=== PATIENT | male | born 1940 | race Caucasian/White ===

== ENCOUNTER → 2018-01-10 16:38 | Outpatient (CLI) | payer OTHER, SELFPAY | PROVIDERS: Family Provider Family Medicine; PCP Family Medicine; Visit Provider Physician Assistant | DX: R30.0 Dysuria (principal); M54.5 Low back pain; R31.9 Hematuria, unspecified | CPT/HCPCS: 87086 ==

== ENCOUNTER → 2018-01-10 16:53 | Outpatient (CLI) | payer OTHER, SELFPAY ==
[2018-01-10 17:09] LABS: Add Manual Diff / Slide Review NO; Basophils Percent Auto 0.3 % (0-2); Eosinophils Percent Auto 0.3 % (2-4); Hematocrit 37.8 % (41-53); Hemoglobin 12.9 g/dL (13.5-17.5); Lymphocytes Percent Auto 10.2 % (25-40); Mean Corpuscular HGB Conc 34.1 % (30-36); Mean Corpuscular Hemoglobin 32.2 PG (26-34); Mean Corpuscular Volume 94.4 fL (80-100); Monocytes Percent Auto 9.2 % (3-14); Neutrophils Absolute Auto 10800 /uL (3000-5900); Platelet Count 285 X10^3/uL (150-400); Red Cell Distribution Width 13.8 % (11.6-14.8); White Blood Cell Count 13.6 X10^3/uL (4.5-11.0)
[2018-01-10 17:21] LABS: Alanine Aminotransferase 25 IU/L (21-72); Albumin 4.6 g/dL (3.5-5.0); Albumin Globulin Ratio 1.4 (1.0-2.8); Alkaline Phosphatase 144 U/L (38-126); Aspartate Aminotransferase 24 IU/L (17-59); Bilirubin Total 0.6 mg/dL (0.2-1.3); Blood Urea Nitrogen 27 mg/dL (9-20); Calcium 9.7 mg/dL (8.4-10.2); Carbon Dioxide 32 mmol/L (22-32); Chloride 98 mmol/L (98-107); Estimated Glomerular Filt Rate 45.3 mL/min (>60); Globulin 3.4 g/dL (1.7-4.1); Glucose 111 mg/dL (80-110); HEMOLYSIS < 15 (0-50); Potassium 4.9 mmol/L (3.4-5.1); Sodium 141 mmol/L (137-145)
== END ==
PROVIDERS: Family Provider Family Medicine; PCP Family Medicine; Visit Provider Physician Assistant
DX: M54.5 Low back pain (principal); R31.9 Hematuria, unspecified
CPT/HCPCS: 36415; 80053; 85025

== ENCOUNTER 2020-09-10 04:26 | Emergency (ER) | payer OTHER, SELFPAY ==
[2020-09-10 04:27] VITALS: BP 157/85; PULSE 99; RESP 18; TEMP 37; O2SAT 99; BMI 44.7
[2020-09-10] MEDS: cephALEXin 250 MG PREPACK 1 BOTTLE MISC (05:02)
--- NOTE | 2020-09-10 05:02 | ED_ITS ---
HPI - Skin/Abscess/Foreign Bdy General Chief complaint: Skin/Abscess/Foreign Body Stated complaint: Right foot pain Time Seen by Provider: 09/10/20 04:31 Source: patient and family Mode of arrival: Ambulatory Limitations: no limitations History of Present Illness HPI narrative: Patient is an 80-year-old male with history of hypertension who presents with right foot pain off and on for about 1 week. He says it started last after working in the garden he was wearing shoes. It got better the next day however the last 3-4 days he has had increasing pain when he walks. He says it is actually on the bottom of this foot at the base of his toes however the top of his foot is erythematous and warm to touch. He has not had any fever or chills erythema seems to be fairly isolated in the forefront of the foot. He denies any injury. He has not taken any Tylenol or ibuprofen for pain. MD complaint: rash Related Data Home Medications Medication Instructions Recorded Confirmed amitriptyline 25 mg tablet 25 mg PO DAILY 01/10/18 01/10/18 ascorbic acid (vitamin C) 1,000 mg 1 gram PO BID tab 01/10/18 01/10/18 tablet aspirin 81 mg tablet,delayed 81 mg PO DAILY 01/10/18 01/10/18 release hydrochlorothiazide 25 mg tablet 25 mg PO DAILY 01/10/18 01/10/18 lisinopril 20 mg tablet 20 mg PO BID tab 01/10/18 01/10/18 multivitamin 1 cap PO DAILY 01/10/18 01/10/18 omega-3 fatty acids 1,000 mg 1,000 mg PO DAILY 01/10/18 01/10/18 capsule tolterodine 4 mg capsule,extended 4 mg PO DAILY 01/10/18 01/10/18 release 24 hr Previous Rx's Medication Instructions Recorded cephalexin 500 mg PO TID 7 Days #21 cap 09/10/20 Allergies Allergy/AdvReac Type Severity Reaction Status Date / Time Mplrxqg-Ebe-Mot Reductase Allergy Mild Elevated Verified 01/10/18 15:38 Inhibitor liver enzymes Review of Systems Review of Systems Narrative: GENERAL: Denies chills, fatigue, malaise, fever, sweats, travel HEENT: Denies sinus pain, ear pain, sore throat, difficulty swallowing, neck pain RESPIRATORY: Denies dyspnea, cough, wheezing, hemoptysis, sputum. CARDIOVASCULAR: Denies chest pain, palpitations, orthopnea, edema GASTROINTESTINAL: Denies nausea, vomiting, abdominal pain, diarrhea, constipation, melena. : Denies dysuria, frequency, incontinence, hematuria, urinary retention, flank pain. MUSCULOSKELETAL: Foot pain SKIN: See HPI NEUROLOGIC: Denies weakness, dizziness, headache, numbness, change in speech, confusion PSYCHIATRIC: No concerning psychosocial issues. 12 point review of systems is negative except for those stated above and HPI Patient History Medical History (Updated 09/10/20 @ 05:03 by Aleena Dillon DO) Hypertension Social History Smoking Status: Never smoker Smoking Status: Never smoker Exam Initial Vital Signs Initial Vital Signs: Vital Signs Temperature 98.6 F 09/10/20 04:27 Pulse Rate 99 H 09/10/20 04:27 Respiratory Rate 18 09/10/20 04:27 Blood Pressure 157/85 H 09/10/20 04:27 Pulse Oximetry 99 09/10/20 04:27 GENERAL: Alert pleasant 80-year-old male CARDIOVASCULAR: peripheral pulses in tact, cap refill <2 sec RESPIRATORY: No respiratory distress, speaks in full sentences without difficulty EXTREMITIES: Normal range of motion, no clubbing or edema. Neurovascularly intact NEUROLOGICAL: Cranial nerves II through XII grossly intact. Normal gait and speech. SKIN: Right foot mild erythema on the dorsal side measuring 5 cm x 3 cm near base of toes it is warm to touch. The complains of tenderness on the plantar side no abnormalities found no fluctuation no puncture wound no laceration no swelling. Course Orders Ordered: Discontinued Medications Cefazolin Sodium (Cephalexin 250 Mg Prepack) 1 bottle MISC SEEINSTR ONE Stop: 09/10/20 04:53 Last Admin: 09/10/20 05:02 Dose: 500 mg Documented by: Ibuprofen (Ibuprofen 400 Mg Tablet) 800 mg PO NOW ONE Stop: 09/10/20 04:53 Last Admin: 09/10/20 05:03 Dose: 800 mg Documented by: Vital Signs Vital signs: Vital Signs - 8 hr 09/10/20 04:27 09/10/20 05:04 Temperature 98.6 F Pulse Rate 99 H 76 Respiratory Rate 18 18 Blood Pressure 157/85 H 130/62 Pulse Oximetry 99 98 MDM - Skin/Abscess/Foreign Bdy MDM Narrative Medical decision making narrative: Patient has warmth and mild erythema to the right foot. Differential includes cellulitis possible gout however seems to be an unlikely location. He has had no injury at this time I do not see need for imaging he has been ambulatory on it for over week. Patient is not septic Discussed with patient antibiotic trial to see if it improves along with warm soaks however if symptoms worsen then he needs to return to the ED. Discharge Plan Departure Patient Disposition: Home Clinical Impression: Cellulitis Qualifiers: Site of cellulitis: extremity Site of cellulitis of extremity: lower extremity Laterality: right Qualified Code(s): L03.115 - Cellulitis of right lower limb Activity Restrictions/Additional Instructions: *You have been diagnosed with cellulitis right foot *What to do: At this time I do believe you have a small infection in the skin of her right foot. You may try soaking it in warm water 1-2 times daily *Continue to take medications as directed Keflex 500 mg 3 times a day for 7 days --> S[facility] Tylenol 650 mg every 4-6 hours if needed for [id number] pain Motrin 600 mg every 6 hours if needed for [id number]-[id number] pain *Follow up with your primary care provider in 2-3 days *Return to ER if you should have increasing redness, increasing pain, or any new, worsening or concerning symptoms Prescriptions: New cephalexin 500 mg capsule 500 mg PO TID 7 Days Qty: 21 RF: 0 No Action ascorbic acid (vitamin C) 1,000 mg tablet 1 gram PO BID RF: 0 omega-3 fatty acids [Fish Oil Concentrate] 1,000 mg capsule 1,000 mg PO DAILY RF: 0 tolterodine 4 mg capsule,extended release 24hr 4 mg PO DAILY RF: 0 lisinopril 20 mg tablet 20 mg PO BID RF: 0 aspirin [Adult Aspirin Regimen] 81 mg tablet,delayed release (DR/EC) 81 mg PO DAILY RF: 0 amitriptyline 25 mg tablet 25 mg PO DAILY RF: 0 hydrochlorothiazide 25 mg tablet 25 mg PO DAILY RF: 0 multivitamin capsule 1 cap PO DAILY RF: 0 Referrals: Abeba Monique DO [Primary Care Provider] -
[2020-09-10] MEDS: IBUPROFEN 400 MG TABLET 800 MG PO (05:03)
[2020-09-10 05:04] VITALS: BP 130/62; PULSE 76; RESP 18; O2SAT 98
== END 2020-09-10 05:19 | disposition home or self-care (01) ==
PROVIDERS: Emergency Provider Emergency Medicine; Family Provider Family Medicine; PCP Family Medicine
DX: L03.115 Cellulitis of right lower limb (principal)
CPT/HCPCS: 99283

== ENCOUNTER 2024-02-07 13:40 | Inpatient (IN) | payer OTHER, SELFPAY ==
[2024-02-07] VITALS (98 sets, daily range): BP systolic 81–171; BP diastolic 40–90; PULSE 42–109; RESP 0–35; TEMP 29–37.2; O2SAT 30–100; BMI 43.8; BMI 42.6
--- NOTE | 2024-02-07 13:56 | EKG_ITS ---
[place] [id number] [address] [place] [id number] Test Date: 2024-02-07 Pat Name: Filemon Moore Department: Room: Gender: Male Clinical Support Nurse: ERNESTINA : 1940 Requested By: Order Number: [id number] Reading MD: Marlo Wilburn Measurements Intervals [place] Rate: 76 P: 39 TN: 230 QRS: 12 QRSD: 174 T: 66 QT: 438 QTc: 492 Interpretive Statements Atrial-sensed ventricular-paced rhythm with prolonged AV conduction Electronically Signed On 02-09-2024 14:43:52 PDT by Marlo Wilburn
--- NOTE | 2024-02-07 13:58 | DI.CT.S_ITS ---
PROCEDURE: CT ABDOMEN PELVIS W CON INDICATIONS: sepsis, 2 week abd post op TECHNIQUE: After the administration of intravenous contrast, axial sections acquired from the lung bases to the pubic symphysis. Coronal and sagittal reformats were performed. For radiation dose reduction, the following was used: automated exposure control, adjustment of mA and/or kV according to patient size. COMPARISON: [facility], CT, CT ANGIO CHEST PE PROTOCOL, 02/07/2024, 15:10. FINDINGS: Image quality: There is streak artifact seen through the upper abdomen. Lower Chest: Small bilateral pleural effusions are seen. Pacer leads are seen. ABDOMEN: Liver: No solid mass. Gallbladder: Layering rim calcified gallstones are seen. No additional CT findings of cholecystitis are seen. Biliary ducts: No biliary dilation. Pancreas: No ductal dilation. Spleen: Size is within normal limits. Adrenal Glands: No adrenal nodules. Kidneys and Ureters: No hydronephrosis. No solid mass. No complex renal cystic lesion which requires follow up. Stomach and Bowel: A moderate volume of stool is seen within the distal colon. The more proximal colon is within normal limits. Within the proximal sigmoid area, there is an anastomotic staple line seen, as on series 2 images 114 throughout 127. No significant regional abnormality is seen. No dilated loops of small bowel are seen. Peritoneum: No abnormal intraperitoneal fluid. No free air. Ventral Wall: Postoperative changes are seen of the anterior abdominal wall, with a mild fluid collection seen on the left, as on series 2, image 136, measuring 5 x 3.3 cm. Rectus diastasis can be seen. No domonique hernia can be seen. Abdominal Nodes: No retroperitoneal or mesenteric adenopathy by size criteria. Vessels: Aorta and inferior vena cava are normal in size. Atherosclerotic calcification is noted. PELVIS: Pelvic Organs: Unremarkable. Bladder: No bladder wall thickening, accounting for underdistention. Pelvic Nodes: No enlarged lymph nodes. Miscellaneous: No inguinal hernias are seen. Bones: No aggressive osseous abnormality. Age-appropriate bony degenerative changes are seen. IMPRESSION: Postoperative changes are seen, with a fluid collection within the left anterior abdominal wall. Postoperative seroma is suspected. Phlegmon is possible. A subcutaneous abscess is also possible, yet considered to be less likely. There is a proximal sigmoid anastomotic staple line, without local complication seen. There is rectus diastasis seen. There is a moderate volume of stool seen within the distal colon. The more proximal colon is within normal limits. Additional findings: Small bilateral pleural effusions Layering gallstones Dictated by: Jon Carbajal M.D. on 02/07/2024 at 14:48 Approved by: Jon Carbajal M.D. on 02/07/2024 at 14:53
--- NOTE | 2024-02-07 13:58 | DI.RAD.S_ITS ---
PROCEDURE: XR CHEST 1V INDICATIONS: sepsis TECHNIQUE: One view of the chest was acquired. COMPARISON: [facility], CR, XR CHEST 2 VIEWS, 12/24/2022, 18:41. [facility], CR, CHEST 2 VIEW, 08/02/2014, 13:00. FINDINGS: Surgical changes and devices: There is a right-sided central line seen, with the tip overlying the inferior aspect of the superior vena cava, 2 cm above the cavoatrial junction. A pacer device is seen. The leads are seen in stable positions. Lungs and pleura: Show prominence can be seen. No pleural effusions or pneumothorax. Mediastinum: Mediastinal contours appear normal. Heart size is moderately enlarged Bones and chest wall: No suspicious bony lesions. Age-appropriate bony degenerative changes are seen. Overlying soft tissues appear unremarkable. IMPRESSION: The tip of the right-sided central line can be seen 2 cm above the john. Cardiomegaly and interstitial prominence. CHF is suspected. Dictated by: Jon Carbajal M.D. on 02/07/2024 at 13:47 Approved by: Jon Carbajal M.D. on 02/07/2024 at 13:48
--- NOTE | 2024-02-07 14:20 | ED.GENADULT ---
HPI - General Adult General Chief complaint: Altered Mental Status Stated complaint: Lethargic Time Seen by Provider: 02/07/24 13:43 Source: patient and EMS History of Present Illness HPI narrative: 83-year-old gentleman with a history, hypertension, coronary artery disease with pacemaker in place, discharged from [facility] on January 31 after complicated exploratory laparotomy with extensive lysis of adhesions, small-bowel resection, omentectomy and placement of mesh and drains on January 22. He was discharge to health system and today was increasingly confused brought to the ER for evaluation. Significantly somnolent, hypoxic, difficulty obtaining peripheral access. Patient was moved to room 1 for more aggressive resuscitation. Central line was placed fluids started antibiotics initiated ABG shows hypoxia and hypercarbia. Started on BiPAP initially. Patient is a full code Related Data Home Medications Medication Instructions Recorded Confirmed amitriptyline 25 mg tablet 25 mg PO DAILY 01/10/18 01/10/18 ascorbic acid (vitamin C) 1,000 mg 1 gram PO BID 01/10/18 01/10/18 tablet aspirin 81 mg tablet,delayed 81 mg PO DAILY 01/10/18 01/10/18 release (Adult Aspirin Regimen) hydrochlorothiazide 25 mg tablet 25 mg PO DAILY 01/10/18 01/10/18 lisinopril 20 mg tablet 20 mg PO BID 01/10/18 01/10/18 multivitamin 1 cap PO DAILY 01/10/18 01/10/18 omega-3 fatty acids 1,000 mg 1,000 mg PO DAILY 01/10/18 01/10/18 capsule (Fish Oil Concentrate) tolterodine 4 mg capsule,extended 4 mg PO DAILY 01/10/18 01/10/18 release 24 hr Allergies Allergy/AdvReac Type Severity Reaction Status Date / Time [id number] Reductase Allergy Mild Elevated Verified 01/10/18 15:38 Inhibitor liver [Mdyusdd-Gxp-Kpm Reductase enzymes Inhibitor] Review of Systems Review of Systems ROS Unobtainable: Unobtainable due to medical condition Patient History Medical History Mobitz II Hypertension Surgical History History of permanent cardiac pacemaker placement H/O abdominal surgery Social History Smoking Status: Never smoker Smoking Status: Never smoker Exam Initial Vital Signs Initial Vital Signs: Vital Signs Blood Pressure 119/57 L 02/07/24 13:50 General: Chronically ill-appearing, in acute distress HEENT: Dry mucous membranes, normal sclera with reactive pupils, Neck: No JVD Respiratory: Lungs difficult to fully auscultate due to body habitus. Poor overall air movement no obvious wheezes, bibasilar crackles and rhonchi Cardiac: Paced rhythm, no murmurs. Abdomen: Obese, not distended, surgical dressing including pratima in place with purulent discharge from the distal portion of the wound appears to have moderate abdominal pain with palpation Skin: Pale he is still perfusing peripherally Neurologic: Moving all extremities, he is confused, responds to painful stimuli Extremities: No trauma, no obvious cellulitis, 1+ bilateral edema Psych: Confused almost point of being obtunded Genital exam: Surgical sutures circumferentially around the portion of the scrotum that would technically be the penile base. Scrotum completely engulfed the penis and can not be retracted over. Unable to visualize the glans or urethral meatus. There are notes in the records that the patient had a circumcision done at admission due to retraction of foreskin. Despite multiple attempts, We are unable to place a Peoples catheter at this time Procedures Central Line Placement Right IJ: Time Out Performed: Yes Patient Placed on Monitor/Pulse Ox: Yes MD Prep: mask, gown and gloves Central Line Prep: Povidone-Iodine 1% and sterile drapes applied Ultrasound Used for Placement: Yes Central Line Lumen Inserted: triple Post Procedure: sutured in place, good blood return, all ports aspirated, flushed, capped, sterile dressing applied and line stabilization device Post Procedure X-Ray: tip of catheter in good position and no pneumothorax seen Patient Tolerated Procedure: Well Complications: none Intubation Time out performed: Yes sedative: Etomidate Mg Given: 20 paralytic: Rocuronium Mg Given: 150 Assist Device Used: fiber optic device ET Tube Size: 8 ET Tube Uncuffed: No Tube Secured Depth (cm): 24 Tube Secured Location: teeth Tube Placement Confirmation: Visualized tube passing through cords, Equal breath sounds bilaterally, No breath sounds over epigastrium, Confirmation by capnometry and Chest Xray Patient Tolerated Procedure: Well Intubation Complications: none Course Orders Ordered: ED Orders 02/07/24 13:58 CT abdomen pelvis w con Stat XR chest 1V Stat EKG-12 Lead Stat 02/07/24 14:10 Blood Culture Stat Complete Blood Count AUTO DIFF Stat Comprehensive Metabolic Panel Stat Lactate (Lactic Acid) Stat Lipase Stat Magnesium Stat Procalcitonin Stat Troponin I Stat 02/07/24 14:17 ABG [Arterial Blood Gas] DAILY BiPAP Ventilatory Support RT PROTOCOL 02/07/24 14:25 Respiratory Panel (Film Array) Stat 02/07/24 14:37 CT angio chest PE protocol Stat 02/07/24 17:43 Chest [XR chest 1V] Stat 02/07/24 17:55 BNP [NT-proBNP (BNP-Adult 18+)] Stat Trop I [Troponin I] Stat 02/07/24 18:20 Urinalysis and Microscopic Stat Hydromorphone HCl (Hydromorphone 0.5 Mg Inj) 0.5 mg IV Q15MIN PRN PRN Reason: Pain, NOREPINEPHRINE BITARTRATE/D5W (Levophed) 4 mg in 250 mls @ 56.472 mls/hr IV TITRATE LU; Protocol Last Titration: 02/07/24 19:35 Dose: 0.025 mcg/kg/min, 14.118 mls/hr Documented By: Titration: 02/07/24 18:58 Dose: 0.025 mcg/kg/min, 14.118 mls/hr Documented By: Titration: 02/07/24 18:26 Dose: 0 mcg/kg/min, 0 mls/hr Documented By: Titration: 02/07/24 16:58 Dose: 0.025 mcg/kg/min, 14.118 mls/hr Documented By: Titration: 02/07/24 16:46 Dose: 0.05 mcg/kg/min, 28.236 mls/hr Documented By: Titration: 02/07/24 15:46 Dose: 0.025 mcg/kg/min, 14.118 mls/hr Documented By: Titration: 02/07/24 15:25 Dose: 0.05 mcg/kg/min, 28.236 mls/hr Documented By: Titration: 02/07/24 14:55 Dose: 0.075 mcg/kg/min, 42.354 mls/hr Documented By: Admin: 02/07/24 14:24 Dose: 0.1 mcg/kg/min, 56.472 mls/hr Documented By: DOROTHY Propofol (Propofol) 1,000 mg in 100 mls @ 4.518 mls/hr IV TITRATE LU; Protocol Last Titration: 02/07/24 19:35 Dose: 5 mcg/kg/min, 4.518 mls/hr Documented By: Admin: 02/07/24 17:30 Dose: 5 mcg/kg/min, 4.518 mls/hr Documented By: TOYIN Discontinued Medications Albuterol/Ipratropium (Albuterol/Ipratropium 3 Ml Ampul) 3 ml INH NOW ONE Stop: 02/07/24 18:47 Etomidate (Etomidate 2 Mg/Ml 10 Ml Vial) 20 mg IV NOW ONE Stop: 02/07/24 19:48 Last Admin: 02/07/24 17:22 Dose: 20 mg Documented By: TOYIN Sodium Chloride (Normal Saline 0.9%) 1,000 mls @ 1,000 mls/hr IV BOLUS ONE Stop: 02/07/24 14:56 Last Infusion: 02/07/24 15:50 Dose: Infused Documented By: Admin: 02/07/24 14:23 Dose: 1,000 mls/hr Documented By: DOROTHY Piperacillin Sod/Tazobactam (Sod 4.5 gm/ Sodium Chloride) 100 mls @ 200 mls/hr IV NOW ONE Stop: 02/07/24 14:18 Last Infusion: 02/07/24 15:21 Dose: Infused Documented By: Admin: 02/07/24 14:38 Dose: 200 mls/hr Documented By: DOROTHY Rocuronium [place] (Rocuronium 50 Mg/5 Ml Inj) 150 mg IV NOW ONE Stop: 02/07/24 19:48 Last Admin: 02/07/24 17:23 Dose: 150 mg Documented By: TOYIN Vital Signs Vital signs: Vital Signs - 8 hr 02/07/24 13:50 02/07/24 13:52 02/07/24 14:00 Temperature Pulse Rate 80 52 L Respiratory Rate 25 H 31 H Blood Pressure 119/57 L Pulse Oximetry 97 Oxygen Delivery Method Fraction of Inspired Oxygen 02/07/24 14:03 02/07/24 14:07 02/07/24 14:07 Temperature 98.4 F Pulse Rate 82 77 Respiratory Rate 22 24 Blood Pressure 119/57 L 116/54 L Pulse Oximetry 80 L 98 Oxygen Delivery Method Room Air Fraction of Inspired Oxygen 02/07/24 14:10 02/07/24 14:10 02/07/24 14:16 Temperature Pulse Rate 42 L Respiratory Rate 28 H Blood Pressure 118/53 L 94/48 L Pulse Oximetry 99 Oxygen Delivery Method Fraction of Inspired Oxygen 02/07/24 14:16 02/07/24 14:18 02/07/24 14:18 Temperature Pulse Rate 42 L Respiratory Rate 26 H 27 H Blood Pressure 100/50 L Pulse Oximetry 98 92 Oxygen Delivery Method Fraction of Inspired Oxygen 02/07/24 14:20 02/07/24 14:20 02/07/24 14:26 Temperature Pulse Rate 85 Respiratory Rate 27 H Blood Pressure 81/40 L 113/46 L Pulse Oximetry 99 Oxygen Delivery Method Fraction of Inspired Oxygen 02/07/24 14:26 02/07/24 14:30 02/07/24 14:30 Temperature Pulse Rate 47 L Respiratory Rate 31 H 21 Blood Pressure 144/63 H Pulse Oximetry 94 95 Oxygen Delivery Method Fraction of Inspired Oxygen 02/07/24 14:35 02/07/24 14:35 02/07/24 14:36 Temperature Pulse Rate 93 H Respiratory Rate 25 H Blood Pressure 132/63 113/46 L Pulse Oximetry 93 Oxygen Delivery Method Fraction of Inspired Oxygen 30 02/07/24 14:46 02/07/24 14:46 02/07/24 14:54 Temperature Pulse Rate 98 H Respiratory Rate 35 H Blood Pressure 97/51 L 149/69 H Pulse Oximetry 93 Oxygen Delivery Method Fraction of Inspired Oxygen 02/07/24 14:54 02/07/24 14:56 02/07/24 14:56 Temperature Pulse Rate 89 90 Respiratory Rate 33 H 30 H Blood Pressure 154/70 H Pulse Oximetry 92 93 Oxygen Delivery Method Fraction of Inspired Oxygen 02/07/24 14:59 02/07/24 14:59 02/07/24 15:00 Temperature Pulse Rate 93 H 93 H Respiratory Rate 31 H 26 H Blood Pressure 152/65 H Pulse Oximetry 93 93 Oxygen Delivery Method Fraction of Inspired Oxygen 02/07/24 15:05 02/07/24 15:05 02/07/24 15:10 Temperature Pulse Rate 87 Respiratory Rate 24 Blood Pressure 102/51 L 113/54 L Pulse Oximetry 91 Oxygen Delivery Method Fraction of Inspired Oxygen 02/07/24 15:10 02/07/24 15:16 02/07/24 15:16 Temperature Pulse Rate 92 H 95 H Respiratory Rate 17 Blood Pressure 127/62 Pulse Oximetry 91 92 Oxygen Delivery Method BiPAP Fraction of Inspired Oxygen 02/07/24 15:21 02/07/24 15:21 02/07/24 15:25 Temperature Pulse Rate 95 H Respiratory Rate Blood Pressure 140/85 142/65 H Pulse Oximetry 94 Oxygen Delivery Method Fraction of Inspired Oxygen 02/07/24 15:25 02/07/24 15:30 02/07/24 15:30 Temperature Pulse Rate 86 83 Respiratory Rate 14 Blood Pressure 155/70 H Pulse Oximetry 93 96 Oxygen Delivery Method Fraction of Inspired Oxygen 02/07/24 15:35 02/07/24 15:35 02/07/24 15:40 Temperature Pulse Rate 75 Respiratory Rate Blood Pressure 149/64 H 141/64 H Pulse Oximetry 94 Oxygen Delivery Method Fraction of Inspired Oxygen 02/07/24 15:40 02/07/24 15:41 02/07/24 15:45 Temperature 98.9 F Pulse Rate 75 Respiratory Rate Blood Pressure 146/63 H Pulse Oximetry 94 Oxygen Delivery Method Fraction of Inspired Oxygen 02/07/24 15:45 02/07/24 15:51 02/07/24 15:51 Temperature Pulse Rate 81 74 Respiratory Rate 14 Blood Pressure 111/53 L Pulse Oximetry 95 95 Oxygen Delivery Method Fraction of Inspired Oxygen 02/07/24 15:55 02/07/24 15:55 02/07/24 15:58 Temperature Pulse Rate 72 Respiratory Rate 14 Blood Pressure 119/57 L 111/53 L Pulse Oximetry 94 Oxygen Delivery Method Fraction of Inspired Oxygen 30 02/07/24 15:59 02/07/24 16:00 02/07/24 16:00 Temperature Pulse Rate 71 72 Respiratory Rate 16 14 20 Blood Pressure 112/54 L Pulse Oximetry 94 94 Oxygen Delivery Method BiPAP Fraction of Inspired Oxygen 02/07/24 16:05 02/07/24 16:05 02/07/24 16:10 Temperature Pulse Rate 72 Respiratory Rate 13 Blood Pressure 112/53 L 108/53 L Pulse Oximetry 94 Oxygen Delivery Method Fraction of Inspired Oxygen 02/07/24 16:10 02/07/24 16:15 02/07/24 16:15 Temperature Pulse Rate 68 67 Respiratory Rate 18 16 Blood Pressure 114/53 L Pulse Oximetry 94 94 Oxygen Delivery Method Fraction of Inspired Oxygen 02/07/24 16:20 02/07/24 16:20 02/07/24 16:25 Temperature Pulse Rate 75 76 Respiratory Rate 15 14 Blood Pressure 122/60 Pulse Oximetry 95 92 Oxygen Delivery Method BiPAP Fraction of Inspired Oxygen 02/07/24 16:25 02/07/24 16:30 02/07/24 16:30 Temperature Pulse Rate 73 Respiratory Rate Blood Pressure 133/60 123/58 L Pulse Oximetry 94 Oxygen Delivery Method Fraction of Inspired Oxygen 02/07/24 16:35 02/07/24 16:35 02/07/24 16:40 Temperature Pulse Rate 69 Respiratory Rate Blood Pressure 120/58 L 102/50 L Pulse Oximetry 95 Oxygen Delivery Method Fraction of Inspired Oxygen 02/07/24 16:40 02/07/24 16:42 02/07/24 16:42 Temperature Pulse Rate 66 65 Respiratory Rate 17 12 Blood Pressure 96/46 L Pulse Oximetry 93 94 Oxygen Delivery Method BiPAP Fraction of Inspired Oxygen 02/07/24 16:45 02/07/24 16:45 02/07/24 16:50 Temperature Pulse Rate 64 Respiratory Rate 19 Blood Pressure 92/44 L 123/59 L Pulse Oximetry 94 Oxygen Delivery Method Fraction of Inspired Oxygen 02/07/24 16:50 02/07/24 16:55 02/07/24 16:55 Temperature Pulse Rate 61 62 Respiratory Rate 14 15 Blood Pressure 130/61 Pulse Oximetry 96 96 Oxygen Delivery Method BiPAP Fraction of Inspired Oxygen 02/07/24 17:55 02/07/24 17:58 02/07/24 17:58 Temperature Pulse Rate 104 H 103 H Respiratory Rate 14 30 H Blood Pressure 167/74 H Pulse Oximetry 100 100 Oxygen Delivery Method Fraction of Inspired Oxygen 02/07/24 18:00 02/07/24 18:00 02/07/24 18:03 Temperature Pulse Rate 106 H Respiratory Rate 25 H Blood Pressure 170/74 H 167/74 H Pulse Oximetry 99 Oxygen Delivery Method Fraction of Inspired Oxygen 02/07/24 18:03 02/07/24 18:05 02/07/24 18:05 Temperature Pulse Rate 109 H 107 H Respiratory Rate 27 H 24 Blood Pressure 166/74 H Pulse Oximetry 98 97 Oxygen Delivery Method Fraction of Inspired Oxygen 02/07/24 18:08 02/07/24 18:08 02/07/24 18:10 Temperature Pulse Rate 101 H Respiratory Rate 13 Blood Pressure 158/71 H 169/76 H Pulse Oximetry 98 Oxygen Delivery Method Fraction of Inspired Oxygen 02/07/24 18:10 02/07/24 18:13 02/07/24 18:13 Temperature Pulse Rate 101 H 101 H Respiratory Rate 0 L 24 Blood Pressure 171/77 H Pulse Oximetry 96 96 Oxygen Delivery Method Fraction of Inspired Oxygen 02/07/24 18:15 02/07/24 18:15 02/07/24 18:18 Temperature Pulse Rate 98 H 93 H Respiratory Rate 24 0 L Blood Pressure 163/73 H Pulse Oximetry 96 95 Oxygen Delivery Method Fraction of Inspired Oxygen 02/07/24 18:18 02/07/24 18:20 02/07/24 18:20 Temperature Pulse Rate 90 Respiratory Rate 0 L Blood Pressure 168/78 H 155/69 H Pulse Oximetry 96 Oxygen Delivery Method Fraction of Inspired Oxygen 02/07/24 18:23 02/07/24 18:23 02/07/24 18:25 Temperature Pulse Rate 87 Respiratory Rate 29 H Blood Pressure 147/64 H 138/62 Pulse Oximetry 96 Oxygen Delivery Method Fraction of Inspired Oxygen 02/07/24 18:25 02/07/24 18:28 02/07/24 18:28 Temperature Pulse Rate 81 78 Respiratory Rate 22 24 Blood Pressure 128/60 Pulse Oximetry 95 96 Oxygen Delivery Method Fraction of Inspired Oxygen Medical Decision Making Lab Data 02/07/24 14:10 02/07/24 14:10 Labs: Lab Results 02/07/24 02/07/24 02/07/24 Range/Units 14:09 14:10 14:25 WBC 13.8 H (4.5-11.0) X10^3/uL RBC 2.52 L (4.5-5.9) X10^6/uL Hgb 7.9 L (13.5-17.5) g/dL Hct 24.6 L (41-53) % MCV 97.7 (80-100) fL MCH 31.5 (26-34) PG MCHC 32.2 (30-36) % RDW 15.2 H (11.6-14.8) % Plt Count 558 H (150-400) X10^3/uL Neut % (Auto) 80.4 H (50-75) % Lymph % (Auto) 9.4 L (25-40) % Ellis % (Auto) 9.3 (3-14) % Eos % (Auto) 0.2 L (2-4) % Baso % (Auto) 0.7 (0-2) % Neut # (Auto) 56249 H (5192-9154) /uL Lymph # (Auto) 1300 (8415-7791) /uL Ellis # (Auto) 1300 H (0-900) /uL Eos # (Auto) 0 (0-450) /uL Baso # (Auto) 100 (0-100) /uL ABG Sample Site Right radial ABG pH 7.34 L (7.35-7.45) ABG pCO2 69.1 H* (35-45) mmHg ABG pO2 68 L (80-100) mmHg ABG HCO3 37 H (23-27) mmol/L ABG Total CO2 38 H (23-27) mmol/L ABG O2 Saturation 91 L (95-100) % ABG Base Excess 9.5 H (-2-3) mmol/L Hayden Test Positive O2 Delivery Device FiO2 % % Sodium 139 (137-145) mmol/L Potassium 3.9 (3.4-5.1) mmol/L Chloride 100 (98-107) mmol/L Carbon Dioxide 34 H (22-32) mmol/L BUN 21 H (9-20) mg/dL Creatinine 1.06 (0.66-1.25) mg/dL Estimated GFR > 60 (>60) mL/min BUN/Creatinine Ratio 19.8 (6-22) Glucose 116 H (80-110) mg/dL Lactate 0.6 L (0.7-2.1) mmol/L Calcium 8.8 (8.4-10.2) mg/dL Magnesium 1.9 (1.6-2.3) mg/dL Total Bilirubin 0.3 (0.2-1.3) mg/dL AST 26 (17-59) IU/L ALT 17 (<50) IU/L Alkaline Phosphatase 99 (38-126) U/L Troponin I 0.027 (0.01-0.034) ng/mL NT-Pro-B Natriuret Pep (<450) pg/mL Total Protein 6.0 L (6.3-8.2) g/dL Albumin 3.1 L (3.5-5.0) g/dL Globulin 2.9 (1.7-4.1) g/dL Albumin/Globulin Ratio 1.1 (1.0-2.8) Lipase 84 (23-300) U/L Procalcitonin 0.114 (<0.5) ng/mL Urine Color Urine Appearance Urine pH (4.5-8.0) Ur Specific [place] (1.000-1.035) Urine Protein (Negative) Urine Glucose (UA) (Negative) g/dL Urine Ketones (NEGATIVE) Urine Occult Blood (Negative) Urine Nitrate (Negative) Urine Bilirubin (NEGATIVE) Urine Urobilinogen (0.2) E.U./dL Ur Leukocyte Esterase (NEGATIVE) Urine RBC (0-5/HPF) Urine WBC (0-5/HPF) Ur Squamous Epith Cells (0-5/HPF) Urine Bacteria (None) Urine Mucus (Negative) Ur Culture Indicated? Vol Urine Centrifuged Chlamy pneumoniae PCR Not detected (Not Detect) Adenovirus (PCR) Not detected (Not Detect) B. pertussis DNA (PCR) Not detected (Not Detect) B.parapertussis DNA PCR Not detected (Not Detecte) Coronavirus OC43 (PCR) Not detected (Not Detect) Coronavirus HKU1 (PCR) Not detected (Not Detect) Coronavirus 229E (PCR) Not detected (Not Detect) SARS-CoV-2 (PCR) Not detected (Not Detecte) Coronavirus NL63 (PCR) Not detected (Not Detect) Human Metapneumovir PCR Not detected (Not Detect) Influenza Type A (PCR) Not detected (Not Detect) Influenza Type B (PCR) Not detected (Not Detect) M. pneumoniae (PCR) Not detected (Not Detect) Parainfluenza 1 (PCR) Not detected (Not Detect) Parainfluenza 2 (PCR) Not detected (Not Detect) Parainfluenza 3 (PCR) Not detected (Not Detect) Parainfluenza 4 (PCR) Not detected (Not Detect) RSV (PCR) Not detected (Not Detect) Entero/Rhino (PCR) Not detected (Not Detect) 02/07/24 02/07/24 02/07/24 Range/Units 15:34 17:55 18:20 WBC (4.5-11.0) X10^3/uL RBC (4.5-5.9) X10^6/uL Hgb (13.5-17.5) g/dL Hct (41-53) % MCV (80-100) fL MCH (26-34) PG MCHC (30-36) % RDW (11.6-14.8) % Plt Count (150-400) X10^3/uL Neut % (Auto) (50-75) % Lymph % (Auto) (25-40) % Ellis % (Auto) (3-14) % Eos % (Auto) (2-4) % Baso % (Auto) (0-2) % Neut # (Auto) (9495-7999) /uL Lymph # (Auto) (5451-8599) /uL Ellis # (Auto) (0-900) /uL Eos # (Auto) (0-450) /uL Baso # (Auto) (0-100) /uL ABG Sample Site ABG pH 7.37 (7.35-7.45) ABG pCO2 58.8 H (35-45) mmHg ABG pO2 72 L (80-100) mmHg ABG HCO3 34 H (23-27) mmol/L ABG Total CO2 34 H (23-27) mmol/L ABG O2 Saturation 93 L (95-100) % ABG Base Excess 7.2 H (-2-3) mmol/L Hayden Test O2 Delivery Device Bipap FiO2 % 30 % % Sodium (137-145) mmol/L Potassium (3.4-5.1) mmol/L Chloride (98-107) mmol/L Carbon Dioxide (22-32) mmol/L BUN (9-20) mg/dL Creatinine (0.66-1.25) mg/dL Estimated GFR (>60) mL/min BUN/Creatinine Ratio (6-22) Glucose (80-110) mg/dL Lactate (0.7-2.1) mmol/L Calcium (8.4-10.2) mg/dL Magnesium (1.6-2.3) mg/dL Total Bilirubin (0.2-1.3) mg/dL AST (17-59) IU/L ALT (<50) IU/L Alkaline Phosphatase (38-126) U/L Troponin I 0.034 (0.01-0.034) ng/mL NT-Pro-B Natriuret Pep 4230 H (<450) pg/mL Total Protein (6.3-8.2) g/dL Albumin (3.5-5.0) g/dL Globulin (1.7-4.1) g/dL Albumin/Globulin Ratio (1.0-2.8) Lipase (23-300) U/L Procalcitonin (<0.5) ng/mL Urine Color Yellow Urine Appearance Sl cloudy Urine pH 5.0 (4.5-8.0) Ur Specific [place] 1.025 (1.000-1.035) Urine Protein 1+ H (Negative) Urine Glucose (UA) Negative (Negative) g/dL Urine Ketones Negative (NEGATIVE) Urine Occult Blood 3+ H (Negative) Urine Nitrate Negative (Negative) Urine Bilirubin Negative (NEGATIVE) Urine Urobilinogen 0.2 (0.2) E.U./dL Ur Leukocyte Esterase Negative (NEGATIVE) Urine RBC 10-30/hpf H (0-5/HPF) Urine WBC 0-1/hpf (0-5/HPF) Ur Squamous Epith Cells 0-1 /hpf (0-5/HPF) Urine Bacteria Few (2-10) H (None) Urine Mucus 1+ H (Negative) Ur Culture Indicated? Cult not indicated Vol Urine Centrifuged Low vol <10ml (spun) A Chlamy pneumoniae PCR (Not Detect) Adenovirus (PCR) (Not Detect) B. pertussis DNA (PCR) (Not Detect) B.parapertussis DNA PCR (Not Detecte) Coronavirus OC43 (PCR) (Not Detect) Coronavirus HKU1 (PCR) (Not Detect) Coronavirus 229E (PCR) (Not Detect) SARS-CoV-2 (PCR) (Not Detecte) Coronavirus NL63 (PCR) (Not Detect) Human Metapneumovir PCR (Not Detect) Influenza Type A (PCR) (Not Detect) Influenza Type B (PCR) (Not Detect) M. pneumoniae (PCR) (Not Detect) Parainfluenza 1 (PCR) (Not Detect) Parainfluenza 2 (PCR) (Not Detect) Parainfluenza 3 (PCR) (Not Detect) Parainfluenza 4 (PCR) (Not Detect) RSV (PCR) (Not Detect) Entero/Rhino (PCR) (Not Detect) Point of Care Testing Glucose POC 125 Point of care testing: Point of Care Testing Glucose POC 125 MDM Narrative Medical decision making narrative: CC: Increasing confusion weakness rapidly progressing to decreased responsiveness Complicating co-morbidities: Patient comes [facility]. Was at [facility] from January 22 through the with complicated abdominal surgery mesh placement, lysis of adhesions, small-bowel resection and circumcision. Data collected from: patient, medics, Medical records reviewed: Medical records from [facility] with his extensive hospitalization post abdominal surgery reviewed Patient is full code including intubation Differential considered: Sepsis, intra-abdominal abscess, hypercarbic hypoxic respiratory failure, viral syndrome, postoperative hemorrhage, congestive heart failure, pulmonary embolism Exam documented above, pertinent findings include: Patient is morbidly obese, pale, minimally responsive. Exam is difficult secondary to body habitus, I do not appreciate significant pulmonary abnormality however overall air movement is limited. No murmurs, he does not have JVD. With ultrasound evaluation of internal jugular vein. It is full but slightly compressible suggesting he is euvolemic. He does have 1+ lower extremity edema. Lab Test results independently reviewed as above. Pertinent findings: CBC is 13.8. Hemoglobin of 7.9 and 24.6. Comparison H&H on February 01 is 7.9 and 26 Chemistries are notable for appropriate renal function, slightly elevated carbon dioxide, normal electrolytes, no liver abnormalities Lactic acid is not elevated Initial troponin is undetectable 0.027 repeat is 0.034 ProBNP is slightly elevated at 4230 Procalcitonin is not significantly elevated Respiratory panel shows no viral etiology Urinalysis from catheterized sample shows red cells some bacteria no white cells no leukocyte esterase, do not suspect urinary tract infection Initial ABG had a pH of 7.34 with a CO2 of 69, O2 of 68 bicarb of 37 BiPAP was started Repeat shows slight change from CO2 from 69 down to 58 with the addition of BiPAP however respiratory drive and rate is decreasing with impending respiratory failure, decision made to intubate Independently reviewed EKG: Atrial since ventricular paced rhythm at a rate of 76 Imaging studies independently reviewed: Chest x-ray shows no effusions or obvious pneumothorax. Central line appropriately placed Post intubation chest x-ray shows appropriately placed ET tube CT chest angio PE study does not show significant pulmonary embolism. Mentions small bilateral pleural effusions with overlying atelectasis. No focal infiltrates. Slightly enlarged heart without pericardial effusion CT of the abdomen and pelvis shows put postoperative changes anterior abdominal wall with mild fluid collection measuring 5 x 3.3 cm without domonique hernia. Proximal sigmoid anastomotic staple line without local complication. Moderate volume of stool. No intra-abdominal abscess or obvious explanation for worsening clinical exam Consultations: Dr. Mae, general surgeon. He did evaluate the patient in the emergency department pratima in the lower portion of the wound are removed 3 packed. Mesh was visible at the base of the wound. He did not feel that this was significant cellulitis or perioperative infection that might be causing the severity of overall clinical presentation. He will continue to consult with hospitalization Treatments: Central line placement for vascular access and ability to use vasopressors Intubation due to hypoxic hypercarbic respiratory failure with increasing respiratory fatigue Position assisted Peoples catheter placement, post adult circumcision with postsurgical anatomy and penis that needed to be identified via ultrasound to find that urethral meatus with fingertip guided catheter into the urethral meatus Patient was given a single L of fluid with additional fluid held in light of possible congestive heart failure, pressors added for continued hypotension Antibiotics given with presumed sepsis, uncertain source Sedation post intubation DuoNeb for wheezing post intubation Re-evaluations: Throughout his emergency room visit there was no obvious localizing explanation for his deteriorating clinical course. Surgical consultation regarding surgical site and possibility of surgical site infection obtained. Clarified with the patient's that he truly wanted to be full code with intubation. Consultation with hospitalist for admission to the intensive care unit. Discussion: 83-year-old gentleman with significant hypotension, hypercarbic and hypoxic respiratory failure concerns for sepsis with no obvious infectious site or intra-abdominal abscess. No evidence of pulmonary embolism, mild congestive heart failure. Overall picture is certainly concerning with clearly deteriorating clinical picture after large surgical intervention. Severity of presentation and high possibility of mortality is reviewed with the . Patient is transferred to the intensive care unit in critical condition Additional Information: 425pm Dr Tu nunez. Opened and packed lower end of wound, fluid was clear and thin. Mesh was visible in the base. He re packed the wound. Critical Care Time Critical Care Time Critical Care Time: Yes Total Critical Care Time: 67 Attestation: Critical care time is separate from other billable procedures. There is a high probability of a significant, sudden or life-threatening deterioration that requires my full and direct attention, intervention and personal management. This critical care time includes consultation with family and other consulting doctors, review of records, and interpretation of data from labs, EKGs and imaging as well as managements of respiratory failure circulatory failure with ventilator management, IV medications for severe hypotension, IV antibiotics Discharge Plan Departure Patient Disposition: Admitted As Inpatient Clinical Impression: Delirium due to general medical condition Hypercapnic respiratory failure Qualifiers: Chronicity: acute on chronic Qualified Code(s): J96.22 - Acute and chronic respiratory failure with hypercapnia Altered mental status Qualifiers: Altered mental status type: unspecified Qualified Code(s): R41.82 - Altered mental status, unspecified Abdominal wound dehiscence Qualifiers: Encounter type: initial encounter Qualified Code(s): T81.321A - Disruption or dehiscence of closure of internal operation (surgical) wound of abdominal wall muscle or fascia, initial encounter Congestive heart failure Qualifiers: Heart failure type: unspecified Heart failure chronicity: acute Qualified Code(s): I50.9 - Heart failure, unspecified Admit Date/Time: 02/07/24 18:29 Admit Provider: Marlo Wilburn
[2024-02-07] MEDS: SODIUM CHLORIDE 0.9% 1,000 ML 1000 ML IV (14:23)
[2024-02-07] MEDS: NOREPINEPHRINE BITARTRATE/D5W 4 MG/250 ML PLAST..BAG 56.472 MG IV (14:24)
[2024-02-07 14:26] LABS: Add Manual Diff / Slide Review NO; Basophils Absolute Auto 100 /uL (0-100); Basophils Percent Auto 0.7 % (0-2); Eosinophils Absolute Auto 0 /uL (0-450); Eosinophils Percent Auto 0.2 % (2-4); Hematocrit 24.6 % (41-53); Hemoglobin 7.9 g/dL (13.5-17.5); Lymphocytes Absolute Auto 1300 /uL (1100-4500); Lymphocytes Percent Auto 9.4 % (25-40); Mean Corpuscular HGB Conc 32.2 % (30-36); Mean Corpuscular Hemoglobin 31.5 PG (26-34); Mean Corpuscular Volume 97.7 fL (80-100); Monocytes Absolute Auto 1300 /uL (0-900); Monocytes Percent Auto 9.3 % (3-14); Neutrophils Absolute Auto 11100 /uL (1500-7000); Neutrophils Percent Auto 80.4 % (50-75); Platelet Count 558 X10^3/uL (150-400); Red Blood Cell Count 2.52 X10^6/uL (4.5-5.9); Red Cell Distribution Width 15.2 % (11.6-14.8); White Blood Cell Count 13.8 X10^3/uL (4.5-11.0)
[2024-02-07 14:33] LABS: Alanine Aminotransferase 17 IU/L (<50); Albumin 3.1 g/dL (3.5-5.0); Albumin Globulin Ratio 1.1 (1.0-2.8); Alkaline Phosphatase 99 U/L (38-126); Aspartate Aminotransferase 26 IU/L (17-59); BUN Creatinine Ratio 19.8 (6-22); Bilirubin Total 0.3 mg/dL (0.2-1.3); Blood Urea Nitrogen 21 mg/dL (9-20); Calcium 8.8 mg/dL (8.4-10.2); Chloride 100 mmol/L (98-107); Estimated Glomerular Filt Rate > 60 mL/min (>60); Globulin 2.9 g/dL (1.7-4.1); Glucose 116 mg/dL (80-110); HEMOLYSIS < 15 (0-50); Lipase 84 U/L (23-300); Magnesium 1.9 mg/dL (1.6-2.3); Potassium 3.9 mmol/L (3.4-5.1); Sodium 139 mmol/L (137-145)
[2024-02-07 14:34] LABS: Lactate (Lactic Acid) 0.6 mmol/L (0.7-2.1)
[2024-02-07 14:35] LABS: Allen Test for ABG Passed? Positive; Base Excess ABG 9.5 mmol/L (-2-3); Blood Gas Collection Site Right Radial; HCO3 ABG 37 mmol/L (23-27); Oxygen Saturation ABG 91 % (95-100); PCO2 ABG 69.1 mmHg (35-45); PO2 ABG 68 mmHg (80-100); TCO2 ABG 38 mmol/L (23-27); pH ABG 7.34 (7.35-7.45)
--- NOTE | 2024-02-07 14:37 | DI.CT.S_ITS ---
PROCEDURE: CT ANGIO CHEST PE PROTOCOL INDICATIONS: respiratory failure TECHNIQUE: After the administration of intravenous contrast, 2 mm thick sections acquired from the pulmonary apices to the posterior costophrenic angles. 3-dimensional maximum intensity projection (MIP) coronal and sagittal reformats were then acquired through the thorax. For radiation dose reduction, the following was used: automated exposure control, adjustment of mA and/or kV according to patient size. COMPARISON: [facility], CT, CT ABDOMEN PELVIS W CON, 02/07/2024, 15:10. [facility], CR, XR CHEST 1V, 02/07/2024, 14:12. FINDINGS: Image quality: This study is limited by body habitus. Limited by bolus timing. Pulmonary arteries: The bolus of the contrast injection is suboptimal. The main pulmonary artery measures approximately 150 Hounsfield units. Pulmonary artery densities are greater than 250 Hounsfield units are considered to be ideal for evaluation of pulmonary embolism. However, no large or central pulmonary emboli are seen on these images. No pulmonary emboli are seen more distally, although sensitivity for detection of such is limited on this study. Lower Neck: No enlarged lymph nodes. Thyroid: No thyroid nodules which require sonographic follow up, per consensus guidelines. Axillae: No enlarged lymph nodes. Chest Wall: There is a left-sided pacer device. Bones: Age-appropriate bony degenerative changes are seen. Lungs and Pleura: Small bilateral pleural effusions are seen, with overlying atelectasis. There is a mild degree of thickening seen along the right oblique fissure, as on series 5, image 143 and on series 6, image 55, which is regarded to be benign. No suspicious pulmonary nodule is seen. No pneumothorax is seen. No focal infiltrates are seen. Heart: Heart size is mildly enlarged. No pericardial effusion. Thoracic Vessels: No aortic aneurysm. Mediastinum and Krystina: No enlarged lymph nodes. Esophagus: No wall thickening. No hiatal hernia. Upper Abdomen: Please see the accompanying CT report of the abdomen and pelvis. IMPRESSION: Study limited by bolus timing, yet without a large or central pulmonary embolism seen. Small bilateral pleural effusions are seen, with overlying atelectasis. There is mild cardiomegaly. Additional findings: Pacer device Dictated by: Jon Carbajal M.D. on 02/07/2024 at 14:53 Approved by: Jon Carbajal M.D. on 02/07/2024 at 14:56
[2024-02-07] MEDS: PIPERACILLIN/TAZO 4.5 GM in SODIUM CHLORIDE 0.9% 100 ML IV (14:38)
[2024-02-07 14:39] LABS: Carbon Dioxide 34 mmol/L (22-32)
[2024-02-07 14:46] LABS: Troponin I 0.027 ng/mL (0.01-0.034)
[2024-02-07 14:50] LABS: Procalcitonin 0.114 ng/mL (<0.5)
--- NOTE | 2024-02-07 14:50 | PC.NURSE ---
This RN attempts a camacho cath at provider Marisela's verbal direction. Recent procedure with sutures present. Unable to visualize penis even with repositioning. Provider Marisela made aware. She comes to bedside. She attempts camacho with no success. Ok to with hold camacho cath at this time per provider Marisela.
[2024-02-07 15:22] LABS: Adenovirus Not Detected (Not Detect); B. parapertussis Not Detected (Not Detecte); Bordetella pertussis Not Detected (Not Detect); Chlamydophila pneumoniae Not Detected (Not Detect); Coronavirus 229E Not Detected (Not Detect); Coronavirus HKU1 Not Detected (Not Detect); Coronavirus NL 63 Not Detected (Not Detect); Coronavirus OC43 Not Detected (Not Detect); Human Metapneumovirus Not Detected (Not Detect); Human Rhinovirus/Enterovirus Not Detected (Not Detect); Influenza A Not Detected (Not Detect); Influenza B Not Detected (Not Detect); Mycoplasma pneumoniae Not Detected (Not Detect); Parainfluenza Virus 1 Not Detected (Not Detect); Parainfluenza Virus 2 Not Detected (Not Detect); Parainfluenza Virus 3 Not Detected (Not Detect); Parainfluenza Virus 4 Not Detected (Not Detect); Respiratory Syncytial Virus Not Detected (Not Detect); SARS- CoV-2 Not Detected (Not Detecte)
--- NOTE | 2024-02-07 15:34 | PC.NURSE ---
Pt is in and out of responsiveness. Both eyes are 1mm and unreactive to light. Provider Marisela is made aware. RT remains at bedside with this RN.
[2024-02-07 15:39] LABS: Base Excess ABG 7.2 mmol/L (-2-3); Delivery System BiPAP; HCO3 ABG 34 mmol/L (23-27); Oxygen Saturation ABG 93 % (95-100); PCO2 ABG 58.8 mmHg (35-45); PO2 ABG 72 mmHg (80-100); TCO2 ABG 34 mmol/L (23-27); pH ABG 7.37 (7.35-7.45)
--- NOTE | 2024-02-07 16:20 | PC.NURSE ---
Upon request of patient's primary RN, this RN performed an additional pupillary reaction test. Patient's pupils responded to light when room was darkened (3 to 2 mm) but patient is non-responsive to verbal or physical stimuli; does not visually track.
--- NOTE | 2024-02-07 16:36 | PM.CN ---
History of Present Illness Consult details Date Patient Seen: 02/07/24 Time Patient Seen: 16:36 Chief complaint: Lethargic Reason for consult: Lethargy Narrative: Filemon is an 83-year-old man who presented from [facility] for progressive obtundation over the past several days. This history is obtained primarily through his and [facility]. Apparently Filemon had an emergency exploratory laparotomy, small-bowel resection and hernia repair with mesh by Dr. [facility] weeks ago. According to Filemon's he had a portion of necrotic small bowel that was resected. The surgeon use prosthetic mesh because they did not have any alternative. He had 2 drains for awhile that have subsequently been removed. She noticed that he was becoming more confused and lethargic over the past several days at [facility]. Since he has been here he was required noninvasive positive pressure ventilation but he remains obtunded. He has undergone a CT scan which shows no intra-abdominal abscess and some small fluid in the subcutaneous space. There is no bowel obstruction. There is no obvious recurrent hernia. I have seen the discharge summary from [facility] but not the operative note. A request has been sent out to get the op note to us. Meds Home Medications and Allergies Home Medications Medication Instructions Recorded Confirmed Type amitriptyline 25 mg tablet 25 mg PO DAILY 01/10/18 01/10/18 History ascorbic acid (vitamin C) 1,000 mg 1 gram PO BID 01/10/18 01/10/18 History tablet aspirin 81 mg tablet,delayed 81 mg PO DAILY 01/10/18 01/10/18 History release (Adult Aspirin Regimen) hydrochlorothiazide 25 mg tablet 25 mg PO DAILY 01/10/18 01/10/18 History lisinopril 20 mg tablet 20 mg PO BID 01/10/18 01/10/18 History multivitamin 1 cap PO DAILY 01/10/18 01/10/18 History omega-3 fatty acids 1,000 mg 1,000 mg PO DAILY 01/10/18 01/10/18 History capsule (Fish Oil Concentrate) tolterodine 4 mg capsule,extended 4 mg PO DAILY 01/10/18 01/10/18 History release 24 hr Allergies Allergy/AdvReac Type Severity Reaction Status Date / Time Kimscnn-UQI-RzU Reductase Allergy Mild Elevated Verified 09/30/18 15:38 Inhibitor liver [Qdqvgub-Utz-Yff Reductase enzymes Inhibitor] Exam Vital Signs (past 8 hours): - 02/07/24 13:50 02/07/24 13:52 02/07/24 14:00 Temperature Pulse Rate 80 52 L Respiratory Rate 25 H 31 H Blood Pressure 119/57 L Pulse Oximetry 97 Oxygen Delivery Method Fraction of Inspired Oxygen 02/07/24 14:03 02/07/24 14:07 02/07/24 14:07 Temperature 98.4 F Pulse Rate 82 77 Respiratory Rate 22 24 Blood Pressure 119/57 L 116/54 L Pulse Oximetry 80 L 98 Oxygen Delivery Method Room Air Fraction of Inspired Oxygen 02/07/24 14:10 02/07/24 14:10 02/07/24 14:16 Temperature Pulse Rate 42 L Respiratory Rate 28 H Blood Pressure 118/53 L 94/48 L Pulse Oximetry 99 Oxygen Delivery Method Fraction of Inspired Oxygen 02/07/24 14:16 02/07/24 14:18 02/07/24 14:18 Temperature Pulse Rate 42 L Respiratory Rate 26 H 27 H Blood Pressure 100/50 L Pulse Oximetry 98 92 Oxygen Delivery Method Fraction of Inspired Oxygen 02/07/24 14:20 02/07/24 14:20 02/07/24 14:26 Temperature Pulse Rate 85 Respiratory Rate 27 H Blood Pressure 81/40 L 113/46 L Pulse Oximetry 99 Oxygen Delivery Method Fraction of Inspired Oxygen 02/07/24 14:26 02/07/24 14:30 02/07/24 14:30 Temperature Pulse Rate 47 L Respiratory Rate 31 H 21 Blood Pressure 144/63 H Pulse Oximetry 94 95 Oxygen Delivery Method Fraction of Inspired Oxygen 02/07/24 14:35 02/07/24 14:35 02/07/24 14:36 Temperature Pulse Rate 93 H Respiratory Rate 25 H Blood Pressure 132/63 113/46 L Pulse Oximetry 93 Oxygen Delivery Method Fraction of Inspired Oxygen 30 02/07/24 14:46 02/07/24 14:46 02/07/24 14:54 Temperature Pulse Rate 98 H Respiratory Rate 35 H Blood Pressure 97/51 L 149/69 H Pulse Oximetry 93 Oxygen Delivery Method Fraction of Inspired Oxygen 02/07/24 14:54 02/07/24 14:56 02/07/24 14:56 Temperature Pulse Rate 89 90 Respiratory Rate 33 H 30 H Blood Pressure 154/70 H Pulse Oximetry 92 93 Oxygen Delivery Method Fraction of Inspired Oxygen 02/07/24 14:59 02/07/24 14:59 02/07/24 15:00 Temperature Pulse Rate 93 H 93 H Respiratory Rate 31 H 26 H Blood Pressure 152/65 H Pulse Oximetry 93 93 Oxygen Delivery Method Fraction of Inspired Oxygen 02/07/24 15:05 02/07/24 15:05 02/07/24 15:10 Temperature Pulse Rate 87 Respiratory Rate 24 Blood Pressure 102/51 L 113/54 L Pulse Oximetry 91 Oxygen Delivery Method Fraction of Inspired Oxygen 02/07/24 15:10 02/07/24 15:16 02/07/24 15:16 Temperature Pulse Rate 92 H 95 H Respiratory Rate 17 Blood Pressure 127/62 Pulse Oximetry 91 92 Oxygen Delivery Method BiPAP Fraction of Inspired Oxygen 02/07/24 15:21 02/07/24 15:21 02/07/24 15:25 Temperature Pulse Rate 95 H Respiratory Rate Blood Pressure 140/85 142/65 H Pulse Oximetry 94 Oxygen Delivery Method Fraction of Inspired Oxygen 02/07/24 15:25 02/07/24 15:30 02/07/24 15:30 Temperature Pulse Rate 86 83 Respiratory Rate 14 Blood Pressure 155/70 H Pulse Oximetry 93 96 Oxygen Delivery Method Fraction of Inspired Oxygen 02/07/24 15:35 02/07/24 15:35 02/07/24 15:40 Temperature Pulse Rate 75 Respiratory Rate Blood Pressure 149/64 H 141/64 H Pulse Oximetry 94 Oxygen Delivery Method Fraction of Inspired Oxygen 02/07/24 15:40 02/07/24 15:41 02/07/24 15:45 Temperature 98.9 F Pulse Rate 75 Respiratory Rate Blood Pressure 146/63 H Pulse Oximetry 94 Oxygen Delivery Method Fraction of Inspired Oxygen 02/07/24 15:45 02/07/24 15:51 02/07/24 15:51 Temperature Pulse Rate 81 74 Respiratory Rate 14 Blood Pressure 111/53 L Pulse Oximetry 95 95 Oxygen Delivery Method Fraction of Inspired Oxygen 02/07/24 15:55 02/07/24 15:55 02/07/24 15:58 Temperature Pulse Rate 72 Respiratory Rate 14 Blood Pressure 119/57 L 111/53 L Pulse Oximetry 94 Oxygen Delivery Method Fraction of Inspired Oxygen 30 02/07/24 15:59 02/07/24 16:00 02/07/24 16:00 Temperature Pulse Rate 71 72 Respiratory Rate 16 14 20 Blood Pressure 112/54 L Pulse Oximetry 94 94 Oxygen Delivery Method BiPAP Fraction of Inspired Oxygen 02/07/24 16:05 02/07/24 16:05 02/07/24 16:10 Temperature Pulse Rate 72 Respiratory Rate 13 Blood Pressure 112/53 L 108/53 L Pulse Oximetry 94 Oxygen Delivery Method Fraction of Inspired Oxygen 02/07/24 16:10 02/07/24 16:15 02/07/24 16:15 Temperature Pulse Rate 68 67 Respiratory Rate 18 16 Blood Pressure 114/53 L Pulse Oximetry 94 94 Oxygen Delivery Method Fraction of Inspired Oxygen 02/07/24 16:20 02/07/24 16:20 Temperature Pulse Rate 75 Respiratory Rate 15 Blood Pressure 122/60 Pulse Oximetry 95 Oxygen Delivery Method BiPAP Fraction of Inspired Oxygen Fraction of Inspired Oxygen 30 Oxygen Delivery Method BiPAP Narrative Exam Narrative: Obtunded There was some mild erythema around the lower portion of the incision with some clear fluid drainage There are wounds in the left abdomen is suggestive of recent drains that had been removed Upon removing several sutures and pratima from the lower portion of the wound a proximally 10 mL of clear fluid were drained and some synthetic mesh is visible at the base of the wound Objective Labs 02/07/24 14:10 02/07/24 14:10 Labs: Laboratory Results - last 24 hr 02/07/24 02/07/24 02/07/24 14:09 14:10 14:25 WBC 13.8 H RBC 2.52 L Hgb 7.9 L Hct 24.6 L MCV 97.7 MCH 31.5 MCHC 32.2 RDW 15.2 H Plt Count 558 H Neut % (Auto) 80.4 H Lymph % (Auto) 9.4 L Hockley % (Auto) 9.3 Eos % (Auto) 0.2 L Baso % (Auto) 0.7 Neut # (Auto) 23980 H Lymph # (Auto) 1300 Hockley # (Auto) 1300 H Eos # (Auto) 0 Baso # (Auto) 100 ABG Sample Site Right radial ABG pH 7.34 L ABG pCO2 69.1 H* ABG pO2 68 L ABG HCO3 37 H ABG Total CO2 38 H ABG O2 Saturation 91 L ABG Base Excess 9.5 H Hayden Test Positive O2 Delivery Device FiO2 % Sodium 139 Potassium 3.9 Chloride 100 Carbon Dioxide 34 H BUN 21 H Creatinine 1.06 Estimated GFR > 60 BUN/Creatinine Ratio 19.8 Glucose 116 H Lactate 0.6 L Calcium 8.8 Magnesium 1.9 Total Bilirubin 0.3 AST 26 ALT 17 Alkaline Phosphatase 99 Troponin I 0.027 Total Protein 6.0 L Albumin 3.1 L Globulin 2.9 Albumin/Globulin Ratio 1.1 Lipase 84 Procalcitonin 0.114 Chlamy pneumoniae PCR Not detected Adenovirus (PCR) Not detected B. pertussis DNA (PCR) Not detected B.parapertussis DNA PCR Not detected Coronavirus OC43 (PCR) Not detected Coronavirus HKU1 (PCR) Not detected Coronavirus 229E (PCR) Not detected SARS-CoV-2 (PCR) Not detected Coronavirus NL63 (PCR) Not detected Human Metapneumovir PCR Not detected Influenza Type A (PCR) Not detected Influenza Type B (PCR) Not detected M. pneumoniae (PCR) Not detected Parainfluenza 1 (PCR) Not detected Parainfluenza 2 (PCR) Not detected Parainfluenza 3 (PCR) Not detected Parainfluenza 4 (PCR) Not detected RSV (PCR) Not detected Entero/Rhino (PCR) Not detected 02/07/24 15:34 WBC RBC Hgb Hct MCV MCH MCHC RDW Plt Count Neut % (Auto) Lymph % (Auto) Hockley % (Auto) Eos % (Auto) Baso % (Auto) Neut # (Auto) Lymph # (Auto) Hockley # (Auto) Eos # (Auto) Baso # (Auto) ABG Sample Site ABG pH 7.37 ABG pCO2 58.8 H ABG pO2 72 L ABG HCO3 34 H ABG Total CO2 34 H ABG O2 Saturation 93 L ABG Base Excess 7.2 H Hayden Test O2 Delivery Device Bipap FiO2 % 30 % Sodium Potassium Chloride Carbon Dioxide BUN Creatinine Estimated GFR BUN/Creatinine Ratio Glucose Lactate Calcium Magnesium Total Bilirubin AST ALT Alkaline Phosphatase Troponin I Total Protein Albumin Globulin Albumin/Globulin Ratio Lipase Procalcitonin Chlamy pneumoniae PCR Adenovirus (PCR) B. pertussis DNA (PCR) B.parapertussis DNA PCR Coronavirus OC43 (PCR) Coronavirus HKU1 (PCR) Coronavirus 229E (PCR) SARS-CoV-2 (PCR) Coronavirus NL63 (PCR) Human Metapneumovir PCR Influenza Type A (PCR) Influenza Type B (PCR) M. pneumoniae (PCR) Parainfluenza 1 (PCR) Parainfluenza 2 (PCR) Parainfluenza 3 (PCR) Parainfluenza 4 (PCR) RSV (PCR) Entero/Rhino (PCR) [facility] Medical History (Updated 02/07/24 @ 16:41 by Saeid Mae MD) Hypertension Surgical History (Updated 02/07/24 @ 14:23 by Laure Antonio MD) H/O abdominal surgery Tobacco & Substance Use Smoking Status: Never smoker Assessment & Plan Assessment and plan (1) Hypercapnic respiratory failure: Qualifiers: Chronicity: acute Qualified Code(s): J96.02 - Acute respiratory failure with hypercapnia Status: Acute Plan Several sutures and pratima were removed from the inferior portion of the wound which allowed about 10 mL of clear fluid to drain. The wound was then packed with dry gauze. There is no obvious intra-abdominal source of sepsis. I believe it is unlikely that his respiratory failure is due to a superficial wound infection as there was minimal erythema around the incision and the fluid that was expressed is clear. In any case the prosthetic mesh is now visible and was likely contaminated by bacteria prior to opening the skin. In any case the wound is open now and packed with gauze so it should not be a cause of any clinically significant sepsis. If his prognosis improves he can have explantation of the synthetic mesh and if it was in a bridging position it could be replaced by a biologic mesh. If it was simply an onlay I would choose to leave the wound open to heal by secondary intention. Once we receive the operative note I will have a better idea about the need for a biological mesh. For now I recommend broad-spectrum antibiotics and daily dressing changes to the open portion of the wound. Time-Based Coding :: [TOTAL MINUTES] spent with patient and on the chart (including review of chart, obtaining history, exam, reviewing outside data, placing orders, documenting exam and treatment plan, and counseling patient) on [DATE].
--- NOTE | 2024-02-07 16:46 | PC.NURSE ---
BiPap alarms. RT Layne called to bedside. He makes appropriate adjustments.
--- NOTE | 2024-02-07 16:59 | PC.NURSE ---
Provider Marisela is aware of patient presentation and RT report. Per Marisela plan is to intubate. This RN and RT Roverto prepare rooms and supplies for intubation.
[2024-02-07] MEDS: ETOMIDATE 2 MG/ML 10 ML VIAL 20 MG IV (17:22)
[2024-02-07] MEDS: ROCURONIUM 50 MG/5 ML INJ 150 MG IV (17:23)
--- NOTE | 2024-02-07 17:23 | PC.NURSE ---
Patient intubated at 1723. This RN, RN Mnada, RN Elysia, RT Kevin, RT Roverto, BALAJI Pérez and provider Marisela all present. 8.0 tube and 25cm at the teeth. NG placed per verbal direction of provider Marisela after tube secured. Waiting confirmation of chest x-ray to order to delivery supervisor to suction.
[2024-02-07] MEDS: propofoL 1,000 MG/100 ML VIAL 4.518 MG IV (17:30)
--- NOTE | 2024-02-07 17:43 | DI.RAD.S_ITS ---
PROCEDURE: XR CHEST 1V INDICATIONS: confirm ET and NG tube TECHNIQUE: One view of the chest was acquired. COMPARISON: [facility], CT, CT ABDOMEN PELVIS W CON, 02/07/2024, 15:10. [facility], CR, XR CHEST 1V, 02/07/2024, 14:12. FINDINGS: Surgical changes and devices: An endotracheal tube is seen, with the tip 3-4 cm above the john. A gastric tube is seen, with the tip not visible, yet traversing below the level of the diaphragm. There is a stable right-sided central line. A pacer device is seen. Lungs and pleura: Lungs are clear. No large pneumothorax or large pleural effusions are seen. Mediastinum: The cardiac contours are within normal limits. The aorta demonstrates calcification and tortuosity. Bones and chest wall: No suspicious bony lesions. Overlying soft tissues appear unremarkable. IMPRESSION: The tip of the endotracheal tube is seen 3-4 cm above the john. The tip of the gastric tube is not seen within the field of view of this study, yet it traverses below the level of the diaphragm. Dictated by: Jon Carbajal M.D. on 02/07/2024 at 16:55 Approved by: Jon Carbajal M.D. on 02/07/2024 at 16:56
--- NOTE | 2024-02-07 18:02 | PC.NURSE ---
Hospitalhernan Wilburn at bedside. Provider is made aware of patient vital signs, propofol drip rate as well as norepinephrine drip rate. At this time provider Cosmo wants norepinephrine drip and propofol drip to remain running at current rate as per JUN.
--- NOTE | 2024-02-07 18:25 | PC.NURSE ---
This RN gets confirmation for provider Cosmo PEARL to connect NG tube up to intermittent suction. NG tube connected.
--- NOTE | 2024-02-07 18:25 | PC.NURSE ---
1825: Peoples cath placed by provider Marisela via ultrasound with this RN's assistance.
[2024-02-07 18:28] LABS: NT-proBNP (BNP-Adult 18+) 4230 pg/mL (<450); Troponin I 0.034 ng/mL (0.01-0.034)
--- NOTE | 2024-02-07 18:28 | PC.NURSE ---
1825: Provider Marisela says to pause norepinephrine drip at this time and monitor pressure and reinitiate as needed. Provider Sincere in room and aware. Norepinephrine drip paused as per JUN.
--- NOTE | 2024-02-07 18:30 | PM.CALLCOV.1 ---
Call Coverage Note Note Narrative of Care Provided: Patient with acute hypercapnic respiratory failure, likely secondary to new diagnosis of CHF. Bedside POC cardiac ultrasound shows grossly reduced EF with some apical non-compressible IVC.
--- NOTE | 2024-02-07 18:39 | PM.HP.1 ---
History of Present Illness History of Present Illness Date Patient Seen: 02/07/24 Time Patient Seen: 18:30 Chief complaint: Lethargic Narrative: Per ER provider, 83-year-old gentleman with a history, hypertension, coronary artery disease with pacemaker in place, discharged from [facility] on January 31 after complicated exploratory laparotomy with extensive lysis of adhesions, small-bowel resection, omentectomy and placement of mesh and drains on January 22. He was discharge to [facility] and today was increasingly confused brought to the ER for evaluation. Significantly somnolent, hypoxic, difficulty obtaining peripheral access. Patient was moved to room 1 for more aggressive resuscitation. Central line was placed fluids started antibiotics initiated ABG shows hypoxia and hypercarbia. Started on BiPAP initially. Patient is a full code Patient is currently intubated, history obtained in discussion with ER provider and patient's spouse. Per his spouse, patient has no CAD, had a pacemaker placed about a year ago with Dr. Bedolla for a heart block that was found on holter monitor. I was able to review records and he had a Mobitz II block. Reports say he had preserved EF at that time. Spouse reports he got a little less fatigued and short of breath, but recently this had become more prominent again. He is a prior smoker, quit >20 years ago. He does not use illicit substances nor drink alcohol. ABG showed a PCO2 of 58.8, pH 7.37. Bicarb was 34. Cr was 1.06. Hg was 7.9, which was stable from his discharge records from his recent surgeries. LA was 0.6. ProBNP was 4230, trop was 0.027 then 0.034. UA was not reflexed for culture, showed 10-30 RBC, 0-1 WBC, few bacteria but was LE negative. Respiratory panel was negative. Patient also had a circumcision due to difficulties with camacho placement by the surgeon at [facility] (adherent foreskin). ER provider was able to finally obtain ultrasound guided camacho placement in the ER. Central line was placed. ETT also in place on minimal vent settings with a RR of 24 initially. Performed bedside ultrasound, which showed grossly reduced EF, non-collapsable IVC. CT abdomen showed a probable seroma but no obvious intraabdominal source. Surgeon did see in the ER and opened up the lower part of his incision with drainage of serosanguinous fluid. Chest CT showed small b/l pleural effusions, no large PE. Discussed with tele-vmware administrator, surgeon environmental health safety manager, and stationary engineer environmental health safety manager, which are summarized below. [facility] Medical History Mobitz II Hypertension Surgical History History of permanent cardiac pacemaker placement H/O abdominal surgery Social History household members: spouse Smoking Status: Former smoker Meds Home Medications and Allergies Home Medications Medication Instructions Recorded Confirmed Type amitriptyline 25 mg tablet 25 mg PO DAILY 01/10/18 01/10/18 History ascorbic acid (vitamin C) 1,000 mg 1 gram PO BID 01/10/18 01/10/18 History tablet aspirin 81 mg tablet,delayed 81 mg PO DAILY 01/10/18 01/10/18 History release (Adult Aspirin Regimen) hydrochlorothiazide 25 mg tablet 25 mg PO DAILY 01/10/18 01/10/18 History lisinopril 20 mg tablet 20 mg PO BID 01/10/18 01/10/18 History multivitamin 1 cap PO DAILY 01/10/18 01/10/18 History omega-3 fatty acids 1,000 mg 1,000 mg PO DAILY 01/10/18 01/10/18 History capsule (Fish Oil Concentrate) tolterodine 4 mg capsule,extended 4 mg PO DAILY 01/10/18 01/10/18 History release 24 hr Allergies Allergy/AdvReac Type Severity Reaction Status Date / Time [id number] Reductase Allergy Mild Elevated Verified 01/10/18 15:38 Inhibitor liver [Rxeynis-Mjx-Hse Reductase enzymes Inhibitor] Review of Systems Review of Systems Narrative: Unable to perform given patient is intubated and sedated Exam Vital Signs (past 8 hours): - 02/07/24 13:50 02/07/24 13:52 02/07/24 14:00 Temperature Pulse Rate 80 52 L Respiratory Rate 25 H 31 H Blood Pressure 119/57 L Pulse Oximetry 97 Oxygen Delivery Method Fraction of Inspired Oxygen 02/07/24 14:03 02/07/24 14:07 02/07/24 14:07 Temperature 98.4 F Pulse Rate 82 77 Respiratory Rate 22 24 Blood Pressure 119/57 L 116/54 L Pulse Oximetry 80 L 98 Oxygen Delivery Method Room Air Fraction of Inspired Oxygen 02/07/24 14:10 02/07/24 14:10 02/07/24 14:16 Temperature Pulse Rate 42 L Respiratory Rate 28 H Blood Pressure 118/53 L 94/48 L Pulse Oximetry 99 Oxygen Delivery Method Fraction of Inspired Oxygen 02/07/24 14:16 02/07/24 14:18 02/07/24 14:18 Temperature Pulse Rate 42 L Respiratory Rate 26 H 27 H Blood Pressure 100/50 L Pulse Oximetry 98 92 Oxygen Delivery Method Fraction of Inspired Oxygen 02/07/24 14:20 02/07/24 14:20 02/07/24 14:26 Temperature Pulse Rate 85 Respiratory Rate 27 H Blood Pressure 81/40 L 113/46 L Pulse Oximetry 99 Oxygen Delivery Method Fraction of Inspired Oxygen 02/07/24 14:26 02/07/24 14:30 02/07/24 14:30 Temperature Pulse Rate 47 L Respiratory Rate 31 H 21 Blood Pressure 144/63 H Pulse Oximetry 94 95 Oxygen Delivery Method Fraction of Inspired Oxygen 02/07/24 14:35 02/07/24 14:35 02/07/24 14:36 Temperature Pulse Rate 93 H Respiratory Rate 25 H Blood Pressure 132/63 113/46 L Pulse Oximetry 93 Oxygen Delivery Method Fraction of Inspired Oxygen 30 02/07/24 14:46 02/07/24 14:46 02/07/24 14:54 Temperature Pulse Rate 98 H Respiratory Rate 35 H Blood Pressure 97/51 L 149/69 H Pulse Oximetry 93 Oxygen Delivery Method Fraction of Inspired Oxygen 02/07/24 14:54 02/07/24 14:56 02/07/24 14:56 Temperature Pulse Rate 89 90 Respiratory Rate 33 H 30 H Blood Pressure 154/70 H Pulse Oximetry 92 93 Oxygen Delivery Method Fraction of Inspired Oxygen 02/07/24 14:59 02/07/24 14:59 02/07/24 15:00 Temperature Pulse Rate 93 H 93 H Respiratory Rate 31 H 26 H Blood Pressure 152/65 H Pulse Oximetry 93 93 Oxygen Delivery Method Fraction of Inspired Oxygen 02/07/24 15:05 02/07/24 15:05 02/07/24 15:10 Temperature Pulse Rate 87 Respiratory Rate 24 Blood Pressure 102/51 L 113/54 L Pulse Oximetry 91 Oxygen Delivery Method Fraction of Inspired Oxygen 02/07/24 15:10 02/07/24 15:16 02/07/24 15:16 Temperature Pulse Rate 92 H 95 H Respiratory Rate 17 Blood Pressure 127/62 Pulse Oximetry 91 92 Oxygen Delivery Method BiPAP Fraction of Inspired Oxygen 02/07/24 15:21 02/07/24 15:21 02/07/24 15:25 Temperature Pulse Rate 95 H Respiratory Rate Blood Pressure 140/85 142/65 H Pulse Oximetry 94 Oxygen Delivery Method Fraction of Inspired Oxygen 02/07/24 15:25 02/07/24 15:30 02/07/24 15:30 Temperature Pulse Rate 86 83 Respiratory Rate 14 Blood Pressure 155/70 H Pulse Oximetry 93 96 Oxygen Delivery Method Fraction of Inspired Oxygen 02/07/24 15:35 02/07/24 15:35 02/07/24 15:40 Temperature Pulse Rate 75 Respiratory Rate Blood Pressure 149/64 H 141/64 H Pulse Oximetry 94 Oxygen Delivery Method Fraction of Inspired Oxygen 02/07/24 15:40 02/07/24 15:41 02/07/24 15:45 Temperature 98.9 F Pulse Rate 75 Respiratory Rate Blood Pressure 146/63 H Pulse Oximetry 94 Oxygen Delivery Method Fraction of Inspired Oxygen 02/07/24 15:45 02/07/24 15:51 02/07/24 15:51 Temperature Pulse Rate 81 74 Respiratory Rate 14 Blood Pressure 111/53 L Pulse Oximetry 95 95 Oxygen Delivery Method Fraction of Inspired Oxygen 02/07/24 15:55 02/07/24 15:55 02/07/24 15:58 Temperature Pulse Rate 72 Respiratory Rate 14 Blood Pressure 119/57 L 111/53 L Pulse Oximetry 94 Oxygen Delivery Method Fraction of Inspired Oxygen 30 02/07/24 15:59 02/07/24 16:00 02/07/24 16:00 Temperature Pulse Rate 71 72 Respiratory Rate 16 14 20 Blood Pressure 112/54 L Pulse Oximetry 94 94 Oxygen Delivery Method BiPAP Fraction of Inspired Oxygen 02/07/24 16:05 02/07/24 16:05 02/07/24 16:10 Temperature Pulse Rate 72 Respiratory Rate 13 Blood Pressure 112/53 L 108/53 L Pulse Oximetry 94 Oxygen Delivery Method Fraction of Inspired Oxygen 02/07/24 16:10 02/07/24 16:15 02/07/24 16:15 Temperature Pulse Rate 68 67 Respiratory Rate 18 16 Blood Pressure 114/53 L Pulse Oximetry 94 94 Oxygen Delivery Method Fraction of Inspired Oxygen 02/07/24 16:20 02/07/24 16:20 02/07/24 16:25 Temperature Pulse Rate 75 76 Respiratory Rate 15 14 Blood Pressure 122/60 Pulse Oximetry 95 92 Oxygen Delivery Method BiPAP Fraction of Inspired Oxygen 02/07/24 16:25 02/07/24 16:30 02/07/24 16:30 Temperature Pulse Rate 73 Respiratory Rate Blood Pressure 133/60 123/58 L Pulse Oximetry 94 Oxygen Delivery Method Fraction of Inspired Oxygen 02/07/24 16:35 02/07/24 16:35 02/07/24 16:40 Temperature Pulse Rate 69 Respiratory Rate Blood Pressure 120/58 L 102/50 L Pulse Oximetry 95 Oxygen Delivery Method Fraction of Inspired Oxygen 02/07/24 16:40 02/07/24 16:42 02/07/24 16:42 Temperature Pulse Rate 66 65 Respiratory Rate 17 12 Blood Pressure 96/46 L Pulse Oximetry 93 94 Oxygen Delivery Method BiPAP Fraction of Inspired Oxygen 02/07/24 16:45 02/07/24 16:45 02/07/24 16:50 Temperature Pulse Rate 64 Respiratory Rate 19 Blood Pressure 92/44 L 123/59 L Pulse Oximetry 94 Oxygen Delivery Method Fraction of Inspired Oxygen 02/07/24 16:50 02/07/24 16:55 02/07/24 16:55 Temperature Pulse Rate 61 62 Respiratory Rate 14 15 Blood Pressure 130/61 Pulse Oximetry 96 96 Oxygen Delivery Method BiPAP Fraction of Inspired Oxygen Fraction of Inspired Oxygen 30 Oxygen Delivery Method BiPAP Narrative Exam Narrative: Gen: obese male, intubated and sedated HEENT: central line in place R neck, ETT and OGT in place, MMM. No obvious JVD CV: RRR. no m/r/g Pulm: bibasilar faint wheeze and crackles, on mechanical ventilation. Abd: Soft, non-distended. Midline abdominal incision c/d/i superiorly, inferiorly now opened packed with wet to dry and serosanguinous drainage Ext: trace bilateral LE edema Neuro: unable to assess, intubated and sedated. : non-visible external genitalia, there are sutures over the area of the scrotum, there appears to be some granulation tissue possibly, but no erythema or induration. On ultrasound his penis is fully retracted underneath the skin. r Objective ECG Impression: Paced rhythm Labs 02/07/24 14:10 02/07/24 14:10 Labs: Laboratory Results - last 24 hr 02/07/24 02/07/24 02/07/24 14:09 14:10 14:25 WBC 13.8 H RBC 2.52 L Hgb 7.9 L Hct 24.6 L MCV 97.7 MCH 31.5 MCHC 32.2 RDW 15.2 H Plt Count 558 H Neut % (Auto) 80.4 H Lymph % (Auto) 9.4 L [place] % (Auto) 9.3 Eos % (Auto) 0.2 L Baso % (Auto) 0.7 Neut # (Auto) 71742 H Lymph # (Auto) 1300 [place] # (Auto) 1300 H Eos # (Auto) 0 Baso # (Auto) 100 ABG Sample Site Right radial ABG pH 7.34 L ABG pCO2 69.1 H* ABG pO2 68 L ABG HCO3 37 H ABG Total CO2 38 H ABG O2 Saturation 91 L ABG Base Excess 9.5 H [place]den Test Positive O2 Delivery Device FiO2 % Sodium 139 Potassium 3.9 Chloride 100 Carbon Dioxide 34 H BUN 21 H Creatinine 1.06 Estimated GFR > 60 BUN/Creatinine Ratio 19.8 Glucose 116 H Lactate 0.6 L Calcium 8.8 Magnesium 1.9 Total Bilirubin 0.3 AST 26 ALT 17 Alkaline Phosphatase 99 Troponin I 0.027 NT-Pro-B Natriuret Pep Total Protein 6.0 L Albumin 3.1 L Globulin 2.9 Albumin/Globulin Ratio 1.1 Lipase 84 Procalcitonin 0.114 Chlamy pneumoniae PCR Not detected Adenovirus (PCR) Not detected B. pertussis DNA (PCR) Not detected B.parapertussis DNA PCR Not detected Coronavirus OC43 (PCR) Not detected Coronavirus HKU1 (PCR) Not detected Coronavirus 229E (PCR) Not detected SARS-CoV-2 (PCR) Not detected Coronavirus NL63 (PCR) Not detected Human Metapneumovir PCR Not detected Influenza Type A (PCR) Not detected Influenza Type B (PCR) Not detected M. pneumoniae (PCR) Not detected Parainfluenza 1 (PCR) Not detected Parainfluenza 2 (PCR) Not detected Parainfluenza 3 (PCR) Not detected Parainfluenza 4 (PCR) Not detected RSV (PCR) Not detected Entero/Rhino (PCR) Not detected 02/07/24 02/07/24 15:34 17:55 WBC RBC Hgb Hct MCV MCH MCHC RDW Plt Count Neut % (Auto) Lymph % (Auto) [place] % (Auto) Eos % (Auto) Baso % (Auto) Neut # (Auto) Lymph # (Auto) [place] # (Auto) Eos # (Auto) Baso # (Auto) ABG Sample Site ABG pH 7.37 ABG pCO2 58.8 H ABG pO2 72 L ABG HCO3 34 H ABG Total CO2 34 H ABG O2 Saturation 93 L ABG Base Excess 7.2 H [place]den Test O2 Delivery Device Bipap FiO2 % 30 % Sodium Potassium Chloride Carbon Dioxide BUN Creatinine Estimated GFR BUN/Creatinine Ratio Glucose Lactate Calcium Magnesium Total Bilirubin AST ALT Alkaline Phosphatase Troponin I 0.034 NT-Pro-B Natriuret Pep 4230 H Total Protein Albumin Globulin Albumin/Globulin Ratio Lipase Procalcitonin Chlamy pneumoniae PCR Adenovirus (PCR) B. pertussis DNA (PCR) B.parapertussis DNA PCR Coronavirus OC43 (PCR) Coronavirus HKU1 (PCR) Coronavirus 229E (PCR) SARS-CoV-2 (PCR) Coronavirus NL63 (PCR) Human Metapneumovir PCR Influenza Type A (PCR) Influenza Type B (PCR) M. pneumoniae (PCR) Parainfluenza 1 (PCR) Parainfluenza 2 (PCR) Parainfluenza 3 (PCR) Parainfluenza 4 (PCR) RSV (PCR) Entero/Rhino (PCR) Assessment & Plan Assessment & Plan narrative: 1. Undifferentiated (cardiogenic vs septic) shock with hypotension, acute respiratory failure with hypoxia and hypercapnea and acute metabolic encephalopathy - wean levophed as tolerated, MAP >65 - continue zosyn given presentation for possible septic shock, though suspect possibly more cardiogenic in nature. Zosyn will cover any possible abdominal, urinary, or pulmonary source. - will try to diurese as well given volume overload, POC US findings (grossly reduced EF, non-collapsable IVC). - leave sedated overnight, can do sedation vacation in the morning. Sedation with propofol, additionally fentanyl if needed. - follow up cultures, sputum culture if able or noted secretions - Appreciate tele-vmware administrator consult, discussed with provider - respiratory failure likely due to heart failure, also possible COPD with exacerbation or less likely pneumonia. 2. Presumed acute / new diagnosis of systolic heart failure - formal TTE ordered, bedside grossly reduced EF - diurese lightly with 20 mg IV BID given hypotension on admit, and unclear shock as noted above. Bedside US with uncollapsable IVC, limited by obesity - proBNP 4230, trop 0.034 on 2nd, slightly up from 0.027. Will check a 3rd trop this evening. - discussed with stationary engineer, recommended diuresis, medical management and echocardiogram. No need for further invasive cardiac workup at this time. 3. Abdominal wall seroma - appreciate surgical consultation, with drainage at bedside. Will keep on zosyn as above but no obvious intra-abdominal infectious etiologies 4. Recent circumcision - consider urology if further difficulty with camacho catheter. 5. Obesity - The patient is at much higher risk for medical and surgical complications because of their obesity. This increases the difficulty and complexity of medical and surgical interventions and increases the chances of poor outcomes such as morbidity and mortality. 6. Prior smoker - will start steroids given wheezing on exam and hypercapnea for possible COPD exacerbation as well. Consider stopping if not improving. 7. Chronic anemia - Hg 7.9, stable from previous hospitalization per review. Code: Full, surrogate is patient's spouse DVT: Lovenox daily I have utilized all available immediate resources to obtain, update, or review the patient's current medications. Dispo: patient admitted under inpatient status. Unclear if will be able to discharge home or possible SNF, will have PT/OT evaluations. Additional history obtained via discussions with the ER provider, spouse, tele-vmware administrator, surgeon, and stationary engineer. These discussions contributed to the creation of the above assessment and plan. I have reviewed patient's presenting documentation, labs, and imaging personally. I spent 120 minutes providing critical care management this patient. This excludes time spent in performing separately billed procedures. Time-Based Coding :: [TOTAL MINUTES] spent with patient and on the chart (including review of chart, obtaining history, exam, reviewing outside data, placing orders, documenting exam and treatment plan, and counseling patient) on [DATE].
[2024-02-07 18:48] LABS: Bilirubin Urine UA NEGATIVE (NEGATIVE); Color Urine UA YELLOW; Glucose Urine UA NEGATIVE (Negative); Ketones Urine UA NEGATIVE (NEGATIVE); Leukocyte Esterase Urine UA NEGATIVE (NEGATIVE); Nitrite Urine UA NEGATIVE (Negative); Occult Blood Urine UA 3+ (Negative); Protein Urine UA 1+ (Negative); Specific Gravity Urine UA 1.025 (1.000-1.035); Urobilinogen Urine UA 0.2 E.U./dL (0.2)
[2024-02-07 18:52] LABS: Appearance Urine UA SL CLOUDY; Urine Volume Low Vol <10mL (spun)
[2024-02-07 18:53] LABS: Bacteria Urine Few (2-10); Culture Indicated Urine Cult Not Indicated; Mucus Urine 1+ (Negative); RBC Urine 10-30/HPF (0-5/HPF); Squamous Epithelial Cell Urine 0-1 /HPF (0-5/HPF); WBC Urine 0-1/HPF (0-5/HPF)
--- NOTE | 2024-02-07 20:36 | PM.CN.EICU ---
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 Has a hisotry of hypercapneic resp failure abd while pco2 was eleavted his ph was normal. Pt GCS was < 8 so he was emergenty intubated during my eval, pt was intubated on propofol, synchronous with vent though on 40 of propofol, H was HD stable though he semed to be ill and shaking his head. [facility] Medical History Mobitz II Hypertension Surgical History History of permanent cardiac pacemaker placement H/O abdominal surgery Social History Smoking Status: Never smoker Current Medications Current Medications Medications: Home Medications amitriptyline 25 mg tablet 25 mg PO DAILY 01/10/18 [History Confirmed 01/10/18] ascorbic acid (vitamin C) 1,000 mg tablet 1 gram PO BID 01/10/18 [History Confirmed 01/10/18] aspirin 81 mg tablet,delayed release (Adult Aspirin Regimen) 81 mg PO DAILY 01/10/18 [History Confirmed 01/10/18] hydrochlorothiazide 25 mg tablet 25 mg PO DAILY 01/10/18 [History Confirmed 01/10/18] lisinopril 20 mg tablet 20 mg PO BID 01/10/18 [History Confirmed 01/10/18] multivitamin 1 cap PO DAILY 01/10/18 [History Confirmed 01/10/18] omega-3 fatty acids 1,000 mg capsule (Fish Oil Concentrate) 1,000 mg PO DAILY 01/10/18 [History Confirmed 01/10/18] tolterodine 4 mg capsule,extended release 24 hr 4 mg PO DAILY 01/10/18 [History Confirmed 01/10/18] Visit Medications (administered) Generic Name Dose Route Start Last Admin Trade Name Freq PRN Reason Stop Dose Admin NOREPINEPHRINE BITARTRATE/D5W 4 mg in 250 mls @ 56.472 mls/hr 02/07/24 14:18 02/07/24 19:35 Levophed IV 0.025 mcg/kg/min TITRATE LU 14.118 mls/hr Titration Protocol 0.1 MCG/KG/MIN Propofol 1,000 mg in 100 mls @ 4.518 mls/hr 02/07/24 17:45 02/07/24 19:35 Propofol IV 5 mcg/kg/min TITRATE LU 4.518 mls/hr Titration Protocol 5 MCG/KG/MIN Exam Vital Signs (past 8 hours): - 02/07/24 13:50 02/07/24 13:52 02/07/24 14:00 Temperature Pulse Rate 80 52 L Respiratory Rate 25 H 31 H Blood Pressure 119/57 L Pulse Oximetry 97 Oxygen Delivery Method Fraction of Inspired Oxygen 02/07/24 14:03 02/07/24 14:07 02/07/24 14:07 Temperature 98.4 F Pulse Rate 82 77 Respiratory Rate 22 24 Blood Pressure 119/57 L 116/54 L Pulse Oximetry 80 L 98 Oxygen Delivery Method Room Air Fraction of Inspired Oxygen 02/07/24 14:10 02/07/24 14:10 02/07/24 14:16 Temperature Pulse Rate 42 L Respiratory Rate 28 H Blood Pressure 118/53 L 94/48 L Pulse Oximetry 99 Oxygen Delivery Method Fraction of Inspired Oxygen 02/07/24 14:16 02/07/24 14:18 02/07/24 14:18 Temperature Pulse Rate 42 L Respiratory Rate 26 H 27 H Blood Pressure 100/50 L Pulse Oximetry 98 92 Oxygen Delivery Method Fraction of Inspired Oxygen 02/07/24 14:20 02/07/24 14:20 02/07/24 14:26 Temperature Pulse Rate 85 Respiratory Rate 27 H Blood Pressure 81/40 L 113/46 L Pulse Oximetry 99 Oxygen Delivery Method Fraction of Inspired Oxygen 02/07/24 14:26 02/07/24 14:30 02/07/24 14:30 Temperature Pulse Rate 47 L Respiratory Rate 31 H 21 Blood Pressure 144/63 H Pulse Oximetry 94 95 Oxygen Delivery Method Fraction of Inspired Oxygen 02/07/24 14:35 02/07/24 14:35 02/07/24 14:36 Temperature Pulse Rate 93 H Respiratory Rate 25 H Blood Pressure 132/63 113/46 L Pulse Oximetry 93 Oxygen Delivery Method Fraction of Inspired Oxygen 30 02/07/24 14:46 02/07/24 14:46 02/07/24 14:54 Temperature Pulse Rate 98 H Respiratory Rate 35 H Blood Pressure 97/51 L 149/69 H Pulse Oximetry 93 Oxygen Delivery Method Fraction of Inspired Oxygen 02/07/24 14:54 02/07/24 14:56 02/07/24 14:56 Temperature Pulse Rate 89 90 Respiratory Rate 33 H 30 H Blood Pressure 154/70 H Pulse Oximetry 92 93 Oxygen Delivery Method Fraction of Inspired Oxygen 02/07/24 14:59 02/07/24 14:59 02/07/24 15:00 Temperature Pulse Rate 93 H 93 H Respiratory Rate 31 H 26 H Blood Pressure 152/65 H Pulse Oximetry 93 93 Oxygen Delivery Method Fraction of Inspired Oxygen 02/07/24 15:05 02/07/24 15:05 02/07/24 15:10 Temperature Pulse Rate 87 Respiratory Rate 24 Blood Pressure 102/51 L 113/54 L Pulse Oximetry 91 Oxygen Delivery Method Fraction of Inspired Oxygen 02/07/24 15:10 02/07/24 15:16 02/07/24 15:16 Temperature Pulse Rate 92 H 95 H Respiratory Rate 17 Blood Pressure 127/62 Pulse Oximetry 91 92 Oxygen Delivery Method BiPAP Fraction of Inspired Oxygen 02/07/24 15:21 02/07/24 15:21 02/07/24 15:25 Temperature Pulse Rate 95 H Respiratory Rate Blood Pressure 140/85 142/65 H Pulse Oximetry 94 Oxygen Delivery Method Fraction of Inspired Oxygen 02/07/24 15:25 02/07/24 15:30 02/07/24 15:30 Temperature Pulse Rate 86 83 Respiratory Rate 14 Blood Pressure 155/70 H Pulse Oximetry 93 96 Oxygen Delivery Method Fraction of Inspired Oxygen 02/07/24 15:35 02/07/24 15:35 02/07/24 15:40 Temperature Pulse Rate 75 Respiratory Rate Blood Pressure 149/64 H 141/64 H Pulse Oximetry 94 Oxygen Delivery Method Fraction of Inspired Oxygen 02/07/24 15:40 02/07/24 15:41 02/07/24 15:45 Temperature 98.9 F Pulse Rate 75 Respiratory Rate Blood Pressure 146/63 H Pulse Oximetry 94 Oxygen Delivery Method Fraction of Inspired Oxygen 02/07/24 15:45 02/07/24 15:51 02/07/24 15:51 Temperature Pulse Rate 81 74 Respiratory Rate 14 Blood Pressure 111/53 L Pulse Oximetry 95 95 Oxygen Delivery Method Fraction of Inspired Oxygen 02/07/24 15:55 02/07/24 15:55 02/07/24 15:58 Temperature Pulse Rate 72 Respiratory Rate 14 Blood Pressure 119/57 L 111/53 L Pulse Oximetry 94 Oxygen Delivery Method Fraction of Inspired Oxygen 30 02/07/24 15:59 02/07/24 16:00 02/07/24 16:00 Temperature Pulse Rate 71 72 Respiratory Rate 16 14 20 Blood Pressure 112/54 L Pulse Oximetry 94 94 Oxygen Delivery Method BiPAP Fraction of Inspired Oxygen 02/07/24 16:05 02/07/24 16:05 02/07/24 16:10 Temperature Pulse Rate 72 Respiratory Rate 13 Blood Pressure 112/53 L 108/53 L Pulse Oximetry 94 Oxygen Delivery Method Fraction of Inspired Oxygen 02/07/24 16:10 02/07/24 16:15 02/07/24 16:15 Temperature Pulse Rate 68 67 Respiratory Rate 18 16 Blood Pressure 114/53 L Pulse Oximetry 94 94 Oxygen Delivery Method Fraction of Inspired Oxygen 02/07/24 16:20 02/07/24 16:20 02/07/24 16:25 Temperature Pulse Rate 75 76 Respiratory Rate 15 14 Blood Pressure 122/60 Pulse Oximetry 95 92 Oxygen Delivery Method BiPAP Fraction of Inspired Oxygen 02/07/24 16:25 02/07/24 16:30 02/07/24 16:30 Temperature Pulse Rate 73 Respiratory Rate Blood Pressure 133/60 123/58 L Pulse Oximetry 94 Oxygen Delivery Method Fraction of Inspired Oxygen 02/07/24 16:35 02/07/24 16:35 02/07/24 16:40 Temperature Pulse Rate 69 Respiratory Rate Blood Pressure 120/58 L 102/50 L Pulse Oximetry 95 Oxygen Delivery Method Fraction of Inspired Oxygen 02/07/24 16:40 02/07/24 16:42 02/07/24 16:42 Temperature Pulse Rate 66 65 Respiratory Rate 17 12 Blood Pressure 96/46 L Pulse Oximetry 93 94 Oxygen Delivery Method BiPAP Fraction of Inspired Oxygen 02/07/24 16:45 02/07/24 16:45 02/07/24 16:50 Temperature Pulse Rate 64 Respiratory Rate 19 Blood Pressure 92/44 L 123/59 L Pulse Oximetry 94 Oxygen Delivery Method Fraction of Inspired Oxygen 02/07/24 16:50 02/07/24 16:55 02/07/24 16:55 Temperature Pulse Rate 61 62 Respiratory Rate 14 15 Blood Pressure 130/61 Pulse Oximetry 96 96 Oxygen Delivery Method BiPAP Fraction of Inspired Oxygen 02/07/24 17:55 02/07/24 17:58 02/07/24 17:58 Temperature Pulse Rate 104 H 103 H Respiratory Rate 14 30 H Blood Pressure 167/74 H Pulse Oximetry 100 100 Oxygen Delivery Method Fraction of Inspired Oxygen 02/07/24 18:00 02/07/24 18:00 02/07/24 18:03 Temperature Pulse Rate 106 H Respiratory Rate 25 H Blood Pressure 170/74 H 167/74 H Pulse Oximetry 99 Oxygen Delivery Method Fraction of Inspired Oxygen 02/07/24 18:03 02/07/24 18:05 02/07/24 18:05 Temperature Pulse Rate 109 H 107 H Respiratory Rate 27 H 24 Blood Pressure 166/74 H Pulse Oximetry 98 97 Oxygen Delivery Method Fraction of Inspired Oxygen 02/07/24 18:08 02/07/24 18:08 02/07/24 18:10 Temperature Pulse Rate 101 H Respiratory Rate 13 Blood Pressure 158/71 H 169/76 H Pulse Oximetry 98 Oxygen Delivery Method Fraction of Inspired Oxygen 02/07/24 18:10 02/07/24 18:13 02/07/24 18:13 Temperature Pulse Rate 101 H 101 H Respiratory Rate 0 L 24 Blood Pressure 171/77 H Pulse Oximetry 96 96 Oxygen Delivery Method Fraction of Inspired Oxygen 02/07/24 18:15 02/07/24 18:15 02/07/24 18:18 Temperature Pulse Rate 98 H 93 H Respiratory Rate 24 0 L Blood Pressure 163/73 H Pulse Oximetry 96 95 Oxygen Delivery Method Fraction of Inspired Oxygen 02/07/24 18:18 02/07/24 18:20 02/07/24 18:20 Temperature Pulse Rate 90 Respiratory Rate 0 L Blood Pressure 168/78 H 155/69 H Pulse Oximetry 96 Oxygen Delivery Method Fraction of Inspired Oxygen 02/07/24 18:23 02/07/24 18:23 02/07/24 18:25 Temperature Pulse Rate 87 Respiratory Rate 29 H Blood Pressure 147/64 H 138/62 Pulse Oximetry 96 Oxygen Delivery Method Fraction of Inspired Oxygen 02/07/24 18:25 02/07/24 18:28 02/07/24 18:28 Temperature Pulse Rate 81 78 Respiratory Rate 22 24 Blood Pressure 128/60 Pulse Oximetry 95 96 Oxygen Delivery Method Fraction of Inspired Oxygen 02/07/24 18:30 02/07/24 18:30 02/07/24 18:33 Temperature Pulse Rate 76 74 Respiratory Rate 24 24 Blood Pressure 131/63 Pulse Oximetry 94 96 Oxygen Delivery Method Fraction of Inspired Oxygen 02/07/24 18:33 02/07/24 18:35 02/07/24 18:35 Temperature Pulse Rate 75 Respiratory Rate 10 L Blood Pressure 124/55 L 129/62 Pulse Oximetry 95 Oxygen Delivery Method Fraction of Inspired Oxygen 02/07/24 18:38 02/07/24 18:38 02/07/24 18:40 Temperature Pulse Rate 72 Respiratory Rate 12 Blood Pressure 127/54 L 124/58 L Pulse Oximetry 95 Oxygen Delivery Method Fraction of Inspired Oxygen 02/07/24 18:40 02/07/24 18:43 02/07/24 18:43 Temperature Pulse Rate 71 69 Respiratory Rate 13 7 L Blood Pressure 120/56 L Pulse Oximetry 96 96 Oxygen Delivery Method Fraction of Inspired Oxygen 02/07/24 18:45 02/07/24 18:45 02/07/24 18:48 Temperature Pulse Rate 71 Respiratory Rate 10 L Blood Pressure 132/61 119/55 L Pulse Oximetry 96 Oxygen Delivery Method Fraction of Inspired Oxygen 02/07/24 18:48 02/07/24 18:50 02/07/24 18:50 Temperature Pulse Rate 69 71 Respiratory Rate 18 11 L Blood Pressure 118/54 L Pulse Oximetry 96 95 Oxygen Delivery Method Fraction of Inspired Oxygen 02/07/24 18:53 02/07/24 18:53 02/07/24 18:55 Temperature Pulse Rate 64 64 Respiratory Rate 11 L 21 Blood Pressure 116/54 L Pulse Oximetry 97 97 Oxygen Delivery Method Fraction of Inspired Oxygen 02/07/24 18:55 02/07/24 18:56 02/07/24 18:56 Temperature Pulse Rate 68 Respiratory Rate 10 L Blood Pressure 98/53 L 129/60 Pulse Oximetry 95 Oxygen Delivery Method Mechanical Ventilation Fraction of Inspired Oxygen 02/07/24 18:58 02/07/24 18:58 02/07/24 19:00 Temperature Pulse Rate 64 77 Respiratory Rate 11 L 18 Blood Pressure 120/58 L Pulse Oximetry 80 L 86 L Oxygen Delivery Method Fraction of Inspired Oxygen 02/07/24 19:01 02/07/24 19:01 02/07/24 19:03 Temperature Pulse Rate 77 81 Respiratory Rate 10 L 18 Blood Pressure 135/63 Pulse Oximetry 100 100 Oxygen Delivery Method Fraction of Inspired Oxygen 02/07/24 19:03 02/07/24 19:05 02/07/24 19:05 Temperature Pulse Rate 78 Respiratory Rate 12 Blood Pressure 164/72 H 150/65 H Pulse Oximetry 100 Oxygen Delivery Method Fraction of Inspired Oxygen 02/07/24 19:08 02/07/24 19:08 02/07/24 19:11 Temperature Pulse Rate 73 Respiratory Rate 9 L Blood Pressure 143/65 H 106/53 L Pulse Oximetry 100 Oxygen Delivery Method Fraction of Inspired Oxygen 02/07/24 19:11 02/07/24 19:12 02/07/24 19:12 Temperature Pulse Rate 78 77 Respiratory Rate 20 22 Blood Pressure 112/54 L Pulse Oximetry 100 100 Oxygen Delivery Method Fraction of Inspired Oxygen 02/07/24 19:16 02/07/24 19:16 02/07/24 19:20 Temperature Pulse Rate 77 Respiratory Rate 19 Blood Pressure 129/59 L 134/63 Pulse Oximetry 100 Oxygen Delivery Method Fraction of Inspired Oxygen 02/07/24 19:20 02/07/24 19:55 02/07/24 20:00 Temperature 98.1 F Pulse Rate 84 99 H Respiratory Rate 13 26 H Blood Pressure 102/48 L Pulse Oximetry 100 95 Oxygen Delivery Method Mechanical Ventilation Fraction of Inspired Oxygen 02/07/24 20:01 02/07/24 20:01 02/07/24 20:05 Temperature Pulse Rate 97 H 98 H Respiratory Rate 24 24 Blood Pressure 121/55 L Pulse Oximetry 94 95 Oxygen Delivery Method Fraction of Inspired Oxygen 02/07/24 20:05 02/07/24 20:10 02/07/24 20:10 Temperature Pulse Rate 100 H Respiratory Rate 30 H Blood Pressure 124/58 L 124/60 Pulse Oximetry 96 Oxygen Delivery Method Fraction of Inspired Oxygen 02/07/24 20:21 02/07/24 20:30 Temperature Pulse Rate 74 89 Respiratory Rate 24 24 Blood Pressure Pulse Oximetry Oxygen Delivery Method Fraction of Inspired Oxygen Fraction of Inspired Oxygen 30 Oxygen Delivery Method Mechanical Ventilation Narrative Exam Narrative: ill appearing intubted sedated synchronous with vent symmetric chest rise Objective Labs 02/07/24 14:10 02/07/24 14:10 Labs: Laboratory Results - last 24 hr 02/07/24 02/07/24 02/07/24 14:09 14:10 14:25 WBC 13.8 H RBC 2.52 L Hgb 7.9 L Hct 24.6 L MCV 97.7 MCH 31.5 MCHC 32.2 RDW 15.2 H Plt Count 558 H Neut % (Auto) 80.4 H Lymph % (Auto) 9.4 L [place] % (Auto) 9.3 Eos % (Auto) 0.2 L Baso % (Auto) 0.7 Neut # (Auto) 76153 H Lymph # (Auto) 1300 [place] # (Auto) 1300 H Eos # (Auto) 0 Baso # (Auto) 100 ABG Sample Site Right radial ABG pH 7.34 L ABG pCO2 69.1 H* ABG pO2 68 L ABG HCO3 37 H ABG Total CO2 38 H ABG O2 Saturation 91 L ABG Base Excess 9.5 H Hayden Test Positive O2 Delivery Device FiO2 % Sodium 139 Potassium 3.9 Chloride 100 Carbon Dioxide 34 H BUN 21 H Creatinine 1.06 Estimated GFR > 60 BUN/Creatinine Ratio 19.8 Glucose 116 H Lactate 0.6 L Calcium 8.8 Magnesium 1.9 Total Bilirubin 0.3 AST 26 ALT 17 Alkaline Phosphatase 99 Troponin I 0.027 NT-Pro-B Natriuret Pep Total Protein 6.0 L Albumin 3.1 L Globulin 2.9 Albumin/Globulin Ratio 1.1 Lipase 84 Procalcitonin 0.114 Urine Color Urine Appearance Urine pH Ur Specific [place] Urine Protein Urine Glucose (UA) Urine Ketones Urine Occult Blood Urine Nitrate Urine Bilirubin Urine Urobilinogen Ur Leukocyte Esterase Urine RBC Urine WBC Ur Squamous Epith Cells Urine Bacteria Urine Mucus Ur Culture Indicated? Vol Urine Centrifuged Chlamy pneumoniae PCR Not detected Adenovirus (PCR) Not detected B. pertussis DNA (PCR) Not detected B.parapertussis DNA PCR Not detected Coronavirus OC43 (PCR) Not detected Coronavirus HKU1 (PCR) Not detected Coronavirus 229E (PCR) Not detected SARS-CoV-2 (PCR) Not detected Coronavirus NL63 (PCR) Not detected Human Metapneumovir PCR Not detected Influenza Type A (PCR) Not detected Influenza Type B (PCR) Not detected M. pneumoniae (PCR) Not detected Parainfluenza 1 (PCR) Not detected Parainfluenza 2 (PCR) Not detected Parainfluenza 3 (PCR) Not detected Parainfluenza 4 (PCR) Not detected RSV (PCR) Not detected Entero/Rhino (PCR) Not detected 02/07/24 02/07/24 02/07/24 15:34 17:55 18:20 WBC RBC Hgb Hct MCV MCH MCHC RDW Plt Count Neut % (Auto) Lymph % (Auto) [place] % (Auto) Eos % (Auto) Baso % (Auto) Neut # (Auto) Lymph # (Auto) [place] # (Auto) Eos # (Auto) Baso # (Auto) ABG Sample Site ABG pH 7.37 ABG pCO2 58.8 H ABG pO2 72 L ABG HCO3 34 H ABG Total CO2 34 H ABG O2 Saturation 93 L ABG Base Excess 7.2 H Hayden Test O2 Delivery Device Bipap FiO2 % 30 % Sodium Potassium Chloride Carbon Dioxide BUN Creatinine Estimated GFR BUN/Creatinine Ratio Glucose Lactate Calcium Magnesium Total Bilirubin AST ALT Alkaline Phosphatase Troponin I 0.034 NT-Pro-B Natriuret Pep 4230 H Total Protein Albumin Globulin Albumin/Globulin Ratio Lipase Procalcitonin Urine Color Yellow Urine Appearance Sl cloudy Urine pH 5.0 Ur Specific [place] 1.025 Urine Protein 1+ H Urine Glucose (UA) Negative Urine Ketones Negative Urine Occult Blood 3+ H Urine Nitrate Negative Urine Bilirubin Negative Urine Urobilinogen 0.2 Ur Leukocyte Esterase Negative Urine RBC 10-30/hpf H Urine WBC 0-1/hpf Ur Squamous Epith Cells 0-1 /hpf Urine Bacteria Few (2-10) H Urine Mucus 1+ H Ur Culture Indicated? Cult not indicated Vol Urine Centrifuged Low vol <10ml (spun) A Chlamy pneumoniae PCR Adenovirus (PCR) B. pertussis DNA (PCR) B.parapertussis DNA PCR Coronavirus OC43 (PCR) Coronavirus HKU1 (PCR) Coronavirus 229E (PCR) SARS-CoV-2 (PCR) Coronavirus NL63 (PCR) Human Metapneumovir PCR Influenza Type A (PCR) Influenza Type B (PCR) M. pneumoniae (PCR) Parainfluenza 1 (PCR) Parainfluenza 2 (PCR) Parainfluenza 3 (PCR) Parainfluenza 4 (PCR) RSV (PCR) Entero/Rhino (PCR) Assessment & Plan Assessment and plan (1) Congestive heart failure: Qualifiers: Heart failure chronicity: acute Heart failure type: unspecified Qualified Code(s): I50.9 - Heart failure, unspecified Status: Acute (2) Abdominal wound dehiscence: Qualifiers: Encounter type: initial encounter Qualified Code(s): T81.321A - Disruption or dehiscence of closure of internal operation (surgical) wound of abdominal wall muscle or fascia, initial encounter Status: Acute (3) Hypercapnic respiratory failure: Qualifiers: Chronicity: acute on chronic Qualified Code(s): J96.22 - Acute and chronic respiratory failure with hypercapnia Status: Acute (4) Hypertension: Status: Acute (5) Acute metabolic encephalopathy: Status: Acute Plan vent/sedation bundle MRI LTVV trend abg map goal >65 TTE TF trend labs monitor UO empirc abx f/u cx dvt ppx Etiology of his change in MS is unclear, while hypercpnea is definitely on the differental,. I suspect his is his baseline given his ph, which leads to belive this could be infeciton but hypoperfusion / low flow state does remain on differentil. I think we need mroe imaging and if w/uremians non diagnostic will need an LP total CCT 35 min Time-Based Coding :: [TOTAL MINUTES] spent with patient and on the chart (including review of chart, obtaining history, exam, reviewing outside data, placing orders, documenting exam and treatment plan, and counseling patient) on [DATE].
[2024-02-07] MEDS: ALBUTEROL 2.5 MG/3 ML NEB (ADULT) INH (21:36)
[2024-02-07 21:47] LABS: Troponin I 0.083 ng/mL (0.01-0.034)
[2024-02-07] MEDS: propofoL 1,000 MG/100 ML VIAL 45 MG IV (21:56)
[2024-02-07] MEDS: FUROSEMIDE 20 MG/2 ML VIAL IV (22:00)
[2024-02-07] MEDS: fentaNYL 1,000 MCG in DEXTROSE 5% IN WATER 230 ML 25.638 MCG IV (22:07)
[2024-02-07 22:19] LABS: Allen Test for ABG Passed? Positive; Base Excess ABG 10.1 mmol/L (-2-3); Blood Gas Collection Site Left Radial; Blood Gas Mode Assist Cont Ventilat; Delivery System Adult Ventilator; HCO3 ABG 33 mmol/L (23-27); Oxygen Saturation ABG 98 % (95-100); PCO2 ABG 36.1 mmHg (35-45); PEEP 5; PO2 ABG 82 mmHg (80-100); Respiratory Rate 24; TCO2 ABG 33 mmol/L (23-27); pH ABG 7.57 (7.35-7.45)
--- NOTE | 2024-02-07 22:27 | PC.NURSE ---
Addendum entered by Toya Tang R.N. 02/08/24 07:32: 0730 Report given to irina JOHNSON. Plan of care discussed. Patient with no changes from baseline status. Addendum entered by Toya Tang R.N. 02/08/24 06:15: 0615 Echo at the bedside. Addendum entered by Toya Tang R.N. 02/08/24 05:54: 0554 Call placed to tele senior research engineer MD Levi. called regarding troponin AM level. MD aware. No new orders at this time. MD to review ABG results. Addendum entered by Toya Tang R.N. 02/08/24 01:25: 0125 RT at the bedside, obtaining ABG. Addendum entered by Toya Tang R.N. 02/07/24 23:35: 2322 Call placed to MD Lee regarding ABG blood gas results. Orders received for resp rate change of 18. ABG to be collected at 0130 and 0500. MD aware of trop results. Orders received to obtain trop lab at 0500. Addendum entered by Toya Tang R.N. 02/07/24 22:48: 2030 Call received from MD Gurmeet Garcia. MD to place orders for restraints. Patient attempting to remove medical devices, agitated. Original Note: 1929 Patient arrived to unit. Patient minimally sedated. Peoples noted. Dressing to abdomen noted, clean, dry and intact. Sacrum intact. Right IJ 3 lumen noted, dressing, clean, dry and intact. at the bedside. Bed in lowest position. Patient on ventilation, setting charted in [facility]. 1944 Dr. Wilburn at the bedside, assessing patient. Okay to leave sedation on overnight. 2029 Tele-senior research engineer called room regarding update. 2199 MD Lee called regarding orders for restraints, sedation and post intubated ABG. Patient attempting to remove ETT, interring with medical devices. Moving head from side to side, attempting to avoid being suctioned and bitting on ETT. Per MD, will place orders.
[2024-02-07 23:25] LABS: MRSA (Nasal) PCR NOT DETECTED (Not Detect)
[2024-02-08] VITALS (71 sets, daily range): BP systolic 65–145; BP diastolic 30–67; PULSE 66–107; RESP 14–25; TEMP 36.6–37.4; O2SAT 93–98
[2024-02-08] MEDS: propofoL 1,000 MG/100 ML VIAL 45 MG IV ×4 (00:20→07:05)
[2024-02-08] MEDS: NOREPINEPHRINE BITARTRATE/D5W 4 MG/250 ML PLAST..BAG 28.236 MG IV ×3 (00:23→20:56)
[2024-02-08] MEDS: CHLORHEXIDINE GLUCONATE 15 ML CUP PO ×4 (00:24→17:40)
[2024-02-08 01:43] LABS: Allen Test for ABG Passed? Positive; Base Excess ABG 11.1 mmol/L (-2-3); Blood Gas Collection Site Left Radial; Blood Gas Mode Assist Cont Ventilat; Delivery System Adult Ventilator; HCO3 ABG 34 mmol/L (23-27); Oxygen Saturation ABG 99 % (95-100); PCO2 ABG 36.7 mmHg (35-45); PEEP 5; PO2 ABG 97 mmHg (80-100); Respiratory Rate 18; TCO2 ABG 34 mmol/L (23-27); pH ABG 7.57 (7.35-7.45)
[2024-02-08] MEDS: fentaNYL 1,000 MCG in DEXTROSE 5% IN WATER 230 ML 36.625 MCG IV (05:05)
[2024-02-08 05:14] LABS: Add Manual Diff / Slide Review NO; Basophils Absolute Auto 100 /uL (0-100); Basophils Percent Auto 0.5 % (0-2); Eosinophils Absolute Auto 0 /uL (0-450); Eosinophils Percent Auto 0.1 % (2-4); Hematocrit 23.6 % (41-53); Hemoglobin 7.8 g/dL (13.5-17.5); Lymphocytes Absolute Auto 400 /uL (1100-4500); Lymphocytes Percent Auto 3.4 % (25-40); Mean Corpuscular HGB Conc 32.8 % (30-36); Mean Corpuscular Hemoglobin 31.6 PG (26-34); Mean Corpuscular Volume 96.1 fL (80-100); Monocytes Absolute Auto 400 /uL (0-900); Monocytes Percent Auto 3.1 % (3-14); Neutrophils Absolute Auto 12000 /uL (1500-7000); Neutrophils Percent Auto 92.9 % (50-75); Platelet Count 566 X10^3/uL (150-400); Red Blood Cell Count 2.46 X10^6/uL (4.5-5.9); Red Cell Distribution Width 14.9 % (11.6-14.8)
[2024-02-08 05:21] LABS: Alanine Aminotransferase 17 IU/L (<50); Albumin Globulin Ratio 1.1 (1.0-2.8); Alkaline Phosphatase 106 U/L (38-126); Aspartate Aminotransferase 24 IU/L (17-59); BUN Creatinine Ratio 19.6 (6-22); Bilirubin Total 0.4 mg/dL (0.2-1.3); Blood Urea Nitrogen 20 mg/dL (9-20); Calcium 8.6 mg/dL (8.4-10.2); Carbon Dioxide 34 mmol/L (22-32); Chloride 98 mmol/L (98-107); Estimated Glomerular Filt Rate > 60 mL/min (>60); Globulin 2.8 g/dL (1.7-4.1); Glucose 159 mg/dL (80-110); HEMOLYSIS < 15 (0-50); Magnesium 1.8 mg/dL (1.6-2.3); Phosphorous 2.8 mg/dL (2.3-3.7); Potassium 3.5 mmol/L (3.4-5.1); Sodium 136 mmol/L (137-145); Total Protein 5.8 g/dL (6.3-8.2)
[2024-02-08 05:40] LABS: Troponin I 0.153 ng/mL (0.01-0.034)
[2024-02-08 06:09] LABS: TSH w/ Reflex to FT4 1.51 uIU/mL (0.47-4.68)
[2024-02-08] MEDS: ALBUTEROL/IPRATROPIUM 3 ML AMPUL INH ×3 (07:02→17:53)
[2024-02-08] MEDS: FUROSEMIDE 20 MG/2 ML VIAL 40 MG IV ×2 (08:30→20:54)
[2024-02-08] MEDS: ENOXAPARIN 40 MG/0.4 ML SYRINGE SUBCUT ×2 (08:30→20:54)
[2024-02-08] MEDS: PIPERACILLIN/TAZO 4.5 GM in SODIUM CHLORIDE 0.9% 100 ML IV ×2 (08:30→15:55)
--- NOTE | 2024-02-08 09:24 | DI.ECHO.S_ITS ---
[facility] : : [address] : : [place] : : [id number] : : Phone: [phone] Echocardiogram Report + + :Name: GERMAN SANTOS Study Date: 02/08/2024 Height: 73 in : :[facility] ReadingLocation: Weight: 323 lb : : Gender: Male BSA: 2.6 m2 : :: 1940 Age: 83 yrs BP: 124/59 mmHg: :Reason For Study: RESPRITORY FAILURE : :Ordering Physician: TELMA, : :NOELLE DEVI Performed By: Yu Ghosh : :Referring: NOELLE HOLLIS : + + Interpretation Summary The left ventricle is normal in size. There is no thrombus. The ejection fraction is estimated to be 35-40%. Akinetic distal one third of left ventricle including LV apex with hyperdynamic rest of the LV segments. Differential diagnosis: Stress-induced cardiomyopathy versus multivessel coronary artery disease. The right ventricle is normal in size and function. There is a pacemaker lead in the right ventricle. The aortic valve is trileaflet. The aortic valve is mildly calcified. There is mildly reduced leaflet mobility. There is mild aortic stenosis. There is mild tricuspid regurgitation. Right ventricular systolic pressure is estimated to be 31 mmHg plus the clinically estimated CVP which cannot be estimated on this exam. The ascending aorta is mildly enlarged. Inspiratory collapse cannot be assessed because of mechanical ventilation, thus CVP cannot be estimated.. The IVC is dilated. Procedure: A two-dimensional transthoracic echocardiogram with color flow and Doppler was performed. There is no prior echocardiogram noted for this patient. The study quality was technically adequate. A contrast injection of Definity was performed to improve assessment of LV function. The heart rate ranged between 72-100 bpm during the study. The patient has a paced rhythm. Left Ventricle: The left ventricle is normal in size. Left ventricular wall thickness is at the upper limits of normal. There is no thrombus. The ejection fraction is estimated to be 35-40%. Akinetic distal one third of left ventricle including LV apex with hyperdynamic rest of the LV segments. Differential diagnosis: Stress-induced cardiomyopathy versus multivessel coronary artery disease. MV E/A: 0.80 Med Peak E' Merlin: 6.8 cm/sec E/E' med: 16.8. Right Ventricle: The right ventricle is normal in size and function. There is a pacemaker lead in the right ventricle. Atria: The left atrial size is normal. There has been no significant change since the previous study. Right atrial size is normal. There is no Doppler evidence for an interatrial shunt. Mitral Valve: The mitral valve leaflets appear mildly thickened, but open well. There is mild to moderate mitral annular calcification. The mitral valve mean gradient is 4.6 mmHg. No significant mitral valve stenosis. There is mild mitral regurgitation. Aortic Valve: The aortic valve is mildly calcified. The aortic valve is trileaflet. There is mildly reduced leaflet mobility. The aortic valve mean gradient is 12 mmHg. The calculated aortic valve area is 1.5 cm2. There is mild aortic stenosis. No aortic regurgitation is present. Tricuspid Valve: The tricuspid valve is normal. There is mild tricuspid regurgitation. Right ventricular systolic pressure is estimated to be 31 mmHg plus the clinically estimated CVP which cannot be estimated on this exam. Pulmonic Valve: The pulmonic valve is not well seen, but is grossly normal. There is no pulmonic valvular regurgitation. Great Vessels: The aortic root is normal size. The ascending aorta is mildly enlarged. Inspiratory collapse cannot be assessed because of mechanical ventilation, thus CVP cannot be estimated.. The IVC is dilated, but has some respiratory collapse suggesting high central venous pressure. Pericardium/ Pleura There is no pericardial effusion. There is no pleural effusion. MMode/2D Measurements & Calculations LVIDd: 5.1 cm LVOT diam: 1.9 cm LVIDs: 3.9 cm Ao root diam: 3.9 cm FS: 23.6 % asc Aorta Diam: 4.2 cm EPSS: 0.22 cm IVSd: 1.1 cm LVPWd: 0.78 cm LV gan. diameter/BSA (cm/m^2): 1.9 LV sys. diameter/BSA (cm/m^2): 1.5 LA A2 area: 16.8 cm2 RA long axis: 4.6 cm LA A4 area: 14.5 cm2 RA area: 13.1 cm2 LA length (vol): 4.6 cm RA vol: 31.5 ml LA vol: 44.6 ml RA : 11.9 ml/m2 LA vol index: 16.9 ml/m2 IVC diam: 2.4 cm RVD1 (basal): 3.8 cm TAPSE: 2.1 cm Doppler Measurements & Calculations Ao V2 max: 226.4 cm/sec LVOT Max Merlin: 119.7 cm/sec Ao V2 mean: 156.2 cm/sec LV V1 max P.7 mmHg Ao max P.2 mmHg LV V1 VTI: 25.4 cm Ao mean P.5 mmHg SO(I,D): 1.6 cm2 Ao V2 VTI: 47.3 cm SO(V,D): 1.5 cm2 sev ratio: 0.54 SO indexed to BSA (cm^2/m^2): 0.59 MV E max merlin: 114.8 cm/sec TR max merlin: 277.1 cm/sec MV A max merlin: 142.8 cm/sec TR max P.7 mmHg MV E/A: 0.80 PA V2 max: 136.7 cm/sec Med Peak E' Merlin: 6.8 cm/sec PA V2 mean: 102.7 cm/sec E/E' med: 16.8 PA mean P.5 mmHg Lat Peak E' Merlin: 8.2 cm/sec PA pr(Accel): 44.7 mmHg E/E' lat: 13.9 E/e' average: 15.4 MV dec time: 0.21 sec MVA(VTI): 1.8 cm2 MV V2 mean: 100.1 cm/sec SV(LVOT): 74.0 ml MV mean P.6 mmHg MV V2 VTI: 41.5 cm Reading Physician:10:54 AM
--- NOTE | 2024-02-08 09:48 | PM.PN.EICU ---
Subjective Subjective IF CAMERA ACTIVATED, patient seen via real-time interactive audiovisual communication: Camera activated Consent obtained for tele-commodity specialist care: Yes Patient Location: ICU Provider location (State): [place] Other participants/roles: RN, Hospitalist Interval history: pt remains lethargic but following come commands, he remians on the same settings. Current Medications Current Medications Medications: Home Medications amitriptyline 25 mg tablet 25 mg PO DAILY 01/10/18 [History Confirmed 01/10/18] ascorbic acid (vitamin C) 1,000 mg tablet 1 gram PO BID 01/10/18 [History Confirmed 01/10/18] aspirin 81 mg tablet,delayed release (Adult Aspirin Regimen) 81 mg PO DAILY 01/10/18 [History Confirmed 01/10/18] hydrochlorothiazide 25 mg tablet 25 mg PO DAILY 01/10/18 [History Confirmed 01/10/18] lisinopril 20 mg tablet 20 mg PO BID 01/10/18 [History Confirmed 01/10/18] multivitamin 1 cap PO DAILY 01/10/18 [History Confirmed 01/10/18] omega-3 fatty acids 1,000 mg capsule (Fish Oil Concentrate) 1,000 mg PO DAILY 01/10/18 [History Confirmed 01/10/18] tolterodine 4 mg capsule,extended release 24 hr 4 mg PO DAILY 01/10/18 [History Confirmed 01/10/18] Visit Medications (administered) Generic Name Dose Route Start Last Admin Trade Name Freq PRN Reason Stop Dose Admin Albuterol 2.5 mg 02/07/24 21:19 02/07/24 21:36 Albuterol 2.5 Mg/3 Ml Neb (Adult) INH 2.5 mg [id number] PRN Administration Shortness Of Breath Or Wheezing Albuterol/Ipratropium 3 ml 02/08/24 07:00 02/08/24 07:02 Albuterol/Ipratropium 3 Ml Ampul INH 3 ml [id number] LU Administration Chlorhexidine Gluconate 15 ml 02/08/24 00:00 02/08/24 07:06 Chlorhexidine Gluconate 15 Ml Cup PO 15 ml Q6HR LU Administration Enoxaparin Sodium 40 mg 02/08/24 09:00 02/08/24 08:30 Enoxaparin 40 Mg/0.4 Ml Syringe SUBCUT 40 mg BID LU Administration Furosemide 40 mg 02/08/24 09:00 02/08/24 08:30 Furosemide 20 Mg/2 Ml Vial IV 40 mg BID LU Administration NOREPINEPHRINE BITARTRATE/D5W 4 mg in 250 mls @ 56.472 mls/hr 02/07/24 14:18 02/08/24 08:11 Levophed IV 0.025 mcg/kg/min TITRATE LU 14.118 mls/hr Titration Protocol 0.1 MCG/KG/MIN Propofol 1,000 mg in 100 mls @ 4.518 mls/hr 02/07/24 17:45 02/08/24 09:36 Propofol IV 44.27 mcg/kg/min TITRATE LU 40 mls/hr Titration Protocol 5 MCG/KG/MIN Fentanyl 1,000 mcg/ Dextrose 250 mls @ 25.638 mls/hr 02/07/24 21:15 02/08/24 09:37 IV 1 mcg/kg/hr TITRATE LU 36.625 mls/hr Titration Protocol 0.7 MCG/KG/HR Piperacillin Sod/Tazobactam 100 mls @ 25 mls/hr 02/08/24 08:00 02/08/24 08:30 Sod 4.5 gm/ Sodium Chloride IV 25 mls/hr Q8H LU Administration Methylprednisolone 40 mg 02/08/24 00:00 02/08/24 00:24 Methylprednisolone 40 Mg/Ml Vial IV 40 mg Q12HR LU Administration Objective Ventilator Parameters: Ventilator Settings FiO2 40 RT Vent Frequency 18 Ventilator Tidal Volume 430 Exhaled Positive End Expiratory 5 Pressure Inspiratory Phase Time 1 I:E Ratio 1:2.7 Patient Position HOB >= 30 degrees Labs 02/08/24 04:55 02/08/24 04:55 Labs: Laboratory Results - last 24 hr 02/07/24 02/07/24 02/07/24 14:09 14:10 14:25 WBC 13.8 H RBC 2.52 L Hgb 7.9 L Hct 24.6 L MCV 97.7 MCH 31.5 MCHC 32.2 RDW 15.2 H Plt Count 558 H Neut % (Auto) 80.4 H Lymph % (Auto) 9.4 L [place] % (Auto) 9.3 Eos % (Auto) 0.2 L Baso % (Auto) 0.7 Neut # (Auto) 29748 H Lymph # (Auto) 1300 [place] # (Auto) 1300 H Eos # (Auto) 0 Baso # (Auto) 100 ABG Sample Site Right radial ABG pH 7.34 L ABG pCO2 69.1 H* ABG pO2 68 L ABG HCO3 37 H ABG Total CO2 38 H ABG O2 Saturation 91 L ABG Base Excess 9.5 H [place] Test Positive Respiration Rate O2 Delivery Device Mode of Support FiO2 % PEEP or CPAP Sodium 139 Potassium 3.9 Chloride 100 Carbon Dioxide 34 H BUN 21 H Creatinine 1.06 Estimated GFR > 60 BUN/Creatinine Ratio 19.8 Glucose 116 H Lactate 0.6 L Calcium 8.8 Phosphorus Magnesium 1.9 Total Bilirubin 0.3 AST 26 ALT 17 Alkaline Phosphatase 99 Troponin I 0.027 NT-Pro-B Natriuret Pep Total Protein 6.0 L Albumin 3.1 L Globulin 2.9 Albumin/Globulin Ratio 1.1 Lipase 84 Procalcitonin 0.114 TSH Urine Color Urine Appearance Urine pH Ur Specific [place] Urine Protein Urine Glucose (UA) Urine Ketones Urine Occult Blood Urine Nitrate Urine Bilirubin Urine Urobilinogen Ur Leukocyte Esterase Urine RBC Urine WBC Ur Squamous Epith Cells Urine Bacteria Urine Mucus Ur Culture Indicated? Vol Urine Centrifuged Nasal Screen MRSA (PCR) Chlamy pneumoniae PCR Not detected Adenovirus (PCR) Not detected B. pertussis DNA (PCR) Not detected B.parapertussis DNA PCR Not detected Coronavirus OC43 (PCR) Not detected Coronavirus HKU1 (PCR) Not detected Coronavirus 229E (PCR) Not detected SARS-CoV-2 (PCR) Not detected Coronavirus NL63 (PCR) Not detected Human Metapneumovir PCR Not detected Influenza Type A (PCR) Not detected Influenza Type B (PCR) Not detected M. pneumoniae (PCR) Not detected Parainfluenza 1 (PCR) Not detected Parainfluenza 2 (PCR) Not detected Parainfluenza 3 (PCR) Not detected Parainfluenza 4 (PCR) Not detected RSV (PCR) Not detected Entero/Rhino (PCR) Not detected 02/07/24 02/07/24 02/07/24 15:34 17:55 18:20 WBC RBC Hgb Hct MCV MCH MCHC RDW Plt Count Neut % (Auto) Lymph % (Auto) [place] % (Auto) Eos % (Auto) Baso % (Auto) Neut # (Auto) Lymph # (Auto) [place] # (Auto) Eos # (Auto) Baso # (Auto) ABG Sample Site ABG pH 7.37 ABG pCO2 58.8 H ABG pO2 72 L ABG HCO3 34 H ABG Total CO2 34 H ABG O2 Saturation 93 L ABG Base Excess 7.2 H [place] Test Respiration Rate O2 Delivery Device Bipap Mode of Support FiO2 % 30 % PEEP or CPAP Sodium Potassium Chloride Carbon Dioxide BUN Creatinine Estimated GFR BUN/Creatinine Ratio Glucose Lactate Calcium Phosphorus Magnesium Total Bilirubin AST ALT Alkaline Phosphatase Troponin I 0.034 NT-Pro-B Natriuret Pep 4230 H Total Protein Albumin Globulin Albumin/Globulin Ratio Lipase Procalcitonin TSH Urine Color Yellow Urine Appearance Sl cloudy Urine pH 5.0 Ur Specific [place] 1.025 Urine Protein 1+ H Urine Glucose (UA) Negative Urine Ketones Negative Urine Occult Blood 3+ H Urine Nitrate Negative Urine Bilirubin Negative Urine Urobilinogen 0.2 Ur Leukocyte Esterase Negative Urine RBC 10-30/hpf H Urine WBC 0-1/hpf Ur Squamous Epith Cells 0-1 /hpf Urine Bacteria Few (2-10) H Urine Mucus 1+ H Ur Culture Indicated? Cult not indicated Vol Urine Centrifuged Low vol <10ml (spun) A Nasal Screen MRSA (PCR) Chlamy pneumoniae PCR Adenovirus (PCR) B. pertussis DNA (PCR) B.parapertussis DNA PCR Coronavirus OC43 (PCR) Coronavirus HKU1 (PCR) Coronavirus 229E (PCR) SARS-CoV-2 (PCR) Coronavirus NL63 (PCR) Human Metapneumovir PCR Influenza Type A (PCR) Influenza Type B (PCR) M. pneumoniae (PCR) Parainfluenza 1 (PCR) Parainfluenza 2 (PCR) Parainfluenza 3 (PCR) Parainfluenza 4 (PCR) RSV (PCR) Entero/Rhino (PCR) 02/07/24 02/07/24 02/07/24 21:14 22:00 22:16 WBC RBC Hgb Hct MCV MCH MCHC RDW Plt Count Neut % (Auto) Lymph % (Auto) [place] % (Auto) Eos % (Auto) Baso % (Auto) Neut # (Auto) Lymph # (Auto) [place] # (Auto) Eos # (Auto) Baso # (Auto) ABG Sample Site Left radial ABG pH 7.57 H ABG pCO2 36.1 ABG pO2 82 ABG HCO3 33 H ABG Total CO2 33 H ABG O2 Saturation 98 ABG Base Excess 10.1 H [place] Test Positive Respiration Rate 24 O2 Delivery Device Adult ventilator Mode of Support Assist cont ventilat FiO2 % 40.0 % PEEP or CPAP 5 Sodium Potassium Chloride Carbon Dioxide BUN Creatinine Estimated GFR BUN/Creatinine Ratio Glucose Lactate Calcium Phosphorus Magnesium Total Bilirubin AST ALT Alkaline Phosphatase Troponin I 0.083 H NT-Pro-B Natriuret Pep Total Protein Albumin Globulin Albumin/Globulin Ratio Lipase Procalcitonin TSH Urine Color Urine Appearance Urine pH Ur Specific [place] Urine Protein Urine Glucose (UA) Urine Ketones Urine Occult Blood Urine Nitrate Urine Bilirubin Urine Urobilinogen Ur Leukocyte Esterase Urine RBC Urine WBC Ur Squamous Epith Cells Urine Bacteria Urine Mucus Ur Culture Indicated? Vol Urine Centrifuged Nasal Screen MRSA (PCR) Not detected Chlamy pneumoniae PCR Adenovirus (PCR) B. pertussis DNA (PCR) B.parapertussis DNA PCR Coronavirus OC43 (PCR) Coronavirus HKU1 (PCR) Coronavirus 229E (PCR) SARS-CoV-2 (PCR) Coronavirus NL63 (PCR) Human Metapneumovir PCR Influenza Type A (PCR) Influenza Type B (PCR) M. pneumoniae (PCR) Parainfluenza 1 (PCR) Parainfluenza 2 (PCR) Parainfluenza 3 (PCR) Parainfluenza 4 (PCR) RSV (PCR) Entero/Rhino (PCR) 02/08/24 02/08/24 01:40 04:55 WBC 13.0 H RBC 2.46 L Hgb 7.8 L Hct 23.6 L MCV 96.1 MCH 31.6 MCHC 32.8 RDW 14.9 H Plt Count 566 H Neut % (Auto) 92.9 H Lymph % (Auto) 3.4 L [place] % (Auto) 3.1 Eos % (Auto) 0.1 L Baso % (Auto) 0.5 Neut # (Auto) 19885 H Lymph # (Auto) 400 L [place] # (Auto) 400 Eos # (Auto) 0 Baso # (Auto) 100 ABG Sample Site Left radial ABG pH 7.57 H ABG pCO2 36.7 ABG pO2 97 ABG HCO3 34 H ABG Total CO2 34 H ABG O2 Saturation 99 ABG Base Excess 11.1 H [place] Test Positive Respiration Rate 18 O2 Delivery Device Adult ventilator Mode of Support Assist cont ventilat FiO2 % 40 % PEEP or CPAP 5 Sodium 136 L Potassium 3.5 Chloride 98 Carbon Dioxide 34 H BUN 20 Creatinine 1.02 Estimated GFR > 60 BUN/Creatinine Ratio 19.6 Glucose 159 H Lactate Calcium 8.6 Phosphorus 2.8 Magnesium 1.8 Total Bilirubin 0.4 AST 24 ALT 17 Alkaline Phosphatase 106 Troponin I 0.153 H* NT-Pro-B Natriuret Pep Total Protein 5.8 L Albumin 3.0 L Globulin 2.8 Albumin/Globulin Ratio 1.1 Lipase Procalcitonin TSH 1.51 Urine Color Urine Appearance Urine pH Ur Specific [place] Urine Protein Urine Glucose (UA) Urine Ketones Urine Occult Blood Urine Nitrate Urine Bilirubin Urine Urobilinogen Ur Leukocyte Esterase Urine RBC Urine WBC Ur Squamous Epith Cells Urine Bacteria Urine Mucus Ur Culture Indicated? Vol Urine Centrifuged Nasal Screen MRSA (PCR) Chlamy pneumoniae PCR Adenovirus (PCR) B. pertussis DNA (PCR) B.parapertussis DNA PCR Coronavirus OC43 (PCR) Coronavirus HKU1 (PCR) Coronavirus 229E (PCR) SARS-CoV-2 (PCR) Coronavirus NL63 (PCR) Human Metapneumovir PCR Influenza Type A (PCR) Influenza Type B (PCR) M. pneumoniae (PCR) Parainfluenza 1 (PCR) Parainfluenza 2 (PCR) Parainfluenza 3 (PCR) Parainfluenza 4 (PCR) RSV (PCR) Entero/Rhino (PCR) Exam Vital Signs (past 8 hours): - 02/08/24 02:00 02/08/24 02:00 02/08/24 03:00 Temperature Pulse Rate 77 75 Respiratory Rate 18 18 Blood Pressure 140/65 106/52 L Pulse Oximetry 98 97 Oxygen Delivery Method 02/08/24 04:00 02/08/24 04:00 02/08/24 04:00 Temperature 99.2 F Pulse Rate 73 Respiratory Rate 18 Blood Pressure 114/56 L Pulse Oximetry 97 Oxygen Delivery Method Mechanical Ventilation 02/08/24 05:00 02/08/24 05:00 02/08/24 06:00 Temperature Pulse Rate 69 68 Respiratory Rate 18 18 Blood Pressure 118/58 L Pulse Oximetry 98 98 Oxygen Delivery Method 02/08/24 06:00 02/08/24 07:00 02/08/24 07:00 Temperature Pulse Rate 72 Respiratory Rate 18 Blood Pressure 124/59 L 119/59 L Pulse Oximetry 95 Oxygen Delivery Method 02/08/24 08:00 02/08/24 08:00 02/08/24 08:11 Temperature Pulse Rate 99 H 98 H Respiratory Rate 18 18 Blood Pressure 111/57 L Pulse Oximetry 97 96 Oxygen Delivery Method 02/08/24 08:11 02/08/24 08:15 02/08/24 08:15 Temperature 97.9 F Pulse Rate 98 H Respiratory Rate 18 Blood Pressure 75/43 L 99/56 L Pulse Oximetry 96 Oxygen Delivery Method Fraction of Inspired Oxygen 40 SaO2/FiO2 Ratio 245 Oxygen Delivery Method Mechanical Ventilation Narrative Exam Narrative: intubated sedated synchronous with vent symmetric chest rise folls commands but is lethargic Assessment & Plan Assessment and plan (1) Congestive heart failure: Qualifiers: Heart failure chronicity: acute Heart failure type: unspecified Qualified Code(s): I50.9 - Heart failure, unspecified Status: Acute (2) Abdominal wound dehiscence: Qualifiers: Encounter type: initial encounter Qualified Code(s): T81.321A - Disruption or dehiscence of closure of internal operation (surgical) wound of abdominal wall muscle or fascia, initial encounter Status: Acute (3) Hypercapnic respiratory failure: Qualifiers: Chronicity: acute on chronic Qualified Code(s): J96.22 - Acute and chronic respiratory failure with hypercapnia Status: Acute (4) Hypertension: Status: Acute (5) Acute metabolic encephalopathy: Status: Acute Plan vent/sedation bundle would consider LP if there is no imrpovement LTVV trend abg dobutamine extubation challenge map goal >65 TTE TF trend labs monitor UO empiric abx f/u cx dvt ppx Etiology of his change in [place] is unclear, while hypercapnea is definitely on the differental,. I suspect this is his baseline given his ph, which leads to believe this could be infection but hypoperfusion / low flow state does remain on differential. Given the limitation of MRI at this time given MV, we can consider an LP after TTE results are back and if w/u remains non diagnostic. total CCT 35 min Time-Based Coding :: [TOTAL MINUTES] spent with patient and on the chart (including review of chart, obtaining history, exam, reviewing outside data, placing orders, documenting exam and treatment plan, and counseling patient) on [DATE].
[2024-02-08] MEDS: PANTOPRAZOLE 40 MG VIAL 20 MG IV (09:57)
[2024-02-08] MEDS: DOBUTAMINE 250 MG IN D5W 250 MG/250 ML IV.SOLN 21.975 MG IV (09:57)
[2024-02-08] MEDS: propofoL 1,000 MG/100 ML VIAL 36.142 MG IV (09:57)
[2024-02-08] MEDS: POTASSIUM CHLORIDE IN WATER 10 MEQ/100 ML PIGGYBACK 100 MEQ IV ×4 (10:30→13:51)
--- NOTE | 2024-02-08 10:47 | PM.PN.1 ---
Subjective Subjective Interval history: Remains intubated today but tracking and follows commands when off sedation. echo shows akinetic distal 1/3 of LV including apex with the rest being hyperdynamic. Possible NSTEMI vs takotsubo / stress induced cardiomyopathy. Troponins continue to rise but peaked today at 0.153. Furosemide increased. Unsuccessful A-line attempt this morning. Given anemia, recent surgery, and clinical scenario cardiology not avising heparin at this time. 1/4 blood cultures with gram positive cocci today, likely contaminant. Cardiology did recommend transfer. Exam Vital Signs (past 8 hours): - 02/08/24 03:00 02/08/24 04:00 02/08/24 04:00 Temperature 99.2 F Pulse Rate 75 73 Respiratory Rate 18 18 Blood Pressure 106/52 L 114/56 L Pulse Oximetry 97 97 Oxygen Delivery Method 02/08/24 04:00 02/08/24 05:00 02/08/24 05:00 Temperature Pulse Rate 69 Respiratory Rate 18 Blood Pressure 118/58 L Pulse Oximetry 98 Oxygen Delivery Method Mechanical Ventilation 02/08/24 06:00 02/08/24 06:00 02/08/24 07:00 Temperature Pulse Rate 68 72 Respiratory Rate 18 18 Blood Pressure 124/59 L Pulse Oximetry 98 95 Oxygen Delivery Method 02/08/24 07:00 02/08/24 08:00 02/08/24 08:00 Temperature Pulse Rate 99 H Respiratory Rate 18 Blood Pressure 119/59 L 111/57 L Pulse Oximetry 97 Oxygen Delivery Method 02/08/24 08:11 02/08/24 08:11 02/08/24 08:15 Temperature 97.9 F Pulse Rate 98 H 98 H Respiratory Rate 18 18 Blood Pressure 75/43 L Pulse Oximetry 96 96 Oxygen Delivery Method 02/08/24 08:15 Temperature Pulse Rate Respiratory Rate Blood Pressure 99/56 L Pulse Oximetry Oxygen Delivery Method Fraction of Inspired Oxygen 40 SaO2/FiO2 Ratio 245 Oxygen Delivery Method Mechanical Ventilation Narrative Exam Narrative: Gen: obese male, intubated and sedated HEENT: central line in place R neck, ETT and OGT in place, MMM. No obvious JVD CV: RRR. no m/r/g Pulm: bibasilar faint wheeze and crackles, on mechanical ventilation. Abd: Soft, non-distended. Midline abdominal incision c/d/i superiorly, inferiorly now opened packed with wet to dry and serosanguinous drainage Ext: trace bilateral LE edema Neuro: unable to assess, intubated and sedated. Objective Labs 02/08/24 04:55 02/08/24 04:55 Labs: Laboratory Results - last 24 hr 02/07/24 02/07/24 02/07/24 14:09 14:10 14:25 WBC 13.8 H RBC 2.52 L Hgb 7.9 L Hct 24.6 L MCV 97.7 MCH 31.5 MCHC 32.2 RDW 15.2 H Plt Count 558 H Neut % (Auto) 80.4 H Lymph % (Auto) 9.4 L [place] % (Auto) 9.3 Eos % (Auto) 0.2 L Baso % (Auto) 0.7 Neut # (Auto) 20654 H Lymph # (Auto) 1300 [place] # (Auto) 1300 H Eos # (Auto) 0 Baso # (Auto) 100 ABG Sample Site Right radial ABG pH 7.34 L ABG pCO2 69.1 H* ABG pO2 68 L ABG HCO3 37 H ABG Total CO2 38 H ABG O2 Saturation 91 L ABG Base Excess 9.5 H [place] Test Positive Respiration Rate O2 Delivery Device Mode of Support FiO2 % PEEP or CPAP Sodium 139 Potassium 3.9 Chloride 100 Carbon Dioxide 34 H BUN 21 H Creatinine 1.06 Estimated GFR > 60 BUN/Creatinine Ratio 19.8 Glucose 116 H Lactate 0.6 L Calcium 8.8 Phosphorus Magnesium 1.9 Total Bilirubin 0.3 AST 26 ALT 17 Alkaline Phosphatase 99 Troponin I 0.027 NT-Pro-B Natriuret Pep Total Protein 6.0 L Albumin 3.1 L Globulin 2.9 Albumin/Globulin Ratio 1.1 Lipase 84 Procalcitonin 0.114 TSH Urine Color Urine Appearance Urine pH Ur Specific [place] Urine Protein Urine Glucose (UA) Urine Ketones Urine Occult Blood Urine Nitrate Urine Bilirubin Urine Urobilinogen Ur Leukocyte Esterase Urine RBC Urine WBC Ur Squamous Epith Cells Urine Bacteria Urine Mucus Ur Culture Indicated? Vol Urine Centrifuged Nasal Screen MRSA (PCR) Chlamy pneumoniae PCR Not detected Adenovirus (PCR) Not detected B. pertussis DNA (PCR) Not detected B.parapertussis DNA PCR Not detected Coronavirus OC43 (PCR) Not detected Coronavirus HKU1 (PCR) Not detected Coronavirus 229E (PCR) Not detected SARS-CoV-2 (PCR) Not detected Coronavirus NL63 (PCR) Not detected Human Metapneumovir PCR Not detected Influenza Type A (PCR) Not detected Influenza Type B (PCR) Not detected M. pneumoniae (PCR) Not detected Parainfluenza 1 (PCR) Not detected Parainfluenza 2 (PCR) Not detected Parainfluenza 3 (PCR) Not detected Parainfluenza 4 (PCR) Not detected RSV (PCR) Not detected Entero/Rhino (PCR) Not detected 02/07/24 02/07/24 02/07/24 15:34 17:55 18:20 WBC RBC Hgb Hct MCV MCH MCHC RDW Plt Count Neut % (Auto) Lymph % (Auto) [place] % (Auto) Eos % (Auto) Baso % (Auto) Neut # (Auto) Lymph # (Auto) [place] # (Auto) Eos # (Auto) Baso # (Auto) ABG Sample Site ABG pH 7.37 ABG pCO2 58.8 H ABG pO2 72 L ABG HCO3 34 H ABG Total CO2 34 H ABG O2 Saturation 93 L ABG Base Excess 7.2 H [place] Test Respiration Rate O2 Delivery Device Bipap Mode of Support FiO2 % 30 % PEEP or CPAP Sodium Potassium Chloride Carbon Dioxide BUN Creatinine Estimated GFR BUN/Creatinine Ratio Glucose Lactate Calcium Phosphorus Magnesium Total Bilirubin AST ALT Alkaline Phosphatase Troponin I 0.034 NT-Pro-B Natriuret Pep 4230 H Total Protein Albumin Globulin Albumin/Globulin Ratio Lipase Procalcitonin TSH Urine Color Yellow Urine Appearance Sl cloudy Urine pH 5.0 Ur Specific [place] 1.025 Urine Protein 1+ H Urine Glucose (UA) Negative Urine Ketones Negative Urine Occult Blood 3+ H Urine Nitrate Negative Urine Bilirubin Negative Urine Urobilinogen 0.2 Ur Leukocyte Esterase Negative Urine RBC 10-30/hpf H Urine WBC 0-1/hpf Ur Squamous Epith Cells 0-1 /hpf Urine Bacteria Few (2-10) H Urine Mucus 1+ H Ur Culture Indicated? Cult not indicated Vol Urine Centrifuged Low vol <10ml (spun) A Nasal Screen MRSA (PCR) Chlamy pneumoniae PCR Adenovirus (PCR) B. pertussis DNA (PCR) B.parapertussis DNA PCR Coronavirus OC43 (PCR) Coronavirus HKU1 (PCR) Coronavirus 229E (PCR) SARS-CoV-2 (PCR) Coronavirus NL63 (PCR) Human Metapneumovir PCR Influenza Type A (PCR) Influenza Type B (PCR) M. pneumoniae (PCR) Parainfluenza 1 (PCR) Parainfluenza 2 (PCR) Parainfluenza 3 (PCR) Parainfluenza 4 (PCR) RSV (PCR) Entero/Rhino (PCR) 02/07/24 02/07/24 02/07/24 21:14 22:00 22:16 WBC RBC Hgb Hct MCV MCH MCHC RDW Plt Count Neut % (Auto) Lymph % (Auto) [place] % (Auto) Eos % (Auto) Baso % (Auto) Neut # (Auto) Lymph # (Auto) [place] # (Auto) Eos # (Auto) Baso # (Auto) ABG Sample Site Left radial ABG pH 7.57 H ABG pCO2 36.1 ABG pO2 82 ABG HCO3 33 H ABG Total CO2 33 H ABG O2 Saturation 98 ABG Base Excess 10.1 H [place] Test Positive Respiration Rate 24 O2 Delivery Device Adult ventilator Mode of Support Assist cont ventilat FiO2 % 40.0 % PEEP or CPAP 5 Sodium Potassium Chloride Carbon Dioxide BUN Creatinine Estimated GFR BUN/Creatinine Ratio Glucose Lactate Calcium Phosphorus Magnesium Total Bilirubin AST ALT Alkaline Phosphatase Troponin I 0.083 H NT-Pro-B Natriuret Pep Total Protein Albumin Globulin Albumin/Globulin Ratio Lipase Procalcitonin TSH Urine Color Urine Appearance Urine pH Ur Specific [place] Urine Protein Urine Glucose (UA) Urine Ketones Urine Occult Blood Urine Nitrate Urine Bilirubin Urine Urobilinogen Ur Leukocyte Esterase Urine RBC Urine WBC Ur Squamous Epith Cells Urine Bacteria Urine Mucus Ur Culture Indicated? Vol Urine Centrifuged Nasal Screen MRSA (PCR) Not detected Chlamy pneumoniae PCR Adenovirus (PCR) B. pertussis DNA (PCR) B.parapertussis DNA PCR Coronavirus OC43 (PCR) Coronavirus HKU1 (PCR) Coronavirus 229E (PCR) SARS-CoV-2 (PCR) Coronavirus NL63 (PCR) Human Metapneumovir PCR Influenza Type A (PCR) Influenza Type B (PCR) M. pneumoniae (PCR) Parainfluenza 1 (PCR) Parainfluenza 2 (PCR) Parainfluenza 3 (PCR) Parainfluenza 4 (PCR) RSV (PCR) Entero/Rhino (PCR) 02/08/24 02/08/24 01:40 04:55 WBC 13.0 H RBC 2.46 L Hgb 7.8 L Hct 23.6 L MCV 96.1 MCH 31.6 MCHC 32.8 RDW 14.9 H Plt Count 566 H Neut % (Auto) 92.9 H Lymph % (Auto) 3.4 L [place] % (Auto) 3.1 Eos % (Auto) 0.1 L Baso % (Auto) 0.5 Neut # (Auto) 76668 H Lymph # (Auto) 400 L [place] # (Auto) 400 Eos # (Auto) 0 Baso # (Auto) 100 ABG Sample Site Left radial ABG pH 7.57 H ABG pCO2 36.7 ABG pO2 97 ABG HCO3 34 H ABG Total CO2 34 H ABG O2 Saturation 99 ABG Base Excess 11.1 H [place] Test Positive Respiration Rate 18 O2 Delivery Device Adult ventilator Mode of Support Assist cont ventilat FiO2 % 40 % PEEP or CPAP 5 Sodium 136 L Potassium 3.5 Chloride 98 Carbon Dioxide 34 H BUN 20 Creatinine 1.02 Estimated GFR > 60 BUN/Creatinine Ratio 19.6 Glucose 159 H Lactate Calcium 8.6 Phosphorus 2.8 Magnesium 1.8 Total Bilirubin 0.4 AST 24 ALT 17 Alkaline Phosphatase 106 Troponin I 0.153 H* NT-Pro-B Natriuret Pep Total Protein 5.8 L Albumin 3.0 L Globulin 2.8 Albumin/Globulin Ratio 1.1 Lipase Procalcitonin TSH 1.51 Urine Color Urine Appearance Urine pH Ur Specific [place] Urine Protein Urine Glucose (UA) Urine Ketones Urine Occult Blood Urine Nitrate Urine Bilirubin Urine Urobilinogen Ur Leukocyte Esterase Urine RBC Urine WBC Ur Squamous Epith Cells Urine Bacteria Urine Mucus Ur Culture Indicated? Vol Urine Centrifuged Nasal Screen MRSA (PCR) Chlamy pneumoniae PCR Adenovirus (PCR) B. pertussis DNA (PCR) B.parapertussis DNA PCR Coronavirus OC43 (PCR) Coronavirus HKU1 (PCR) Coronavirus 229E (PCR) SARS-CoV-2 (PCR) Coronavirus NL63 (PCR) Human Metapneumovir PCR Influenza Type A (PCR) Influenza Type B (PCR) M. pneumoniae (PCR) Parainfluenza 1 (PCR) Parainfluenza 2 (PCR) Parainfluenza 3 (PCR) Parainfluenza 4 (PCR) RSV (PCR) Entero/Rhino (PCR) [facility] Medical History Mobitz II Hypertension Surgical History History of permanent cardiac pacemaker placement H/O abdominal surgery Social History household members: spouse Smoking Status: Former smoker Assessment & Plan Assessment & Plan narrative: 1. Undifferentiated (cardiogenic vs septic) shock with hypotension, acute respiratory failure with hypoxia and hypercapnea and acute metabolic encephalopathy - wean levophed as tolerated, MAP >65 - continue zosyn given presentation for possible septic shock, though suspect possibly more cardiogenic in nature. Zosyn will cover any possible abdominal, urinary, or pulmonary source. - Increased diuresis from 20mg BID to 40 mg BID today for more aggressive diuresis. He was net positive yesterday after 7pm, net negative 500 mL approx since midnight. Consider increasing further. - Sedation with propofol, additionally fentanyl if needed. - follow up cultures, sputum culture if able or noted secretions - Appreciate tele-junior administrative assistant consult, discussed with provider. Attempted dobutamine trial with junior administrative assistant today. Patient is alert when off sedation today, seemingly improving encephalopathy. - respiratory failure likely due to heart failure, also possible COPD with exacerbation or less likely pneumonia. - With improving mentation and echo findings, lack of fever, infectious etiologies appear less likely at this time. 2. Acute systolic heart failure, - formal TTE ordered, bedside grossly reduced EF - started with 20 mg IV BID given hypotension on admit, and unclear shock as noted above but increasing today with goal of at least being net negative. Bedside US with uncollapsable IVC, limited by obesity - proBNP 4230, trop 0.034 on 2nd, slightly up from 0.027. Will check a 3rd trop this evening. - discussed with accelerator operator today. TTE shows probable takotsubo, but cannot rule out multivessel disease. EKG has a paced rhythm. Troponin peaked at 0.153. Given recent abdominal surgery, mild troponin elevation, and anemia with Hg of 7.8 did not recommend heparin infusion at this time. Cardiology did recommend transfer given medical complexity for in person cardiology consultation and further evaluation of his acute systolic heart failure. 3. Abdominal wall seroma - appreciate surgical consultation, with drainage at bedside. Will keep on zosyn as above but no obvious intra-abdominal infectious etiologies 4. Recent circumcision - consider urology if further difficulty with camacho catheter. 5. Obesity - The patient is at much higher risk for medical and surgical complications because of their obesity. This increases the difficulty and complexity of medical and surgical interventions and increases the chances of poor outcomes such as morbidity and mortality. 6. Prior smoker - will start steroids given wheezing on exam and hypercapnea for possible COPD exacerbation as well. Consider stopping if not improving. 7. Chronic anemia - Hg 7.8 today, stable from previous hospitalization per review. Code: Full, surrogate is patient's spouse DVT: Lovenox daily I have utilized all available immediate resources to obtain, update, or review the patient's current medications. Dispo: patient admitted under inpatient status. Possible transfer as noted above. Additional history obtained via discussions with the tele-junior administrative assistant and accelerator operator. These discussions contributed to the creation of the above assessment and plan. I have reviewed patient's presenting documentation, labs, and imaging personally. I spent 70 minutes providing critical care management this patient. This excludes time spent in performing separately billed procedures. Time-Based Coding :: [TOTAL MINUTES] spent with patient and on the chart (including review of chart, obtaining history, exam, reviewing outside data, placing orders, documenting exam and treatment plan, and counseling patient) on [DATE].
--- NOTE | 2024-02-08 12:19 | DIET.CONS ---
Dietary Consultation Note Admission Date: 02/07/2024 18:29 Assessment: 83 y M admitted for undifferentiated shock with resp failure and acute metabolic encephalopathy. RD screened for pt intubated in ED. New dx of HF. PMH of hospitalization at [facility] earlier this month with exploratory lap on Jan 22. Discussed in team rounds and per hospitalist, hold off on starting tube feeds for now. Ht: 185.42 cm Wt: 146.5 kg BMI: 42.6 UBW: No recent weight hx - 149.685 kg on 09/10/20 Last BM: 02/07/24 (02/07/24 20:21) MNA: 10 Kavon Score: 12 Diet: 02/07/24 20:18 NPO Diet Diet Modifications: NPO Type: NPO except for Meds Labs: RBC 2.46 X10^6/uL (4.5-5.9) L 02/08/24 04:55 Hgb 7.8 g/dL (13.5-17.5) L 02/08/24 04:55 Hct 23.6 % (41-53) L 02/08/24 04:55 Creatinine 1.02 mg/dL (0.66-1.25) 02/08/24 04:55 Lactate 0.6 mmol/L (0.7-2.1) L 02/07/24 14:10 NT-Pro-B Natriuret Pep 4230 pg/mL (<450) H 02/07/24 17:55 Nutrition Diagnosis: Inadequate oral intake r/t mechanical ventilation aeb NPO status Interventions: 1. Recc starting nutrition support within the first 48 hours of being intubated. Enteral nutrition reccs are as follows for when pt medically ready for feeds: Recc continuous enteral nutrition starting with 20 mL of Pivot 1.5 titrating up by 10-20 mL Q6H as tolerate until goal rate of 50 mL/hr. Mix 3 prosource protein packets in with enteral formula (each packet 11 g protein and 44 kcals). Fluid needs per tele-ICU body repairer d/t HF. Formula provides 900 mL per day at goal rate. Goal rate + protein packets provides 1932 kcals and 146 g protein EER: 7714-3153 (12-14 kcals /kg of actual BW for BMI 30-50 per ASPEN guidelines), 170-180 g protein (2.0-2.2 g/kg per IBW with BMI >40 per ASPEN guidelines) Monitoring/Evaluations: f/u tomorrow Electronically Signed by: Ryann Marcelo 02/08/24 12:19 Clinical Dietitian [address] [id number]
[2024-02-08 12:24] LABS: Troponin I 0.095 ng/mL (0.01-0.034)
[2024-02-08] MEDS: fentaNYL 1,000 MCG in DEXTROSE 5% IN WATER 230 ML 27.469 MCG IV (13:29)
[2024-02-08 13:40] LABS: Acinetobacter calcoa-baumannii Not Detected (Not Detect); Bacteroides fragilis Not Detected (Not Detect); Candida albicans Not Detected (Not Detect); Candida auris Not Detected (Not Detect); Candida glabrata Not Detected (Not Detect); Candida krusei Not Detected (Not Detect); Candida parapsilosis Not Detected (Not Detect); Candida tropicalis Not Detected (Not Detect); Cryptococcus neoformans/gatti Not Detected (Not Detect); Enterobacter cloacae complex Not Detected (Not Detect); Enterobacterales Not Detected (Not Detect); Enterococcus faecalis Not Detected (Not Detect); Enterococcus faecium Not Detected (Not Detect); Haemophilus influenzae Not Detected (Not Detect); Klebsiella aerogenes Not Detected (Not Detect); Listeria monocytogenes Not Detected (Not Detect); Neisseria meningitidis Not Detected (Not Detect); Proteus species Not Detected (Not Detect); Pseudomonas aeruginosa Not Detected (Not Detect); Salmonella species Not Detected (Not Detect); Serratia marcescens Not Detected (Not Detect); Staphylococcus epidermidis Detected (Not Detect); Staphylococcus lugdunensis Not Detected (Not Detect); Staphylococcus species Detected (Not Detect); Stenotrophomonas maltophilia Not Detected (Not Detect); Streptococcus agalactiae (Gr B Not Detected (Not Detect); Streptococcus pneumonia Not Detected (Not Detect); Streptococcus pyogenes (Gr A) Not Detected (Not Detect); Streptococcus species Not Detected (Not Detect); mecA/C Resistance Detected (Not Detect)
[2024-02-08] MEDS: propofoL 1,000 MG/100 ML VIAL 27.107 MG IV ×3 (14:24→20:54)
--- NOTE | 2024-02-08 15:05 | CM.DANOTE ---
Initial DCP Assessment Note Pt is an 83yo male, resident of [place] with recent hernia removal and partial colon removal at [facility] 2 weeks ago, discharged to [facility] presents to with septic shock. PCP: Kalyn Morgan Payer: Pop JONES Reviewed chart, pt discussed in multidisciplinary rounds this morning. According to Dr Wilburn, patient remains intubated and being considers for transfer- Cardiology consulted and recommending. CM team will plan to follow clinical course closely. If patient remains admitted, will need PT/OT and likely will be a candidate for return to SNF to continue his rehab course. DRAGAN Brown Discharge Planning/Care Management Discharge Assessment Start: 02/08/24 14:56 Freq: Status: Active Protocol: Document 02/08/24 14:56 PAVEL (Rec: 02/08/24 15:05 PAVEL [id number]) Discharge Planning Assessment Assigned Butcher Assistant DRAGAN Weaver DPOA/Assigned Designee Name Loraine Moore, spouse Contact Information [phone] Advance Directives? Yes Advance Directives on File No History Provided By Significant Other Prior Living Arrangements House Household Members spouse Type of transporation used prior to Relies on Others admit Facility Name Admitted From: [facility] Independent with ADL's No Is patient alert and oriented? No Comment PLOF unclear at this time Discharge Plan Transfer to Higher Level of Care Transportation Arrangement ALS
--- NOTE | 2024-02-08 16:52 | PC.NURSE ---
Addendum entered by Laura Montes R.N. 02/08/24 18:33: Dr. Elias present via monitor and plan of care reviewed. Dr. Elias ordered rate on vent be decreased to 14 based on latest ABG. RT notified. Original Note: Day Shift Note Patient sedated to RASS -3 on AM assessment on propofol and fentanyl gtts, initial SAT done at 0940, pt biting tube, intermittently following commands, sedation restarted. V paced in the 90 to low 100s. Titrating levophed to MAP greater than 65, see emar. FiO2 35% on mechanical vent, SpO2 93-96%, moderate clear secretions, mostly requiring oral suctioning. Multidisciplinary rounds done at bedside with tele-chief of production, no SBT today per Dr. Levi and Dr. Wilburn. Trial of dobutamine done per Dr. Levi with repeat SAT, pt calm throughout, following commands, tracking and shaking head yes or no in response to questions. Dr. Levi ordered dobutamine off at this time which was done (1200). Sedation restarted for pt comfort (increased gagging and grimacing noted with care) at lower rates - see emar. Dressing to abdomen changed, bottom of midline incision open, packed with gauze and covered with ABD, pratima to rest of incision intact, drainage is serosanguinous. OG tube in place, clamped.
--- NOTE | 2024-02-08 20:07 | PM.ICURNDS ---
- :: This patient was seen via real time interactive two-way audiovisual telecommunication. Note: Pt comfortable on the vent, sedated with propfol and fentanyl, levo at 0.05 mcg/kg/min, dropped the RR on the vent to 14 for metabolic & resp alkalosis, pending transfer to higher level of care for Card consult.
[2024-02-08] MEDS: fentaNYL 1,000 MCG in DEXTROSE 5% IN WATER 230 ML 25.638 MCG IV (23:34)
[2024-02-09] VITALS (8 sets, daily range): BP systolic 119–143; BP diastolic 56–66; PULSE 64–77; RESP 14; TEMP 37; O2SAT 97–98
[2024-02-09] MEDS: PIPERACILLIN/TAZO 4.5 GM in SODIUM CHLORIDE 0.9% 100 ML IV
[2024-02-09] MEDS: CHLORHEXIDINE GLUCONATE 15 ML CUP PO
[2024-02-09] MEDS: propofoL 1,000 MG/100 ML VIAL 27.107 MG IV ×2 (00:46→03:16)
--- NOTE | 2024-02-09 01:01 | PM.DS.1 ---
History of Present Illness History of Present Illness Chief complaint: Lethargic Discharge Providers Provider Date of admission: 02/07/24 18:29 Discharge Date: 02/09/24 Primary care physician: Kalyn Morgan PA-C Discharge provider: Ahmet Elena MD Summary Hospital Course Discharge Diagnosis: Stress-Induced Cardiomyopathy Hospital Course: From the H&P: 83-year-old gentleman with a history, hypertension, coronary artery disease with pacemaker in place, discharged from [facility] on January 31 after complicated exploratory laparotomy with extensive lysis of adhesions, small-bowel resection, omentectomy and placement of mesh and drains on January 22. He was discharge to [facility] and today was increasingly confused brought to the ER for evaluation. Significantly somnolent, hypoxic, difficulty obtaining peripheral access. Patient was moved to room 1 for more aggressive resuscitation. Central line was placed fluids started antibiotics initiated ABG shows hypoxia and hypercarbia. Started on BiPAP initially. Patient is a full code Patient is currently intubated, history obtained in discussion with ER provider and patient's spouse. Per his spouse, patient has no CAD, had a pacemaker placed about a year ago with Dr. Bedolla for a heart block that was found on holter monitor. I was able to review records and he had a Mobitz II block. Reports say he had preserved EF at that time. Spouse reports he got a little less fatigued and short of breath, but recently this had become more prominent again. He is a prior smoker, quit >20 years ago. He does not use illicit substances nor drink alcohol. ABG showed a PCO2 of 58.8, pH 7.37. Bicarb was 34. Cr was 1.06. Hg was 7.9, which was stable from his discharge records from his recent surgeries. LA was 0.6. ProBNP was 4230, trop was 0.027 then 0.034. UA was not reflexed for culture, showed 10-30 RBC, 0-1 WBC, few bacteria but was LE negative. Respiratory panel was negative. Patient also had a circumcision due to difficulties with camacho placement by the surgeon at [facility] (adherent foreskin). ER provider was able to finally obtain ultrasound guided camacho placement in the ER. Central line was placed. ETT also in place on minimal vent settings with a RR of 24 initially. Performed bedside ultrasound, which showed grossly reduced EF, non-collapsable IVC. CT abdomen showed a probable seroma but no obvious intraabdominal source. Surgeon did see in the ER and opened up the lower part of his incision with drainage of serosanguinous fluid. Chest CT showed small b/l pleural effusions, no large PE. Upon admission developed wound dehischence., shock and stress-induced cardiomyopathy. 1. Undifferentiated (cardiogenic vs septic) shock with hypotension, acute respiratory failure with hypoxia and hypercapnea and acute metabolic encephalopathy - wean levophed as tolerated, MAP >65 - continue zosyn given presentation for possible septic shock, though suspect possibly more cardiogenic in nature. Zosyn will cover any possible abdominal, urinary, or pulmonary source. - Increased diuresis from 20mg BID to 40 mg BID today for more aggressive diuresis. He was net positive yesterday after 7pm, net negative 500 mL approx since midnight. Consider increasing further. - Sedation with propofol, additionally fentanyl if needed. - follow up cultures, sputum culture if able or noted secretions - Appreciate tele-channel machine operator consult, discussed with provider. Attempted dobutamine trial with channel machine operator today. Patient is alert when off sedation today, seemingly improving encephalopathy. - respiratory failure likely due to heart failure, also possible COPD with exacerbation or less likely pneumonia. - With improving mentation and echo findings, lack of fever, infectious etiologies appear less likely at this time. 2. Acute systolic heart failure, - formal TTE ordered, bedside grossly reduced EF - started with 20 mg IV BID given hypotension on admit, and unclear shock as noted above but increasing today with goal of at least being net negative. Bedside US with uncollapsable IVC, limited by obesity - proBNP 4230, trop 0.034 on 2nd, slightly up from 0.027. Will check a 3rd trop this evening. - discussed with picker and packer today. TTE shows probable takotsubo, but cannot rule out multivessel disease. EKG has a paced rhythm. Troponin peaked at 0.153. Given recent abdominal surgery, mild troponin elevation, and anemia with Hg of 7.8 did not recommend heparin infusion at this time. Cardiology did recommend transfer given medical complexity for in person cardiology consultation and further evaluation of his acute systolic heart failure. 3. Abdominal wall seroma - appreciate surgical consultation, with drainage at bedside. Will keep on zosyn as above but no obvious intra-abdominal infectious etiologies 4. Recent circumcision - consider urology if further difficulty with camacho catheter. Transferred to higher level of care, [facility]. Status at Discharge Cognitive/behavioral status at discharge: calm Functional status at discharge: independent ambulation Overall status at discharge: patient is not back to baseline Exam Vital Signs (past 8 hours): - 02/08/24 17:15 02/08/24 17:15 02/08/24 17:30 Temperature Pulse Rate 104 H 104 H Respiratory Rate 18 18 Blood Pressure 97/51 L Pulse Oximetry 96 96 Oxygen Delivery Method 02/08/24 17:30 02/08/24 17:45 02/08/24 17:45 Temperature Pulse Rate 104 H Respiratory Rate 18 Blood Pressure 92/46 L 92/51 L Pulse Oximetry 96 Oxygen Delivery Method 02/08/24 18:00 02/08/24 18:00 02/08/24 18:30 Temperature Pulse Rate 83 Respiratory Rate 18 Blood Pressure 102/51 L 103/52 L Pulse Oximetry 96 Oxygen Delivery Method 02/08/24 18:30 02/08/24 19:00 02/08/24 19:00 Temperature Pulse Rate 87 86 Respiratory Rate 18 14 Blood Pressure 105/52 L Pulse Oximetry 96 96 Oxygen Delivery Method 02/08/24 19:30 02/08/24 19:30 02/08/24 20:00 Temperature Pulse Rate 86 83 Respiratory Rate 15 15 Blood Pressure 99/49 L Pulse Oximetry 96 97 Oxygen Delivery Method 02/08/24 20:00 02/08/24 20:30 02/08/24 20:30 Temperature 98.1 F Pulse Rate 81 Respiratory Rate 14 Blood Pressure 102/50 L 98/48 L Pulse Oximetry 97 Oxygen Delivery Method 02/08/24 21:00 02/08/24 21:00 02/08/24 21:00 Temperature Pulse Rate 104 H Respiratory Rate 14 Blood Pressure 88/46 L Pulse Oximetry 97 Oxygen Delivery Method Mechanical Ventilation 02/08/24 21:21 02/08/24 21:21 02/08/24 21:30 Temperature Pulse Rate 83 104 H Respiratory Rate 15 14 Blood Pressure 145/67 H Pulse Oximetry 97 96 Oxygen Delivery Method 02/08/24 21:30 02/08/24 22:00 02/08/24 22:00 Temperature Pulse Rate 80 Respiratory Rate 14 Blood Pressure 108/55 L 124/58 L Pulse Oximetry 97 Oxygen Delivery Method 02/08/24 22:30 02/08/24 22:30 02/08/24 23:00 Temperature Pulse Rate 79 104 H Respiratory Rate 14 14 Blood Pressure 135/62 Pulse Oximetry 97 97 Oxygen Delivery Method 02/08/24 23:00 02/08/24 23:30 02/08/24 23:30 Temperature Pulse Rate 102 H Respiratory Rate 14 Blood Pressure 103/58 L 106/57 L Pulse Oximetry 97 Oxygen Delivery Method 02/09/24 00:00 02/09/24 00:00 Temperature 98.6 F Pulse Rate 74 Respiratory Rate 14 Blood Pressure 119/56 L Pulse Oximetry 98 Oxygen Delivery Method Fraction of Inspired Oxygen 40 SaO2/FiO2 Ratio 245 Oxygen Delivery Method Mechanical Ventilation Narrative Exam Narrative: Intubated, on a ventilator, sedated Objective Labs 02/08/24 04:55 02/08/24 04:55 Labs: Laboratory Results - last 24 hr 02/07/24 02/08/24 02/08/24 14:10 01:40 04:55 WBC 13.0 H RBC 2.46 L Hgb 7.8 L Hct 23.6 L MCV 96.1 MCH 31.6 MCHC 32.8 RDW 14.9 H Plt Count 566 H Neut % (Auto) 92.9 H Lymph % (Auto) 3.4 L Phillips % (Auto) 3.1 Eos % (Auto) 0.1 L Baso % (Auto) 0.5 Neut # (Auto) 13658 H Lymph # (Auto) 400 L Phillips # (Auto) 400 Eos # (Auto) 0 Baso # (Auto) 100 ABG Sample Site Left radial ABG pH 7.57 H ABG pCO2 36.7 ABG pO2 97 ABG HCO3 34 H ABG Total CO2 34 H ABG O2 Saturation 99 ABG Base Excess 11.1 H Hayden Test Positive Respiration Rate 18 O2 Delivery Device Adult ventilator Mode of Support Assist cont ventilat FiO2 % 40 % PEEP or CPAP 5 Sodium 136 L Potassium 3.5 Chloride 98 Carbon Dioxide 34 H BUN 20 Creatinine 1.02 Estimated GFR > 60 BUN/Creatinine Ratio 19.6 Glucose 159 H Calcium 8.6 Phosphorus 2.8 Magnesium 1.8 Total Bilirubin 0.4 AST 24 ALT 17 Alkaline Phosphatase 106 Troponin I 0.153 H* Total Protein 5.8 L Albumin 3.0 L Globulin 2.8 Albumin/Globulin Ratio 1.1 TSH 1.51 A.calcoaceticus-baumannii cmplx PCR Not detected Bacteroides fragilis Not detected Lizz albicans (PCR) Not detected Lizz auris (PCR) Not detected C. glabrata (PCR) Not detected C. krusei (PCR) Not detected C. parapsilosis (PCR) Not detected C. tropicalis (PCR) Not detected C. neoform/gattii (PCR) Not detected Enterobacterales (PCR) Not detected E. cloacae complex PCR Not detected Enterococc faecalis PCR Not detected Enterococc faecium PCR Not detected E. coli (PCR) Not detected H. influenzae (PCR) Not detected Klebsiella aerogenes (PCR) Not detected Klebsiella oxytoca PCR Not detected Klebsiella pneumoniae Not detected List. monocytogenes PCR Not detected N. meningitidis (PCR) Not detected Proteus species (PCR) Not detected Salmonella spp. (PCR) Not detected Serratia marcescens PCR Not detected Staphylococcus sp PCR Detected Staph aureus (PCR) Not detected mecA/C & MREJ Resist Gene Not applicable mecA/C-Methicil Resis Gene Detected mcr-1 Colistin Res Gene PCR Not applicable Staph epidermidis (PCR) Detected Staph lugdunensis PCR Not detected S. maltophilia (PCR) Not detected Streptococcus sp PCR Not detected Group A Strep (PCR) Not detected Strep agalactiae (PCR) Not detected Strep pneumoniae (PCR) Not detected P. aeruginosa (PCR) Not detected Neftali/B-Vanco Res Genes Not applicable blaIMP Car res Gene PCR Not applicable KPC-Carbap Res Gene PCR Not applicable blaNDM Car Res Gene PCR Not applicable OXA-48 Carbapenem Resis Gene (PCR) Not applicable blaVIM Car Res Gene PCR Not applicable CTX-M Gene Resistance (PCR) Not applicable 02/08/24 11:40 WBC RBC Hgb Hct MCV MCH MCHC RDW Plt Count Neut % (Auto) Lymph % (Auto) Phillips % (Auto) Eos % (Auto) Baso % (Auto) Neut # (Auto) Lymph # (Auto) Phillips # (Auto) Eos # (Auto) Baso # (Auto) ABG Sample Site ABG pH ABG pCO2 ABG pO2 ABG HCO3 ABG Total CO2 ABG O2 Saturation ABG Base Excess Hayden Test Respiration Rate O2 Delivery Device Mode of Support FiO2 % PEEP or CPAP Sodium Potassium Chloride Carbon Dioxide BUN Creatinine Estimated GFR BUN/Creatinine Ratio Glucose Calcium Phosphorus Magnesium Total Bilirubin AST ALT Alkaline Phosphatase Troponin I 0.095 H Total Protein Albumin Globulin Albumin/Globulin Ratio TSH A.calcoaceticus-baumannii cmplx PCR Bacteroides fragilis Lizz albicans (PCR) Lizz auris (PCR) C. glabrata (PCR) C. krusei (PCR) C. parapsilosis (PCR) C. tropicalis (PCR) C. neoform/gattii (PCR) Enterobacterales (PCR) E. cloacae complex PCR Enterococc faecalis PCR Enterococc faecium PCR E. coli (PCR) H. influenzae (PCR) Klebsiella aerogenes (PCR) Klebsiella oxytoca PCR Klebsiella pneumoniae List. monocytogenes PCR N. meningitidis (PCR) Proteus species (PCR) Salmonella spp. (PCR) Serratia marcescens PCR Staphylococcus sp PCR Staph aureus (PCR) mecA/C & MREJ Resist Gene mecA/C-Methicil Resis Gene mcr-1 Colistin Res Gene PCR Staph epidermidis (PCR) Staph lugdunensis PCR S. maltophilia (PCR) Streptococcus sp PCR Group A Strep (PCR) Strep agalactiae (PCR) Strep pneumoniae (PCR) P. aeruginosa (PCR) Neftali/B-Vanco Res Genes blaIMP Car res Gene PCR KPC-Carbap Res Gene PCR blaNDM Car Res Gene PCR OXA-48 Carbapenem Resis Gene (PCR) blaVIM Car Res Gene PCR CTX-M Gene Resistance (PCR) [facility] History Mobitz II Hypertension Surgical History History of permanent cardiac pacemaker placement H/O abdominal surgery Social History household members: spouse Smoking Status: Former smoker Discharge Plan Discharge Plan Patient Disposition: [facility] Other facility: [facility] Under care of provider: [facility] Discharge orders & Medications Medication counseling provided by Pharmacist: No Discharge Data Primary Care Provider: Kalyn Morgan
--- NOTE | 2024-02-09 04:17 | PC.NURSE ---
Allergy Nurse Note-Patient transferred to [facility] in [place] in stable condition at 0405. Remains on vent FIO2 35% TV 430 PEEP 5 RR 14, SpO2 97%, overrides vent occasionally. Has been calmly sedated, no significant changes. Propofol at 30mcg/kg/min (bottle scanned and sent with medics) Fentanyl at 0.7mcg/kg/hr. Levophed titrated down from 0.05mcg/kg/min to 0.02mcg/kg/min, BP stable-see vital trends. informed of transfer. Report called to Sathish JOHNSON at [facility] ICU at 0225. Only belonging patient had in room was an abdominal binder, sent with patient.
--- NOTE | 2024-02-09 04:21 | RT ---
patient taken off vent and placed on transport team vent w/o incident
== END 2024-02-09 04:05 | disposition short-term general hospital (02) | DRG 871 ==
LOC: ED 17:04 → AC 18:29 → ICU 19:01
PROVIDERS: Internal Medicine; Admitting Provider Orthopaedic Surgery Adult Reconstructive Orthopaedic Surgery; Emergency Provider Emergency Medicine; Family Provider Family Medicine; PCP Physician Assistant; Referring Provider Emergency Medicine; Visit Provider Orthopaedic Surgery Adult Reconstructive Orthopaedic Surgery
DX: A41.9 Sepsis, unspecified organism (principal); G93.41 Metabolic encephalopathy; R65.21 Severe sepsis with septic shock; J96.01 Acute respiratory failure with hypoxia; J96.02 Acute respiratory failure with hypercapnia; I50.21 Acute systolic (congestive) heart failure; R57.0 Cardiogenic shock; Z68.41 Body mass index [BMI] 40.0-44.9, adult; L76.34 Postprocedural seroma of skin and subcutaneous tissue following other procedure; J44.1 Chronic obstructive pulmonary disease with (acute) exacerbation; E66.9 Obesity, unspecified; D64.89 Other specified anemias; I11.0 Hypertensive heart disease with heart failure; Z86.79 Personal history of other diseases of the circulatory system; Z95.0 Presence of cardiac pacemaker; Z87.891 Personal history of nicotine dependence
CPT/HCPCS: 31500; 36415; 36592; 36600; 71045; 71275; 74177; 80053; 81001; 82805; 82962; 83605; 83690; 83735; 83880; 84100; 84145; 84443; 84484; 85025; 87040; 87154; 87186; 87633; 87797; 93005; 94002; 94003; 94640; 94660; 94799; 96365; 96375; 99284; 99291; 99292; C8929; J1650; J1940; J2470; J2543; J2704; J2919; J3010; J7613; Q9957; Q9967

== ENCOUNTER 2024-05-09 03:21 | Inpatient (IN) | payer OTHER, SELFPAY ==
[2024-02-07 20:21] VITALS: BMI 42.6
[2024-02-07 21:39] VITALS: RESP 24
[2024-02-09 00:26] VITALS: PULSE 73; RESP 14; O2SAT 97
[2024-05-09] VITALS (75 sets, daily range): BP systolic 81–173; BP diastolic 44–97; PULSE 60–105; RESP 15–45; TEMP 30.4–36.8; O2SAT 83–100; BMI 36.9; BMI 35.9
--- NOTE | 2024-05-09 03:28 | DI.RAD.S_ITS ---
PROCEDURE: XR CHEST 1V INDICATIONS: chest pain TECHNIQUE: One view of the chest was acquired. COMPARISON: [facility], CR, XR CHEST 1V, 02/07/2024, 17:23. FINDINGS: Surgical changes and devices: Left chest wall pacemaker leads are in the region of right atrium and right ventricle. Lungs and pleura: There is pulmonary vascular congestion. Ill-defined airspace opacities are seen in bilateral perihilar region and infrahilar region more notably on the left side. Small bilateral pleural effusion is likely present with blunting of bilateral costophrenic angles. No pneumothorax. Mediastinum: Mediastinal contours appear normal. Heart size is enlarged Bones and chest wall: No suspicious bony lesions. Overlying soft tissues appear unremarkable. IMPRESSION: Finding is concerning for bilateral perihilar and infrahilar infiltrates. Trace amount of bilateral pleural effusion. No gross pneumothorax. Dictated by: Kilo Mcdaniel M.D. on 05/09/2024 at 8:05 Approved by: Kilo Mcdaniel M.D. on 05/09/2024 at 8:06
--- NOTE | 2024-05-09 03:28 | ED_ITS ---
HPI - General Adult General Chief complaint: Shortness of Breath/Dyspnea Stated complaint: copd Time Seen by Provider: 05/09/24 03:27 History of Present Illness HPI narrative: 74-year-old male with history of COPD, prescribed nasal BiPAP at nearby adjacent [facility] care facility, frequent talking, likely poor seal, increased shortness of breath today overnight, here for further evaluation. Admits to cough, has chronic cough, not recently productive. No fevers or chills. He denies chest pain. He denies pain or swelling to his legs. Related Data Home Medications Medication Instructions Recorded Confirmed ascorbic acid (vitamin C) 1,000 mg 1 gram PO BID 01/10/18 05/09/24 tablet aspirin 81 mg tablet,delayed 81 mg PO DAILY 01/10/18 05/09/24 release (Adult Aspirin Regimen) tolterodine 4 mg capsule,extended 4 mg PO DAILY 01/10/18 05/09/24 release 24 hr allopurinol 100 mg tablet 100 mg PO DAILY 02/08/24 05/09/24 amlodipine 2.5 mg tablet 2.5 mg PO DAILY 02/08/24 05/09/24 hydrochlorothiazide 12.5 mg tablet 25 mg PO DAILY 02/08/24 05/09/24 losartan 25 mg tablet 12.5 mg PO BID 02/08/24 05/09/24 amitriptyline 25 mg tablet 25 mg BEDTIME 05/09/24 05/09/24 apixaban 5 mg tablet (Eliquis) 5 mg PO BID 05/09/24 05/09/24 budesonide-formoterol HFA 160 2 puff inhalation BID 05/09/24 05/09/24 mcg-4.5 mcg/actuation aerosol inhaler cholecalciferol (vitamin D3) 50 50 mcg PO DAILY 05/09/24 05/09/24 mcg (2,000 unit) tablet (Vitamin D3) furosemide 20 mg tablet 20 mg BID 05/09/24 05/09/24 ipratropium bromide 17 2 puff inhalation 4XD 05/09/24 05/09/24 mcg/actuation HFA aerosol inhaler (Atrovent HFA) multivitamin 1 tab PO DAILY 05/09/24 05/09/24 omega-3 fatty acids 500 mg capsule 500 mg PO DAILY 05/09/24 05/09/24 polyethylene glycol 3350 8.5 gram 8.5 g PO 3XW 05/09/24 05/09/24 oral powder packet psyllium husk (aspartame) 3.4 gram 1 packet PO DAILY 05/09/24 05/09/24 oral powder packet (Daily Fiber (psyllium-aspartame)) Allergies Allergy/AdvReac Type Severity Reaction Status Date / Time Ohgxpai-[id number]-[id number] Reductase Allergy Mild Elevated Verified 01/10/18 15:38 Inhibitor liver [Afnfzaw-Isa-Nmz Reductase enzymes Inhibitor] Patient History Medical History Mobitz II Hypertension Surgical History History of permanent cardiac pacemaker placement H/O abdominal surgery Social History household members: spouse Smoking Status: Former smoker alcohol intake: never Smoking Status: Former smoker Exam Narrative Exam Narrative: GENERAL: Well-developed patient, in mild distress. Near continuous talking but generally directable and able to answer questions HEAD: Atraumatic. Normocephalic. EYES: Pupils equal round and reactive. Extraocular motions intact. No scleral icterus. No injection or drainage. ENT: Nose without bleeding, purulent drainage. Throat without erythema, tonsillar hypertrophy or exudate. Airway patent. NECK: Trachea midline. Non tender CARDIOVASCULAR: Regular rate and rhythm without murmurs, gallops, or rubs. RESPIRATORY: Clear to auscultation. Breath sounds equal bilaterally. No wheezes, rales, or rhonchi. Speaks in short phrases, increased work of breathing, intercostal retractions GASTROINTESTINAL: Abdomen soft, non-tender, nondistended. EXTREMITIES: No edema or joint tenderness. BACK: Nontender without deformity or crepitance. No flank tenderness. NEURO: AOx3. Motor functions grossly nonfocal. SKIN: No rash or erythema of visible areas Initial Vital Signs Initial Vital Signs: Vital Signs Pulse Rate 65 05/09/24 03:22 Respiratory Rate 36 H 05/09/24 03:22 Blood Pressure 147/62 H 05/09/24 03:22 Oxygen Delivery Method Nasal Cannula 05/09/24 03:22 Course Orders Ordered: Acetaminophen (Acetaminophen 325 Mg Tablet) 650 mg PO Q6H PRN PRN Reason: Fever/Mild Pain (1-3) Albuterol (Albuterol 2.5 Mg/3 Ml Neb (Adult)) 2.5 mg INH [id number] PRN PRN Reason: Shortness Of Breath Albuterol (Albuterol 2.5 Mg/3 Ml Neb (Adult)) 2.5 mg INH Q4HRWA [facility] Last Admin: 05/09/24 12:57 Dose: 2.5 mg Documented By: Admin: 05/09/24 09:51 Dose: 2.5 mg Documented By: NAZ Allopurinol (Allopurinol 100 Mg Tablet) 100 mg PO DAILY [facility] Last Admin: 05/09/24 10:03 Dose: Not Given Documented By: DEVONTE Amitriptyline HCl (Amitriptyline 25 Mg Tablet) 25 mg PO BEDTIME LU Apixaban (Apixaban 5 Mg Tablet) 5 mg PO BID [facility] Last Admin: 05/09/24 10:03 Dose: Not Given Documented By: DEVONTE Aspirin (Aspirin Ec 81 Mg Tablet) 81 mg PO DAILY [facility] Last Admin: 05/09/24 10:03 Dose: Not Given Documented By: DEVONTE Budesonide (Budesonide 0.5 Mg/2 Ml Neb) 0.5 mg INH RTBID LU Hydromorphone HCl (Hydromorphone 0.5 Mg Inj) 0.5 mg IV Q3H PRN PRN Reason: Pain, Severe (7-10) Last Admin: 05/09/24 15:00 Dose: 0.5 mg Documented By: CALLI Piperacillin Sod/Tazobactam (Sod 3.375 gm/ Sodium Chloride) 100 mls @ 25 mls/hr IV Q8H [facility] Last Infusion: 05/09/24 15:05 Dose: Infused Documented By: Admin: 05/09/24 10:25 Dose: 25 mls/hr Documented By: DEVONTE Vancomycin HCl 1,000 mg/ (Sodium Chloride) 250 mls @ 250 mls/hr IV Q12H [facility] dexmedeTOMIDine in 0.9 % NaCL (Precedex) 400 mcg in 100 mls @ 6.175 mls/hr IV TITRATE LU; Protocol Last Titration: 05/09/24 12:00 Dose: 0.05 mcg/kg/hr, 1.544 mls/hr Documented By: Titration: 05/09/24 11:45 Dose: 0.1 mcg/kg/hr, 3.088 mls/hr Documented By: Admin: 05/09/24 10:59 Dose: 0.2 mcg/kg/hr, 6.175 mls/hr Documented By: DEVONTE Naloxone HCl (Naloxone 0.4 Mg/Ml Vial) 0.2 mg IV Q2MIN PRN PRN Reason: Opiate Reversal Ondansetron HCl (Ondansetron 4 Mg/2 Ml Inj) 4 mg IV Q8HR PRN PRN Reason: Nausea And Vomiting Oxybutynin Chloride (Oxybutynin 5 Mg Er Tab) 10 mg PO DAILY [facility] Last Admin: 05/09/24 10:04 Dose: Not Given Documented By: DEVONTE Sodium Chloride (Sodium Chloride 0.9% Flush) 10 ml IV PRN PRN PRN Reason: Flush Sodium Chloride (Sodium Chloride 0.9% Flush) 10 ml IV BID [facility] Vancomycin HCl (Vancomycin Per Pharmacy) 1 request MISC NOW PRN PRN Reason: pneumonia Vancomycin HCl (Vancomycin Trough) 1 request MISC 0630 [facility] Stop: 05/11/24 06:31 Discontinued Medications Albuterol/Ipratropium (Albuterol/Ipratropium 3 Ml Ampul) 3 ml INH NOW ONE Stop: 05/09/24 03:32 Last Admin: 05/09/24 05:00 Dose: 3 ml Documented By: JO Furosemide (Furosemide 40 Mg/4 Ml Vial) 40 mg IV NOW ONE Stop: 05/09/24 07:00 Last Admin: 05/09/24 07:58 Dose: 40 mg Documented By: DEVONTE Haloperidol (Haloperidol 5 Mg/Ml Vial) 5 mg IV NOW ONE Stop: 05/09/24 10:23 Last Admin: 05/09/24 10:25 Dose: 5 mg Documented By: DEVONTE Piperacillin Sod/Tazobactam (Sod 4.5 gm/ Sodium Chloride) 100 mls @ 200 mls/hr IV NOW ONE Stop: 05/09/24 05:07 Last Infusion: 05/09/24 06:14 Dose: Infused Documented By: Admin: 05/09/24 05:21 Dose: 200 mls/hr Documented By: BRIDGET Azithromycin 500 mg/ Dextrose 250 mls @ 250 mls/hr IV NOW ONE Stop: 05/09/24 05:07 Last Infusion: 05/09/24 06:40 Dose: 0 mls/hr Documented By: Admin: 05/09/24 06:29 Dose: 250 mls/hr Documented By: BRIDGET Vancomycin HCl/Dextrose (Vancomycin) 2,000 mg in 400 mls @ 200 mls/hr IV NOW ONE Stop: 05/09/24 08:44 Last Admin: 05/09/24 07:05 Dose: 200 mls/hr Documented By: POTASSIUM CHLORIDE IN WATER (Potassium Cl 10 Meq/100 Ml Che) 10 meq in 100 mls @ 100 mls/hr IV Q1H LU Stop: 05/09/24 15:14 Last Admin: 05/09/24 14:59 Dose: 100 mls/hr Documented By: Infusion: 05/09/24 14:56 Dose: Infused Documented By: Admin: 05/09/24 13:56 Dose: 100 mls/hr Documented By: DEVONTE Lidocaine HCl (Lidocaine 2% (Glydo) 6 Ml Gel) 6 ml TOP NOW ONE Stop: 05/09/24 06:20 Last Admin: 05/09/24 06:29 Dose: 6 ml Documented By: BRIDGET Methylprednisolone (Methylprednisolone 125 Mg/2 Ml Vial) 125 mg IV NOW ONE Stop: 05/09/24 03:32 Last Admin: 05/09/24 03:56 Dose: 125 mg Documented By: BRIDGET Vital Signs Vital signs: Vital Signs - 8 hr 05/09/24 03:22 05/09/24 03:23 05/09/24 03:27 Pulse Rate 65 63 Respiratory Rate 36 H Blood Pressure 147/62 H 147/62 H Pulse Oximetry 100 Oxygen Delivery Method Nasal Cannula Fraction of Inspired Oxygen 05/09/24 03:27 05/09/24 03:30 05/09/24 03:31 Pulse Rate 65 65 Respiratory Rate Blood Pressure 130/59 L Pulse Oximetry 83 L 89 L Oxygen Delivery Method Fraction of Inspired Oxygen 05/09/24 03:31 05/09/24 04:03 05/09/24 04:09 Pulse Rate 65 Respiratory Rate Blood Pressure 123/84 Pulse Oximetry 95 Oxygen Delivery Method Fraction of Inspired Oxygen 35 35 Medical Decision Making Lab Data Lab results reviewed: Yes I reviewed the patient's lab results. Lab results narrative: White blood cell count 7700, hemoglobin 9.1, platelets adequate. Sodium 138, potassium 3.5, serum CO2 42 elevated (has most recently been 34), BUN 24 with creatinine 1.12, glucose 125. ABG shows pH 7.31, pCO2 96, PaO2 77. Liver functions unremarkable. Lipase normal. Troponin measurable 0.03 low range noted. Swab for COVID/flu/RSV negative. 05/09/24 08:19 05/09/24 08:19 Labs: Lab Results 05/09/24 05/09/24 05/09/24 Range/Units 03:40 03:42 03:44 WBC 7.7 (4.5-11.0) X10^3/uL RBC 2.86 L (4.5-5.9) X10^6/uL Hgb 9.1 L (13.5-17.5) g/dL Hct 27.6 L (41-53) % MCV 96.5 (80-100) fL MCH 31.7 (26-34) PG MCHC 32.8 (30-36) % RDW 17.2 H (11.6-14.8) % Plt Count 380 (150-400) X10^3/uL Neut % (Auto) 70.3 (50-75) % Lymph % (Auto) 18.4 L (25-40) % Linn % (Auto) 8.5 (3-14) % Eos % (Auto) 0.7 L (2-4) % Baso % (Auto) 2.1 H (0-2) % Neut # (Auto) 5400 (9255-2139) /uL Lymph # (Auto) 1400 (4006-9013) /uL Linn # (Auto) 700 (0-900) /uL Eos # (Auto) 100 (0-450) /uL Baso # (Auto) 200 H (0-100) /uL ABG Sample Site Right radial ABG pH 7.31 L (7.35-7.45) ABG pCO2 96.3 H* (35-45) mmHg ABG pO2 77 L (80-100) mmHg ABG HCO3 48 H (23-27) mmol/L ABG Total CO2 48 H (23-27) mmol/L ABG O2 Saturation 92 L (95-100) % ABG Base Excess 18.8 H (-2-3) mmol/L Hayden Test Positive O2 Delivery Device FiO2 % 35.0 % % Sodium 138 (137-145) mmol/L Potassium 3.5 (3.4-5.1) mmol/L Chloride 90 L (98-107) mmol/L Carbon Dioxide 42 H* (22-32) mmol/L BUN 24 H (9-20) mg/dL Creatinine 1.12 (0.66-1.25) mg/dL Estimated GFR > 60 (>60) mL/min BUN/Creatinine Ratio 21.4 (6-22) Glucose 125 H (80-110) mg/dL Calcium 9.1 (8.4-10.2) mg/dL Total Bilirubin 0.2 (0.2-1.3) mg/dL AST 27 (17-59) IU/L ALT 15 (<50) IU/L Alkaline Phosphatase 106 (38-126) U/L Total Creatine Kinase 32 L (55-170) U/L Troponin I 0.030 (0.01-0.034) ng/mL NT-Pro-B Natriuret Pep 2000 H (<450) pg/mL Total Protein 6.7 (6.3-8.2) g/dL Albumin 3.4 L (3.5-5.0) g/dL Globulin 3.3 (1.7-4.1) g/dL Albumin/Globulin Ratio 1.0 (1.0-2.8) Lipase 449 H (23-300) U/L SARS-CoV-2 (PCR) Negative (Negative) Influenza A (RT-PCR) Flu a negative (NEGATIVE) Influenza B (RT-PCR) Flu b negative (NEGATIVE) RSV (PCR) Negative (Negative) 05/09/24 Range/Units 05:15 WBC (4.5-11.0) X10^3/uL RBC (4.5-5.9) X10^6/uL Hgb (13.5-17.5) g/dL Hct (41-53) % MCV (80-100) fL MCH (26-34) PG MCHC (30-36) % RDW (11.6-14.8) % Plt Count (150-400) X10^3/uL Neut % (Auto) (50-75) % Lymph % (Auto) (25-40) % Linn % (Auto) (3-14) % Eos % (Auto) (2-4) % Baso % (Auto) (0-2) % Neut # (Auto) (0486-2353) /uL Lymph # (Auto) (1078-7711) /uL Linn # (Auto) (0-900) /uL Eos # (Auto) (0-450) /uL Baso # (Auto) (0-100) /uL ABG Sample Site Right radial ABG pH 7.38 (7.35-7.45) ABG pCO2 84.7 H* (35-45) mmHg ABG pO2 67 L (80-100) mmHg ABG HCO3 50 H (23-27) mmol/L ABG Total CO2 49 H (23-27) mmol/L ABG O2 Saturation 91 L (95-100) % ABG Base Excess 20.9 H (-2-3) mmol/L Hayden Test Positive O2 Delivery Device Bipap FiO2 % 35.0 % % Sodium (137-145) mmol/L Potassium (3.4-5.1) mmol/L Chloride (98-107) mmol/L Carbon Dioxide (22-32) mmol/L BUN (9-20) mg/dL Creatinine (0.66-1.25) mg/dL Estimated GFR (>60) mL/min BUN/Creatinine Ratio (6-22) Glucose (80-110) mg/dL Calcium (8.4-10.2) mg/dL Total Bilirubin (0.2-1.3) mg/dL AST (17-59) IU/L ALT (<50) IU/L Alkaline Phosphatase (38-126) U/L Total Creatine Kinase (55-170) U/L Troponin I (0.01-0.034) ng/mL NT-Pro-B Natriuret Pep (<450) pg/mL Total Protein (6.3-8.2) g/dL Albumin (3.5-5.0) g/dL Globulin (1.7-4.1) g/dL Albumin/Globulin Ratio (1.0-2.8) Lipase (23-300) U/L SARS-CoV-2 (PCR) (Negative) Influenza A (RT-PCR) (NEGATIVE) Influenza B (RT-PCR) (NEGATIVE) RSV (PCR) (Negative) ECG Data Attestation: I personally reviewed and interpreted this ECG as follows: Interpretation: Normal sinus rhythm with first-degree AV block, ventricular rate 65, MT interval 314. No obvious ST segment elevation or depression changes. QRS 88, QTC 445. MDM Narrative Medical decision making narrative: 84-year-old male with history of COPD, uses nightly nasal BiPAP apparatus at nursing care facility, increased shortness of breath, unable to keep sats up at nursing care facility. No wheeze or crackles on examination, no peripheral edema. Afebrile, sirs screen negative. Arterial blood gas requested. IV Solu- Medrol, SVN albuterol/ipratropium. ABG shows pH 7.3, markedly elevated pCO2 90. Patient has POLST, indicates DNI but NIV okay. We will initiate BiPAP. Anticipate admission Serum carbon dioxide 42, prior comparison serum carbon dioxide 34 range noted. Troponin 0.03 measurable but low. Soft restraints non violent protocol added, as patient seemed to be tugging up toward his BiPAP mask, possible delirium state due to hypercarbia. No obvious head of face trauma. POLST advanced directives noted, wishes not to be intubated, but noninvasive support noted. We will continue BiPAP. COVID, flu, RSV swab negative. BNP 2000 elevated, however he has been in 4000 range in the past. No lower extremity peripheral edema. No mention of fluid overload and changes on radiology chest x-ray reading. Chest x-ray single view. Impression: ?Multifocal bilateral pulmonary infiltrates and bilateral pleural effusions [id number]. Follow up chest radiograph after appropriate treatment to document resolution. ? See tele radiology report Blood cultures requested, we will treat for healthcare facility acquired pneumonia, given his [facility] residence. IV Zosyn, IV vancomycin, IV azithromycin. Repeat ABG, pH and pCO2 are both modestly improved. We will contact hospitalist regarding admission, likely for further BiPAP to ICU 0525, case discussed with hospitalist Dr. Luo who accepts patient for admission to inpatient Critical Care Time Critical Care Time Critical Care Time: Yes Total Critical Care Time: 35 Attestation: The high probability of a clinically significant, sudden or life threatening deterioration of the [cardiopulmonary] system(s) required my full and direct attention, intervention and personal management. The aggregate critical care time was [35] minutes. This time is in addition to time spent performing reported procedures but includes the following: [x] Data Review and interpretation [x] Patient assessment and monitoring of vital signs [x] Documentation [x] Medication orders and management Discharge Plan Departure Patient Disposition: Admitted As Inpatient Clinical Impression: Shortness of breath, COPD exacerbation, Hypercarbia, Pneumonia, DNI (do not intubate) Admit Date/Time: 05/09/24 05:26 Admit Provider: Ahmet Vines
--- NOTE | 2024-05-09 03:30 | PC.NURSE ---
called Sandi to attempt to find out Bipap settings as pt was talking about the settings not being correct. nurse explained that the pt has a nasal mask and he talks frequently so the seal on the mask is broken but usually when they replace the mask his O2 sat will return to normal but tonight it did not. the nurse stated that the machine came present from the company at the settings as per the Dr's orders.
--- NOTE | 2024-05-09 03:31 | EKG_ITS ---
[place] [address] [address] [place] [id number] Test Date: 2024-05-09 Pat Name: Filemon Moore Department: [facility] Room: Gender: Male Gate Attendant: LORRAINE : 1940 Requested By: Order Number: [id number] Reading MD: Hayden Moraes Measurements Intervals Bradley Rate: 65 P: -4 [place]: 314 QRS: 22 QRSD: 88 T: 28 QT: 428 QTc: 445 Interpretive Statements Sinus rhythm with 1st degree AV block Nonspecific T wave abnormality Electronically Signed On 05-09-2024 18:20:00 PST by Hayden Moraes
[2024-05-09 03:50] LABS: Add Manual Diff / Slide Review NO; Basophils Absolute Auto 200 /uL (0-100); Basophils Percent Auto 2.1 % (0-2); Eosinophils Absolute Auto 100 /uL (0-450); Eosinophils Percent Auto 0.7 % (2-4); Hematocrit 27.6 % (41-53); Hemoglobin 9.1 g/dL (13.5-17.5); Lymphocytes Absolute Auto 1400 /uL (1100-4500); Lymphocytes Percent Auto 18.4 % (25-40); Mean Corpuscular HGB Conc 32.8 % (30-36); Mean Corpuscular Hemoglobin 31.7 PG (26-34); Mean Corpuscular Volume 96.5 fL (80-100); Monocytes Absolute Auto 700 /uL (0-900); Monocytes Percent Auto 8.5 % (3-14); Neutrophils Absolute Auto 5400 /uL (1500-7000); Neutrophils Percent Auto 70.3 % (50-75); Platelet Count 380 X10^3/uL (150-400); Red Blood Cell Count 2.86 X10^6/uL (4.5-5.9); Red Cell Distribution Width 17.2 % (11.6-14.8); White Blood Cell Count 7.7 X10^3/uL (4.5-11.0)
[2024-05-09 03:52] LABS: Allen Test for ABG Passed? Positive; Base Excess ABG 18.8 mmol/L (-2-3); Blood Gas Collection Site Right Radial; HCO3 ABG 48 mmol/L (23-27); Oxygen Saturation ABG 92 % (95-100); PCO2 ABG 96.3 mmHg (35-45); PO2 ABG 77 mmHg (80-100); TCO2 ABG 48 mmol/L (23-27); pH ABG 7.31 (7.35-7.45)
[2024-05-09] MEDS: methylPREDNISolone 125 MG/2 ML VIAL IV (03:56)
[2024-05-09 03:59] LABS: Alanine Aminotransferase 15 IU/L (<50); Albumin 3.4 g/dL (3.5-5.0); Alkaline Phosphatase 106 U/L (38-126); Aspartate Aminotransferase 27 IU/L (17-59); BUN Creatinine Ratio 21.4 (6-22); Bilirubin Total 0.2 mg/dL (0.2-1.3); Blood Urea Nitrogen 24 mg/dL (9-20); Calcium 9.1 mg/dL (8.4-10.2); Chloride 90 mmol/L (98-107); Creatine Kinase 32 U/L (55-170); Estimated Glomerular Filt Rate > 60 mL/min (>60); Globulin 3.3 g/dL (1.7-4.1); Glucose 125 mg/dL (80-110); HEMOLYSIS < 15 (0-50); Lipase 449 U/L (23-300); Potassium 3.5 mmol/L (3.4-5.1); Sodium 138 mmol/L (137-145); Total Protein 6.7 g/dL (6.3-8.2)
--- NOTE | 2024-05-09 04:12 | PC.NURSE ---
pt is drowsy, and hallucinating, restless on the stretcher, RT at bedside applying Bipap and adjusting the settings
--- NOTE | 2024-05-09 04:35 | PC.NURSE ---
pt cleaned of loose stool and brief changed, pt's groin and perineum area is dark red with a vesicular rash noted to the groin area no break down areas noted, area covered with barrier cream and new brief placed on pt
[2024-05-09 04:40] LABS: Carbon Dioxide 42 mmol/L (22-32)
[2024-05-09 04:50] LABS: Influenza A - CEPHEID Flu A NEGATIVE (NEGATIVE); Influenza B - CEPHEID Flu B NEGATIVE (NEGATIVE); Respiratory Syncytial Virus Negative (Negative)
[2024-05-09 05:00] LABS: COVID-19 CEPHEID 4-PLEX PCR Negative (Negative)
[2024-05-09] MEDS: ALBUTEROL/IPRATROPIUM 3 ML AMPUL INH (05:00)
[2024-05-09 05:21] LABS: Allen Test for ABG Passed? Positive; Base Excess ABG 20.9 mmol/L (-2-3); Blood Gas Collection Site Right Radial; Delivery System BiPAP; HCO3 ABG 50 mmol/L (23-27); Oxygen Saturation ABG 91 % (95-100); PCO2 ABG 84.7 mmHg (35-45); PO2 ABG 67 mmHg (80-100); TCO2 ABG 49 mmol/L (23-27); pH ABG 7.38 (7.35-7.45)
[2024-05-09] MEDS: PIPERACILLIN/TAZO 4.5 GM in SODIUM CHLORIDE 0.9% 100 ML IV (05:21)
--- NOTE | 2024-05-09 05:30 | PC.NURSE ---
pt becoming more lucid and awake, restraints dc and non-restrictive mitts applied
[2024-05-09 05:31] LABS: NT-proBNP (BNP-Adult 18+) 2000 pg/mL (<450)
--- NOTE | 2024-05-09 06:15 | PC.NURSE ---
blood cultures not ordered until after 1st dose of antibiotics were given and completed
[2024-05-09] MEDS: LIDOCAINE 2% (GLYDO) 6 ML GEL TOP (06:29)
[2024-05-09] MEDS: AZITHROMYCIN 500 MG in DEXTROSE 5% IN WATER 250 ML 250 MG IV (06:29)
[2024-05-09] MEDS: VANCOMYCIN 2,000 MG/400 ML PIGGYBACK 200 MG IV (07:05)
--- NOTE | 2024-05-09 07:29 | PC.NURSE ---
pt arrived from ER via stretcher, mumbling incoherently, reaching out towards the rainer and attempts to pull off bipap mask, bilat mitts maintained, VSS, bipap 22/8 35%, RR 25-35, O2 sats >90%, large round abd with dsg intact, camacho draining ronnie yellow urine with sediment, scrotum and groin excoriated, bed alarm on, call george within reach, care continued
[2024-05-09] MEDS: FUROSEMIDE 40 MG/4 ML VIAL IV (07:58)
[2024-05-09 08:28] LABS: Add Manual Diff / Slide Review NO; Basophils Absolute Auto 0 /uL (0-100); Basophils Percent Auto 0.3 % (0-2); Eosinophils Absolute Auto 0 /uL (0-450); Eosinophils Percent Auto 0.1 % (2-4); Hematocrit 25.6 % (41-53); Hemoglobin 8.2 g/dL (13.5-17.5); Lymphocytes Absolute Auto 500 /uL (1100-4500); Lymphocytes Percent Auto 7.2 % (25-40); Mean Corpuscular HGB Conc 32.1 % (30-36); Mean Corpuscular Hemoglobin 30.8 PG (26-34); Mean Corpuscular Volume 96.1 fL (80-100); Monocytes Absolute Auto 100 /uL (0-900); Monocytes Percent Auto 1.7 % (3-14); Neutrophils Absolute Auto 6000 /uL (1500-7000); Neutrophils Percent Auto 90.7 % (50-75); Platelet Count 303 X10^3/uL (150-400); Red Blood Cell Count 2.66 X10^6/uL (4.5-5.9); Red Cell Distribution Width 17.4 % (11.6-14.8); White Blood Cell Count 6.6 X10^3/uL (4.5-11.0)
--- NOTE | 2024-05-09 08:39 | P.HP_ITS ---
History of Present Illness History of Present Illness Date Patient Seen: 05/09/24 Time Patient Seen: 09:34 Chief complaint: copd Narrative: From emergency physician: 74-year-old male with history of COPD, prescribed nasal BiPAP at [facility], frequent talking, likely poor seal, increased shortness of breath today overnight, here for further evaluation. Admits to cough, has chronic cough, not recently productive. No fevers or chills. He denies chest pain. He denies swelling to his legs. No calf pain. Additional information: The patient was on BiPAP and relatively lethargic. No further information is currently available. There is some peripheral information indicating that he may be somewhat noncompliant with his chronic CPAP or BiPAP at his nursing facility. [facility] Medical History Mobitz II Hypertension Surgical History History of permanent cardiac pacemaker placement H/O abdominal surgery Social History household members: spouse Smoking Status: Former smoker alcohol intake: never Meds Home Medications and Allergies Home Medications Medication Instructions Recorded Confirmed Type ascorbic acid (vitamin C) 1,000 mg 1 gram PO BID 01/10/18 05/09/24 History tablet aspirin 81 mg tablet,delayed 81 mg PO DAILY 01/10/18 05/09/24 History release (Adult Aspirin Regimen) tolterodine 4 mg capsule,extended 4 mg PO DAILY 01/10/18 05/09/24 History release 24 hr allopurinol 100 mg tablet 100 mg PO DAILY 02/08/24 05/09/24 History amlodipine 2.5 mg tablet 2.5 mg PO DAILY 02/08/24 05/09/24 History hydrochlorothiazide 12.5 mg tablet 25 mg PO DAILY 02/08/24 05/09/24 History losartan 25 mg tablet 12.5 mg PO BID 02/08/24 05/09/24 History amitriptyline 25 mg tablet 25 mg BEDTIME 05/09/24 05/09/24 History apixaban 5 mg tablet (Eliquis) 5 mg PO BID 05/09/24 05/09/24 History budesonide-formoterol HFA 160 2 puff inhalation BID 05/09/24 05/09/24 History mcg-4.5 mcg/actuation aerosol inhaler cholecalciferol (vitamin D3) 50 50 mcg PO DAILY 05/09/24 05/09/24 History mcg (2,000 unit) tablet (Vitamin D3) furosemide 20 mg tablet 20 mg BID 05/09/24 05/09/24 History ipratropium bromide 17 2 puff inhalation 4XD 05/09/24 05/09/24 History mcg/actuation HFA aerosol inhaler (Atrovent HFA) multivitamin 1 tab PO DAILY 05/09/24 05/09/24 History omega-3 fatty acids 500 mg capsule 500 mg PO DAILY 05/09/24 05/09/24 History polyethylene glycol 3350 8.5 gram 8.5 g PO 3XW 05/09/24 05/09/24 History oral powder packet psyllium husk (aspartame) 3.4 gram 1 packet PO DAILY 05/09/24 05/09/24 History oral powder packet (Daily Fiber (psyllium-aspartame)) Allergies Allergy/AdvReac Type Severity Reaction Status Date / Time Ukvlalh-NGP-WmU Reductase Allergy Mild Elevated Verified 01/10/18 15:38 Inhibitor liver [Ybmnunh-Ukb-Tok Reductase enzymes Inhibitor] Review of Systems Review of Systems Narrative: All else reviewed and otherwise unremarkable except as noted in the history and physical. Exam Vital Signs (past 8 hours): - 05/09/24 03:22 05/09/24 03:23 05/09/24 03:27 Pulse Rate 65 63 Respiratory Rate 36 H Blood Pressure 147/62 H 147/62 H Pulse Oximetry 100 Oxygen Delivery Method Nasal Cannula Fraction of Inspired Oxygen 05/09/24 03:27 05/09/24 03:30 05/09/24 03:31 Pulse Rate 65 65 Respiratory Rate Blood Pressure 130/59 L Pulse Oximetry 83 L 89 L Oxygen Delivery Method Fraction of Inspired Oxygen 05/09/24 03:31 05/09/24 04:00 05/09/24 04:01 Pulse Rate 65 65 Respiratory Rate Blood Pressure 123/84 Pulse Oximetry 95 95 Oxygen Delivery Method Fraction of Inspired Oxygen 05/09/24 04:01 05/09/24 04:03 05/09/24 04:09 Pulse Rate 63 Respiratory Rate Blood Pressure 123/84 Pulse Oximetry 93 Oxygen Delivery Method Fraction of Inspired Oxygen 35 35 05/09/24 04:30 05/09/24 04:31 05/09/24 04:31 Pulse Rate 65 70 Respiratory Rate Blood Pressure 129/72 Pulse Oximetry 96 95 Oxygen Delivery Method Fraction of Inspired Oxygen 05/09/24 05:00 05/09/24 05:00 05/09/24 05:01 Pulse Rate 66 65 Respiratory Rate 25 H Blood Pressure 165/72 H Pulse Oximetry 95 91 Oxygen Delivery Method BiPAP Fraction of Inspired Oxygen 35 05/09/24 05:01 05/09/24 05:30 05/09/24 05:41 Pulse Rate 66 65 Respiratory Rate Blood Pressure Pulse Oximetry 90 L 95 Oxygen Delivery Method Fraction of Inspired Oxygen 35 05/09/24 06:00 05/09/24 06:00 05/09/24 06:29 Pulse Rate 65 64 Respiratory Rate Blood Pressure 132/67 Pulse Oximetry 93 95 Oxygen Delivery Method Fraction of Inspired Oxygen 05/09/24 06:30 05/09/24 06:30 05/09/24 06:50 Pulse Rate 64 65 Respiratory Rate 26 H Blood Pressure 153/67 H 133/88 Pulse Oximetry 95 98 Oxygen Delivery Method Fraction of Inspired Oxygen 35 05/09/24 07:00 05/09/24 07:00 05/09/24 08:00 Pulse Rate 64 61 Respiratory Rate 35 H 18 Blood Pressure 140/97 H Pulse Oximetry 91 97 Oxygen Delivery Method Fraction of Inspired Oxygen 05/09/24 08:01 05/09/24 08:01 05/09/24 08:30 Pulse Rate 61 60 Respiratory Rate 18 17 Blood Pressure 110/54 L Pulse Oximetry 95 97 Oxygen Delivery Method Fraction of Inspired Oxygen Fraction of Inspired Oxygen 35 SaO2/FiO2 Ratio 271 Oxygen Delivery Method BiPAP Narrative Exam Narrative: Lethargic and on BiPAP. Normocephalic skull, EOMI, anicteric sclera, symmetric pupils. Oropharynx unremarkable, no droop. Neck supple, midline trachea, no adenopathy. Lungs clear, normal rate and effort. Heart regular, no murmur gallop or rub. Abdomen is soft, non distended and non tender. Extremities are free of edema. Skin is free of rash or lesions. Joints are not swollen or deformed. Objective ECG Impression: Sinus rhythm with 1st degree AV block Nonspecific T wave abnormality Imaging Chest x-ray: Radiologist's impression: Finding is concerning for bilateral perihilar and infrahilar infiltrates. Trace amount of bilateral pleural effusion. No gross pneumothorax. Labs 05/09/24 08:19 05/09/24 08:19 Labs: Laboratory Results - last 24 hr 05/09/24 05/09/24 05/09/24 03:40 03:42 03:44 WBC 7.7 RBC 2.86 L Hgb 9.1 L Hct 27.6 L MCV 96.5 MCH 31.7 MCHC 32.8 RDW 17.2 H Plt Count 380 Neut % (Auto) 70.3 Lymph % (Auto) 18.4 L Ocean % (Auto) 8.5 Eos % (Auto) 0.7 L Baso % (Auto) 2.1 H Neut # (Auto) 5400 Lymph # (Auto) 1400 Ocean # (Auto) 700 Eos # (Auto) 100 Baso # (Auto) 200 H ABG Sample Site Right radial ABG pH 7.31 L ABG pCO2 96.3 H* ABG pO2 77 L ABG HCO3 48 H ABG Total CO2 48 H ABG O2 Saturation 92 L ABG Base Excess 18.8 H Hayden Test Positive O2 Delivery Device FiO2 % 35.0 % Sodium 138 Potassium 3.5 Chloride 90 L Carbon Dioxide 42 H* BUN 24 H Creatinine 1.12 Estimated GFR > 60 BUN/Creatinine Ratio 21.4 Glucose 125 H Calcium 9.1 Total Bilirubin 0.2 AST 27 ALT 15 Alkaline Phosphatase 106 Total Creatine Kinase 32 L Troponin I 0.030 NT-Pro-B Natriuret Pep 2000 H Total Protein 6.7 Albumin 3.4 L Globulin 3.3 Albumin/Globulin Ratio 1.0 Lipase 449 H SARS-CoV-2 (PCR) Negative Influenza A (RT-PCR) Flu a negative Influenza B (RT-PCR) Flu b negative RSV (PCR) Negative 05/09/24 05/09/24 05:15 08:19 WBC 6.6 RBC 2.66 L Hgb 8.2 L Hct 25.6 L MCV 96.1 MCH 30.8 MCHC 32.1 RDW 17.4 H Plt Count 303 Neut % (Auto) 90.7 H D Lymph % (Auto) 7.2 L Ocean % (Auto) 1.7 L Eos % (Auto) 0.1 L Baso % (Auto) 0.3 Neut # (Auto) 6000 Lymph # (Auto) 500 L Ocean # (Auto) 100 Eos # (Auto) 0 Baso # (Auto) 0 ABG Sample Site Right radial ABG pH 7.38 ABG pCO2 84.7 H* ABG pO2 67 L ABG HCO3 50 H ABG Total CO2 49 H ABG O2 Saturation 91 L ABG Base Excess 20.9 H Hayden Test Positive O2 Delivery Device Bipap FiO2 % 35.0 % Sodium Potassium Chloride Carbon Dioxide BUN Creatinine Estimated GFR BUN/Creatinine Ratio Glucose Calcium Total Bilirubin AST ALT Alkaline Phosphatase Total Creatine Kinase Troponin I NT-Pro-B Natriuret Pep Total Protein Albumin Globulin Albumin/Globulin Ratio Lipase SARS-CoV-2 (PCR) Influenza A (RT-PCR) Influenza B (RT-PCR) RSV (PCR) Assessment & Plan Assessment & Plan narrative: 1. COPD exacerbation 2. Acute hypercarbic respiratory failure 3. PNA 4. Chronic systolic heart failure 5. Obesity class 2. PLAN: -BiPAP and oxygen support, wean as able. -bronchodilators -IV antibiotics for pneumonia -monitor volume status DNI Time-Based Coding :: 35 min spent with patient and on the chart (including review of chart, obtaining history, exam, reviewing outside data, placing orders, documenting exam and treatment plan, and counseling patient) on 05/09. Quality MIPS - Admit I confirm the patient?s Advance Care Plan is present, Code status is documented, Surrogate decision maker is in patient?s record [If Yes, STOP here]: Yes MIPS - Meds 'Current medications' to include all prescriptions, [id number] products, herbals, cannabis/cannabidiol products, and vitamin/mineral/dietary (nutritional) supplements. I have utilized all available resources to obtain, update, or review the patient?s current medications. [If Yes, STOP here]: Yes
[2024-05-09 08:43] LABS: BUN Creatinine Ratio 25.5 (6-22); Blood Urea Nitrogen 25 mg/dL (9-20); Calcium 8.7 mg/dL (8.4-10.2); Chloride 91 mmol/L (98-107); Estimated Glomerular Filt Rate > 60 mL/min (>60); Glucose 156 mg/dL (80-110); HEMOLYSIS < 15 (0-50); Potassium 3.5 mmol/L (3.4-5.1); Sodium 135 mmol/L (137-145)
[2024-05-09 08:56] LABS: Carbon Dioxide 40 mmol/L (22-32)
[2024-05-09] MEDS: ALBUTEROL 2.5 MG/3 ML NEB (ADULT) INH ×4 (09:51→20:55)
[2024-05-09] MEDS: PIPERACILLIN/TAZO 3.375 GM in SODIUM CHLORIDE 0.9% 100 ML IV ×2 (10:25→17:42)
[2024-05-09] MEDS: HALOPERIDOL 5 MG/ML VIAL IV (10:25)
--- NOTE | 2024-05-09 10:37 | DI.CT.S_ITS ---
PROCEDURE: CT CHEST ABD PEL W CON INDICATIONS: abdomen pain TECHNIQUE: After the administration of intravenous contrast, 5 mm thick sections acquired from the lung apices to the symphysis. 5 mm coronal and sagittal reformats were performed, with additional 7 mm MIP reformats through the lungs. For radiation dose reduction, the following was used: automated exposure control, adjustment of mA and/or kV according to patient size. COMPARISON: [facility], CT, CT ANGIO CHEST PE PROTOCOL, 02/07/2024, 15:10. [facility], CT, CT ABDOMEN PELVIS W CON, 02/07/2024, 15:10. FINDINGS: Chest: Cardiovascular: Heart size is normal. No evidence of pulmonary embolism, aortic aneurysm or dissection. Dual-chamber pacemaker present Lungs and pleural spaces: Moderate bilateral pleural effusions Lymph nodes: No mediastinal, hilar or axillary adenopathy. Mediastinum: Unremarkable. No hiatal hernia. Thyroid within normal limits. Chest Wall and Bones: Unremarkable. No acute fracture. Abdomen and Pelvis: Liver: Normal in size and attenuation. No contour deformity present. Biliary system: Calcified stones noted in the lumen of the gallbladder. No pericholecystic inflammatory change. No intra or extrahepatic bile duct dilation. Pancreas: Unremarkable without mass or inflammation evident. Spleen: Normal in size and density. Adrenals: Normal morphology and density. Reproductive system: Unremarkable as visualized. Urinary system: Normal renal size and attenuation. No renal calculi, hydronephrosis, or solid mass present. Small amount of air noted in the bladder dome. Peoples catheter in the bladder. Gastrointestinal system: Anastomotic suture line again noted involving the sigmoid and left lower quadrant small bowel as well. There is focal sigmoid wall thickening noted adjacent to the suture line, as well as suggestion of perisigmoid edema similar prior. Adjacent sigmoid wall thickening Appendix: No findings to suggest acute appendicitis. Lymph nodes: No mesenteric or retroperitoneal adenopathy. Peritoneal spaces: No free air. No free fluid. Vasculature: The IVC, aorta and iliac vasculature are unremarkable. Abdominal wall: Prior ventral surgeries noted. Prior postoperative seroma has resolved. There is a small left spigelian ventral hernia containing a knuckle of colon without obstruction. Musculoskeletal: Normal bone mineralization. Degenerative disc disease and arthropathy noted in lower lumbar spine. No acute fractures. IMPRESSION: Small left lateral spigelian hernia contains a knuckle of bowel without obstruction. Left lower quadrant bowel anastomosis appears intact, however, focal sigmoid wall thickening and perisigmoid edema could reflect a focal colitis. Consider direct visualization when patient condition improved. Atherosclerotic calcification in the abdominal aorta noted without evidence of aneurysm. Approved by: Jerod Sarah M.D. on 05/09/2024 at 12:59
--- NOTE | 2024-05-09 10:40 | PC.NURSE ---
Addendum entered by Jazmyn Kendrick R.N. 05/09/24 18:53: Pt talking behind BiPAP mask, stating, Elbow, numerous times. This RN asked pt if his elbow hurt, pt stated, Elbow, elbow. No. Pt yelling, Help. This RN asked pt several times what he needs help with. Pt unable to articulate what he needs. BiPAP removed, 2L NC in place,O2 saturation 92%. Pt able to tolerate PO ice chips. Continues to yell out for various items but upon further clarification, pt unable to articulate needs. Pt A&O to self, unsure of place, situation, or time. Care ongoing. Original Note: Pt alert to name only, attempting to sit up in bed. Restraints briefly removed for care, pt attempting to strike nursing staff at bedside assisting pt. Restraint replaced. Provider notified. New orders received. Bandage on midline abd removed, purulent drainage with open skin area. Photos to come. Provider at bedside. New orders received. Care ongoing.
[2024-05-09] MEDS: dexmedeTOMIDine in 0.9 % NaCL 400 MCG/100 ML PLAST..BAG 6.175 MCG IV (10:59)
--- NOTE | 2024-05-09 11:12 | PC.WOUNDPHOT ---
Wound Photo Midline abdomen in both photos.
[2024-05-09] MEDS: POTASSIUM CHLORIDE IN WATER 10 MEQ/100 ML PIGGYBACK 100 MEQ IV ×2 (13:56→14:59)
--- NOTE | 2024-05-09 14:02 | DIET.CONS ---
Dietary Consultation Note Admission Date: 05/09/2024 05:26 Assessment: 84 y M admitted for COPD exacerbation, acute hypercarbic resp failure. PMH of CHF. Dietitian screened for low MNA. Pt sleeping soundly on BiPAP. EMR reviewed. Review of January hospitalist progress notes: PMH of admission on [facility] in January for exploratory laparotomy with extensive lysis of adhesions, small-bowel resection, omentectomy and placement of mesh and drains on January 22. Was then admitted at late January for undifferentiated (cardiogenic vs septic) shock with hypotension, acute respiratory failure with hypoxia and hypercapnea and acute metabolic encephalopathy. Was intubated and transferred to higher level of care. Per wt hx in EMR, a 14% weight loss noted from Jan until now. Ht: 185.42 cm Wt: 123.5 kg BMI: 35.9 UBW: 143 kg on 02/09/24 (-14% weight loss in 3 months, severe) Last BM: () MNA: 10 Kavon Score: 17 Diet: 05/09/24 Breakfast Heart Healthy Diet Diet Modifications: Labs: RBC 2.66 X10^6/uL (4.5-5.9) L 05/09/24 08:19 Hgb 8.2 g/dL (13.5-17.5) L 05/09/24 08:19 Hct 25.6 % (41-53) L 05/09/24 08:19 Creatinine 0.98 mg/dL (0.66-1.25) 05/09/24 08:19 NT-Pro-B Natriuret Pep 2000 pg/mL (<450) H 05/09/24 03:40 Nutrition Diagnosis: Unintentional* weight loss r/t inadequate oral intake aeb 14% weight loss within 3 months, severe *presumed unintentional, not able to get patient hx at this time. Interventions: -ONS BID EER: 1800 kcals (15 kcals/kg) 108 g protein (1.2 g/kg adjusted IBW per CHF) Monitoring/Evaluations: po intakes, ONS tolerance Electronically Signed by: Ryann Marcelo 05/09/24 14:02 Clinical Dietitian [address] [address]
[2024-05-09] MEDS: HYDROMORPHONE 0.5 MG INJ IV ×2 (15:00→17:41)
--- NOTE | 2024-05-09 15:03 | CM.DANOTE ---
Patient is an 84 yo male who was admitted on 05/09/24 for COPD exacerbation/Respiratory Failure/PNA. Pt has [facility] for insurance and his PCP is Kalyn Morgan. EMR was reviewed. Per , pt with hx of COPD and has been in and out of the hospitals and SNFs since summer 2023 and admitted from SNF for COPD exacerbation, respiratory failure, pneumonia. Pt currently on bipap. SW met bedside with pt, only limited involvement in discussion, and spouse Loraine and explained role and she confirms that they live in [place] with some property and pt has been in and out of [facility] since this summer 2023 and also went to [facility] and [facility] both a couple times between hospitalizations. Spouse states that pt has struggled with cardiac and respiratory issues that have kept him from being very mobile the past few months. Pt makes progress and then ends up with respiratory issues and loses his progress. Spouse states she has considered bringing him home but they have no local family and only supportive friends who help but not enough to support the patient at home. SW discussed the services and benefits of Hospice if their Goals of Care were to keep pt at home but discussed the need then for family to fly in and stay to assist or hiring private caregivers or paying for room and board at a facility. Spouse uncertain if they are ready for Hospice yet, pending pt's progress at the hospital. Pt was admitted from [facility] and spouse would be willing for pt to return to [facility] but interested in determining if [facility] could accept. Spouse declines any other SNF at this time as she visits patient almost daily and when he was at [facility] the travel time was too much. Pt still not medically appropriate to work with therapies yet at this time and requires high level of oxygen at this time, too soon to send referral to [facility] to review but SW updated [facility] admissions that likely a new referral would be sent when pt more medically stable to review. Pt has [employer] for insurance and would need auth for return to [facility] vs [facility]. Plan: SW to follow closely for pt medical progress and care needs to determine SNF vs possible change to comfort care. DRAGAN Herring Discharge Planning/Care Management CM Discharge Assessment Start: 05/09/24 14:59 Freq: Status: Active Protocol: Document 05/09/24 15:00 BF (Rec: 05/09/24 15:03 BF [id number]) Discharge Planning Assessment Assigned Insurance Special Agent DRAGAN Ott DPOA/Assigned Designee Name spouse Loraine Contact Information [phone] Advance Directives? Yes Advance Directives on File No History Provided By Patient,Significant Other, Medical Record Has Patient been admitted in last 30 No days? Prior Living Arrangements House Comment From home with spouse but has been in and out of SNFs, currently at [facility] Household Members spouse Type of transporation used prior to Drives own vehicle admit Facility Name Admitted From: [facility] Willing to Return to Facility? Yes: maybe, interested in checking [facility] Independent with ADL's No Is patient alert and oriented? Yes Needs Assistance With Meal Prep,Managing Medications ,Home Chores / Shopping Caregiver for Another No Patient/Family Preference [facility] Facility Barriers to Discharge Yes Comment Bipap and high oxygen needs, heavy care Discharge Plan [facility] Facility Transportation Arrangement cabulance vs BLS Referrals Initiated [facility] Medicare Choice List Provided Yes Medicare choice list reviewed on family electronic tablet with SNF/HH Preference Return to [facility] vs [facility] Whiteboard Updated in Patient Room with Yes name and ext. # of Insurance Special Agent Review Status In Process Please Provide Date Initial DC 05/09/24 Assessment Was Performed Next Review Type Continued Stay Review
[2024-05-09 17:34] LABS: Blood Gas Collection Site Left Brachial; Blood Gas Mode Bi-Level Ventilation; Delivery System BiPAP; HCO3 ABG 40 mmol/L (23-27); Oxygen Saturation ABG 91 % (95-100); PCO2 ABG 61.7 mmHg (35-45); PEEP 8; PO2 ABG 62 mmHg (80-100); Pressure Support 12; TCO2 ABG 39 mmol/L (23-27); pH ABG 7.42 (7.35-7.45)
[2024-05-09] MEDS: VANCOMYCIN 1,000 MG in SODIUM CHLORIDE 0.9% 250 ML 250 MG IV (18:33)
[2024-05-09 19:43] LABS: MRSA (Nasal) PCR NOT DETECTED (Not Detect)
[2024-05-09] MEDS: APIXABAN 5 MG TABLET PO (20:18)
[2024-05-09] MEDS: AMITRIPTYLINE 25 MG TABLET PO (20:18)
[2024-05-09] MEDS: SODIUM CHLORIDE 0.9% FLUSH 10 ML IV (20:19)
[2024-05-09] MEDS: BUDESONIDE 0.5 MG/2 ML NEB INH (20:55)
[2024-05-10] VITALS (64 sets, daily range): BP systolic 83–134; BP diastolic 46–70; PULSE 60–65; RESP 15–50; TEMP 31–37.1; O2SAT 76–100
[2024-05-10] MEDS: PIPERACILLIN/TAZO 3.375 GM in SODIUM CHLORIDE 0.9% 100 ML IV ×3 (02:34→18:16)
[2024-05-10 06:21] LABS: Hematocrit 27.2 % (41-53); Hemoglobin 8.8 g/dL (13.5-17.5); Mean Corpuscular HGB Conc 32.5 % (30-36); Mean Corpuscular Hemoglobin 31.3 PG (26-34); Mean Corpuscular Volume 96.3 fL (80-100); Platelet Count 339 X10^3/uL (150-400); Red Blood Cell Count 2.82 X10^6/uL (4.5-5.9); Red Cell Distribution Width 17.7 % (11.6-14.8); White Blood Cell Count 8.1 X10^3/uL (4.5-11.0)
[2024-05-10 06:32] LABS: Blood Urea Nitrogen 31 mg/dL (9-20); Calcium 8.9 mg/dL (8.4-10.2); Chloride 89 mmol/L (98-107); Estimated Glomerular Filt Rate > 60 mL/min (>60); Glucose 97 mg/dL (80-110); HEMOLYSIS < 15 (0-50); Potassium 3.3 mmol/L (3.4-5.1); Sodium 136 mmol/L (137-145)
[2024-05-10] MEDS: VANCOMYCIN 1,000 MG in SODIUM CHLORIDE 0.9% 250 ML 250 MG IV ×2 (06:49→18:16)
[2024-05-10 07:07] LABS: Carbon Dioxide 39 mmol/L (22-32)
--- NOTE | 2024-05-10 08:29 | RT ---
Pt is currently off bipap and on a 3L oxymask. Pt is resting comfortably and maintaining saturations on the 3L. Vitals are 98%, 60 HR and RR 18.
[2024-05-10] MEDS: POTASSIUM CHLORIDE 20 MEQ TAB 40 MEQ PO ×2 (09:06→12:37)
[2024-05-10] MEDS: ASPIRIN EC 81 MG TABLET PO (09:06)
[2024-05-10] MEDS: SODIUM CHLORIDE 0.9% FLUSH 10 ML IV ×2 (09:07→20:05)
[2024-05-10] MEDS: dexmedeTOMIDine in 0.9 % NaCL 400 MCG/100 ML PLAST..BAG IV (09:07)
[2024-05-10] MEDS: allopurinoL 100 MG TABLET PO (09:07)
[2024-05-10] MEDS: OXYBUTYNIN 5 MG ER TAB 10 MG PO (09:07)
[2024-05-10] MEDS: APIXABAN 5 MG TABLET PO ×2 (09:07→20:05)
[2024-05-10] MEDS: ALBUTEROL 2.5 MG/3 ML NEB (ADULT) INH ×3 (10:53→19:05)
[2024-05-10] MEDS: FUROSEMIDE 40 MG/4 ML VIAL 20 MG IV (12:45)
[2024-05-10] MEDS: predniSONE 20 MG TABLET 40 MG PO (12:45)
[2024-05-10] MEDS: ACETAMINOPHEN 325 MG TABLET 650 MG PO (16:56)
[2024-05-10] MEDS: FUROSEMIDE 20 MG/2 ML VIAL IV (18:15)
[2024-05-10] MEDS: BUDESONIDE 0.5 MG/2 ML NEB INH (19:05)
--- NOTE | 2024-05-10 19:43 | P.PN_ITS ---
Subjective Subjective Interval history: 84 M admitted with COPD exacerbation and hypercapnic respiratory failure. Intermittently lethargic today improves quickly with Bipap. Exam Vital Signs (past 8 hours): - 05/10/24 12:00 05/10/24 12:00 05/10/24 12:00 Temperature Pulse Rate 60 Respiratory Rate 29 H Blood Pressure 120/60 109/53 L Pulse Oximetry 99 Oxygen Delivery Method Oxygen Flow Rate Fraction of Inspired Oxygen 05/10/24 12:30 05/10/24 13:00 05/10/24 13:30 Temperature Pulse Rate 61 60 60 Respiratory Rate 32 H 25 H 32 H Blood Pressure Pulse Oximetry 94 94 94 Oxygen Delivery Method Oxygen Flow Rate Fraction of Inspired Oxygen 05/10/24 14:00 05/10/24 14:01 05/10/24 14:01 Temperature Pulse Rate 60 60 Respiratory Rate 23 22 Blood Pressure 90/51 L Pulse Oximetry 98 99 Oxygen Delivery Method Oxygen Flow Rate Fraction of Inspired Oxygen 05/10/24 14:30 05/10/24 14:42 05/10/24 15:00 Temperature Pulse Rate 60 60 Respiratory Rate 27 H 20 37 H Blood Pressure Pulse Oximetry 97 95 98 Oxygen Delivery Method Oximask Oxygen Flow Rate 2 Fraction of Inspired Oxygen 05/10/24 15:01 05/10/24 15:01 05/10/24 15:30 Temperature Pulse Rate 60 64 Respiratory Rate 36 H 46 H Blood Pressure 83/67 L Pulse Oximetry 96 88 L Oxygen Delivery Method Oxygen Flow Rate Fraction of Inspired Oxygen 05/10/24 15:39 05/10/24 15:39 05/10/24 16:01 Temperature Pulse Rate 64 65 Respiratory Rate 42 H 28 H Blood Pressure 88/50 L Pulse Oximetry 89 L Oxygen Delivery Method Oxygen Flow Rate Fraction of Inspired Oxygen 05/10/24 16:03 05/10/24 16:03 05/10/24 16:30 Temperature Pulse Rate 65 64 Respiratory Rate 38 H 36 H Blood Pressure 116/64 Pulse Oximetry 76 L 94 Oxygen Delivery Method Oxygen Flow Rate Fraction of Inspired Oxygen 05/10/24 17:00 05/10/24 17:30 05/10/24 17:54 Temperature 98.7 F Pulse Rate 60 63 Respiratory Rate 33 H 35 H Blood Pressure Pulse Oximetry 95 95 Oxygen Delivery Method Oxygen Flow Rate Fraction of Inspired Oxygen 05/10/24 18:00 05/10/24 18:30 Temperature Pulse Rate 64 65 Respiratory Rate 37 H 28 H Blood Pressure Pulse Oximetry 91 100 Oxygen Delivery Method Oxygen Flow Rate Fraction of Inspired Oxygen Fraction of Inspired Oxygen 28 SaO2/FiO2 Ratio 339 Oxygen Delivery Method Oximask Oxygen Flow Rate 2 Narrative Exam Narrative: Lethargic and on BiPAP. Normocephalic skull, EOMI, anicteric sclera, symmetric pupils. Oropharynx unremarkable, no droop. Neck supple, midline trachea, no adenopathy. Lungs clear, normal rate and effort. Heart regular, no murmur gallop or rub. Abdomen is soft, non distended and non tender. Extremities are free of edema. Skin is free of rash or lesions. Joints are not swollen or deformed. Objective Labs 05/10/24 06:05 05/10/24 06:05 Labs: Laboratory Results - last 24 hr 05/09/24 05/10/24 18:00 06:05 WBC 8.1 RBC 2.82 L Hgb 8.8 L Hct 27.2 L MCV 96.3 MCH 31.3 MCHC 32.5 RDW 17.7 H Plt Count 339 Sodium 136 L Potassium 3.3 L Chloride 89 L Carbon Dioxide 39 H BUN 31 H Creatinine 1.15 Estimated GFR > 60 BUN/Creatinine Ratio 27.0 H Glucose 97 Calcium 8.9 Nasal Screen MRSA (PCR) Not detected [facility] Medical History Mobitz II Hypertension Surgical History History of permanent cardiac pacemaker placement H/O abdominal surgery Social History household members: spouse Smoking Status: Former smoker alcohol intake: never Assessment & Plan Assessment & Plan narrative: 1. COPD exacerbation 2. Acute hypercarbic respiratory failure 3. PNA 4. Chronic systolic heart failure 5. Obesity class 2. 6. Hypokalemia PLAN: -BiPAP and oxygen support, wean as able. -bronchodilators -IV antibiotics for pneumonia -monitor volume status DNI Time-Based Coding :: [TOTAL MINUTES] spent with patient and on the chart (including review of chart, obtaining history, exam, reviewing outside data, placing orders, documenting exam and treatment plan, and counseling patient) on [DATE].
[2024-05-10] MEDS: AMITRIPTYLINE 25 MG TABLET PO (20:05)
[2024-05-11] VITALS (36 sets, daily range): BP systolic 94–134; BP diastolic 48–71; PULSE 60–65; RESP 15–39; TEMP 30.7–37.1; O2SAT 90–99
[2024-05-11] MEDS: PIPERACILLIN/TAZO 3.375 GM in SODIUM CHLORIDE 0.9% 100 ML IV (02:44)
[2024-05-11 06:46] LABS: Hematocrit 25.2 % (41-53); Hemoglobin 8.3 g/dL (13.5-17.5); Mean Corpuscular HGB Conc 32.8 % (30-36); Mean Corpuscular Hemoglobin 31.3 PG (26-34); Mean Corpuscular Volume 95.5 fL (80-100); Platelet Count 339 X10^3/uL (150-400); Red Blood Cell Count 2.64 X10^6/uL (4.5-5.9); Red Cell Distribution Width 17.6 % (11.6-14.8); White Blood Cell Count 7.3 X10^3/uL (4.5-11.0)
--- NOTE | 2024-05-11 06:59 | PC.NURSE ---
casino shift manager note pt A&Ox3, frequently yelling out, educated often about use of call george instead of yelling out demands, became restless and stated he was anxious at bedtime, precedex restarted with mod effect and titrated down in am, agreeable to wear BIPAP after precedex started and continued to use it till around 0500 then oximask at 3L applied, pt wanted frequent breaks from each mask for ice chips, O2 sats >90% when masks are on, desats to mid 80s without O2 on, incont of one loose BM, meds and labs as ordered
[2024-05-11 07:00] LABS: Blood Urea Nitrogen 33 mg/dL (9-20); Calcium 8.7 mg/dL (8.4-10.2); Chloride 93 mmol/L (98-107); Estimated Glomerular Filt Rate > 60 mL/min (>60); Glucose 120 mg/dL (80-110); HEMOLYSIS < 15 (0-50); Potassium 3.4 mmol/L (3.4-5.1); Sodium 136 mmol/L (137-145)
[2024-05-11 07:05] LABS: Vancomycin Trough 19.6 ug/mL (10-20)
[2024-05-11 07:07] LABS: Carbon Dioxide 36 mmol/L (22-32)
[2024-05-11] MEDS: ALBUTEROL 2.5 MG/3 ML NEB (ADULT) INH ×3 (07:49→19:38)
[2024-05-11] MEDS: BUDESONIDE 0.5 MG/2 ML NEB INH ×2 (07:49→19:38)
[2024-05-11] MEDS: ASPIRIN EC 81 MG TABLET PO (07:58)
[2024-05-11] MEDS: FUROSEMIDE 20 MG/2 ML VIAL IV ×2 (07:58→17:36)
[2024-05-11] MEDS: OXYBUTYNIN 5 MG ER TAB 10 MG PO (07:58)
[2024-05-11] MEDS: predniSONE 20 MG TABLET 40 MG PO (07:58)
[2024-05-11] MEDS: APIXABAN 5 MG TABLET PO ×2 (07:59→22:02)
[2024-05-11] MEDS: allopurinoL 100 MG TABLET PO (08:01)
[2024-05-11] MEDS: SODIUM CHLORIDE 0.9% FLUSH 10 ML IV ×2 (08:01→22:01)
[2024-05-11] MEDS: ACETAMINOPHEN 325 MG TABLET 650 MG PO (08:01)
[2024-05-11] MEDS: POTASSIUM CHLORIDE 20 MEQ TAB 40 MEQ PO (08:08)
[2024-05-11] MEDS: AZITHROMYCIN 500 MG in DEXTROSE 5% IN WATER 250 ML 250 MG IV (08:21)
[2024-05-11] MEDS: cefTRIAXone 1,000 MG in SODIUM CHLORIDE 0.9% 100 ML 200 MG IV (09:33)
--- NOTE | 2024-05-11 10:46 | DI.ECHO.S_ITS ---
[place] [facility]+ [facility] : : [address] : : [place] : : [id number] : : Phone: [phone] Echocardiogram Report + + :Name: GERMAN SANTOS Study Date: 05/11/2024 Height: 73 in : :[facility] ReadingLocation: Weight: 272 lb: : Gender: Male BSA: 2.5 m2 : :: 1940 Age: 84 yrs : :Reason For Study: BILATERAL PLEURAL EFFUSION : :Ordering Physician: TELMA, : :NOELLE DEVI Performed By: Yu Ghosh : :Referring: NOELLE HOLLIS : + + Interpretation Summary 1. The left ventricular contractility is borderline. Estimated fraction is 50 to 55 % with slight hypokinesis of the apical segment. No LVH. Unable to comment on diastolic function. 2. The right ventricle contractility is normal. 3. The left atrium is mildly dilated. All other cardiac chambers are normal size. 4. Moderate mitral stenosis with mean gradient of 5.7 mmHg. Trace mitral regurgitation 5. Mild aortic valvular stenosis with mean gradient of 18 mmHg and dimensionless index of 0.34. 6. Trace tricuspid regurgitation with estimated pulmonary systolic artery pressures of 43 mmHg. 7. No obvious intracardiac shunts. 8. Hyperechogenic linear densities noted in right atrium and right ventricle consistent with pacemaker wires. 9. No hemodynamically significant pericardial effusion. Prominent left pleural effusion noted. 10. Normal right-sided filling pressures. Conclusion: Low normal left systolic function with mild to moderate valvular heart disease. When compared to previous echocardiogram, there does appear to be a slight decline in the left ventricular systolic function Procedure: A two-dimensional transthoracic echocardiogram with color flow and Doppler was performed. The study quality was technically adequate. Comparison is made with the echocardiogram of 04/06/2024. The heart rate ranged between 60 bpm during the study. EKG artifact throughout exam. Left Ventricle: The left ventricle is normal in size and wall thickness. The ejection fraction is estimated to be 50-55%. Right Ventricle: The right ventricle is normal in size and function. There is a pacemaker lead in the right ventricle. Atria: The left atrium is mildly dilated. There is a catheter/pacemaker lead seen in the right atrium. There is no Doppler evidence for an interatrial shunt. Mitral Valve: The mitral valve leaflets appear mildly thickened, but open well. There is mild mitral annular calcification. There is trace mitral regurgitation. Aortic Valve: The aortic valve is trileaflet. The aortic valve is mildly calcified. The peak aortic velocity is 2.9 m/sec. The aortic valve mean gradient is 18 mmHg. The calculated aortic valve area is 1.1 cm2. No aortic regurgitation is present. Tricuspid Valve: The tricuspid valve leaflets are thin and pliable. There is trace tricuspid regurgitation. The right ventricular systolic pressure is estimated to be at least 43 mmHg based on an estimated right atrial pressure of 8 mm Hg. Pulmonic Valve: The pulmonic valve leaflets are thin and pliable; valve motion is normal. There is mild pulmonic regurgitation. Great Vessels: The aortic root is normal size. The IVC is dilated (diameter is greater than 2.1 cm) yet it collapses greater than 50% with a sniff. This suggests a right atrial pressure of 8 mm Hg. Pericardium/ Pleura There is no pericardial effusion. There is a moderately large left-sided pleural effusion. MMode/2D Measurements & Calculations LVIDd: 5.7 cm LVOT diam: 2.0 cm LVIDs: 3.7 cm Ao root diam: 3.5 cm FS: 35.2 % asc Aorta Diam: 3.9 cm EPSS: 0.60 cm IVSd: 1.00 cm LVPWd: 0.82 cm LV gan. diameter/BSA (cm/m^2): 2.3 LV sys. diameter/BSA (cm/m^2): 1.5 LA A2 area: 25.0 cm2 RA long axis: 5.0 cm LA A4 area: 28.1 cm2 RA area: 19.4 cm2 LA length (vol): 6.5 cm RA vol: 63.8 ml LA vol: 91.3 ml RA : 26.0 ml/m2 LA vol index: 37.2 ml/m2 IVC diam: 2.5 cm RVD1 (basal): 5.1 cm RVD2 (mid): 4.0 cm TAPSE: 1.7 cm Doppler Measurements & Calculations Ao V2 max: 291.3 cm/sec LVOT Max Merlin: 95.0 cm/sec Ao V2 mean: 195.4 cm/sec LV V1 max P.7 mmHg Ao max P.1 mmHg LV V1 VTI: 20.9 cm Ao mean P.3 mmHg SO(I,D): 1.1 cm2 Ao V2 VTI: 61.9 cm SO(V,D): 1.1 cm2 sev ratio: 0.34 SO indexed to BSA (cm^2/m^2): 0.44 MV E max merlin: 145.5 cm/sec TR max merlin: 297.0 cm/sec MV A max merlin: 127.6 cm/sec TR max P.3 mmHg MV E/A: 1.1 PA V2 max: 114.8 cm/sec Med Peak E' Merlin: 8.0 cm/sec PA V2 mean: 83.9 cm/sec E/E' med: 18.1 PA mean P.1 mmHg Lat Peak E' Merlin: 9.2 cm/sec PA pr(Accel): 34.5 mmHg E/E' lat: 15.8 E/e' average: 17.0 MV dec time: 0.20 sec MVA(VTI): 1.3 cm2 MV V2 mean: 104.8 cm/sec SV(LVOT): 67.5 ml MV mean P.7 mmHg MV V2 VTI: 52.4 cm Reading Physician:
--- NOTE | 2024-05-11 13:42 | CM.DPC ---
DCP Cont. Reviewed EMR and team rounds for status updates. Spoke with pt's by phone, explained that pt has not improved very much, and if he is not able to improve enough for rehab, then we may need to discuss long-term placement and/or hospice services in a LTC, as she does not feel that she can continue to care for him. Plan to meet with her tomorrow to discuss his progress once the Hospitalist updates the team at our morning rounds.
--- NOTE | 2024-05-11 14:38 | PM.PN.1 ---
Subjective Subjective Interval history: 84 M admitted with COPD exacerbation and hypercapnic respiratory failure. More alert today, still on nasal cannula at rest. TTE showed slight decrease in EF, but still within normal limits. Exam Vital Signs (past 8 hours): - 05/11/24 07:00 05/11/24 07:00 05/11/24 07:51 Pulse Rate 60 Respiratory Rate 24 Blood Pressure 117/58 L Pulse Oximetry 97 96 Oxygen Delivery Method Oximask Oxygen Flow Rate 2 05/11/24 08:00 05/11/24 08:00 05/11/24 08:00 Pulse Rate 60 Respiratory Rate 22 Blood Pressure 116/58 L Pulse Oximetry 99 Oxygen Delivery Method Oximask Oxygen Flow Rate 05/11/24 08:49 05/11/24 09:00 05/11/24 09:01 Pulse Rate 60 60 60 Respiratory Rate 20 36 H 32 H Blood Pressure Pulse Oximetry 97 92 94 Oxygen Delivery Method Oximask Oxygen Flow Rate 2 05/11/24 09:01 05/11/24 10:00 05/11/24 10:01 Pulse Rate 61 61 Respiratory Rate 30 H 32 H Blood Pressure 132/56 L Pulse Oximetry 98 95 Oxygen Delivery Method Oxygen Flow Rate 05/11/24 10:01 05/11/24 11:00 05/11/24 11:07 Pulse Rate 60 60 Respiratory Rate 35 H 20 Blood Pressure 105/50 L Pulse Oximetry 90 L 95 Oxygen Delivery Method Oxygen Flow Rate 05/11/24 12:00 05/11/24 12:00 05/11/24 13:00 Pulse Rate 61 Respiratory Rate 35 H Blood Pressure 108/71 126/57 L Pulse Oximetry 94 Oxygen Delivery Method Oxygen Flow Rate 05/11/24 13:00 Pulse Rate 64 Respiratory Rate 31 H Blood Pressure Pulse Oximetry 94 Oxygen Delivery Method Oxygen Flow Rate Fraction of Inspired Oxygen 25 SaO2/FiO2 Ratio 339 Oxygen Delivery Method Oximask Oxygen Flow Rate 2 Narrative Exam Narrative: Gen: obese male, no acute distress HEENT: no JVD CV: RRR. no m/r/g. Pulm: diminished breath sounds bilateral lung bases. Abd: Soft, non-distended. Ext: trace bilateral LE edema Objective Labs 05/11/24 06:30 05/11/24 06:30 Labs: Laboratory Results - last 24 hr 05/11/24 06:30 WBC 7.3 RBC 2.64 L Hgb 8.3 L Hct 25.2 L MCV 95.5 MCH 31.3 MCHC 32.8 RDW 17.6 H Plt Count 339 Sodium 136 L Potassium 3.4 Chloride 93 L Carbon Dioxide 36 H BUN 33 H Creatinine 1.18 Estimated GFR > 60 BUN/Creatinine Ratio 28.0 H Glucose 120 H Calcium 8.7 Vancomycin Trough 19.6 PFSH Medical History Mobitz II Hypertension Surgical History History of permanent cardiac pacemaker placement H/O abdominal surgery Social History household members: spouse Smoking Status: Former smoker alcohol intake: never Assessment & Plan Assessment & Plan narrative: 1. COPD exacerbation - continue prednisone, nebulizers per respiratory therapies. 2. Acute on chronic hypercarbic and hypoxemic respiratory failure - multifactorial due to PNA, CHF, and COPD exacerbation. - Goal O2 88-92% 3. bacterial pneumonia - narrowed zosyn and vanc to ceftriaxone and aizthromycin today. Continue treatment x5 days. 4. Acute on chronic diastolic heart failure - TTE with slight decrease in EF, but still better than previous 35-40%. Now approx 55%. - continue diuresis - 5. Obesity class 2. 6. Hypokalemia, improved. 7. Chronic afib with anticoagulation - continue eliquis. DNR, surrogate is patient's spouse Dispo: inpatient, in ICU due to intermittent BiPAP needs which are chronic. Once off supplemental o2 can discharge back to SNF. Time-Based Coding :: [TOTAL MINUTES] spent with patient and on the chart (including review of chart, obtaining history, exam, reviewing outside data, placing orders, documenting exam and treatment plan, and counseling patient) on [DATE].
--- NOTE | 2024-05-11 14:45 | PT.IIE ---
Current Diagnoses Acute respiratory failure with hypoxia (05/09/24) Surgical History (Last Reviewed 05/09/24 @ 08:39 by Hayden Moraes MD) H/O abdominal surgery History of permanent cardiac pacemaker placement Medical History (Last Reviewed 05/09/24 @ 08:39 by Hayden Moraes MD) Hypertension Mobitz II Physical Therapy Inpatient Evaluation/Re-Eval M1 PT/OT-IP Prior Functional Status Start: 05/11/24 16:38 Freq: NEEDED Status: Active Protocol: Document 05/11/24 14:45 AB (Rec: 05/11/24 17:00 AB [id number]) Medical Review Prior Functional Status Medical History Reviewed Yes Communication able to make needs known Mobility and Gait pt has been in/out of the hospital for ~ 4-5 months and has been on SNF after each hospitalizations. pt stated that he only was able to stand using FWW and then not able to progress enough and medically needed to go back to the hospital and had to start over again. pt stated that prior to first hospitalization, he was modified independent with all mobilities and ambulation using a FWW pt reported h/o L knee buckling and has received previous steroid shots Social History Household Members spouse Living Arrangements House Number of Floors (Floors) One Floor Number of Stairs To Enter/Railing? 3 steps without rails to enter the house Home Environment Standard Height Toilet,Walk in Shower Home Equipment Front Wheel Walker,Hand Held Shower,Grab Bars In Shower Additional Social History Comment pt has been sleeping on his recliner M2 PT-IP Current Condition Start: 05/11/24 16:38 Freq: NEEDED Status: Active Protocol: Document 05/11/24 14:45 AB (Rec: 05/11/24 17:00 AB [id number]) Physical Therapy Current Condition Current Condition Evaluation Date 05/11/24 Treatment Diagnosis PNA; COPD exacerbation; difficulty in walking Onset Date 05/09/24 M3 PT-IP Subjective Start: 05/11/24 16:38 Freq: NEEDED Status: Active Protocol: Document 05/11/24 14:45 AB (Rec: 05/11/24 17:00 AB [id number]) Subjective Physical Therapy Visit Type Type Initial Evaluation Visit Start Time 14:45 Visit Stop Time 15:40 Number of ACTION INSTALLER Visits 0 Physical Therapy Visit Comments Patient Comments agreeable to do PT M4 PT-IP Mobility and Gait Start: 05/11/24 16:38 Freq: NEEDED Status: Active Protocol: Document 05/11/24 14:45 AB (Rec: 05/11/24 17:00 AB [id number]) PT-Bed Mobility Assessment Supine to Sit Supine to Sit Maximum Assistance,2 Person Assistance,Head of Bed Elevated,Bedrails Sit to Supine Sit to Supine Total Assistance,2 Person Assistance Scooting Scooting to Edge of Bed Maximum Assistance Scooting Up and Down in Bed Dependent PT-Transfer Assessment Sit to and From Stand Sit to and from Stand Maximum Assistance,2 Person Assistance,Use of Upper Extremities Comments Mobility Comments pt in bed and spouse in room. obtained PLOF and home set up. pt with slight confusion and memory issues. BP: 125/58. O2 sat with 2L/min O2: 92-93% pt tends to talk a lot and needs to be redirected to the task at hand. completed supine to sit max A x 2 and max cues. HOB elevated and use of bed rail. pt able to sit on EOB CGA. (+) SOB O2 sat 87%. cued for PLB and O2 sat increased to 94%. pt stated that he did a BM. informed nurse. pt agreed to try to stand for nurse to be able to clean up. completed sit <>stand x 2 but pt only able to stand midway max A x 2 provided and pt stated that he needs to sit down. max A x 2 for controlled descent. pt stated that he just feels very weak and unable to get to upright position. assisted pt back to bed. total A x 3 for scooting towards HOB. total A x 3 for sit to supine. positioned pt in bed. Left pt with nurse and NAC. PT-Balance Assessment Sitting Balance and Reactions Static Sitting Balance Ability Fair Dynamic Sitting Balance Ability Poor Standing Balance and Reactions Static Standing Balance Ability Poor Dynamic Standing Balance Ability Poor Device Used FWW M5 PT-IP Objective Assessments Start: 05/11/24 16:38 Freq: NEEDED Status: Active Protocol: Document 05/11/24 14:45 AB (Rec: 05/11/24 17:00 AB [id number]) Orientation Orientation/Cognition Level of Alertness Alert Orientation Name,Place,Situation Safety Awareness Decreased Safety Awareness Memory Description Short Term Impaired,Financial Service Representative Impaired Comments with slight confusion Gross Range of Motion Lower Extremity ROM Assessment Within Functional Limits Strength Lower Extremity Strength Hip 3+/5 Knee 3+/5 Muscle Tone Muscle Tone WNL Yes M6 PT-IP Treatment Start: 05/11/24 16:38 Freq: NEEDED Status: Active Protocol: Document 05/11/24 14:45 AB (Rec: 05/11/24 17:00 AB [id number]) Physical Therapy Treatment Education Education Provided Safety M7 PT-IP Assessment and Plan Start: 05/11/24 16:38 Freq: NEEDED Status: Active Protocol: Document 05/11/24 14:45 AB (Rec: 05/11/24 17:00 AB [id number]) PT Summary Assessment and Plan Potential Rehabilitation Potential Fair Status of Condition at Evaluation Unstable Summary Impairments Pain,ROM,Strength,Balance, Coordination,Sensation,Tone, Cognition,Bed Mobility, Transfers,Gait,Activity Tolerance Assessment Summary pt is an 84 y/o M with h/o hospitalizations and was at SNF prior to admission. pt admitted for PNA and COPD exacerbation. pt requiring max A x 2 to total A x 3 with bed mobility. attempted to stand using fWW for support but pt only able to stand senior living and needing to sit back down. pt presents with weakness and decrease activity tolerance needing increase assistance with all mobilities . pt will benefit from SNF rehab. will continue to assess progress. Goals Bed Mobility Goal Moderate Assistance Transfer Goal Moderate Assistance,Front Wheeled Walker Gait Goal Moderate Assistance,Front Wheel Walker Gait Distance 15 Other Goals improve bed mobility, transfers, ambulation using FWW 50 ft CGA Days to Meet Goals 10 Frequency of Treatment Frequency Of Treatment Once a Day Treatment Plan Physical Therapy Treatment Plan Bed Mobility Training,Transfer Training,Gait Training, Therapeutic Exercise,Balance Retraining,Discharge Planning, Hot or Cold Pack,Neuromuscular Re-ed,Coordination Retraining ,Manual Therapy Precautions Other Precautions O2 sat, falls Recommendations To Nursing Amount of Assist Needed Mechanical Lift Discharge Recommendations PT Discharge Recommendations SNF Rehab Transportation Needs at Discharge Wheelchair/Cabulance,Stretcher /Ambulance
--- NOTE | 2024-05-11 15:43 | OT.IP.EVAL ---
Current Diagnoses Acute respiratory failure with hypoxia (05/09/24) Past Medical History (Last Reviewed 05/09/24 @ 08:39 by Hayden Moraes MD) Hypertension Mobitz II Surgical History (Last Reviewed 05/09/24 @ 08:39 by Hayden Moraes MD) H/O abdominal surgery History of permanent cardiac pacemaker placement Occupational Therapy Inpatient Evaluation/Re-Eval M2 OT-IP Current Condition Start: 05/11/24 16:27 Freq: Status: Active Protocol: Document 05/11/24 16:29 [facility] (Rec: 05/11/24 16:52 [facility] [id number]) Occupational Therapy Current Condition Current Condition Evaluation Date 05/11/24 Treatment Diagnosis COPD execaerbation,PNA Diagnosis Onset Date 05/09/24 M3 OT- IP Subjective and Pain Start: 05/11/24 16:27 Freq: Status: Active Protocol: Document 05/11/24 16:29 [facility] (Rec: 05/11/24 16:52 [facility] [id number]) OT- Subjective Occupational Therapy Visit Type Type Initial Evaluation Visit Start Time 14:45 Visit Stop Time 15:43 Occupational Therapy Visit Comments Patient Comments Pt agreed to try to get up. Patient/Caregiver Goals TO get better. OT Pain Assessment Pain When Pain Assessed At Rest Pain Present Pain Present Denied Pain M4 OT- IP ADL's Start: 05/11/24 16:27 Freq: Status: Active Protocol: Document 05/11/24 16:29 [facility] (Rec: 05/11/24 16:52 [facility] [id number]) OT [id number] Comments OT Self-Feeding Comments NOt at meal time. OT ADL-Grooming Comments OT Grooming Comments Not performed. OT ADL-Oral Care Comments Oral Care Comments NOt performed. OT ADL-Dressing General Eval Lower Body Dressing Ability Total Assistance OT ADL-Toileting General Evaluation Toileting Ability Total Assistance Areas Needing Assistance Manage Clothing,Perform Perineal Hygiene OT ADL-Bathing Bathing Type Bathing Type Sponge Bath Comments OT Bathing Comments Sponge bath more appropriate at this time. M5 OT- IP IADL's Start: 05/11/24 16:27 Freq: Status: Active Protocol: Document 05/11/24 16:29 [facility] (Rec: 05/11/24 16:52 [facility] [id number]) OT-Instrumental Activities of Daily Living Home Safety Awareness Home Safety Comments Pt not aware of his needs and tends to direct the conversation. Pt would benefit from SLUMS. Medication Management Medication Management Caregiver Administers Money Management Money Management Caregiver Provides Assistance Meal Preparation Meal Preparation Caregiver Provides Assist Capacitor Tester Capacitor Tester Caregiver Provides Assist M6 OT- IP Functional Cognition Start: 05/11/24 16:27 Freq: Status: Active Protocol: Document 05/11/24 16:29 [facility] (Rec: 05/11/24 16:52 [facility] [id number]) Cognitive Factors Limiting Selfcare Function Cognitive Ability Level of Alertness Confusional State Patient Orientation Name,Place,Situation Attention Span Ability Capable of Focused Attention, Unable to Sustain Attention Ability to Follow Commands Able to Follow One Step Commands with Increased Time, Able to Follow One Step Commands with Repetition Cognitive Comments Cognitive Assessment Comments Pt having difficulty to recall set up of his home environment. Pt tends to direct conversations. Pt would benefit from SLUMS. OT- Vision and Hearing OT- Vision Assessment Vision Assessment Comments To assess next time. M7 OT- IP Mobility and Balance Start: 05/11/24 16:27 Freq: Status: Active Protocol: Document 05/11/24 16:29 [facility] (Rec: 05/11/24 16:52 [facility] [id number]) OT- Bed Mobility Assessment Supine to Sit Supine to Sit Assist Maximum Assistance,Total Assistance Sit to Supine Sit to Supine Assist Total Assistance,2 Person Assistance Scooting Scooting to Edge of Bed Maximum Assistance,2 Person Assistance OT-Transfer Assessment Comments Mobility Comments BP supine 125/58. MAX asisstX2 to get to the edge of the bed . Pt does make effort to get his legs to the edge of the bed. Attempted to stand with MAX AX 2 to the FWW and not able to stand all the way up and requesting to sit down. Total A x3 to help get back into bed. Pt feels that he is weak and therefore not able to stand all the way up. OT- Balance Assessment Sitting Balance and Reactions Static Sitting Balance Ability Fair Dynamic Sitting Balance Ability Fair Standing Balance and Reactions Static Standing Balance Ability Poor M8 OT- IP Objective Assessments Start: 05/11/24 16:27 Freq: Status: Active Protocol: Document 05/11/24 16:29 [facility] (Rec: 05/11/24 16:52 [facility] [id number]) OT Gross Range of Motion Upper Extremity Range of Motion Assessment Left Impaired ROM Impairments LUE 0-80 shoulder flexion, per pt didnot heal from old shoulder fx in which he was only in a sling and did not have surgery on. OT Strength Upper Extremity Strength Assessment Bilaterally Impaired Comments Strength Comments LUE elbow to distal 4-/5, RUE 4/5 throughout. M9 OT- IP Assessment and Plan Start: 05/11/24 16:27 Freq: Status: Active Protocol: Document 05/11/24 16:29 [facility] (Rec: 05/11/24 16:52 [facility] [id number]) OT Summary Assessment and Plan Potential Rehabilitation Potential Poor Analytic Complexity at Evaluation High Summary OT Impairments Pain,Strength,Balance, Functional Cognition, Functional Mobility,Self- Feeding,Grooming,Dressing, Toileting,Bathing,Toilet Transfers,Shower Transfers, Activity Tolerance Progress Towards Goals Slow Progress due to Pain,Slow Progress due to Medical Issues,Slow Progress due to Activity Tolerance,Slow Progress due to Cognition Assessment Summary Pt MOD complexity and main barriers are decreased activity tolerance, weakness, and have not been able to walk for over 4 months due to various hospitalizations. Pt states has only been able to stand while at SNF. Questionable as to how much progress pt will be able to make considering to make in order to go home as his is elderly and limited to be able to assist her . At this time pt will need mechanical lift for transfers. To consider trail for skilled rehab versus mostly likely need [facility]/LTC. Goals Self-Feeding Goal Independent Grooming Goal Independent Dressing Goal Moderate Assistance Toileting Goal Moderate Assistance Toilet Transfer Goal Moderate Assistance Shower Transfer Goal Moderate Assistance Days to Meet Goals 40 Frequency of Treatment Other frequency 3-5x/week Treatment Plan OT Treatment Plan ADL Training,Functional Cognition Training,Functional Mobility,Patient/Family Education,Discharge Planning Other Treatment Recommendations and Next SLUMS Treatment Focus Discharge Recommendations OT Discharge Recommendations SNF Rehab,[facility] Transportation Needs at Discharge Stretcher/Ambulance
[2024-05-11] MEDS: MELATONIN 3 MG TABLET 9 MG PO (22:02)
[2024-05-11] MEDS: AMITRIPTYLINE 25 MG TABLET PO (22:02)
[2024-05-12] VITALS (35 sets, daily range): BP systolic 105–151; BP diastolic 45–76; PULSE 60–66; RESP 15–54; TEMP 31–37.1; O2SAT 81–100
--- NOTE | 2024-05-12 04:09 | RT ---
patient requested to be taken off bipap due to restlessness. Placed on 3L NC, spo2 95% w/ no distress noted at this time. RN aware
[2024-05-12] MEDS: AZITHROMYCIN 500 MG in DEXTROSE 5% IN WATER 250 ML 250 MG IV (08:03)
[2024-05-12] MEDS: FUROSEMIDE 20 MG/2 ML VIAL IV ×2 (08:04→17:40)
[2024-05-12] MEDS: allopurinoL 100 MG TABLET PO (08:32)
[2024-05-12] MEDS: APIXABAN 5 MG TABLET PO ×2 (08:32→21:13)
[2024-05-12] MEDS: OXYBUTYNIN 5 MG ER TAB 10 MG PO (08:32)
[2024-05-12] MEDS: predniSONE 20 MG TABLET 40 MG PO (08:32)
[2024-05-12] MEDS: ASPIRIN EC 81 MG TABLET PO (08:32)
[2024-05-12] MEDS: ALBUTEROL 2.5 MG/3 ML NEB (ADULT) INH ×4 (09:07→22:27)
[2024-05-12] MEDS: BUDESONIDE 0.5 MG/2 ML NEB INH ×2 (09:08→19:54)
[2024-05-12] MEDS: cefTRIAXone 1,000 MG in SODIUM CHLORIDE 0.9% 100 ML 200 MG IV (10:00)
[2024-05-12 10:04] LABS: Add Manual Diff / Slide Review NO; Basophils Absolute Auto 100 /uL (0-100); Basophils Percent Auto 0.5 % (0-2); Eosinophils Absolute Auto 0 /uL (0-450); Eosinophils Percent Auto 0.4 % (2-4); Hemoglobin 8.8 g/dL (13.5-17.5); Lymphocytes Absolute Auto 2300 /uL (1100-4500); Lymphocytes Percent Auto 20.8 % (25-40); Mean Corpuscular HGB Conc 31.6 % (30-36); Mean Corpuscular Hemoglobin 30.5 PG (26-34); Mean Corpuscular Volume 96.5 fL (80-100); Monocytes Absolute Auto 1400 /uL (0-900); Monocytes Percent Auto 12.4 % (3-14); Neutrophils Absolute Auto 7200 /uL (1500-7000); Neutrophils Percent Auto 65.9 % (50-75); Platelet Count 433 X10^3/uL (150-400); Red Cell Distribution Width 18.5 % (11.6-14.8); White Blood Cell Count 10.9 X10^3/uL (4.5-11.0)
[2024-05-12 10:15] LABS: BUN Creatinine Ratio 25.6 (6-22); Blood Urea Nitrogen 31 mg/dL (9-20); Calcium 9.1 mg/dL (8.4-10.2); Chloride 93 mmol/L (98-107); Estimated Glomerular Filt Rate 59 mL/min (>60); Glucose 124 mg/dL (80-110); HEMOLYSIS < 15 (0-50); Potassium 3.2 mmol/L (3.4-5.1); Sodium 138 mmol/L (137-145)
[2024-05-12 10:20] LABS: Carbon Dioxide 40 mmol/L (22-32)
--- NOTE | 2024-05-12 10:39 | PT-IP ANOTE ---
Therapists check in for treatment. Pt sleeping and awakens to voice. He declines therapy at this time. He asks for therapists to check back and will do as/if schedule allows. Recommend cardiac chair positioning and/or OOB with total lift and nsg.
--- NOTE | 2024-05-12 10:41 | OT.IPNOTE ---
Check on pt for therapy and pt refused as too tired from not sleeping well.
[2024-05-12] MEDS: SODIUM CHLORIDE 0.9% FLUSH 10 ML IV ×2 (10:42→21:14)
[2024-05-12] MEDS: POTASSIUM CHLORIDE 20 MEQ TAB 40 MEQ PO ×2 (10:43→16:28)
--- NOTE | 2024-05-12 13:04 | PT.IPTN ---
Current Diagnoses Acute respiratory failure with hypoxia (05/09/24) Physical Therapy Treatment Note M2 PT-IP Current Condition Start: 05/11/24 16:38 Freq: NEEDED Status: Active Protocol: Document 05/11/24 14:45 AB (Rec: 05/11/24 17:00 AB [id number]) Physical Therapy Current Condition Current Condition Evaluation Date 05/11/24 Treatment Diagnosis PNA; COPD exacerbation; difficulty in walking Onset Date 05/09/24 M3 PT-IP Subjective Start: 05/11/24 16:38 Freq: NEEDED Status: Active Protocol: Document 05/12/24 12:39 MB (Rec: 05/12/24 13:04 MB [id number]) Subjective Physical Therapy Visit Type Type Treatment Note Visit Start Time 12:39 Visit Stop Time 12:55 Number of SALES ORDER COORDINATOR Visits 0 Physical Therapy Visit Comments Patient Comments Pt is agreeable to PT. M4 PT-IP Mobility and Gait Start: 05/11/24 16:38 Freq: NEEDED Status: Active Protocol: Document 05/12/24 12:39 MB (Rec: 05/12/24 13:04 MB [id number]) PT-Bed Mobility Assessment Sit to Supine Sit to Supine Moderate Assistance,2 Person Assistance Scooting Scooting Up and Down in Bed Dependent PT-Transfer Assessment Comments Mobility Comments O2 sats on O2 were 89% with mobility and then nsg doffs reader for mobility. Pt is unable to stand despite +2 max A and two attempts and pt incontinent of bowel with attempted standing. Pt is able to lower upper body back into bed and he requires +2 mod A to lift legs into bed and +3 max A to scoot up to HOB: pt pulling HOB rail with right hand and 2 person assist at pad and PT holding feet into mattress with pt's legs bent. Mod A for lateral scooting sitting EOB. PT-Balance Assessment Sitting Balance and Reactions Static Sitting Balance Ability Good Dynamic Sitting Balance Ability Fair M5 PT-IP Objective Assessments Start: 05/11/24 16:38 Freq: NEEDED Status: Active Protocol: Document 05/11/24 14:45 AB (Rec: 05/11/24 17:00 AB [id number]) Orientation Orientation/Cognition Level of Alertness Alert Orientation Name,Place,Situation Safety Awareness Decreased Safety Awareness Memory Description Short Term Impaired,Mcc Impaired Comments with slight confusion Gross Range of Motion Lower Extremity ROM Assessment Within Functional Limits Strength Lower Extremity Strength Hip 3+/5 Knee 3+/5 Muscle Tone Muscle Tone WNL Yes M6 PT-IP Treatment Start: 05/11/24 16:38 Freq: NEEDED Status: Active Protocol: Document 05/11/24 14:45 AB (Rec: 05/11/24 17:00 AB [id number]) Physical Therapy Treatment Education Education Provided Safety M7 PT-IP Assessment and Plan Start: 05/11/24 16:38 Freq: NEEDED Status: Active Protocol: Document 05/12/24 12:39 MB (Rec: 05/12/24 13:04 MB [id number]) PT Summary Assessment and Plan Potential Rehabilitation Potential Fair Status of Condition at Evaluation Unstable Summary Impairments Pain,ROM,Strength,Balance, Coordination,Sensation,Tone, Cognition,Bed Mobility, Transfers,Gait,Activity Tolerance Progress Towards Goals Slow Progress due to Medical Issues Assessment Summary Pt makes good effort with PT today and he con't to have bowel incontinence and require +2-3 assistance for mobility mobility. Goals Bed Mobility Goal Moderate Assistance Transfer Goal Moderate Assistance,Front Wheeled Walker Gait Goal Moderate Assistance,Front Wheel Walker Gait Distance 15 Other Goals improve bed mobility, transfers, ambulation using FWW 50 ft CGA Days to Meet Goals 10 Frequency of Treatment Frequency Of Treatment Once a Day Treatment Plan Physical Therapy Treatment Plan Bed Mobility Training,Transfer Training,Gait Training, Therapeutic Exercise,Balance Retraining,Discharge Planning, Hot or Cold Pack,Neuromuscular Re-ed,Coordination Retraining ,Manual Therapy Precautions Other Precautions O2 sat, falls Recommendations To Nursing Amount of Assist Needed Mechanical Lift Discharge Recommendations PT Discharge Recommendations SNF Rehab Transportation Needs at Discharge Stretcher/Ambulance
--- NOTE | 2024-05-12 13:17 | OT.IP.TRT ---
Current Diagnoses Acute respiratory failure with hypoxia (05/09/24) Occupational Therapy Treatment Note M2 OT-IP Current Condition Start: 05/11/24 16:27 Freq: Status: Active Protocol: Document 05/11/24 16:29 [facility] (Rec: 05/11/24 16:52 [facility] [id number]) Occupational Therapy Current Condition Current Condition Evaluation Date 05/11/24 Treatment Diagnosis COPD execaerbation,PNA Diagnosis Onset Date 05/09/24 M3 OT- IP Subjective and Pain Start: 05/11/24 16:27 Freq: Status: Active Protocol: Document 05/12/24 13:08 [facility] (Rec: 05/12/24 13:17 [facility] [id number]) OT- Subjective Occupational Therapy Visit Type Type Treatment Note Visit Start Time 12:39 Visit Stop Time 12:55 Occupational Therapy Visit Comments Patient Comments Pt sitting on the edge of the bed and wanting to attempt to stand. Patient/Caregiver Goals TO get better. OT Pain Assessment Pain When Pain Assessed At Rest Pain Present Pain Present Denied Pain M4 OT- IP ADL's Start: 05/11/24 16:27 Freq: Status: Active Protocol: Document 05/11/24 16:29 [facility] (Rec: 05/11/24 16:52 [facility] [id number]) OT [id number] Comments OT Self-Feeding Comments NOt at meal time. OT ADL-Grooming Comments OT Grooming Comments Not performed. OT ADL-Oral Care Comments Oral Care Comments NOt performed. OT ADL-Dressing General Eval Lower Body Dressing Ability Total Assistance OT ADL-Toileting General Evaluation Toileting Ability Total Assistance Areas Needing Assistance Manage Clothing,Perform Perineal Hygiene OT ADL-Bathing Bathing Type Bathing Type Sponge Bath Comments OT Bathing Comments Sponge bath more appropriate at this time. M5 OT- IP IADL's Start: 05/11/24 16:27 Freq: Status: Active Protocol: Document 05/11/24 16:29 [facility] (Rec: 05/11/24 16:52 [facility] [id number]) OT-Instrumental Activities of Daily Living Home Safety Awareness Home Safety Comments Pt not aware of his needs and tends to direct the conversation. Pt would benefit from SLUMS. Medication Management Medication Management Caregiver Administers Money Management Money Management Caregiver Provides Assistance Meal Preparation Meal Preparation Caregiver Provides Assist Fiberglass Container Winding Operator Fiberglass Container Winding Operator Caregiver Provides Assist M6 OT- IP Functional Cognition Start: 05/11/24 16:27 Freq: Status: Active Protocol: Document 05/12/24 13:08 [facility] (Rec: 05/12/24 13:17 [facility] [id number]) Cognitive Factors Limiting Selfcare Function Cognitive Ability Level of Alertness Alert Attention Span Ability Capable of Focused Attention, Unable to Sustain Attention Ability to Follow Commands Able to Follow One Step Commands Cognitive Comments Cognitive Assessment Comments Pt much more alert today, however still tends to direct his care. M7 OT- IP Mobility and Balance Start: 05/11/24 16:27 Freq: Status: Active Protocol: Document 05/12/24 13:08 [facility] (Rec: 05/12/24 13:17 [facility] [id number]) OT- Bed Mobility Assessment Sit to Supine Sit to Supine Assist Moderate Assistance,2 Person Assistance Scooting Scooting Up and Down in Bed Moderate Assistance,1 Person Assistance OT-Transfer Assessment Comments Mobility Comments Pr nursing pt able to get to the edge of the bed on his own today. Attempted to stand and not able to stand at all with MAX AX 2 to the FWW. Pt having be asisst back in bed to be cleaned up as had a bowel movement. Pt not able to scoot , but able to scoot some with asisst from OT behind him to move the green pad to assist..Pt insisting on having the HOB up and needing MODAx2 to help get his legs back into bed. Left pt with nursing for hygiene needs. OT- Balance Assessment Sitting Balance and Reactions Static Sitting Balance Ability Good Dynamic Sitting Balance Ability Fair Standing Balance and Reactions Static Standing Balance Ability Poor M8 OT- IP Objective Assessments Start: 05/11/24 16:27 Freq: Status: Active Protocol: Document 05/11/24 16:29 [facility] (Rec: 05/11/24 16:52 [facility] [id number]) OT Gross Range of Motion Upper Extremity Range of Motion Assessment Left Impaired ROM Impairments LUE 0-80 shoulder flexion, per pt didnot heal from old shoulder fx in which he was only in a sling and did not have surgery on. OT Strength Upper Extremity Strength Assessment Bilaterally Impaired Comments Strength Comments LUE elbow to distal 4-/5, RUE 4/5 throughout. M9 OT- IP Assessment and Plan Start: 05/11/24 16:27 Freq: Status: Active Protocol: Document 05/12/24 13:08 [facility] (Rec: 05/12/24 13:17 [facility] [id number]) OT Summary Assessment and Plan Potential Rehabilitation Potential Fair Analytic Complexity at Evaluation High Summary OT Impairments Pain,Strength,Balance, Functional Cognition, Functional Mobility,Self- Feeding,Grooming,Dressing, Toileting,Bathing,Toilet Transfers,Shower Transfers, Activity Tolerance Progress Towards Goals Progressing Toward Goals Assessment Summary Pt able to get to the edge of the bed on his own per nursing . Unable to fully come to stand to the FWW at this time. MODA and use of green pad while pt able to scoot to the head of the bed with small increments. MODA x2 to help gets his legs back into bed. Pt looking to go to skilled rehab tomorrow. Goals Self-Feeding Goal Independent Grooming Goal Independent Dressing Goal Moderate Assistance Toileting Goal Moderate Assistance Toilet Transfer Goal Moderate Assistance Shower Transfer Goal Moderate Assistance Days to Meet Goals 40 Frequency of Treatment Other frequency 3-5x/week Treatment Plan OT Treatment Plan ADL Training,Functional Cognition Training,Functional Mobility,Patient/Family Education,Discharge Planning Other Treatment Recommendations and Next SLUMS Treatment Focus Discharge Recommendations OT Discharge Recommendations SNF Rehab,LTAC Transportation Needs at Discharge Stretcher/Ambulance
--- NOTE | 2024-05-12 19:14 | PM.PN.1 ---
Subjective Subjective Interval history: 84 M admitted with COPD exacerbation and hypercapnic respiratory failure. More alert today, he is really trying with therapies. still on nasal cannula at rest. TTE showed slight decrease in EF, but still within normal limits. Exam Vital Signs (past 8 hours): - 05/12/24 12:00 05/12/24 12:00 05/12/24 13:00 Temperature Pulse Rate 61 65 Respiratory Rate 30 H 39 H Blood Pressure 130/63 Pulse Oximetry 95 92 Oxygen Delivery Method Oxygen Flow Rate Fraction of Inspired Oxygen 05/12/24 14:00 05/12/24 14:00 05/12/24 14:53 Temperature Pulse Rate 60 62 Respiratory Rate 34 H 18 Blood Pressure 122/56 L Pulse Oximetry 95 96 Oxygen Delivery Method Nasal Cannula Oxygen Flow Rate 2 Fraction of Inspired Oxygen 28 05/12/24 15:00 05/12/24 15:01 05/12/24 15:01 Temperature Pulse Rate 63 63 Respiratory Rate 38 H 34 H Blood Pressure 151/68 H Pulse Oximetry 96 95 Oxygen Delivery Method Oxygen Flow Rate Fraction of Inspired Oxygen 05/12/24 16:00 05/12/24 16:00 05/12/24 17:00 Temperature Pulse Rate 64 60 Respiratory Rate 35 H 45 H Blood Pressure 146/65 H Pulse Oximetry 91 95 Oxygen Delivery Method Oxygen Flow Rate Fraction of Inspired Oxygen 05/12/24 17:00 05/12/24 17:01 05/12/24 17:01 Temperature 98.4 F Pulse Rate 65 Respiratory Rate 33 H Blood Pressure 130/66 Pulse Oximetry 87 L Oxygen Delivery Method Oxygen Flow Rate Fraction of Inspired Oxygen 05/12/24 18:00 05/12/24 18:00 Temperature Pulse Rate 63 Respiratory Rate 38 H Blood Pressure 134/76 Pulse Oximetry 95 Oxygen Delivery Method Oxygen Flow Rate Fraction of Inspired Oxygen Fraction of Inspired Oxygen 28 SaO2/FiO2 Ratio 342 Oxygen Delivery Method Nasal Cannula Oxygen Flow Rate 2 Narrative Exam Narrative: Gen: obese male, no acute distress HEENT: no JVD CV: RRR. no m/r/g. Pulm: diminished breath sounds bilateral lung bases. Abd: Soft, non-distended. Ext: trace bilateral LE edema Objective Labs 05/12/24 09:52 05/12/24 09:52 Labs: Laboratory Results - last 24 hr 05/12/24 09:52 WBC 10.9 RBC 2.90 L Hgb 8.8 L Hct 28.0 L MCV 96.5 MCH 30.5 MCHC 31.6 RDW 18.5 H Plt Count 433 H Neut % (Auto) 65.9 Lymph % (Auto) 20.8 L Preble % (Auto) 12.4 Eos % (Auto) 0.4 L Baso % (Auto) 0.5 Neut # (Auto) 7200 H Lymph # (Auto) 2300 Pre[place] # (Auto) 1400 H Eos # (Auto) 0 Baso # (Auto) 100 Sodium 138 Potassium 3.2 L Chloride 93 L Carbon Dioxide 40 H* BUN 31 H Creatinine 1.21 Estimated GFR 59 L BUN/Creatinine Ratio 25.6 H Glucose 124 H Calcium 9.1 PFSH Medical History Mobitz II Hypertension Surgical History History of permanent cardiac pacemaker placement H/O abdominal surgery Social History household members: spouse Smoking Status: Former smoker alcohol intake: never Assessment & Plan Assessment & Plan narrative: 1. COPD exacerbation - continue prednisone, nebulizers per respiratory therapies. 2. Acute on chronic hypercarbic and hypoxemic respiratory failure - multifactorial due to PNA, CHF, and COPD exacerbation. - Goal O2 88-92% - patient with chronic hypercapnic respiratory failure failing home BiPAP. Indicated for home trilogy. Case management working on arranging patient to get this at [facility]. - labs with diuresis are stable. Cr 1.21, K 3.2 repleted. Bicarb 40. 3. bacterial pneumonia - narrowed zosyn and vanc to ceftriaxone and aizthromycin. Continue treatment x5 days. Can discharge on oral antibiotics. 4. Acute on chronic diastolic heart failure - TTE with slight decrease in EF, but still better than previous 35-40%. Now approx 55%. - continue diuresis, likely discharge on increased furosemide and stop HCTZ. 5. Obesity class 2. 6. Hypokalemia, improved. 7. Chronic afib with anticoagulation - continue eliquis. DNR, surrogate is patient's spouse Dispo: inpatient, in ICU due to intermittent BiPAP needs which are chronic. Can likely discharge to SNF tomorrow if Trilogy is arranged and available. Discussed with respiratory therapist today, along with bedside RN and case fitter for additional history which contributed to the above assesment and plan. Time-Based Coding :: [TOTAL MINUTES] spent with patient and on the chart (including review of chart, obtaining history, exam, reviewing outside data, placing orders, documenting exam and treatment plan, and counseling patient) on [DATE].
[2024-05-12] MEDS: AMITRIPTYLINE 25 MG TABLET PO (21:13)
[2024-05-12] MEDS: MELATONIN 3 MG TABLET 9 MG PO (21:13)
[2024-05-13] VITALS (44 sets, daily range): BP systolic 99–152; BP diastolic 50–65; PULSE 60–67; RESP 14–26; TEMP 31–36.9; O2SAT 88–100
[2024-05-13] MEDS: APIXABAN 5 MG TABLET PO ×2 (09:10→21:35)
[2024-05-13] MEDS: cefTRIAXone 1,000 MG in SODIUM CHLORIDE 0.9% 100 ML 200 MG IV (09:10)
[2024-05-13] MEDS: FUROSEMIDE 20 MG/2 ML VIAL IV ×2 (09:10→17:20)
[2024-05-13] MEDS: allopurinoL 100 MG TABLET PO (09:10)
[2024-05-13] MEDS: SODIUM CHLORIDE 0.9% FLUSH 10 ML IV ×2 (09:10→21:35)
[2024-05-13] MEDS: ASPIRIN EC 81 MG TABLET PO (09:10)
[2024-05-13] MEDS: predniSONE 20 MG TABLET 40 MG PO (09:10)
[2024-05-13] MEDS: OXYBUTYNIN 5 MG ER TAB 10 MG PO (09:10)
[2024-05-13 10:58] LABS: Add Manual Diff / Slide Review NO; Basophils Absolute Auto 100 /uL (0-100); Basophils Percent Auto 0.9 % (0-2); Eosinophils Absolute Auto 0 /uL (0-450); Eosinophils Percent Auto 0.3 % (2-4); Hematocrit 25.6 % (41-53); Hemoglobin 8.2 g/dL (13.5-17.5); Lymphocytes Absolute Auto 1700 /uL (1100-4500); Lymphocytes Percent Auto 17.1 % (25-40); Mean Corpuscular HGB Conc 32.1 % (30-36); Mean Corpuscular Volume 96.7 fL (80-100); Monocytes Absolute Auto 1100 /uL (0-900); Monocytes Percent Auto 10.7 % (3-14); Neutrophils Absolute Auto 7200 /uL (1500-7000); Platelet Count 369 X10^3/uL (150-400); Red Blood Cell Count 2.65 X10^6/uL (4.5-5.9); Red Cell Distribution Width 18.8 % (11.6-14.8); White Blood Cell Count 10.2 X10^3/uL (4.5-11.0)
[2024-05-13] MEDS: ALBUTEROL 2.5 MG/3 ML NEB (ADULT) INH ×3 (11:22→19:43)
--- NOTE | 2024-05-13 11:45 | PT.IPTN ---
Current Diagnoses Acute respiratory failure with hypoxia (05/09/24) Physical Therapy Treatment Note M2 PT-IP Current Condition Start: 05/11/24 16:38 Freq: NEEDED Status: Active Protocol: Document 05/11/24 14:45 AB (Rec: 05/11/24 17:00 AB [id number]) Physical Therapy Current Condition Current Condition Evaluation Date 05/11/24 Treatment Diagnosis PNA; COPD exacerbation; difficulty in walking Onset Date 05/09/24 M3 PT-IP Subjective Start: 05/11/24 16:38 Freq: NEEDED Status: Active Protocol: Document 05/13/24 11:45 AB (Rec: 05/13/24 13:49 AB [id number]) Subjective Physical Therapy Visit Type Type Treatment Note Visit Start Time 11:45 Visit Stop Time 12:45 Notes pt seen for split visits: 1145 to 1153 am and 1205 to 1245 pm Number of ZYGLO INSPECTOR Visits 0 Physical Therapy Visit Comments Patient Comments agreeable to do PT M4 PT-IP Mobility and Gait Start: 05/11/24 16:38 Freq: NEEDED Status: Active Protocol: Document 05/13/24 11:45 AB (Rec: 05/13/24 13:49 AB [id number]) PT-Bed Mobility Assessment Supine to Sit Supine to Sit Maximum Assistance,1 Person Assistance,Head of Bed Elevated,Bedrails Sit to Supine Sit to Supine Maximum Assistance,2 Person Assistance,Bedrails PT-Transfer Assessment Sit to and From Stand Sit to and from Stand Maximum Assistance,2 Person Assistance,Use of Upper Extremities Equipment Transfer Assistive Device Gait Belt,Front Wheeled Walker Orthotic/Prosthetic Devices or Brace: No Comments Mobility Comments pt in bed and agreeable to do PT. completed set up but when pt started to mobilize, found pt to be needing to be clean and brief change. Left pt with nurse and NAC. checked back on pt after a few minutes. BP 137/59. o2 sat: 94% pt needing frequent and increase rest breaks in between activities. pt completed supine to sit max A and max cues with HOB elevated and pt used R rail to assist. pt able to sit on EOB SBA. (+) SOB. O2 sat: 88 -91%. pt rested. completed sit to stand max A x 2 and max cues and height of bed elevated. pt tolerated ~ 10 sec of standing. pt rested again sitting on EOB. agreed to stand again: max A x 2 and max cues sit to stand. pt was able to stand ~ 40 sec using FWW for support max A x 2 and max cues. assisted to stabilize L knee. (+) crepitus on L knee. pt sat back no EOB. rested again. max A x 2 for scooting towards HOB. max A x 2 for sit to supine. pt was able to rollL< >R x 4 for positioning of pads . positioned pt in bed. call light and table placed within reach. M5 PT-IP Objective Assessments Start: 05/11/24 16:38 Freq: NEEDED Status: Active Protocol: Document 05/11/24 14:45 AB (Rec: 05/11/24 17:00 AB [id number]) Orientation Orientation/Cognition Level of Alertness Alert Orientation Name,Place,Situation Safety Awareness Decreased Safety Awareness Memory Description Short Term Impaired,System Dispatcher Impaired Comments with slight confusion Gross Range of Motion Lower Extremity ROM Assessment Within Functional Limits Strength Lower Extremity Strength Hip 3+/5 Knee 3+/5 Muscle Tone Muscle Tone WNL Yes M6 PT-IP Treatment Start: 05/11/24 16:38 Freq: NEEDED Status: Active Protocol: Document 05/13/24 11:45 AB (Rec: 05/13/24 13:49 AB [id number]) Physical Therapy Treatment Education Education Provided Safety M7 PT-IP Assessment and Plan Start: 05/11/24 16:38 Freq: NEEDED Status: Active Protocol: Document 05/13/24 11:45 AB (Rec: 05/13/24 13:49 AB [id number]) PT Summary Assessment and Plan Potential Rehabilitation Potential Fair Summary Impairments Pain,ROM,Strength,Balance, Coordination,Sensation,Tone, Cognition,Bed Mobility, Transfers,Gait,Activity Tolerance Progress Towards Goals Slow Progress due to Medical Issues,Slow Progress due to Activity Tolerance,Slow Progress - Other Assessment Summary pt progressing slowly with mobility but continues to require max A x 2 for mobility but able to tolerate ~ 40 sec standign using FWW for support max A x 2 and max cues . pt will benefit from SNF rehab. Goals Bed Mobility Goal Moderate Assistance Transfer Goal Moderate Assistance,Front Wheeled Walker Gait Goal Moderate Assistance,Front Wheel Walker Gait Distance 15 Other Goals improve bed mobility, transfers, ambulation using FWW 50 ft CGA Days to Meet Goals 10 Frequency of Treatment Frequency Of Treatment Once a Day Treatment Plan Physical Therapy Treatment Plan Bed Mobility Training,Transfer Training,Gait Training, Therapeutic Exercise,Balance Retraining,Discharge Planning, Hot or Cold Pack,Neuromuscular Re-ed,Coordination Retraining ,Manual Therapy Precautions Other Precautions O2 sat, falls Recommendations To Nursing Amount of Assist Needed Mechanical Lift Discharge Recommendations PT Discharge Recommendations SNF Rehab Transportation Needs at Discharge Stretcher/Ambulance
--- NOTE | 2024-05-13 12:45 | OT.IP.TRT ---
Current Diagnoses Acute respiratory failure with hypoxia (05/09/24) Occupational Therapy Treatment Note M2 OT-IP Current Condition Start: 05/11/24 16:27 Freq: Status: Active Protocol: Document 05/11/24 16:29 [facility] (Rec: 05/11/24 16:52 [facility] [id number]) Occupational Therapy Current Condition Current Condition Evaluation Date 05/11/24 Treatment Diagnosis COPD execaerbation,PNA Diagnosis Onset Date 05/09/24 M3 OT- IP Subjective and Pain Start: 05/11/24 16:27 Freq: Status: Active Protocol: Document 05/13/24 12:48 [facility] (Rec: 05/13/24 12:59 [facility] [id number]) OT- Subjective Occupational Therapy Visit Type Type Treatment Note Visit Start Time 12:06 Visit Stop Time 12:45 Occupational Therapy Visit Comments Patient Comments Pt having to get cleaned up and then agreed to get up. Patient/Caregiver Goals TO get better. M4 OT- IP ADL's Start: 05/11/24 16:27 Freq: Status: Active Protocol: Document 05/11/24 16:29 [facility] (Rec: 05/11/24 16:52 [facility] [id number]) OT [id number] Comments OT Self-Feeding Comments NOt at meal time. OT ADL-Grooming Comments OT Grooming Comments Not performed. OT ADL-Oral Care Comments Oral Care Comments NOt performed. OT ADL-Dressing General Eval Lower Body Dressing Ability Total Assistance OT ADL-Toileting General Evaluation Toileting Ability Total Assistance Areas Needing Assistance Manage Clothing,Perform Perineal Hygiene OT ADL-Bathing Bathing Type Bathing Type Sponge Bath Comments OT Bathing Comments Sponge bath more appropriate at this time. M5 OT- IP IADL's Start: 05/11/24 16:27 Freq: Status: Active Protocol: Document 05/11/24 16:29 [facility] (Rec: 05/11/24 16:52 [facility] [id number]) OT-Instrumental Activities of Daily Living Home Safety Awareness Home Safety Comments Pt not aware of his needs and tends to direct the conversation. Pt would benefit from SLUMS. Medication Management Medication Management Caregiver Administers Money Management Money Management Caregiver Provides Assistance Meal Preparation Meal Preparation Caregiver Provides Assist Food Service Sales Representatives Food Service Sales Representatives Caregiver Provides Assist M6 OT- IP Functional Cognition Start: 05/11/24 16:27 Freq: Status: Active Protocol: Document 05/12/24 13:08 [facility] (Rec: 05/12/24 13:17 [facility] [id number]) Cognitive Factors Limiting Selfcare Function Cognitive Ability Level of Alertness Alert Attention Span Ability Capable of Focused Attention, Unable to Sustain Attention Ability to Follow Commands Able to Follow One Step Commands Cognitive Comments Cognitive Assessment Comments Pt much more alert today, however still tends to direct his care. M7 OT- IP Mobility and Balance Start: 05/11/24 16:27 Freq: Status: Active Protocol: Document 05/13/24 12:48 [facility] (Rec: 05/13/24 12:59 [facility] [id number]) OT- Bed Mobility Assessment Supine to Sit Supine to Sit Assist Maximum Assistance,1 Person Assistance Sit to Supine Sit to Supine Assist Maximum Assistance,2 Person Assistance OT-Transfer Assessment Sit to and From Stand Sit to and from Stand Maximum Assistance,2 Person Assistance Devices Transfer Assistive Devices Gait Belt,Front Wheeled Walker Comments Mobility Comments MAX AX 1 to get up from the edge of the bed. MAXA X2 to stand to the FWW and able to stand for several seconds and 2nd time 40 seconds. BP supine 137/59 and sitting 119/59. OT- Balance Assessment Sitting Balance and Reactions Static Sitting Balance Ability Good Dynamic Sitting Balance Ability Fair Standing Balance and Reactions Static Standing Balance Ability Poor M8 OT- IP Objective Assessments Start: 05/11/24 16:27 Freq: Status: Active Protocol: Document 05/11/24 16:29 [facility] (Rec: 05/11/24 16:52 [facility] [id number]) OT Gross Range of Motion Upper Extremity Range of Motion Assessment Left Impaired ROM Impairments LUE 0-80 shoulder flexion, per pt didnot heal from old shoulder fx in which he was only in a sling and did not have surgery on. OT Strength Upper Extremity Strength Assessment Bilaterally Impaired Comments Strength Comments LUE elbow to distal 4-/5, RUE 4/5 throughout. M9 OT- IP Assessment and Plan Start: 05/11/24 16:27 Freq: Status: Active Protocol: Document 05/13/24 12:48 [facility] (Rec: 05/13/24 12:59 [facility] [id number]) OT Summary Assessment and Plan Potential Rehabilitation Potential Fair Analytic Complexity at Evaluation High Summary OT Impairments Pain,Strength,Balance, Functional Cognition, Functional Mobility,Self- Feeding,Grooming,Dressing, Toileting,Bathing,Toilet Transfers,Shower Transfers, Activity Tolerance Progress Towards Goals Progressing Toward Goals Assessment Summary Pt able to come to stand x2 today with MAXA X 2 to the FWW . Pt very motivated to get better. Pt able to sit on the edge of the bed to participate in grooming needs. Pt to go to skilled rehab when medically stable. Goals Self-Feeding Goal Independent Grooming Goal Independent Dressing Goal Moderate Assistance Toileting Goal Moderate Assistance Toilet Transfer Goal Moderate Assistance Shower Transfer Goal Moderate Assistance Days to Meet Goals 40 Frequency of Treatment Other frequency 3-5x/week Treatment Plan OT Treatment Plan ADL Training,Functional Cognition Training,Functional Mobility,Patient/Family Education,Discharge Planning Discharge Recommendations OT Discharge Recommendations SNF Rehab Other Discharge Recommendations If improving possibly can go by the WC. Transportation Needs at Discharge Stretcher/Ambulance
[2024-05-13 13:03] LABS: BUN Creatinine Ratio 28.9 (6-22); Blood Urea Nitrogen 28 mg/dL (9-20); Calcium 8.9 mg/dL (8.4-10.2); Carbon Dioxide 36 mmol/L (22-32); Chloride 97 mmol/L (98-107); Estimated Glomerular Filt Rate > 60 mL/min (>60); Glucose 122 mg/dL (80-110); HEMOLYSIS 23 (0-50); Magnesium 1.7 mg/dL (1.6-2.3); Potassium 3.9 mmol/L (3.4-5.1); Sodium 138 mmol/L (137-145)
[2024-05-13] MEDS: MAGNESIUM CHLORIDE 64 MG TABLET 128 MG PO (13:45)
--- NOTE | 2024-05-13 17:17 | CM.DPNOTE ---
DCP Continued: Reviewed EMR and team rounds for pt?s medical status. DCP spoke with [facility] Admissions, it is reported that pt can be tentatively accepted for Thursday, / if DME and authorizations can be completed. COP spoke with [facility] Inpatient Transmitter Supervisor, Sherman, and sent requested clinicals. It is reported that patient received authorization for SNF: #[id number]. Per [facility] CM, a preauthorization of Trilogy BiPAP will have to be initiated. [facility] faxed clinicals including RT workflow and assessments to DME Preauthorization at [facility] fax# [phone]. Other option for DME Preauthorization would be to call: # [phone] (option 2, then option 1). Confirmed with [employer] that the preauthorization is needed to initiate DME request (Trilogy BiPAP). This authorization would come directly from [facility]. [facility] attempted to call pt multiple times during the day to discuss requests from SNF before full acceptance to include: -[facility] will set up Trilogy BiPAP at time of discharge at [facility]. - must be agreeable to opening Hospice services if pt not able to participate in rehab. Left a voice message requesting to call back at this EXTENSION COURSE COUNSELOR desk when available. Plan: Anticipating [facility] when DME acquired and medically stable. CM Team will continue to follow for coordination of discharge plans. FRANKY GaldamezSW
--- NOTE | 2024-05-13 17:54 | PM.PN.IH.1 ---
Subjective Subjective Date Patient Seen: 05/13/24 Time Patient Seen: 10:45 Interval history: Narrative: 74-year-old male with history of COPD, prescribed nasal BiPAP at [facility] [place] [facility] care facility, frequent talking, likely poor seal, increased shortness of breath today overnight, here for further evaluation. Admits to cough, has chronic cough, not recently productive. No fevers or chills. He denies chest pain. He denies swelling to his legs. No calf pain. he patient was on BiPAP and relatively lethargic. No further information is currently available. There is some peripheral information indicating that he may be somewhat noncompliant with his chronic CPAP or BiPAP at his nursing facility. Met with the , and proxy decision maker. She does confirm that he was DNR and DNI. His goal is still to recover enough to return home, they live near [place] on [address]. The patient did have 2 days of progressive altered mental status consistent with progressive hypercarbia. This has been a pattern for him with recurrent admissions for hypercarbic respiratory failure. She does note his difficulty complying with his nasal BiPAP. Interval history: Patient was able to get up and sit at bedside for 1 minute with physical therapy. He is highly motivated to get up and start walking and moving. His care facility is awaiting arrival of a trilogy device for him to transfer back for ongoing care and rehabilitation. Exam Vital Signs (past 8 hours): - 05/13/24 10:00 05/13/24 10:01 05/13/24 10:01 Temperature 98.3 F Pulse Rate 66 64 Respiratory Rate 26 H Blood Pressure 111/52 L Pulse Oximetry 93 88 L Oxygen Delivery Method Oxygen Flow Rate 05/13/24 11:00 05/13/24 11:01 05/13/24 11:01 Temperature Pulse Rate 63 64 Respiratory Rate Blood Pressure 139/63 Pulse Oximetry 95 95 Oxygen Delivery Method Oxygen Flow Rate 05/13/24 11:27 05/13/24 11:50 05/13/24 11:50 Temperature Pulse Rate 60 63 Respiratory Rate 14 Blood Pressure 127/60 Pulse Oximetry 95 95 Oxygen Delivery Method Nasal Cannula Oxygen Flow Rate 2 05/13/24 12:00 05/13/24 12:09 05/13/24 12:18 Temperature Pulse Rate 66 66 Respiratory Rate Blood Pressure 137/59 L Pulse Oximetry 90 L 94 Oxygen Delivery Method Oxygen Flow Rate 05/13/24 12:29 05/13/24 12:29 05/13/24 13:00 Temperature Pulse Rate 67 64 Respiratory Rate Blood Pressure 119/59 L Pulse Oximetry 94 94 Oxygen Delivery Method Oxygen Flow Rate 05/13/24 14:00 05/13/24 15:00 05/13/24 16:00 Temperature 98.4 F Pulse Rate 63 62 64 Respiratory Rate Blood Pressure Pulse Oximetry 95 98 95 Oxygen Delivery Method Oxygen Flow Rate 05/13/24 17:00 Temperature Pulse Rate 60 Respiratory Rate Blood Pressure Pulse Oximetry 94 Oxygen Delivery Method Oxygen Flow Rate Fraction of Inspired Oxygen 25 SaO2/FiO2 Ratio 384 Oxygen Delivery Method Nasal Cannula Oxygen Flow Rate 2 Narrative Exam Narrative: Gen: obese male, no acute distress HEENT: no JVD CV: RRR. no m/r/g. Pulm: diminished breath sounds bilateral lung bases. Abd: Soft, non-distended. Ext: trace bilateral LE edema Objective Labs 05/13/24 10:45 05/13/24 10:45 Labs: Laboratory Results - last 24 hr 05/13/24 10:45 WBC 10.2 RBC 2.65 L Hgb 8.2 L Hct 25.6 L MCV 96.7 MCH 31.0 MCHC 32.1 RDW 18.8 H Plt Count 369 Neut % (Auto) 71.0 Lymph % (Auto) 17.1 L Ross % (Auto) 10.7 Eos % (Auto) 0.3 L Baso % (Auto) 0.9 Neut # (Auto) 7200 H Lymph # (Auto) 1700 Ross # (Auto) 1100 H Eos # (Auto) 0 Baso # (Auto) 100 Sodium 138 Potassium 3.9 Chloride 97 L Carbon Dioxide 36 H BUN 28 H Creatinine 0.97 Estimated GFR > 60 BUN/Creatinine Ratio 28.9 H Glucose 122 H Calcium 8.9 Magnesium 1.7 PFSH Medical History Hypertension Mobitz II Surgical History H/O abdominal surgery History of permanent cardiac pacemaker placement Social History household members: spouse Smoking Status: Former smoker alcohol intake: never Assessment & Plan Assessment & Plan narrative: 1. COPD exacerbation - continue prednisone, nebulizers per respiratory therapies. 2. Acute on chronic hypercarbic and hypoxemic respiratory failure - multifactorial due to PNA, CHF, and COPD exacerbation. - Goal O2 88-92% - patient with chronic hypercapnic respiratory failure failing home BiPAP. Indicated for home trilogy. Case management working on arranging patient to get this at [facility]. - labs with diuresis are stable. Cr 1.21, K 3.2 repleted. Bicarb 40. 3. bacterial pneumonia - narrowed zosyn and vanc to ceftriaxone completed 05/13/2024. No infiltrate seen on 05/09/2024 chest/abdomen/pelvic CT. 4. Acute on chronic diastolic heart failure - TTE with slight decrease in EF, but still better than previous 35-40%. Now approx 55%. - continue diuresis, likely discharge on increased furosemide and off HCTZ. 5. Obesity class 2. 6. Hypokalemia, improved. 7. Chronic afib with anticoagulation - continue eliquis. DNR, surrogate is patient's spouse Dispo: inpatient, in ICU due to intermittent BiPAP needs which are chronic. Can likely discharge to SNF tomorrow if Trilogy is arranged and available. Discussed with nursing and the patient's at bedside today. 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
[2024-05-13] MEDS: BUDESONIDE 0.5 MG/2 ML NEB INH (19:42)
[2024-05-13] MEDS: MELATONIN 3 MG TABLET 9 MG PO (21:35)
[2024-05-13] MEDS: AMITRIPTYLINE 25 MG TABLET PO (21:35)
[2024-05-14] VITALS (31 sets, daily range): BP systolic 101–172; BP diastolic 51–74; PULSE 60–65; RESP 1–38; TEMP 36.9; O2SAT 84–98
--- NOTE | 2024-05-14 06:52 | RT ---
Pt went on BiPAP at 2230 then came off at 0130 water was changed at this time pt went back on Bipap at 0300 then off at 0500 pt now on NC 2L and is stable
[2024-05-14 08:24] LABS: Add Manual Diff / Slide Review NO; Basophils Absolute Auto 100 /uL (0-100); Basophils Percent Auto 0.5 % (0-2); Eosinophils Absolute Auto 0 /uL (0-450); Eosinophils Percent Auto 0.4 % (2-4); Hematocrit 25.3 % (41-53); Hemoglobin 8.2 g/dL (13.5-17.5); Lymphocytes Absolute Auto 2000 /uL (1100-4500); Lymphocytes Percent Auto 18.7 % (25-40); Mean Corpuscular HGB Conc 32.4 % (30-36); Mean Corpuscular Hemoglobin 31.3 PG (26-34); Mean Corpuscular Volume 96.6 fL (80-100); Monocytes Absolute Auto 1100 /uL (0-900); Monocytes Percent Auto 10.7 % (3-14); Neutrophils Absolute Auto 7500 /uL (1500-7000); Neutrophils Percent Auto 69.7 % (50-75); Platelet Count 387 X10^3/uL (150-400); Red Blood Cell Count 2.61 X10^6/uL (4.5-5.9); Red Cell Distribution Width 18.4 % (11.6-14.8); White Blood Cell Count 10.7 X10^3/uL (4.5-11.0)
[2024-05-14] MEDS: FUROSEMIDE 20 MG/2 ML VIAL IV ×2 (08:59→18:13)
[2024-05-14] MEDS: predniSONE 20 MG TABLET 40 MG PO (08:59)
[2024-05-14] MEDS: ASPIRIN EC 81 MG TABLET PO (08:59)
[2024-05-14] MEDS: APIXABAN 5 MG TABLET PO ×2 (08:59→20:45)
[2024-05-14] MEDS: allopurinoL 100 MG TABLET PO (08:59)
[2024-05-14] MEDS: OXYBUTYNIN 5 MG ER TAB 10 MG PO (08:59)
[2024-05-14] MEDS: SODIUM CHLORIDE 0.9% FLUSH 10 ML IV ×2 (09:00→20:46)
[2024-05-14] MEDS: ALBUTEROL 2.5 MG/3 ML NEB (ADULT) INH ×2 (09:57→19:22)
[2024-05-14] MEDS: BUDESONIDE 0.5 MG/2 ML NEB INH (09:57)
--- NOTE | 2024-05-14 12:33 | CM.DPC ---
DCP SNF Planning: Per MD, pt making slow improvements and ready for d/c to SNF when Trilogy/Bipap confirmed with [facility]. SW contacted admissions at [facility] and they confirm they cannot accept pt until Thu since he is a challenging admission with his respiratory issues and need all their staff present instead of on a weekend. SW spoke to pt's spouse via phone and updated on [facility] declining due to pt's higher needs and that [facility] would need spouse to be agreeable to Hospice if pt does not improve at SNF or participate with therapies and spouse confirms she would be agreeable to this. SW updated [facility]. SW spoke to RT who confirmed [facility] has the neccessary documentation needed to set up Trilogy for patient but would need [facility] auth and they typically do not provide Trilogy at SNF as they do not get paid while pt at SNF but can provide it once he discharges home or to lower level of care like Assisted Living. Plan: SW to follow for plan of discharge to [facility] Thursday and may need BLS transport pending pt's progress this weekend with PT and his oxygen needs. Namrata Garcia MSW
[2024-05-14 15:16] LABS: Clostridium Difficile Tox PCR Negative for C. diff (Negative)
--- NOTE | 2024-05-14 15:59 | P.PN_ITS ---
Subjective Subjective Date Patient Seen: 05/14/24 Time Patient Seen: 15:00 Interval history: Narrative: 74-year-old male with history of COPD, prescribed nasal BiPAP at nearby adjacent senior care care facility, frequent talking, likely poor seal, increased shortness of breath today overnight, here for further evaluation. Admits to cough, has chronic cough, not recently productive. No fevers or chills. He denies chest pain. He denies swelling to his legs. No calf pain. he patient was on BiPAP and relatively lethargic. No further information is currently available. There is some peripheral information indicating that he may be somewhat noncompliant with his chronic CPAP or BiPAP at his nursing facility. Met with the , and proxy decision maker. She does confirm that he was DNR and DNI. His goal is still to recover enough to return home, they live near [place] on [address]. The patient did have 2 days of progressive altered mental status consistent with progressive hypercarbia. This has been a pattern for him with recurrent admissions for hypercarbic respiratory failure. She does note his difficulty complying with his nasal BiPAP. Interval history: Patient experienced liquid diarrhea today sent for C diff toxin. He denies abdominal pain or other complaints. He has not yet engaged with physical therapy today. His care facility is awaiting arrival of a trilogy device for him to transfer back for ongoing care and rehabilitation. Exam Vital Signs (past 8 hours): - 05/14/24 08:00 05/14/24 08:00 05/14/24 09:00 Pulse Rate 61 62 Respiratory Rate 24 34 H Blood Pressure 131/59 L Pulse Oximetry 96 94 Oxygen Delivery Method Oxygen Flow Rate Fraction of Inspired Oxygen 05/14/24 09:01 05/14/24 09:01 05/14/24 10:00 Pulse Rate 62 62 Respiratory Rate 36 H 24 Blood Pressure 156/66 H Pulse Oximetry 93 95 Oxygen Delivery Method Nasal Cannula Oxygen Flow Rate 2 Fraction of Inspired Oxygen 28 05/14/24 10:05/14/24 10:01 05/14/24 10:01 Pulse Rate 63 62 Respiratory Rate 28 H 29 H Blood Pressure 131/61 Pulse Oximetry 93 95 Oxygen Delivery Method Oxygen Flow Rate Fraction of Inspired Oxygen 05/14/24 11:00 05/14/24 11:05/14/24 12:00 Pulse Rate 61 60 Respiratory Rate 32 H 35 H Blood Pressure 114/53 L Pulse Oximetry 90 L 84 L Oxygen Delivery Method Oxygen Flow Rate Fraction of Inspired Oxygen 05/14/24 12:01 05/14/24 12:01 Pulse Rate 60 Respiratory Rate 33 H Blood Pressure 101/51 L Pulse Oximetry 84 L Oxygen Delivery Method Oxygen Flow Rate Fraction of Inspired Oxygen Fraction of Inspired Oxygen 28 SaO2/FiO2 Ratio 332 Oxygen Delivery Method Nasal Cannula Oxygen Flow Rate 2 Narrative Exam Narrative: Gen: obese male, no acute distress HEENT: no JVD CV: RRR. no m/r/g. Pulm: diminished breath sounds bilateral lung bases. Abd: Soft, non-distended. Ext: trace bilateral LE edema Objective Labs 05/14/24 08:18 05/13/24 10:45 Labs: Laboratory Results - last 24 hr 05/14/24 05/14/24 08:18 13:46 WBC 10.7 RBC 2.61 L Hgb 8.2 L Hct 25.3 L MCV 96.6 MCH 31.3 MCHC 32.4 RDW 18.4 H Plt Count 387 Neut % (Auto) 69.7 Lymph % (Auto) 18.7 L Warren % (Auto) 10.7 Eos % (Auto) 0.4 L Baso % (Auto) 0.5 Neut # (Auto) 7500 H Lymph # (Auto) 2000 Warren # (Auto) 1100 H Eos # (Auto) 0 Baso # (Auto) 100 C. difficile Tox (PCR) Negative for c. diff PFSH Medical History Hypertension Mobitz II Surgical History H/O abdominal surgery History of permanent cardiac pacemaker placement Social History household members: spouse Smoking Status: Former smoker alcohol intake: never Assessment & Plan Assessment & Plan narrative: 1. COPD exacerbation - continue prednisone, nebulizers per respiratory therapies. - clinically stable and ready for discharge to long term when able to accept 2. Acute on chronic hypercarbic and hypoxemic respiratory failure - multifactorial due to PNA, CHF, and COPD exacerbation. - Goal O2 88-92% - patient with chronic hypercapnic respiratory failure failing home BiPAP. Indicated for home trilogy. Case management working on arranging patient to get this at [facility].. 3. bacterial pneumonia - narrowed zosyn and vanc to ceftriaxone completed 05/13/2024. No infiltrate seen on 05/09/2024 chest/abdomen/pelvic CT. 4. Acute on chronic diastolic heart failure - TTE with slight decrease in EF, but still better than previous 35-40%. Now approx 55%. - continue diuresis, likely discharge on increased furosemide and off HCTZ. 5. Obesity class 2. 6. Hypokalemia, improved. 7. Chronic afib with anticoagulation - continue eliquis. 8. Diarrhea. - check C diff toxin DNR, surrogate is patient's spouse Dispo: inpatient, on BiPAP needs which are chronic. Can likely discharge to SNF tomorrow if Trilogy is arranged and available. 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
--- NOTE | 2024-05-14 16:15 | PT.IPTN ---
Current Diagnoses Acute respiratory failure with hypoxia (05/09/24) Physical Therapy Treatment Note M2 PT-IP Current Condition Start: 05/11/24 16:38 Freq: NEEDED Status: Active Protocol: Document 05/11/24 14:45 AB (Rec: 05/11/24 17:00 AB [id number]) Physical Therapy Current Condition Current Condition Evaluation Date 05/11/24 Treatment Diagnosis PNA; COPD exacerbation; difficulty in walking Onset Date 05/09/24 M3 PT-IP Subjective Start: 05/11/24 16:38 Freq: NEEDED Status: Active Protocol: Document 05/14/24 16:15 AB (Rec: 05/14/24 18:02 AB [id number]) Subjective Physical Therapy Visit Type Type Treatment Note Visit Start Time 16:15 Visit Stop Time 16:55 Number of TOBACCO SCRAP SIFTER Visits 0 Physical Therapy Visit Comments Patient Comments agreeable to do PT M4 PT-IP Mobility and Gait Start: 05/11/24 16:38 Freq: NEEDED Status: Active Protocol: Document 05/14/24 16:15 AB (Rec: 05/14/24 18:02 AB [id number]) PT-Bed Mobility Assessment Supine to Sit Supine to Sit Maximum Assistance,1 Person Assistance,Head of Bed Elevated,Bedrails Sit to Supine Sit to Supine Maximum Assistance,2 Person Assistance,Bedrails PT-Transfer Assessment Sit to and From Stand Sit to and from Stand Maximum Assistance,2 Person Assistance,Use of Upper Extremities Equipment Transfer Assistive Device Gait Belt,Front Wheeled Walker Orthotic/Prosthetic Devices or Brace: No Comments Mobility Comments pt in bed and agreeable to do PT. BP: 156/68 O2 sat: 94%. AL: 83 bpm. completed supine to sit max A with HOB elevated and use of bed rail. able to sit on EOB SBA. pt needing frequent and increase bed rests in between activities. height of bed adjusted/elevated. completed sit to stand max A x 2 and max cues and was able to stand for ~ 15 sec using FWW for support max A x 2 for stability and balance. pt sat on EOB. O2 sat: 93-94%. pt rested. agreed to stand again . max A x 2 and max cues and used FWW for support. completed side stepping towards HOB max A x 2 and max cues using FWW. was able to take ~ 2-3 side stepping. slight L knee buckling noted but pt able to control and PT assisted to stabilize max A. pt requested to go back to bed . max A x 3 and max cues. positioned pt in bed. call light and table placed within reach. Gait Assessment Comments Gait Comments able to take 2-3 sidesteping to position in bed max A x 2 and max cues. M5 PT-IP Objective Assessments Start: 05/11/24 16:38 Freq: NEEDED Status: Active Protocol: Document 05/11/24 14:45 AB (Rec: 05/11/24 17:00 AB [id number]) Orientation Orientation/Cognition Level of Alertness Alert Orientation Name,Place,Situation Safety Awareness Decreased Safety Awareness Memory Description Short Term Impaired,Product Safety Technical Assistant Impaired Comments with slight confusion Gross Range of Motion Lower Extremity ROM Assessment Within Functional Limits Strength Lower Extremity Strength Hip 3+/5 Knee 3+/5 Muscle Tone Muscle Tone WNL Yes M6 PT-IP Treatment Start: 05/11/24 16:38 Freq: NEEDED Status: Active Protocol: Document 05/14/24 16:15 AB (Rec: 05/14/24 18:02 AB [id number]) Physical Therapy Treatment Education Education Provided Safety M7 PT-IP Assessment and Plan Start: 05/11/24 16:38 Freq: NEEDED Status: Active Protocol: Document 05/14/24 16:15 AB (Rec: 05/14/24 18:02 AB [id number]) PT Summary Assessment and Plan Potential Rehabilitation Potential Fair Summary Impairments Pain,ROM,Strength,Balance, Coordination,Sensation,Tone, Cognition,Bed Mobility, Transfers,Gait,Activity Tolerance Progress Towards Goals Slow Progress due to Medical Issues,Slow Progress due to Activity Tolerance,Slow Progress - Other Assessment Summary pt progressing slowly with mobility and was able to take 2-3 sidestepping towards HOB for positioning using FWW max A x 2 and max cues. pt will benefit from SNF rehab to improve mobility. Goals Bed Mobility Goal Moderate Assistance Transfer Goal Moderate Assistance,Front Wheeled Walker Gait Goal Moderate Assistance,Front Wheel Walker Gait Distance 15 Other Goals improve bed mobility, transfers, ambulation using FWW 50 ft CGA Days to Meet Goals 10 Frequency of Treatment Frequency Of Treatment Once a Day Treatment Plan Physical Therapy Treatment Plan Bed Mobility Training,Transfer Training,Gait Training, Therapeutic Exercise,Balance Retraining,Discharge Planning, Hot or Cold Pack,Neuromuscular Re-ed,Coordination Retraining ,Manual Therapy Precautions Other Precautions O2 sat, falls Recommendations To Nursing Amount of Assist Needed Mechanical Lift Discharge Recommendations PT Discharge Recommendations SNF Rehab Transportation Needs at Discharge Wheelchair/Cabulance,Stretcher /Ambulance
--- NOTE | 2024-05-14 17:17 | PC.NURSE ---
Pt alert, oriented throughout shift. Experiencing watery diarrhea, provider notified and sample collected for c dif testing. Some excoriation from diarrhea, paste applied. Pt resistant to repositioning, provided education and encouragement to participate in repositioning. Remains on 2L NC throughout day. Up at bedside with PT. Pt's called, updated and transferred to pt's room phone.
[2024-05-14] MEDS: MELATONIN 3 MG TABLET 9 MG PO (20:45)
[2024-05-14] MEDS: AMITRIPTYLINE 25 MG TABLET PO (20:45)
[2024-05-15] VITALS (24 sets, daily range): BP systolic 135–181; BP diastolic 58–97; PULSE 60–104; RESP 15–36; TEMP 36.2–36.9; O2SAT 88–100
--- NOTE | 2024-05-15 06:19 | PC.NURSE ---
Pt's brief and peripad is soaking wet, total bed change. Camacho's balloon deflated then reinflated for possible camacho leak.
[2024-05-15] MEDS: APIXABAN 5 MG TABLET PO ×2 (08:26→21:54)
[2024-05-15] MEDS: OXYBUTYNIN 5 MG ER TAB 10 MG PO (08:26)
[2024-05-15] MEDS: predniSONE 20 MG TABLET 40 MG PO (08:26)
[2024-05-15] MEDS: ASPIRIN EC 81 MG TABLET PO (08:26)
[2024-05-15] MEDS: FUROSEMIDE 20 MG/2 ML VIAL IV ×2 (08:26→18:21)
[2024-05-15] MEDS: allopurinoL 100 MG TABLET PO (08:26)
[2024-05-15] MEDS: SODIUM CHLORIDE 0.9% FLUSH 10 ML IV ×2 (08:27→21:54)
[2024-05-15] MEDS: BUDESONIDE 0.5 MG/2 ML NEB INH ×2 (09:34→19:09)
--- NOTE | 2024-05-15 12:13 | P.PN_ITS ---
Subjective Subjective Date Patient Seen: 05/15/24 Time Patient Seen: 11:45 Interval history: Narrative: 74-year-old male with history of COPD, prescribed nasal BiPAP at nearby adjacent senior living care facility, frequent talking, likely poor seal, increased shortness of breath today overnight, here for further evaluation. Admits to cough, has chronic cough, not recently productive. No fevers or chills. He denies chest pain. He denies swelling to his legs. No calf pain. he patient was on BiPAP and relatively lethargic. No further information is currently available. There is some peripheral information indicating that he may be somewhat noncompliant with his chronic CPAP or BiPAP at his nursing facility. Met with the , and proxy decision maker. She does confirm that he was DNR and DNI. His goal is still to recover enough to return home, they live near [place] [facility]. The patient did have 2 days of progressive altered mental status consistent with progressive hypercarbia. This has been a pattern for him with recurrent admissions for hypercarbic respiratory failure. She does note his difficulty complying with his nasal BiPAP. Interval history: Patient experienced liquid diarrhea yesterday negative for C diff toxin. He denies abdominal pain or other complaints. His care facility is awaiting arrival of a trilogy device for him to transfer back for ongoing care and rehabilitation. Exam Vital Signs (past 8 hours): - 05/15/24 07:00 05/15/24 07:00 05/15/24 08:00 Temperature Pulse Rate 60 60 Respiratory Rate 32 H 34 H Blood Pressure Pulse Oximetry 98 99 Oxygen Delivery Method Nasal Cannula Oxygen Flow Rate 05/15/24 08:30 05/15/24 08:30 05/15/24 09:36 Temperature 97.7 F Pulse Rate 60 Respiratory Rate 28 H Blood Pressure 164/74 H Pulse Oximetry 93 97 Oxygen Delivery Method Nasal Cannula Oxygen Flow Rate 3 Fraction of Inspired Oxygen 28 SaO2/FiO2 Ratio 342 Oxygen Delivery Method Nasal Cannula Oxygen Flow Rate 3 Narrative Exam Narrative: Gen: obese male, no acute distress HEENT: no JVD CV: RRR. no m/r/g. Pulm: diminished breath sounds bilateral lung bases. Abd: Soft, non-distended. Ext: trace bilateral LE edema Objective Labs 05/14/24 08:18 05/13/24 10:45 Labs: Laboratory Results - last 24 hr 05/14/24 13:46 C. difficile Tox (PCR) Negative for c. diff [facility] Medical History Hypertension Mobitz II Surgical History H/O abdominal surgery History of permanent cardiac pacemaker placement Social History household members: spouse Smoking Status: Former smoker alcohol intake: never Assessment & Plan Assessment & Plan narrative: 1. COPD exacerbation - continue prednisone, nebulizers per respiratory therapies. - clinically stable and ready for discharge to alf when able to accept 2. Acute on chronic hypercarbic and hypoxemic respiratory failure - multifactorial due to PNA, CHF, and COPD exacerbation. - Goal O2 88-92% - patient with chronic hypercapnic respiratory failure failing home BiPAP. Indicated for home trilogy. Case management working on arranging patient to get this at [facility].. 3. bacterial pneumonia - narrowed zosyn and vanc to ceftriaxone completed 05/13/2024. No infiltrate seen on 05/09/2024 chest/abdomen/pelvic CT. 4. Acute on chronic diastolic heart failure - TTE with slight decrease in EF, but still better than previous 35-40%. Now approx 55%. - continue diuresis, likely discharge on increased furosemide and off HCTZ. 5. Obesity class 2. 6. Hypokalemia, improved. 7. Chronic afib with anticoagulation - continue eliquis. 8. Diarrhea. - resolved, negative for C diff toxin. DNR, surrogate is patient's spouse Dispo: inpatient, on BiPAP/Trilogy needs which are chronic. Can likely discharge to SNF tomorrow on tapering prednisone if Trilogy is arranged and available. PROFEE Obstetrics Gyn Physician Document charge(s): No Charge Codes Subsequent inpatient/observation care: [id number]
--- NOTE | 2024-05-15 12:25 | PT-IP ANOTE ---
PT checks on pt x2 before lunch this date d/t pt request last time this PT saw pt that therapy is better before lunch. Pt is unavailable x2 d/t sleeping and when awakening, states he needs to have a BM and still on bed salinas upon second attempt. Con't PT efforts.
--- NOTE | 2024-05-15 15:38 | CM.DPNOTE ---
DCP Cont Placed call to [facility] Cha to ask about DME auth; Cha provided the following for [facility]; P [phone] [facility], Option 2 then Option 1 DME F [phone] Placed call; review services is closed today 05/15. team following closely for coordination. Follow up needed Thursday; Guy auth for Trilogy needed in order for patient to safely return to SNF. No PASRR needed. PAVEL
[2024-05-15] MEDS: ALBUTEROL 2.5 MG/3 ML NEB (ADULT) INH ×2 (16:10→19:09)
[2024-05-15] MEDS: AMITRIPTYLINE 25 MG TABLET PO (21:54)
[2024-05-15] MEDS: MELATONIN 3 MG TABLET 9 MG PO (21:54)
[2024-05-16] VITALS (27 sets, daily range): BP systolic 131–171; BP diastolic 59–73; PULSE 60–107; RESP 15–43; TEMP 36.1–37.2; O2SAT 88–99
[2024-05-16] MEDS: BUDESONIDE 0.5 MG/2 ML NEB INH ×2 (08:19→19:57)
[2024-05-16] MEDS: ALBUTEROL 2.5 MG/3 ML NEB (ADULT) INH ×4 (08:19→19:57)
[2024-05-16] MEDS: allopurinoL 100 MG TABLET PO (08:50)
[2024-05-16] MEDS: APIXABAN 5 MG TABLET PO ×2 (08:50→22:00)
[2024-05-16] MEDS: ASPIRIN EC 81 MG TABLET PO (08:50)
[2024-05-16] MEDS: predniSONE 20 MG TABLET 40 MG PO (08:50)
[2024-05-16] MEDS: OXYBUTYNIN 5 MG ER TAB 10 MG PO (08:50)
[2024-05-16] MEDS: FUROSEMIDE 20 MG/2 ML VIAL IV ×2 (08:50→19:58)
[2024-05-16] MEDS: SODIUM CHLORIDE 0.9% FLUSH 10 ML IV ×2 (08:50→22:01)
--- NOTE | 2024-05-16 11:14 | OT.IP.TRT ---
Current Diagnoses Acute respiratory failure with hypoxia (05/09/24) Occupational Therapy Treatment Note M2 OT-IP Current Condition Start: 05/11/24 16:27 Freq: Status: Active Protocol: Document 05/11/24 16:29 [facility] (Rec: 05/11/24 16:52 [facility] [id number]) Occupational Therapy Current Condition Current Condition Evaluation Date 05/11/24 Treatment Diagnosis COPD execaerbation,PNA Diagnosis Onset Date 05/09/24 M3 OT- IP Subjective and Pain Start: 05/11/24 16:27 Freq: Status: Active Protocol: Document 05/16/24 16:10 [facility] (Rec: 05/16/24 16:18 [facility] [id number]) OT- Subjective Occupational Therapy Visit Type Type Treatment Note Visit Start Time 10:51 Visit Stop Time 11:14 Notes Co-treat with P.T. Occupational Therapy Visit Comments Patient Comments If I stand again, I might poop. OT Pain Assessment Pain When Pain Assessed At Rest Pain Present Pain Present Denied Pain M4 OT- IP ADL's Start: 05/11/24 16:27 Freq: Status: Active Protocol: Document 05/16/24 16:10 [facility] (Rec: 05/16/24 16:18 [facility] [id number]) OT [id number] Comments OT Self-Feeding Comments not meal time OT ADL-Grooming General Evaluation Grooming Ability Standby Assistance Areas Needing Assistance Retrieving/Set-up of Grooming Items,Combing/Brushing Hair Comments OT Grooming Comments seated EOB OT ADL-Oral Care Comments Oral Care Comments not performed OT ADL-Dressing General Eval Lower Body Dressing Ability Total Assistance Areas Needing Assistance Socks Comments OT Dressing Comments in bed OT ADL-Toileting Comments OT Toileting Comments not performed but pt asking for bed salinas upon return to bed . Notified nursing. OT ADL-Bathing Comments OT Bathing Comments not performed M5 OT- IP IADL's Start: 05/11/24 16:27 Freq: Status: Active Protocol: Document 05/11/24 16:29 [facility] (Rec: 05/11/24 16:52 [facility] [id number]) OT-Instrumental Activities of Daily Living Home Safety Awareness Home Safety Comments Pt not aware of his needs and tends to direct the conversation. Pt would benefit from SLUMS. Medication Management Medication Management Caregiver Administers Money Management Money Management Caregiver Provides Assistance Meal Preparation Meal Preparation Caregiver Provides Assist Coffee Brewer Coffee Brewer Caregiver Provides Assist M6 OT- IP Functional Cognition Start: 05/11/24 16:27 Freq: Status: Active Protocol: Document 05/12/24 13:08 [facility] (Rec: 05/12/24 13:17 [facility] [id number]) Cognitive Factors Limiting Selfcare Function Cognitive Ability Level of Alertness Alert Attention Span Ability Capable of Focused Attention, Unable to Sustain Attention Ability to Follow Commands Able to Follow One Step Commands Cognitive Comments Cognitive Assessment Comments Pt much more alert today, however still tends to direct his care. M7 OT- IP Mobility and Balance Start: 05/11/24 16:27 Freq: Status: Active Protocol: Document 05/16/24 16:10 [facility] (Rec: 05/16/24 16:18 [facility] [id number]) OT- Bed Mobility Assessment Supine to Sit Supine to Sit Assist Contact Guard Assistance,Head of Bed Elevated,Bedrails Sit to Supine Sit to Supine Assist Contact Guard Assistance,Head of Bed Elevated,Bedrails Scooting Scooting to Edge of Bed Contact Guard Assistance OT-Transfer Assessment Sit to and From Stand Sit to and from Stand Moderate Assistance,2 Person Assistance Technique Transfer Destination Bed Transfer Technique side steps Devices Transfer Assistive Devices Gait Belt,Front Wheeled Walker Comments Mobility Comments Pt initially stood from the EOB with mod x 2 and states he needs to return to sitting immediately. Upon second stand pt was able to take a side step towards the head of the bed. Pt then sat and states he feels like he could stand again but he also feels like he needs to poop and is worried that if he stands again that he might poop while standing. Pt returned to bed for bedpan. Pt states this is the first time that he has felt like he could stand for a thrid time. OT- Gait Assessment Comments Gait Ability Comments not performed OT- Balance Assessment Sitting Balance and Reactions Static Sitting Balance Ability Good Dynamic Sitting Balance Ability Good M8 OT- IP Objective Assessments Start: 05/11/24 16:27 Freq: Status: Active Protocol: Document 05/11/24 16:29 [facility] (Rec: 05/11/24 16:52 [facility] [id number]) OT Gross Range of Motion Upper Extremity Range of Motion Assessment Left Impaired ROM Impairments LUE 0-80 shoulder flexion, per pt didnot heal from old shoulder fx in which he was only in a sling and did not have surgery on. OT Strength Upper Extremity Strength Assessment Bilaterally Impaired Comments Strength Comments LUE elbow to distal 4-/5, RUE 4/5 throughout. M9 OT- IP Assessment and Plan Start: 05/11/24 16:27 Freq: Status: Active Protocol: Document 05/16/24 16:10 [facility] (Rec: 05/16/24 16:18 [facility] [id number]) OT Summary Assessment and Plan Potential Rehabilitation Potential Fair Analytic Complexity at Evaluation High Summary OT Impairments Pain,Strength,Balance, Functional Cognition, Functional Mobility,Self- Feeding,Grooming,Dressing, Toileting,Bathing,Toilet Transfers,Shower Transfers, Activity Tolerance Progress Towards Goals Progressing Toward Goals Assessment Summary Pt able to come to stand x2 today with MAXA X 2 to the FWW . Pt very motivated to get better. Pt able to sit on the edge of the bed to participate in grooming needs. Pt to go to skilled rehab when medically stable. Goals Self-Feeding Goal Independent Grooming Goal Independent Dressing Goal Moderate Assistance Toileting Goal Moderate Assistance Toilet Transfer Goal Moderate Assistance Shower Transfer Goal Moderate Assistance Days to Meet Goals 40 Frequency of Treatment Other frequency 3-5x/week Treatment Plan OT Treatment Plan ADL Training,Functional Cognition Training,Functional Mobility,Patient/Family Education,Discharge Planning Other Treatment Recommendations and Next SLUMS Treatment Focus Discharge Recommendations OT Discharge Recommendations SNF Rehab Other Discharge Recommendations If improving possibly can go by the . Transportation Needs at Discharge Stretcher/Ambulance
--- NOTE | 2024-05-16 11:36 | PT.IPTN ---
Current Diagnoses Acute respiratory failure with hypoxia (05/09/24) Physical Therapy Treatment Note M2 PT-IP Current Condition Start: 05/11/24 16:38 Freq: NEEDED Status: Active Protocol: Document 05/11/24 14:45 [facility] (Rec: 05/11/24 17:00 AB [id number]) Physical Therapy Current Condition Current Condition Evaluation Date 05/11/24 Treatment Diagnosis PNA; COPD exacerbation; difficulty in walking Onset Date 05/09/24 M3 PT-IP Subjective Start: 05/11/24 16:38 Freq: NEEDED Status: Active Protocol: Document 05/16/24 10:49 [facility] (Rec: 05/16/24 11:35 [facility] [id number]) Subjective Physical Therapy Visit Type Type Treatment Note Visit Start Time 10:49 Visit Stop Time 11:22 Number of STAKING PRESS OPERATOR Visits 0 Physical Therapy Visit Comments Patient Comments Pt is agreeable to PT, states he had a good night and he would like a little more time to wake up but he is agreeable to PT. M4 PT-IP Mobility and Gait Start: 05/11/24 16:38 Freq: NEEDED Status: Active Protocol: Document 05/16/24 10:49 [facility] (Rec: 05/16/24 11:35 MB [id number]) PT-Bed Mobility Assessment Supine to Sit Supine to Sit Contact Guard Assistance,Head of Bed Elevated,Bedrails Sit to Supine Sit to Supine Contact Guard Assistance,Head of Bed Elevated,Bedrails Scooting Scooting to Edge of Bed Contact Guard Assistance PT-Transfer Assessment Sit to and From Stand Sit to and from Stand Moderate Assistance,2 Person Assistance,Use of Upper Extremities Equipment Transfer Assistive Device Gait Belt,Front Wheeled Walker Orthotic/Prosthetic Devices or Brace: No Comments Mobility Comments STS from EOB with bed slightly raised and gait belt high: pt is able to stand twice and second attempted, he takes one right side step. He is then concerned about bowels and so returned to supine and nsg to bring in bed salinas. HR consistently steady to palpation around 67 BPM and monitor reads all over the place. Likewise, on 1-2L O2, O2 reads variably between 79- 93% and this does not always correlate with activity or talking and so ? reliability. Short standing d/t c/o weak knees. To stand, pt leans forward with hands on front of walker and he straightens up and moves hands to walker grippers once standing with cues. Gait Assessment Gait Gait Assistance Required: Moderate Assistance,2 Person Assist Able to Maintain Weight Bearing Status Yes During Gait Gait Deviations General Gait Pattern Antalgic,Decreased Feet Clearance,Step-to Gait,Wide Based Gait Factors Limiting Gait Function Factors Limiting Gait Function Decreased Activity Tolerance, Decreased Strength, Incoordination,Limited Range of Motion,Pain,Poor Balance, Poor Safety Awareness, Respiratory Distress PT-Balance Assessment Sitting Balance and Reactions Static Sitting Balance Ability Good Dynamic Sitting Balance Ability Fair Standing Balance and Reactions Static Standing Balance Ability Fair Dynamic Standing Balance Ability Poor Device Used RW M5 PT-IP Objective Assessments Start: 05/11/24 16:38 Freq: NEEDED Status: Active Protocol: Document 05/11/24 14:45 [facility] (Rec: 05/11/24 17:00 AB [id number]) Orientation Orientation/Cognition Level of Alertness Alert Orientation Name,Place,Situation Safety Awareness Decreased Safety Awareness Memory Description Short Term Impaired,Venetian Blind Mechanic Impaired Comments with slight confusion Gross Range of Motion Lower Extremity ROM Assessment Within Functional Limits Strength Lower Extremity Strength Hip 3+/5 Knee 3+/5 Muscle Tone Muscle Tone WNL Yes M6 PT-IP Treatment Start: 05/11/24 16:38 Freq: NEEDED Status: Active Protocol: Document 05/16/24 10:49 MB (Rec: 05/16/24 11:35 MB [id number]) Physical Therapy Treatment Exercises Exercises Ankle Pumps Education Education Provided Safety Other Treatments Other Treatment Performed Nasal breathing EOB M7 PT-IP Assessment and Plan Start: 05/11/24 16:38 Freq: NEEDED Status: Active Protocol: Document 05/16/24 10:49 MB (Rec: 05/16/24 11:35 MB [id number]) PT Summary Assessment and Plan Potential Rehabilitation Potential Fair Status of Condition at Evaluation Evolving Summary Impairments Pain,ROM,Strength,Balance, Coordination,Bed Mobility, Transfers,Gait,Activity Tolerance Progress Towards Goals Slow Progress due to Activity Tolerance,Slow Progress - Other Assessment Summary Pt progresses with bed mobility and takes a side step today. Unsure if HR and O2 sats are reading accurately as pulse is steady and slower every time PT palpates right radial during treatment. Pt mosly c/o B knee weakness and concerns for bowel incontinence and this limits further mobility. Goals Bed Mobility Goal Independent Transfer Goal Minimal Assistance,Front Wheeled Walker Gait Goal Minimal Assistance,Front Wheel Walker Gait Distance 15 Other Goals improve bed mobility, transfers, ambulation using FWW 50 ft CGA Days to Meet Goals 10 Frequency of Treatment Frequency Of Treatment Once a Day Other frequency +2 Treatment Plan Physical Therapy Treatment Plan Bed Mobility Training,Transfer Training,Gait Training, Therapeutic Exercise,Balance Retraining,Discharge Planning, Hot or Cold Pack,Neuromuscular Re-ed,Coordination Retraining ,Manual Therapy Recommendations To Nursing Amount of Assist Needed Mechanical Lift Discharge Recommendations PT Discharge Recommendations SNF Rehab Transportation Needs at Discharge Wheelchair/Cabulance,Stretcher /Ambulance
--- NOTE | 2024-05-16 11:50 | CM.DPC ---
Addendum entered by DRAGAN Herring 05/16/24 15:42: ADD: Faxed requested script for pt's need for bipap at night at [facility] with settings to both [facility] admissions and also Geraldine at [facility] to fax [phone]. BF Addendum entered by DRAGAN Herring 05/16/24 13:08: ADD: Per [facility] admissions, their team determined that the [employer] facemask that was supposed to be delivered last week was never delivered. They are attempting to call [facility] rep to get mask delivered and to request bedside teach for the rented NOC CPAP that is at their facility as no directions or instructions provided last week which likely led to pt's admission. [facility] cannot accept until this is in place. CM Savings Counselor Cassie helping to secure contact at [facility] to get this done by tomorrow. WILLY Riddel kindly cancelled [facility] transport for today and SW updated RN and MD. RN updated pt and spouse. Plan: Hopeful d/c to [facility] tomorrow 05/17 via [facility] once [facility] provides what [facility] needs for safe d/c. BF Original Note: DCP Discharge SNF Per MD, pt medically stable to d/c to lower level of care today and RT assessed and confirms that pt is tolerating 1LO2 NC during the day and since [facility] will not provide Trilogy/Bipap in facility due to lack of reimbursement then pt has been tolerating NOC CPAP at night which should meet his oxygen needs. SW met bedside with pt and also spoke to spouse via phone and updated that [facility] can accept today and likely need BLS transport and spouse with some concerns with pt not having Trilogy at SNF and SW explained it can be auth'd for home once he is able to d/c home but currently not an option for SNF. Pt and spouse agreeable to d/c to SNF today but concerned pt might have to readmit if he does not improve and SW discussed then plan might have to be switched to attempting LTAC at [facility] in [place] if pt fails at SNF again. Spouse hopeful pt will just improve and be able to d/c home in the near future. SW called [facility] and they can accept today but requesting BLS transport due to their large w/c not fitting in their van and pt's difficulty with ambulation and oxygen needs. Pt and spouse agreeable to BLS transport as pt needed it the prior times going to SNF. CC Janessa kindly scheduled [facility] for 1300 today to [facility] and BLS form completed. lead ramp service man and BURGLAR ALARM INSTALLER updated. SW updated RN and provided number to call report. Plan: Patient to d/c to [facility] today on 1LO2 continuous via BLS transport at 1300 via [facility]. DRAGAN Herring
--- NOTE | 2024-05-16 12:24 | P.DS_ITS ---
History of Present Illness History of Present Illness Date Patient Seen: 05/16/24 Time Patient Seen: 12:24 Chief complaint: copd Narrative: From emergency physician: 74-year-old male with history of COPD, prescribed nasal BiPAP at nearby adjacent fdc care facility, frequent talking, likely poor seal, increased shortness of breath today overnight, here for further evaluation. Admits to cough, has chronic cough, not recently productive. No fevers or chills. He denies chest pain. He denies swelling to his legs. No calf pain. Additional information: The patient was on BiPAP and relatively lethargic. No further information is currently available. There is some peripheral information indicating that he may be somewhat noncompliant with his chronic CPAP or BiPAP at his nursing facility. Discharge Providers Provider Date of admission: 05/09/24 05:26 Primary care physician: Kalyn Morgan PA-C Consults: 05/11/24 12:23 Consult to Occupational Therapy Evaluate & Treat Comment: Physician Instructions: Evaluate and treat Consult to Physical Therapy Evaluate & Treat Comment: Physician Instructions: Evaluate and Treat Discharge provider: Marlo Wilburn DO Summary Time Spent with Patient Time spent: Greater than 30 minutes Exam Vital Signs (past 8 hours): - 05/16/24 08:00 05/16/24 08:26 05/16/24 09:00 Pulse Rate 60 60 64 Respiratory Rate 32 H 24 36 H Blood Pressure Pulse Oximetry 98 97 91 Oxygen Delivery Method Nasal Cannula Oxygen Flow Rate 2 05/16/24 09:21 05/16/24 09:21 05/16/24 11:33 Pulse Rate 63 60 Respiratory Rate 31 H 16 Blood Pressure 171/73 H Pulse Oximetry 95 97 Oxygen Delivery Method Nasal Cannula Oxygen Flow Rate 2 Fraction of Inspired Oxygen 25 SaO2/FiO2 Ratio 346 Oxygen Delivery Method Nasal Cannula Oxygen Flow Rate 2 Narrative Exam Narrative: Gen: obese male, no acute distress HEENT: no JVD CV: RRR. no m/r/g. Pulm: diminished breath sounds bilateral lung bases. Abd: Soft, non-distended. Ext: trace bilateral LE edema Objective Labs 05/14/24 08:18 05/13/24 10:45 [facility] Medical History Hypertension Mobitz II Surgical History H/O abdominal surgery History of permanent cardiac pacemaker placement Social History household members: spouse Smoking Status: Former smoker alcohol intake: never Discharge Plan Discharge orders & Medications Prescriptions: No Action ascorbic acid (vitamin C) 1,000 mg tablet 1 gram PO BID tolterodine 4 mg capsule,extended release 24hr 4 mg PO DAILY aspirin [Adult Aspirin Regimen] 81 mg tablet,delayed release (DR/EC) 81 mg PO DAILY amitriptyline 25 mg tablet 25 mg BEDTIME Fish Oil 500 mg Capsule 500 mg PO DAILY Daily Fiber (psyllium-aspart) 3.4 gram Powder In Packet 1 packet PO DAILY polyethylene glycol 3350 8.5 gram Powder In Packet 8.5 g PO 3XW Eliquis 5 mg Tablet 5 mg PO BID multivitamin [A To Z Multivitamin] Tablet 1 tab PO DAILY cholecalciferol (vitamin D3) [Vitamin D3] 50 mcg (2,000 unit) Tablet 50 mcg PO DAILY furosemide 20 mg tablet 20 mg BID Atrovent HFA 17 mcg/actuation HFA aerosol inhaler 2 puff INHALATION 4XD Patient Comments: [NO ORIGINAL SIG] budesonide-formoterol 160-4.5 mcg/actuation HFA aerosol inhaler 2 puff INHALATION BID Patient Comments: [NO ORIGINAL SIG] amlodipine 2.5 mg tablet 2.5 mg PO DAILY allopurinol 100 mg tablet 100 mg PO DAILY losartan 25 mg tablet 12.5 mg PO BID hydrochlorothiazide 12.5 mg tablet 25 mg PO DAILY Follow up/Referrals: Kalyn Mogran PA-C [Primary Care Provider] - Discharge Data Primary Care Provider: Kalyn Morgan
--- NOTE | 2024-05-16 15:42 | P.PN_ITS ---
Subjective Subjective Date Patient Seen: 05/15/24 Time Patient Seen: 11:45 Interval history: Narrative: 74-year-old male with history of COPD, prescribed nasal BiPAP at nearby adjacent group home care facility, frequent talking, likely poor seal, increased shortness of breath today overnight, here for further evaluation. Admits to cough, has chronic cough, not recently productive. No fevers or chills. He denies chest pain. He denies swelling to his legs. No calf pain. he patient was on BiPAP and relatively lethargic. No further information is currently available. There is some peripheral information indicating that he may be somewhat noncompliant with his chronic CPAP or BiPAP at his nursing facility. Met with the , and proxy decision maker. She does confirm that he was DNR and DNI. His goal is still to recover enough to return home, they live near [place] on [address]. The patient did have 2 days of progressive altered mental status consistent with progressive hypercarbia. This has been a pattern for him with recurrent admissions for hypercarbic respiratory failure. She does note his difficulty complying with his nasal BiPAP. Interval history: No complaints today, there was a hiccup at discharge today attempting to coordinate oxygen delivery and BIPAP settings at SNF. Exam Vital Signs (past 8 hours): - 05/16/24 08:00 05/16/24 08:26 05/16/24 09:00 Pulse Rate 60 60 64 Respiratory Rate 32 H 24 36 H Blood Pressure Pulse Oximetry 98 97 91 Oxygen Delivery Method Nasal Cannula Oxygen Flow Rate 2 05/16/24 09:21 05/16/24 09:21 05/16/24 11:33 Pulse Rate 63 60 Respiratory Rate 31 H 16 Blood Pressure 171/73 H Pulse Oximetry 95 97 Oxygen Delivery Method Nasal Cannula Oxygen Flow Rate 2 Fraction of Inspired Oxygen 25 SaO2/FiO2 Ratio 346 Oxygen Delivery Method Nasal Cannula Oxygen Flow Rate 2 Narrative Exam Narrative: Gen: obese male, no acute distress HEENT: no JVD CV: RRR. no m/r/g. Pulm: diminished breath sounds bilateral lung bases. Abd: Soft, non-distended. Ext: trace bilateral LE edema Objective Labs 05/14/24 08:18 05/13/24 10:45 [facility] Medical History Hypertension Mobitz II Surgical History H/O abdominal surgery History of permanent cardiac pacemaker placement Social History household members: spouse Smoking Status: Former smoker alcohol intake: never Assessment & Plan Assessment & Plan narrative: 1. COPD exacerbation - can stop prednisone at this time. - clinically stable and ready for discharge to residential when able to accept 2. Acute on chronic hypercarbic and hypoxemic respiratory failure - multifactorial due to PNA, CHF, and COPD exacerbation. - Goal O2 88-92% - patient with chronic hypercapnic respiratory failure, okay to discharge with RT on home BIPAP 20/8, backup rate 15, with 1L O2 bleed in. - continue to wean O2 as possible for above O2 goals. 3. bacterial pneumonia - narrowed zosyn and vanc to ceftriaxone completed 05/13/2024. No infiltrate seen on 05/09/2024 chest/abdomen/pelvic CT. 4. Acute on chronic diastolic heart failure - TTE with slight decrease in EF, but still better than previous 35-40%. Now approx 55%. - continue diuresis, plan for discharge on PO furosemide 5. Obesity class 2. 6. Hypokalemia, improved. 7. Chronic afib with anticoagulation - continue eliquis. 8. Diarrhea. - resolved, negative for C diff toxin. DNR, surrogate is patient's spouse Dispo: inpatient, on BiPAP needs which are chronic. Plan for hopeful discharge tomorrow if logistics of home bipap can be arranged on transfer. Time-Based Coding :: [TOTAL MINUTES] spent with patient and on the chart (including review of chart, obtaining history, exam, reviewing outside data, placing orders, documenting exam and treatment plan, and counseling patient) on [DATE].
[2024-05-16] MEDS: AMITRIPTYLINE 25 MG TABLET PO (22:00)
[2024-05-16] MEDS: MELATONIN 3 MG TABLET 9 MG PO (22:01)
[2024-05-17] VITALS (16 sets, daily range): BP systolic 113–171; BP diastolic 61–74; PULSE 60–66; RESP 15–34; TEMP 35.7–37; O2SAT 95–100
[2024-05-17] MEDS: ALBUTEROL 2.5 MG/3 ML NEB (ADULT) INH ×2 (06:59→10:57)
[2024-05-17] MEDS: BUDESONIDE 0.5 MG/2 ML NEB INH (06:59)
--- NOTE | 2024-05-17 08:59 | P.DS_ITS ---
History of Present Illness History of Present Illness Date Patient Seen: 05/17/24 Time Patient Seen: 09:34 Chief complaint: copd Narrative: From emergency physician: 74-year-old male with history of COPD, prescribed nasal BiPAP at nearby adjacent long-term care facility, frequent talking, likely poor seal, increased shortness of breath today overnight, here for further evaluation. Admits to cough, has chronic cough, not recently productive. No fevers or chills. He denies chest pain. He denies swelling to his legs. No calf pain. Additional information: The patient was on BiPAP and relatively lethargic. No further information is currently available. There is some peripheral information indicating that he may be somewhat noncompliant with his chronic CPAP or BiPAP at his nursing facility. Discharge Providers Provider Date of admission: 05/09/24 05:26 Discharge Date: 05/17/24 Primary care physician: Kalyn Morgan PA-C Consults: 05/11/24 12:23 Consult to Occupational Therapy Evaluate & Treat Comment: Physician Instructions: Evaluate and treat Consult to Physical Therapy Evaluate & Treat Comment: Physician Instructions: Evaluate and Treat Discharge provider: Marlo Wilburn DO Summary Hospital Course Discharge Diagnosis: 1. COPD exacerbation 2. Acute on chronic hypercarbic and hypoxemic respiratory failure 3. bacterial pneumonia 4. Acute on chronic diastolic heart failure 5. Obesity class 2. 6. Hypokalemia, improved. 7. Chronic afib with anticoagulation 8. Diarrhea. Hospital Course: This is an 84-year-old male with a past medical history of chronic hypercapnic respiratory failure who was admitted with acute on chronic hypercapnic and hypoxemic respiratory failure in the setting of COPD. The exact underlying etiology is likely multifactorial but likely due to a combination bacterial pneumonia, acute on chronic diastolic heart failure, and COPD with exacerbation. The patient was treated with steroids, diuresis, and antibiotics. The patient completed his course of steroids here in the hospital as well as a course of antibiotics. And he is presumably diuresed to euvolemia at the time of discharge. He was still requiring 1 L of supplemental oxygen. He was recommended for return to intermediate facility but had delays in placement due to acquiring the proper equipment for nighttime use. Trilogy was attempted, but the patient did improve and was using BiPAP with settings of 20/8, with a backup rate of 15 and 1 L of oxygen bleed in at the time of discharge and doing well. Over the course of his admission he did develop diarrhea, which was tested for C diff and negative for toxin. Given near euvolemia he was discharged on furosemide 20 mg twice a day to maintain euvolemia, his home hydrochlorothiazide was discontinued (he was on both on admission as an outpatient). He was motivated to continue with therapies, although he remained quite weak. He has not ambulated in nearly 5 months according to himself and his spouse, and is hopeful that given his improvement during this admission he will be able to shortly. He was discharged to [facility] on May 17. Time Spent with Patient Time spent: Greater than 30 minutes Exam Vital Signs (past 8 hours): - 05/17/24 03:35 05/17/24 04:00 05/17/24 07:05 Temperature 96.3 F L Pulse Rate 60 60 Respiratory Rate 16 20 Blood Pressure 128/61 128/61 Pulse Oximetry 98 97 Oxygen Delivery Method Nasal Cannula Oxygen Flow Rate 2 2 Fraction of Inspired Oxygen 25 Fraction of Inspired Oxygen 25 SaO2/FiO2 Ratio 346 Oxygen Delivery Method Nasal Cannula Oxygen Flow Rate 2 Narrative Exam Narrative: Gen: obese male, no acute distress HEENT: no JVD CV: RRR. no m/r/g. Pulm: diminished breath sounds bilateral lung bases. Abd: Soft, non-distended. Ext: trace bilateral LE edema Objective Labs 05/14/24 08:18 05/13/24 10:45 [facility] Medical History Hypertension Mobitz II Surgical History H/O abdominal surgery History of permanent cardiac pacemaker placement Social History household members: spouse Smoking Status: Former smoker alcohol intake: never Discharge Plan Discharge Plan Patient Disposition: SNF Transfer to: [facility] Rehabilitation and Healthcare Provider Discharge Comment: 84 M admitted with hypoxic and hypercapnic respiratory failure, now improved after fluid removal for CHF exacerbation and steroids for COPD. Discharge orders & Medications Prescriptions: New acetaminophen 325 mg Tablet 650 mg PO Q6H PRN (Reason: Fever/Mild Pain (1-3)) Qty: 3 0RF miscellaneous medical supply Misc 1 ea miscellaneous .nightly Qty: 1 0RF Rx Instructions: BIPAP with settings of IPAP 20, EPAP 8. Backup Rate 15. 1L O2 bleed in. Continued ascorbic acid (vitamin C) 1,000 mg tablet 1 gram PO BID tolterodine 4 mg capsule,extended release 24hr 4 mg PO DAILY aspirin [Adult Aspirin Regimen] 81 mg tablet,delayed release (DR/EC) 81 mg PO DAILY amitriptyline 25 mg tablet 25 mg BEDTIME omega-3 fatty acids 500 mg Capsule 500 mg PO DAILY Daily Fiber (psyllium-aspart) 3.4 gram Powder In Packet 1 packet PO DAILY polyethylene glycol 3350 8.5 gram Powder In Packet 8.5 g PO 3XW Eliquis 5 mg Tablet 5 mg PO BID multivitamin Tablet 1 tab PO DAILY cholecalciferol (vitamin D3) [Vitamin D3] 50 mcg (2,000 unit) Tablet 50 mcg PO DAILY furosemide 20 mg tablet 20 mg BID Atrovent HFA 17 mcg/actuation HFA aerosol inhaler 2 puff INHALATION 4XD Patient Comments: [NO ORIGINAL SIG] budesonide-formoterol 160-4.5 mcg/actuation HFA aerosol inhaler 2 puff INHALATION BID Patient Comments: [NO ORIGINAL SIG] amlodipine 2.5 mg tablet 2.5 mg PO DAILY allopurinol 100 mg tablet 100 mg PO DAILY losartan 25 mg tablet 12.5 mg PO BID Discontinued hydrochlorothiazide 12.5 mg tablet 25 mg PO DAILY Follow up/Referrals: Kalyn Morgan PA-C [Primary Care Provider] - Discharge Health Status Multidrug resistant organism: No MDRO Precautions: [place] Diet/Activity/Treatments Diet: Diet as Tolerated and Low-sodium Liquid consistency: Normal/Thin Food texture: Regular Activity: As tolerated, no restrictions but fairly limited mobility Oxygen: 1L O2 via NC 24, nocturnal CPAP. Goal O2 89-96%, can be off if O2 sat >89 [facility] Reason for rehabilitation: Recovery r/t decondition Rehab type: Physical therapy and Occupational therapy Visit Report/Discharge Packet Stand Alone Forms: Patient Portal/API Discharge Data Primary Care Provider: Kalyn Morgan
[2024-05-17] MEDS: SODIUM CHLORIDE 0.9% FLUSH 10 ML IV (09:15)
[2024-05-17] MEDS: allopurinoL 100 MG TABLET PO (09:15)
[2024-05-17] MEDS: ASPIRIN EC 81 MG TABLET PO (09:15)
[2024-05-17] MEDS: APIXABAN 5 MG TABLET PO (09:15)
[2024-05-17] MEDS: FUROSEMIDE 20 MG/2 ML VIAL IV (09:15)
[2024-05-17] MEDS: OXYBUTYNIN 5 MG ER TAB 10 MG PO (09:15)
--- NOTE | 2024-05-17 10:26 | CM.DPC ---
DCP Cont. Reviewed EMR and team rounds for status updates. Pt has been medically cleared for d/c to [facility] today, BLS will transport at 12:45pm. The equipment had been delivered, and the [facility] RT will meet pt/spouse/[facility] staff around 1:15 for the teaching. D/c clinicals have been faxed. No further CM d/c needs indicated at this time.
--- NOTE | 2024-05-17 13:20 | PC.NURSE ---
RN report given to Mackenzie at [facility] [phone] prior to patient leaving. 2 IV's were discontinued intact. Patient's camacho was dc'd this morning and patient voided after removal, brief in place. Dressing to patient's healing incision on abdomen replaced (area cleaned with saline, dried with gauze and allevyn non adhesive foam placed), CDI. Patient's reva area around scrotum is excoriated, barrier cream in use. Patient states his goal is to walk again! Patient picked up by BLS to transport to [facility] with all his belongings.
== END 2024-05-17 13:05 | DRG 291 ==
LOC: ED 04:49 → AC 05:28 → ICU 05:42
PROVIDERS: Hospitalist; Internal Medicine; Admitting Provider Internal Medicine; Emergency Provider Emergency Medicine; Family Provider Family Medicine; PCP Physician Assistant; Referring Provider Emergency Medicine; Visit Provider Internal Medicine
DX: I11.0 Hypertensive heart disease with heart failure (principal); I50.33 Acute on chronic diastolic (congestive) heart failure; J15.9 Unspecified bacterial pneumonia; J96.21 Acute and chronic respiratory failure with hypoxia; J96.22 Acute and chronic respiratory failure with hypercapnia; J44.1 Chronic obstructive pulmonary disease with (acute) exacerbation; I48.20 Chronic atrial fibrillation, unspecified; J44.0 Chronic obstructive pulmonary disease with (acute) lower respiratory infection; E66.812 Obesity, class 2; I44.0 Atrioventricular block, first degree; E87.6 Hypokalemia; R19.7 Diarrhea, unspecified; Z91.199 Patient's noncompliance with other medical treatment and regimen due to unspecified reason; Z66 Do not resuscitate; Z87.891 Personal history of nicotine dependence; Z68.35 Body mass index [BMI] 35.0-35.9, adult; Z79.01 Long term (current) use of anticoagulants; Z95.0 Presence of cardiac pacemaker
CPT/HCPCS: 0241U; 36415; 36600; 71045; 71260; 74177; 80048; 80053; 80202; 82550; 82805; 83690; 83735; 83880; 84484; 85025; 85027; 87040; 87493; 87797; 93005; 93306; 94618; 94640; 94660; 94760; 94762; 96365; 96375; 97163; 97166; 97530; 99285; 99291; 99292; J0696; J1171; J1630; J1940; J2543; J2919; J7613; Q9967

== ENCOUNTER 2024-06-02 07:20 | Inpatient (IN) | payer OTHER, SELFPAY ==
[2024-02-07 21:39] VITALS: RESP 24
[2024-05-09 09:23] VITALS: BMI 35.9
[2024-05-17 03:35] VITALS: PULSE 66; RESP 26; O2SAT 96
[2024-06-02] VITALS (40 sets, daily range): BP systolic 98–160; BP diastolic 48–97; PULSE 60–70; RESP 20–71; TEMP 31.2–36.4; O2SAT 80–100; BMI 38.5; BMI 37.0
--- NOTE | 2024-06-02 07:22 | ED.SOB ---
HPI - SOB/Dyspnea General Chief Complaint: Shortness of Breath/Dyspnea Stated Complaint: diff breathing Time Seen by Provider: 06/02/24 07:22 History of Present Illness HPI Narrative: 84-year-old male with a history of COPD, CHF, hypertension, comes into the ED from facility for evaluation of hypoxemia. According to the facility patient is normally prescribed a nightly nasal BiPAP, however he has a history of ?taking this off they state that this morning when they evaluated him his pulse ox was in the mid 80s, did place the BiPAP back on but states that he was slightly altered therefore called medics. According to medics patient at baseline he has not having any cough wheeze rales or complaints of chest pain or shortness of breath. Patient 100% on non-rebreather. At time of evaluation patient is A&O x3 following commands appropriately, however does appear somewhat can flu/slow to answer. Will place patient on BiPAP. Patient not complaining of any other symptoms such as abdominal pain nausea vomiting fever chills or any other GI/ symptoms at this time. Related Data Home Medications Medication Instructions Recorded Confirmed ascorbic acid (vitamin C) 1,000 mg 1 gram PO BID 01/10/18 05/09/24 tablet aspirin 81 mg tablet,delayed 81 mg PO DAILY 01/10/18 05/09/24 release (Adult Aspirin Regimen) tolterodine 4 mg capsule,extended 4 mg PO DAILY 01/10/18 05/09/24 release 24 hr allopurinol 100 mg tablet 100 mg PO DAILY 02/08/24 05/09/24 amlodipine 2.5 mg tablet 2.5 mg PO DAILY 02/08/24 05/09/24 losartan 25 mg tablet 12.5 mg PO BID 02/08/24 05/09/24 amitriptyline 25 mg tablet 25 mg BEDTIME 05/09/24 05/09/24 apixaban 5 mg tablet (Eliquis) 5 mg PO BID 05/09/24 05/09/24 budesonide-formoterol HFA 160 2 puff inhalation BID 05/09/24 05/09/24 mcg-4.5 mcg/actuation aerosol inhaler cholecalciferol (vitamin D3) 50 50 mcg PO DAILY 05/09/24 05/09/24 mcg (2,000 unit) tablet (Vitamin D3) furosemide 20 mg tablet 20 mg BID 05/09/24 05/09/24 ipratropium bromide 17 2 puff inhalation 4XD 05/09/24 05/09/24 mcg/actuation HFA aerosol inhaler (Atrovent HFA) multivitamin 1 tab PO DAILY 05/09/24 05/09/24 omega-3 fatty acids 500 mg capsule 500 mg PO DAILY 05/09/24 05/09/24 polyethylene glycol 3350 8.5 gram 8.5 g PO 3XW 05/09/24 05/09/24 oral powder packet psyllium husk (aspartame) 3.4 gram 1 packet PO DAILY 05/09/24 05/09/24 oral powder packet (Daily Fiber (psyllium-aspartame)) Previous Rx's Medication Instructions Recorded acetaminophen 325 mg tablet 650 mg (2 x 325 mg) PO Q6H PRN 05/16/24 Fever/Mild Pain (1-3) #3 tabs miscellaneous medical supply 1 ea miscellaneous .nightly #1 ea 05/16/24 Allergies Allergy/AdvReac Type Severity Reaction Status Date / Time Jprclsy-INL-KyZ Reductase Allergy Mild Elevated Verified 01/10/18 15:38 Inhibitor liver [Lguxfon-Pqc-Nxs Reductase enzymes Inhibitor] Review of Systems Review of Systems Narrative: General: Denies fever, chills, weight loss HEENT: Denies headache, eye drainage, eye irritation, head trauma, sore throat, voice change Cardiovascular: Denies any chest pain, palpitations, shortness of breath, tachycardia Respiratory: Positive Hypoxemia, Denies any shortness of breath, cough, wheeze, stridor GI/: Denies any abdominal pain, nausea, vomiting, diarrhea, bright red blood per rectum, melanotic stools, urinary frequency, urinary retention, dysuria, hematuria MSK: Denies any joint pain, muscle pains, swelling Skin: Denies any rashes, lesions, discoloration Neuro: Denies any headache, lightheadedness, dizziness, fainting, weakness Psych: Denies SI/HI Patient History Medical History Hypertension Mobitz II Surgical History H/O abdominal surgery History of permanent cardiac pacemaker placement Social History household members: spouse Smoking Status: Former smoker alcohol intake: never Smoking Status: Former smoker Exam Narrative Exam Narrative: General: Cooperative, comfortable, well-developed, not in acute distress HEENT: Normocephalic, atraumatic, PERRLA, normal sclera, eyelids normal, Neck: Active full range of motion, atraumatic Chest: Normal to inspection, negative crepitus, no overlying erythema ecchymosis Respiratory: On non-rebreather, patient dyspneic with conversation however he is protecting his airway, decreased breath sounds bilaterally no noticeable auditory wheezes rales rhonchi Cardiology: Regular rate rhythm negative gallop, murmur, rubs GI/: Normal to inspection, soft, nonrigid, no tenderness to palpation, exam deferred MSK: Full range of active range of motion of all 4 extremities, atraumatic Skin: No rashes lesions noted Neuro: Alert awake oriented x3, moves all 4 extremities spontaneously, cranial nerves intact, able to answer all questions appropriately follows commands appropriately Psych: Cooperative, negative suicidal or homicidal ideations Initial Vital Signs Initial Vital Signs: Vital Signs Temperature 97.6 F 06/02/24 07:38 Pulse Rate 64 06/02/24 07:38 Respiratory Rate 34 H 06/02/24 07:38 Blood Pressure 128/75 06/02/24 07:38 Pulse Oximetry 100 06/02/24 07:38 Oxygen Delivery Method Non -Rebreather 06/02/24 07:38 Oxygen Flow Rate 15 06/02/24 07:38 Course Orders Ordered: ED Orders 06/02/24 07:25 XR chest 1V Stat EKG-12 Lead Stat 06/02/24 07:26 Blood Culture Stat 06/02/24 07:29 Arterial Blood Gas STAT BiPAP Ventilatory Support RT PROTOCOL 06/02/24 07:36 Complete Blood Count AUTO DIFF Stat Comprehensive Metabolic Panel Stat Lactate (Lactic Acid) Stat Lipase Stat NT-proBNP (BNP-Adult 18+) Stat PTT Partial Thromboplastin [place] Stat Procalcitonin Stat Prothrombin Time INR Stat Troponin & CK Cardiac Panel Stat 06/02/24 08:13 Respiratory Panel (Film Array) Stat Vital Signs Vital signs: Vital Signs - 8 hr 06/02/24 07:38 06/02/24 07:53 06/02/24 08:00 Temperature 97.6 F Pulse Rate 64 65 66 Respiratory Rate 34 H 25 H 30 H Blood Pressure 128/75 125/91 H Pulse Oximetry 100 100 96 Oxygen Delivery Method Non -Rebreather BiPAP Oxygen Flow Rate 15 06/02/24 08:01 06/02/24 08:01 06/02/24 08:30 Temperature Pulse Rate 66 65 Respiratory Rate 33 H 38 H Blood Pressure 118/82 Pulse Oximetry 93 93 Oxygen Delivery Method BiPAP Oxygen Flow Rate 06/02/24 08:31 06/02/24 08:31 06/02/24 09:00 Temperature Pulse Rate 65 66 Respiratory Rate 37 H 33 H Blood Pressure 122/73 120/60 Pulse Oximetry 91 94 Oxygen Delivery Method BiPAP Oxygen Flow Rate MDM - SOB/Dyspnea Differential Diagnosis Differential diagnosis: Likely acute exacerbation of chronic obstructive airways disease, congestive heart failure, community acquired pneumonia and other (Hypoxemia, COPD exacerbation) Lab Data 06/02/24 07:36 06/02/24 07:36 Labs: Lab Results 06/02/24 06/02/24 Range/Units 07:36 07:45 WBC 9.0 (4.5-11.0) X10^3/uL RBC 2.90 L (4.5-5.9) X10^6/uL Hgb 9.0 L (13.5-17.5) g/dL Hct 27.8 L (41-53) % MCV 96.0 (80-100) fL MCH 30.9 (26-34) PG MCHC 32.2 (30-36) % RDW 17.8 H (11.6-14.8) % Plt Count 338 (150-400) X10^3/uL Neut % (Auto) 68.2 (50-75) % Lymph % (Auto) 19.4 L (25-40) % [place] % (Auto) 8.8 (3-14) % Eos % (Auto) 2.8 (2-4) % Baso % (Auto) 0.8 (0-2) % Neut # (Auto) 6100 (6582-1683) /uL Lymph # (Auto) 1700 (5374-6839) /uL [place] # (Auto) 800 (0-900) /uL Eos # (Auto) 200 (0-450) /uL Baso # (Auto) 100 (0-100) /uL PT 15.5 H (9.4-12.5) SECONDS INR 1.4 H (0.9-1.3) APTT 36 (25.1-36.5) SECONDS ABG Sample Site Right radial ABG pH 7.22 L* (7.35-7.45) ABG pCO2 108.3 H* (35-45) mmHg ABG pO2 225 H (80-100) mmHg ABG HCO3 45 H (23-27) mmol/L ABG Total CO2 45 H (23-27) mmol/L ABG O2 Saturation 100 (95-100) % ABG Base Excess 13.9 H (-2-3) mmol/L [place] Test Positive Sodium 138 (137-145) mmol/L Potassium 4.8 (3.4-5.1) mmol/L Chloride 96 L (98-107) mmol/L Carbon Dioxide 35 H (22-32) mmol/L BUN 15 (9-20) mg/dL Creatinine 0.76 (0.66-1.25) mg/dL Estimated GFR > 60 (>60) mL/min BUN/Creatinine Ratio 19.7 (6-22) Glucose 105 (80-110) mg/dL Lactate 0.6 L (0.7-2.1) mmol/L Calcium 8.8 (8.4-10.2) mg/dL Total Bilirubin 0.4 (0.2-1.3) mg/dL AST 36 (17-59) IU/L ALT 13 (<50) IU/L Alkaline Phosphatase 72 (38-126) U/L Total Creatine Kinase 39 L (55-170) U/L Troponin I 0.017 (0.01-0.034) ng/mL NT-Pro-B Natriuret Pep 1240 H (<450) pg/mL Total Protein 6.5 (6.3-8.2) g/dL Albumin 3.3 L (3.5-5.0) g/dL Globulin 3.2 (1.7-4.1) g/dL Albumin/Globulin Ratio 1.0 (1.0-2.8) Lipase 64 (23-300) U/L Procalcitonin 0.070 (<0.5) ng/mL Imaging Data Chest x-ray: Radiologist's Impression: [place] [id number] XRay Report Signed Patient: Filemon Moore MR#: [id number] : 1940 Acct:[id number] Age/Sex: 84 / M Date of Service: 06/02/24 Loc: ED Accession Number: [id number] Procedure: XR chest 1V Ordering Provider: Marlo Lara D.O. PROCEDURE: XR CHEST 1V INDICATIONS: SOB TECHNIQUE: One view of the chest was acquired. COMPARISON: [facility], , XR CHEST 1V, 05/09/2024, 3:38. FINDINGS: Surgical changes and devices: Pacemaker Lungs and pleura: Progressive severe congestive heart failure with pulmonary edema and enlarging left pleural effusion and bibasilar atelectasis. Mediastinum: Mediastinal contours appear normal. Heart size is enlarged. Bones and chest wall: No suspicious bony lesions. Overlying soft tissues appear unremarkable. IMPRESSION: Progressive severe congestive heart failure exacerbation. ECG Data Interpretation: EKG interpreted ED physician sinus 65 beats per minute first-degree AV block noted, QTC [address] changes no STEMI MDM Narrative Medical decision making narrative: 84-year-old male with a history of COPD, CHF normally requiring nasal BiPAP at night presents for hypoxemia. Patient allegedly had history of removing his BiPAP at night was found to be in the low to mid 80s at facility with improvement of mentation and oxygenation with Re application of BiPAP and non-rebreather. At time of evaluation here patient dyspneic with conversation A&O x3 but slow to answer. Patient was placed on AVAPS immediately upon arrival here. Patient did have lab work imaging EKG performed here in the emergency department. EKG nonischemic in nature. Chest x-ray showing progressive congestive heart failure exacerbation. ABG performed showing pH 7.22, pCO2 108, PO2 225, we will continue AVAPS at this time. Patient without leukocytosis Chem panel unremarkable. BNP 1240 0852: I had a lengthy conversation with the patient's who is also his power of banking attorney in regards to the patient's prognosis, I informed the patient's that patient is declining has progressive decompensated heart failure and that his prognosis is very poor, I informed her of possibly trying to pursue comfort/palliative Care, she states she understands his severity of his condition but at this time need more time to process whether or not to pursue palliative/comfort care. She states that he is still DNR DNI, does not want any other acute interventions such as central line placement, surgical interventions or transfer. She states that she just wants him to be admitted here and to remain on his BiPAP for now. The patient's management plan was discussed Dr. Wilburn, who agrees to admit the patient to their service and assumes care of this patient at this time. Full admission orders will be placed by the primary team. Discharge Plan Departure Patient Disposition: Admitted As Inpatient Clinical Impression: Acute hypercapnic respiratory failure, CHF exacerbation
--- NOTE | 2024-06-02 07:25 | DI.RAD.S_ITS ---
PROCEDURE: XR CHEST 1V INDICATIONS: SOB TECHNIQUE: One view of the chest was acquired. COMPARISON: [facility], CR, XR CHEST 1V, 05/09/2024, 3:38. FINDINGS: Surgical changes and devices: Pacemaker Lungs and pleura: Progressive severe congestive heart failure with pulmonary edema and enlarging left pleural effusion and bibasilar atelectasis. Mediastinum: Mediastinal contours appear normal. Heart size is enlarged. Bones and chest wall: No suspicious bony lesions. Overlying soft tissues appear unremarkable. IMPRESSION: Progressive severe congestive heart failure exacerbation. Dictated by: Franco Freeman M.D. on 06/02/2024 at 7:54 Approved by: Franco Freeman M.D. on 06/02/2024 at 7:55
--- NOTE | 2024-06-02 07:31 | EKG_ITS ---
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
[2024-06-02 07:51] LABS: Allen Test for ABG Passed? Positive; Base Excess ABG 13.9 mmol/L (-2-3); Blood Gas Collection Site Right Radial; HCO3 ABG 45 mmol/L (23-27); Oxygen Saturation ABG 100 % (95-100); PCO2 ABG 108.3 mmHg (35-45); PO2 ABG 225 mmHg (80-100); TCO2 ABG 45 mmol/L (23-27); pH ABG 7.22 (7.35-7.45)
[2024-06-02 07:54] LABS: Add Manual Diff / Slide Review NO; Basophils Absolute Auto 100 /uL (0-100); Basophils Percent Auto 0.8 % (0-2); Eosinophils Absolute Auto 200 /uL (0-450); Eosinophils Percent Auto 2.8 % (2-4); Hematocrit 27.8 % (41-53); INR 1.4 (0.9-1.3); Lymphocytes Absolute Auto 1700 /uL (1100-4500); Lymphocytes Percent Auto 19.4 % (25-40); Mean Corpuscular HGB Conc 32.2 % (30-36); Mean Corpuscular Hemoglobin 30.9 PG (26-34); Monocytes Absolute Auto 800 /uL (0-900); Monocytes Percent Auto 8.8 % (3-14); Neutrophils Absolute Auto 6100 /uL (1500-7000); Neutrophils Percent Auto 68.2 % (50-75); Platelet Count 338 X10^3/uL (150-400); Prothrombin Time 15.5 SECONDS (9.4-12.5); Red Cell Distribution Width 17.8 % (11.6-14.8)
[2024-06-02 07:56] LABS: PTT Partial Thromboplastin Tim 36 SECONDS (25.1-36.5)
[2024-06-02 07:59] LABS: Alanine Aminotransferase 13 IU/L (<50); Albumin 3.3 g/dL (3.5-5.0); Alkaline Phosphatase 72 U/L (38-126); Aspartate Aminotransferase 36 IU/L (17-59); BUN Creatinine Ratio 19.7 (6-22); Bilirubin Total 0.4 mg/dL (0.2-1.3); Blood Urea Nitrogen 15 mg/dL (9-20); Calcium 8.8 mg/dL (8.4-10.2); Chloride 96 mmol/L (98-107); Creatine Kinase 39 U/L (55-170); Estimated Glomerular Filt Rate > 60 mL/min (>60); Globulin 3.2 g/dL (1.7-4.1); Glucose 105 mg/dL (80-110); Lipase 64 U/L (23-300); Potassium 4.8 mmol/L (3.4-5.1); Sodium 138 mmol/L (137-145); Total Protein 6.5 g/dL (6.3-8.2)
--- NOTE | 2024-06-02 07:59 | PC.NURSE ---
Vee from Hospice ([phone]) called to say she has the Hospice Referral and she will reach out to POA/family this morning and call us back when she knows more. EKG faxed to Vee @ [phone], per hospice request.
[2024-06-02 08:00] LABS: Lactate (Lactic Acid) 0.6 mmol/L (0.7-2.1)
[2024-06-02 08:11] LABS: NT-proBNP (BNP-Adult 18+) 1240 pg/mL (<450); Troponin I 0.017 ng/mL (0.01-0.034)
[2024-06-02 08:17] LABS: Carbon Dioxide 35 mmol/L (22-32); HEMOLYSIS 113 (0-50)
[2024-06-02 09:35] LABS: Adenovirus Not Detected (Not Detect); B. parapertussis Not Detected (Not Detecte); Bordetella pertussis Not Detected (Not Detect); Chlamydophila pneumoniae Not Detected (Not Detect); Coronavirus 229E Not Detected (Not Detect); Coronavirus HKU1 Not Detected (Not Detect); Coronavirus NL 63 Not Detected (Not Detect); Coronavirus OC43 Not Detected (Not Detect); Human Metapneumovirus Not Detected (Not Detect); Human Rhinovirus/Enterovirus Not Detected (Not Detect); Influenza A Not Detected (Not Detect); Influenza B Not Detected (Not Detect); Mycoplasma pneumoniae Not Detected (Not Detect); Parainfluenza Virus 1 Not Detected (Not Detect); Parainfluenza Virus 2 Not Detected (Not Detect); Parainfluenza Virus 3 Not Detected (Not Detect); Parainfluenza Virus 4 Not Detected (Not Detect); Respiratory Syncytial Virus Not Detected (Not Detect); SARS- CoV-2 Not Detected (Not Detecte)
[2024-06-02] MEDS: FUROSEMIDE 40 MG/4 ML VIAL IV ×2 (10:05→17:40)
[2024-06-02 11:18] LABS: Appearance Urine UA SL CLOUDY; Bilirubin Urine UA NEGATIVE (NEGATIVE); Color Urine UA RED; Glucose Urine UA NEGATIVE (Negative); Ketones Urine UA NEGATIVE (NEGATIVE); Leukocyte Esterase Urine UA 1+ (NEGATIVE); Nitrite Urine UA NEGATIVE (Negative); Occult Blood Urine UA 3+ (Negative); Protein Urine UA TRACE (Negative); Urobilinogen Urine UA 0.2 E.U./dL (0.2)
[2024-06-02 11:28] LABS: RBC Urine 30-100/HPF (0-5/HPF); Urine Volume 10mL (spun)
[2024-06-02 11:29] LABS: Allen Test for ABG Passed? Positive; Blood Gas Collection Site Right Radial; Delivery System Cannula; HCO3 ABG 45 mmol/L (23-27); Oxygen Saturation ABG 89 % (95-100); PCO2 ABG 75.4 mmHg (35-45); PO2 ABG 62 mmHg (80-100); TCO2 ABG 44 mmol/L (23-27); pH ABG 7.38 (7.35-7.45)
[2024-06-02 11:29] LABS: Bacteria Urine None Seen; Culture Indicated Urine Specimen Cultured; Squamous Epithelial Cell Urine None Seen (0-5/HPF); WBC Urine 5-10/HPF (0-5/HPF)
[2024-06-02] MEDS: predniSONE 20 MG TABLET 40 MG PO (13:03)
[2024-06-02] MEDS: APIXABAN 5 MG TABLET PO ×2 (13:03→21:06)
[2024-06-02] MEDS: ALBUTEROL/IPRATROPIUM 3 ML AMPUL INH ×2 (14:04→19:25)
[2024-06-02 15:38] LABS: MRSA (Nasal) PCR DETECTED (Not Detect)
--- NOTE | 2024-06-02 18:36 | PM.HP.1 ---
History of Present Illness History of Present Illness Date Patient Seen: 06/02/24 Time Patient Seen: 18:37 Chief complaint: diff breathing COUNT INCLUDES THE [facility] Medical History Hypertension Mobitz II Surgical History H/O abdominal surgery History of permanent cardiac pacemaker placement Social History household members: spouse Smoking Status: Former smoker alcohol intake: never Meds Home Medications and Allergies Home Medications Medication Instructions Recorded Confirmed Type ascorbic acid (vitamin C) 1,000 mg 1 gram PO BID 01/10/18 06/02/24 History tablet aspirin 81 mg tablet,delayed 81 mg PO DAILY 01/10/18 06/02/24 History release (Adult Aspirin Regimen) tolterodine 4 mg capsule,extended 4 mg PO DAILY 01/10/18 06/02/24 History release 24 hr allopurinol 100 mg tablet 100 mg PO DAILY 02/08/24 06/02/24 History amlodipine 2.5 mg tablet 2.5 mg PO DAILY 02/08/24 06/02/24 History losartan 25 mg tablet 12.5 mg PO BID 02/08/24 06/02/24 History amitriptyline 25 mg tablet 25 mg BEDTIME 05/09/24 06/02/24 History apixaban 5 mg tablet (Eliquis) 5 mg PO BID 05/09/24 06/02/24 History budesonide-formoterol HFA 160 2 puff inhalation BID 05/09/24 06/02/24 History mcg-4.5 mcg/actuation aerosol inhaler cholecalciferol (vitamin D3) 50 50 mcg PO DAILY 05/09/24 06/02/24 History mcg (2,000 unit) tablet (Vitamin D3) furosemide 20 mg tablet 20 mg BID 05/09/24 06/02/24 History ipratropium bromide 17 2 puff inhalation 4XD 05/09/24 06/02/24 History mcg/actuation HFA aerosol inhaler (Atrovent HFA) multivitamin 1 tab PO DAILY 05/09/24 06/02/24 History omega-3 fatty acids 500 mg capsule 500 mg PO DAILY 05/09/24 06/02/24 History polyethylene glycol 3350 8.5 gram 8.5 g PO 3XW 05/09/24 06/02/24 History oral powder packet psyllium husk (aspartame) 3.4 gram 1 packet PO DAILY 05/09/24 06/02/24 History oral powder packet (Daily Fiber (psyllium-aspartame)) acetaminophen 325 mg tablet 650 mg (2 x 325 mg) PO Q6H PRN 05/16/24 06/02/24 Rx Fever/Mild Pain (1-3) #3 tabs miscellaneous medical supply 1 ea miscellaneous .nightly #1 ea 05/16/24 06/02/24 Rx Allergies Allergy/AdvReac Type Severity Reaction Status Date / Time Sadoewm-XAG-YyT Reductase Allergy Mild Elevated Verified 01/10/18 15:38 Inhibitor liver [Eitwuvf-Xbf-Qzt Reductase enzymes Inhibitor] Review of Systems Review of Systems Narrative: All other systems reviewed with the patient and are negative unless otherwise stated. Exam Vital Signs (past 8 hours): - 06/02/24 11:09 06/02/24 11:13 06/02/24 11:13 Pulse Rate 67 66 Respiratory Rate 31 H Blood Pressure 134/60 Pulse Oximetry 85 L 87 L Oxygen Delivery Method Oxygen Flow Rate 06/02/24 11:30 06/02/24 11:30 06/02/24 12:00 Pulse Rate 66 66 Respiratory Rate 35 H 42 H Blood Pressure 122/54 L Pulse Oximetry 96 92 Oxygen Delivery Method Oxygen Flow Rate 06/02/24 12:00 06/02/24 12:15 06/02/24 12:15 Pulse Rate Respiratory Rate Blood Pressure 109/56 L Pulse Oximetry 92 Oxygen Delivery Method Nasal Cannula BiPAP Nasal Cannula Oxygen Flow Rate 3 06/02/24 12:30 06/02/24 12:30 06/02/24 12:39 Pulse Rate 66 Respiratory Rate 40 H Blood Pressure 116/57 L Pulse Oximetry 95 95 Oxygen Delivery Method Oxygen Flow Rate 06/02/24 13:00 06/02/24 13:00 06/02/24 13:30 Pulse Rate 66 66 Respiratory Rate 71 H 44 H Blood Pressure 136/60 Pulse Oximetry 80 L 90 L Oxygen Delivery Method Oxygen Flow Rate 06/02/24 13:31 06/02/24 13:31 06/02/24 14:00 Pulse Rate 66 66 Respiratory Rate 46 H 42 H Blood Pressure 131/58 L Pulse Oximetry 89 L 89 L Oxygen Delivery Method Oxygen Flow Rate 06/02/24 14:01 06/02/24 14:01 06/02/24 14:05 Pulse Rate 66 66 Respiratory Rate 42 H 34 H Blood Pressure 112/55 L Pulse Oximetry 90 L 95 Oxygen Delivery Method Nasal Cannula Oxygen Flow Rate 2 06/02/24 14:30 06/02/24 14:30 06/02/24 15:00 Pulse Rate 66 Respiratory Rate 45 H Blood Pressure 115/55 L 128/71 Pulse Oximetry 88 L Oxygen Delivery Method Oxygen Flow Rate 06/02/24 15:00 06/02/24 15:30 06/02/24 15:30 Pulse Rate 67 66 Respiratory Rate 49 H 49 H Blood Pressure 131/78 Pulse Oximetry 97 91 Oxygen Delivery Method Oxygen Flow Rate 06/02/24 16:00 06/02/24 16:00 Pulse Rate 66 Respiratory Rate 59 H Blood Pressure 145/63 H Pulse Oximetry 87 L Oxygen Delivery Method Oxygen Flow Rate Fraction of Inspired Oxygen 30 Oxygen Delivery Method Nasal Cannula Oxygen Flow Rate 2 Narrative Exam Narrative: Gen: obese male, no acute distress HEENT: no JVD CV: RRR. no m/r/g. Pulm: diminished breath sounds bilateral lung bases, small bibasilar rales Abd: Soft, non-distended. Ext: trace bilateral LE edema Objective Labs 06/02/24 07:36 06/02/24 07:36 Labs: Laboratory Results - last 24 hr 06/02/24 06/02/24 06/02/24 07:36 07:45 08:13 WBC 9.0 RBC 2.90 L Hgb 9.0 L Hct 27.8 L MCV 96.0 MCH 30.9 MCHC 32.2 RDW 17.8 H Plt Count 338 Neut % (Auto) 68.2 Lymph % (Auto) 19.4 L [place] % (Auto) 8.8 Eos % (Auto) 2.8 Baso % (Auto) 0.8 Neut # (Auto) 6100 Lymph # (Auto) 1700 [place] # (Auto) 800 Eos # (Auto) 200 Baso # (Auto) 100 PT 15.5 H INR 1.4 H APTT 36 ABG Sample Site Right radial ABG pH 7.22 L* ABG pCO2 108.3 H* ABG pO2 225 H ABG HCO3 45 H ABG Total CO2 45 H ABG O2 Saturation 100 ABG Base Excess 13.9 H Hayden Test Positive O2 Delivery Device Sodium 138 Potassium 4.8 Chloride 96 L Carbon Dioxide 35 H BUN 15 Creatinine 0.76 Estimated GFR > 60 BUN/Creatinine Ratio 19.7 Glucose 105 Lactate 0.6 L Calcium 8.8 Total Bilirubin 0.4 AST 36 ALT 13 Alkaline Phosphatase 72 Total Creatine Kinase 39 L Troponin I 0.017 NT-Pro-B Natriuret Pep 1240 H Total Protein 6.5 Albumin 3.3 L Globulin 3.2 Albumin/Globulin Ratio 1.0 Lipase 64 Procalcitonin 0.070 Urine Color Urine Appearance Urine pH Ur Specific [place] Urine Protein Urine Glucose (UA) Urine Ketones Urine Occult Blood Urine Nitrate Urine Bilirubin Urine Urobilinogen Ur Leukocyte Esterase Urine RBC Urine WBC Ur Squamous Epith Cells Urine Bacteria Ur Culture Indicated? Vol Urine Centrifuged Nasal Screen MRSA (PCR) Chlamy pneumoniae PCR Not detected Adenovirus (PCR) Not detected B. pertussis DNA (PCR) Not detected B.parapertussis DNA PCR Not detected Coronavirus OC43 (PCR) Not detected Coronavirus HKU1 (PCR) Not detected Coronavirus 229E (PCR) Not detected SARS-CoV-2 (PCR) Not detected Coronavirus NL63 (PCR) Not detected Human Metapneumovir PCR Not detected Influenza Type A (PCR) Not detected Influenza Type B (PCR) Not detected M. pneumoniae (PCR) Not detected Parainfluenza 1 (PCR) Not detected Parainfluenza 2 (PCR) Not detected Parainfluenza 3 (PCR) Not detected Parainfluenza 4 (PCR) Not detected RSV (PCR) Not detected Entero/Rhino (PCR) Not detected 06/02/24 06/02/24 06/02/24 10:20 10:55 11:24 WBC RBC Hgb Hct MCV MCH MCHC RDW Plt Count Neut % (Auto) Lymph % (Auto) Monroe % (Auto) Eos % (Auto) Baso % (Auto) Neut # (Auto) Lymph # (Auto) Monroe # (Auto) Eos # (Auto) Baso # (Auto) PT INR APTT ABG Sample Site Right radial ABG pH 7.38 ABG pCO2 75.4 H* ABG pO2 62 L ABG HCO3 45 H ABG Total CO2 44 H ABG O2 Saturation 89 L ABG Base Excess 17.0 H Hayden Test Positive O2 Delivery Device Cannula Sodium Potassium Chloride Carbon Dioxide BUN Creatinine Estimated GFR BUN/Creatinine Ratio Glucose Lactate Calcium Total Bilirubin AST ALT Alkaline Phosphatase Total Creatine Kinase Troponin I NT-Pro-B Natriuret Pep Total Protein Albumin Globulin Albumin/Globulin Ratio Lipase Procalcitonin Urine Color Red Urine Appearance Sl cloudy Urine pH 6.0 Ur Specific [place] 1.020 Urine Protein Trace H Urine Glucose (UA) Negative Urine Ketones Negative Urine Occult Blood 3+ H Urine Nitrate Negative Urine Bilirubin Negative Urine Urobilinogen 0.2 Ur Leukocyte Esterase 1+ H Urine RBC 30-100/hpf H Urine WBC 5-10/hpf H Ur Squamous Epith Cells None seen Urine Bacteria None seen Ur Culture Indicated? Specimen cultured Vol Urine Centrifuged 10ml (spun) Nasal Screen MRSA (PCR) Detected H Chlamy pneumoniae PCR Adenovirus (PCR) B. pertussis DNA (PCR) B.parapertussis DNA PCR Coronavirus OC43 (PCR) Coronavirus HKU1 (PCR) Coronavirus 229E (PCR) SARS-CoV-2 (PCR) Coronavirus NL63 (PCR) Human Metapneumovir PCR Influenza Type A (PCR) Influenza Type B (PCR) M. pneumoniae (PCR) Parainfluenza 1 (PCR) Parainfluenza 2 (PCR) Parainfluenza 3 (PCR) Parainfluenza 4 (PCR) RSV (PCR) Entero/Rhino (PCR) Assessment & Plan Assessment & Plan narrative: 1. COPD with exacerbation - prednisone 40 mg x5 days - RT evaluation and treatment - as needed nebulizers and replacement of home inhalers with formulary nebs here. 2. Acute on chronic hypercarbic and chronic hypoxemic respiratory failure - multifactorial due to CHF, and COPD exacerbation. Though probably more CHF related. Consider cessation of steroids depending on progress. - Goal O2 88-92% - patient with chronic hypercapnic respiratory failure, will diurese to try to get back to home BIPAP 20/8, backup rate 15, with 1L O2 bleed in 3. Acute on chronic diastolic heart failure - continue diuresis with furosemide IV BID - CXR appears to have volume overload - consider increased furosemide dose on discharge 5. Obesity -The patient is at much higher risk for medical and surgical complications because of their obesity. This increases the difficulty and complexity of medical and surgical interventions and increases the chances of poor outcomes such as morbidity and mortality. 7. Chronic afib with anticoagulation - continue eliquis. DNR, surrogate is patient's spouse Dispo: inpatient, given BiPAP requires ICU. Possible return to SNF in a couple of days. May need to work on settings again with BIPAP vs Trilogy, if trilogy is needed will need to possibly find new facility that will take him on this. I spent 35 minutes providing critical care management this patient. This excludes time spent in performing separately billed procedures. I have utilized all available immediate resources to obtain, update, or review the patient's current medications. Additional history obtained via discussions with the ER provider and spouse. These discussions contributed to the creation of the above assessment and plan. I have reviewed patient's presenting documentation, labs, and imaging personally. Time-Based Coding :: [TOTAL MINUTES] spent with patient and on the chart (including review of chart, obtaining history, exam, reviewing outside data, placing orders, documenting exam and treatment plan, and counseling patient) on [DATE]. Quality VTE Deep Vein Thrombosis/Pulmonary Embolism Present on Admission: No
[2024-06-02] MEDS: BUDESONIDE 0.5 MG/2 ML NEB INH (20:14)
[2024-06-02] MEDS: AMITRIPTYLINE 25 MG TABLET PO (21:05)
[2024-06-02] MEDS: hydrOXYzine HCL 25 MG TABLET 12.5 MG PO (21:05)
[2024-06-03] VITALS (28 sets, daily range): BP systolic 80–173; BP diastolic 39–120; PULSE 60–71; RESP 10–45; TEMP 0–31; O2SAT 80–100
[2024-06-03 05:36] LABS: Add Manual Diff / Slide Review NO; Basophils Absolute Auto 0 /uL (0-100); Basophils Percent Auto 0.4 % (0-2); Eosinophils Absolute Auto 0 /uL (0-450); Eosinophils Percent Auto 0.3 % (2-4); Hematocrit 26.7 % (41-53); Hemoglobin 8.5 g/dL (13.5-17.5); Lymphocytes Absolute Auto 1300 /uL (1100-4500); Lymphocytes Percent Auto 12.5 % (25-40); Mean Corpuscular HGB Conc 31.9 % (30-36); Mean Corpuscular Hemoglobin 30.3 PG (26-34); Mean Corpuscular Volume 95.2 fL (80-100); Monocytes Absolute Auto 400 /uL (0-900); Monocytes Percent Auto 3.6 % (3-14); Neutrophils Absolute Auto 8400 /uL (1500-7000); Neutrophils Percent Auto 83.2 % (50-75); Platelet Count 381 X10^3/uL (150-400); Red Blood Cell Count 2.81 X10^6/uL (4.5-5.9); Red Cell Distribution Width 17.5 % (11.6-14.8); White Blood Cell Count 10.1 X10^3/uL (4.5-11.0)
[2024-06-03 05:42] LABS: Alanine Aminotransferase 13 IU/L (<50); Albumin 3.2 g/dL (3.5-5.0); Albumin Globulin Ratio 1.1 (1.0-2.8); Alkaline Phosphatase 87 U/L (38-126); Aspartate Aminotransferase 21 IU/L (17-59); BUN Creatinine Ratio 21.8 (6-22); Bilirubin Total 0.1 mg/dL (0.2-1.3); Blood Urea Nitrogen 17 mg/dL (9-20); Calcium 8.9 mg/dL (8.4-10.2); Chloride 94 mmol/L (98-107); Estimated Glomerular Filt Rate > 60 mL/min (>60); Globulin 2.8 g/dL (1.7-4.1); Glucose 137 mg/dL (80-110); HEMOLYSIS < 15 (0-50); Magnesium 1.9 mg/dL (1.6-2.3); Potassium 4.1 mmol/L (3.4-5.1); Sodium 139 mmol/L (137-145)
[2024-06-03 05:52] LABS: Carbon Dioxide 40 mmol/L (22-32)
[2024-06-03] MEDS: BUDESONIDE 0.5 MG/2 ML NEB INH ×2 (07:40→18:18)
[2024-06-03] MEDS: ALBUTEROL/IPRATROPIUM 3 ML AMPUL INH ×3 (07:40→18:18)
--- NOTE | 2024-06-03 07:44 | PC.WOUNDPHOT ---
Late entry: Photo 06/02/24
[2024-06-03] MEDS: APIXABAN 5 MG TABLET PO ×2 (09:00→22:00)
[2024-06-03] MEDS: ASPIRIN EC 81 MG TABLET PO (09:00)
[2024-06-03] MEDS: predniSONE 20 MG TABLET 40 MG PO (09:00)
[2024-06-03] MEDS: ACETAMINOPHEN 325 MG TABLET 650 MG PO ×2 (09:00→22:00)
[2024-06-03] MEDS: FUROSEMIDE 40 MG/4 ML VIAL IV ×2 (09:00→18:22)
[2024-06-03 09:33] LABS: Acinetobacter calcoa-baumannii Not Detected (Not Detect); Bacteroides fragilis Not Detected (Not Detect); Candida albicans Not Detected (Not Detect); Candida auris Not Detected (Not Detect); Candida glabrata Not Detected (Not Detect); Candida krusei Not Detected (Not Detect); Candida parapsilosis Not Detected (Not Detect); Candida tropicalis Not Detected (Not Detect); Cryptococcus neoformans/gatti Not Detected (Not Detect); Enterobacter cloacae complex Not Detected (Not Detect); Enterobacterales Not Detected (Not Detect); Enterococcus faecalis Not Detected (Not Detect); Enterococcus faecium Not Detected (Not Detect); Haemophilus influenzae Not Detected (Not Detect); Klebsiella aerogenes Not Detected (Not Detect); Listeria monocytogenes Not Detected (Not Detect); Neisseria meningitidis Not Detected (Not Detect); Proteus species Not Detected (Not Detect); Pseudomonas aeruginosa Not Detected (Not Detect); Salmonella species Not Detected (Not Detect); Serratia marcescens Not Detected (Not Detect); Staphylococcus epidermidis Not Detected (Not Detect); Staphylococcus lugdunensis Not Detected (Not Detect); Staphylococcus species Not Detected (Not Detect); Stenotrophomonas maltophilia Not Detected (Not Detect); Streptococcus agalactiae (Gr B Not Detected (Not Detect); Streptococcus pneumonia Not Detected (Not Detect); Streptococcus pyogenes (Gr A) Not Detected (Not Detect); Streptococcus species Not Detected (Not Detect)
--- NOTE | 2024-06-03 13:58 | P.PN_ITS ---
Subjective Subjective Interval history: Patient tolerated bipap 4 hours overnight, mild subjective dyspnea this morning. Exam Vital Signs (past 8 hours): - 06/03/24 06:00 06/03/24 07:00 06/03/24 07:26 Pulse Rate 61 64 Respiratory Rate 28 H 34 H Blood Pressure 173/67 H Pulse Oximetry 97 97 Oxygen Delivery Method Oxygen Flow Rate 06/03/24 07:26 06/03/24 07:30 06/03/24 07:45 Pulse Rate 64 70 Respiratory Rate 36 H 18 Blood Pressure Pulse Oximetry 92 90 L Oxygen Delivery Method Oximask Nasal Cannula Oxygen Flow Rate 06/03/24 08:00 06/03/24 09:00 06/03/24 09:58 Pulse Rate 64 68 Respiratory Rate 40 H 30 H Blood Pressure Pulse Oximetry 96 100 92 Oxygen Delivery Method Oxygen Flow Rate 1 06/03/24 10:00 06/03/24 11:00 06/03/24 12:00 Pulse Rate 65 66 66 Respiratory Rate Blood Pressure Pulse Oximetry 92 90 L 92 Oxygen Delivery Method Oxygen Flow Rate 06/03/24 12:19 06/03/24 12:19 06/03/24 12:21 Pulse Rate 65 Respiratory Rate Blood Pressure 166/120 H 164/72 H Pulse Oximetry 86 L Oxygen Delivery Method Oxygen Flow Rate 06/03/24 12:21 Pulse Rate 64 Respiratory Rate Blood Pressure Pulse Oximetry 86 L Oxygen Delivery Method Oxygen Flow Rate Fraction of Inspired Oxygen 30 Oxygen Delivery Method Nasal Cannula Oxygen Flow Rate 1 Narrative Exam Narrative: Gen: obese male, no acute distress HEENT: no JVD CV: RRR. no m/r/g. Pulm: diminished breath sounds bilateral lung bases, small bibasilar rales Abd: Soft, non-distended. Ext: trace bilateral LE edema Objective Labs 06/03/24 04:31 06/03/24 04:31 Labs: Laboratory Results - last 24 hr 06/02/24 06/02/24 06/03/24 09:47 10:55 04:31 WBC 10.1 RBC 2.81 L Hgb 8.5 L Hct 26.7 L MCV 95.2 MCH 30.3 MCHC 31.9 RDW 17.5 H Plt Count 381 Neut % (Auto) 83.2 H Lymph % (Auto) 12.5 L [place] % (Auto) 3.6 Eos % (Auto) 0.3 L Baso % (Auto) 0.4 Neut # (Auto) 8400 H Lymph # (Auto) 1300 [place] # (Auto) 400 Eos # (Auto) 0 Baso # (Auto) 0 Sodium 139 Potassium 4.1 Chloride 94 L Carbon Dioxide 40 H* BUN 17 Creatinine 0.78 Estimated GFR > 60 BUN/Creatinine Ratio 21.8 Glucose 137 H Calcium 8.9 Magnesium 1.9 Total Bilirubin 0.1 L AST 21 ALT 13 Alkaline Phosphatase 87 Total Protein 6.0 L Albumin 3.2 L Globulin 2.8 Albumin/Globulin Ratio 1.1 Nasal Screen MRSA (PCR) Detected H A.calcoaceticus-baumannii cmplx PCR Not detected Bacteroides fragilis Not detected Lizz albicans (PCR) Not detected Lizz auris (PCR) Not detected C. glabrata (PCR) Not detected C. krusei (PCR) Not detected C. parapsilosis (PCR) Not detected C. tropicalis (PCR) Not detected C. neoform/gattii (PCR) Not detected Enterobacterales (PCR) Not detected E. cloacae complex PCR Not detected Enterococc faecalis PCR Not detected Enterococc faecium PCR Not detected E. coli (PCR) Not detected H. influenzae (PCR) Not detected Klebsiella aerogenes (PCR) Not detected Klebsiella oxytoca PCR Not detected Klebsiella pneumoniae Not detected List. monocytogenes PCR Not detected N. meningitidis (PCR) Not detected Proteus species (PCR) Not detected Salmonella spp. (PCR) Not detected Serratia marcescens PCR Not detected Staphylococcus sp PCR Not detected Staph aureus (PCR) Not detected mecA/C & MREJ Resist Gene Not applicable mecA/C-Methicil Resis Gene Not applicable mcr-1 Colistin Res Gene PCR Not applicable Staph epidermidis (PCR) Not detected Staph lugdunensis PCR Not detected S. maltophilia (PCR) Not detected Streptococcus sp PCR Not detected Group A Strep (PCR) Not detected Strep agalactiae (PCR) Not detected Strep pneumoniae (PCR) Not detected P. aeruginosa (PCR) Not detected Neftali/B-Vanco Res Genes Not applicable blaIMP Car res Gene PCR Not applicable KPC-Carbap Res Gene PCR Not applicable blaNDM Car Res Gene PCR Not applicable OXA-48 Carbapenem Resis Gene (PCR) Not applicable blaVIM Car Res Gene PCR Not applicable CTX-M Gene Resistance (PCR) Not applicable [facility] Medical History Hypertension Mobitz II Surgical History H/O abdominal surgery History of permanent cardiac pacemaker placement Social History household members: spouse Smoking Status: Former smoker alcohol intake: never Assessment & Plan Assessment & Plan narrative: 1. COPD with exacerbation - prednisone 40 mg x5 days - RT evaluation and treatment - as needed nebulizers and replacement of home inhalers with formulary nebs here. 2. Acute on chronic hypercarbic and chronic hypoxemic respiratory failure - multifactorial due to CHF, and COPD exacerbation. Though probably more CHF related. Consider cessation of steroids depending on progress. - Goal O2 88-92% - patient with chronic hypercapnic respiratory failure, will diurese to try to get back to home BIPAP 20/8, backup rate 15, with 1L O2 bleed in. If he tolerates trilogy or different settings for longer overnight may need to consider alternative home treatments. 3. Acute on chronic diastolic heart failure - continue diuresis with furosemide IV BID - CXR appears to have volume overload - consider increased furosemide dose on discharge 5. Obesity -The patient is at much higher risk for medical and surgical complications because of their obesity. This increases the difficulty and complexity of medical and surgical interventions and increases the chances of poor outcomes such as morbidity and mortality. 7. Chronic afib with anticoagulation - continue eliquis. DNR, surrogate is patient's spouse Dispo: inpatient, given BiPAP requires ICU. Possible return to SNF in a couple of days. May need to work on settings again with BIPAP vs Trilogy, if trilogy is needed will need to possibly find new facility that will take him on this. I have utilized all available immediate resources to obtain, update, or review the patient's current medications. Additional history obtained via discussions with the respiratory therapists, bedside nurse, director of casework services williams. These discussions contributed to the creation of the above assessment and plan. I have reviewed patient's presenting documentation, labs, and imaging personally. Time-Based Coding :: [TOTAL MINUTES] spent with patient and on the chart (including review of chart, obtaining history, exam, reviewing outside data, placing orders, documenting exam and treatment plan, and counseling patient) on [DATE]. Quality VTE Deep Vein Thrombosis/Pulmonary Embolism Present on Admission: No
--- NOTE | 2024-06-03 16:16 | CM.DANOTE ---
Initial DCP Assessment Note Pt is a 84 yo male, originally had been living at home in [place] with spouse, multiple medical complications led him to hospitalizations at [facility], [facility], [facility] and within the last 6 months. Patient has also been in and out of [facility] and [facility]. Patient was admitted at from 05/09-05/17, discharged to and returns from . PCP: Kalyn Morgan Payer: [facility] Reviewed chart, spoke w/Disha at [facility] who welcomes patient back, says patient has a difficult time keeping his Bipap on at night. Patient would be considered a good candidate for hospice if he cannot tolerate his Bipap machine. According to update from Cassie Call, CM dept Preschool Aide- does not have a rep through [facility] although she was able to get Geraldine at [facility], an RT, to come down from [place] to conduct teaching for patient, sp and staff upon patient's discharge 05/17. Michael Chandler P [phone] F [phone]. Met w/patient's sp Loraine to review discharge plan. Peetz states it has been a long 6 months. Sp anticipates patient will return to [facility] to continue on a rehab focused pathway. Discussed hospice services and how this plan of care might look at home.Spouse does not reject the idea of hospice, rather that she and patient are not ready for transition to hospice at this time. Spouse remains hopeful patient will get some of his mobility back. Strongly encouraged sp to get help with patient's care needs if she does consider taking him home at any point, spouse agreed. Plan: Discharge back to [facility] is anticipated, cabulance vs BLS. Likely need a new auth from [place] (?) No PASRR needed unless there is a med change. CM team will plan to follow clinical course closely . DRAGAN Brown Discharge Planning/Care Management CM Discharge Assessment Start: 06/03/24 16:14 Freq: Status: Active Protocol: Document 06/03/24 16:14 PAVEL (Rec: 06/03/24 16:16 PAVEL [id number]) Discharge Planning Assessment Assigned [place] DRAGAN Weaver DPOA/Assigned Designee Name Loraine Moore spouse Contact Information [phone] Advance Directives? Yes Advance Directives on File Yes History Provided By Family Member,Medical Record Prior Living Arrangements Skilled Nurse Facility Type of transporation used prior to Relies on Others admit Independent with ADL's No Comment Total care at this time. Patient/Family Preference [facility] Facility Comment Bipap and high oxygen needs, heavy care Discharge Plan [facility] Facility Transportation Arrangement cabulance vs BLS Referrals Initiated [facility] Additional Comment [facility] can accept back Whiteboard Updated in Patient Room with Yes name and ext. # of [facility]
[2024-06-03] MEDS: hydrOXYzine HCL 25 MG TABLET 12.5 MG PO (22:00)
[2024-06-03] MEDS: AMITRIPTYLINE 25 MG TABLET PO (22:00)
[2024-06-04] VITALS (9 sets, daily range): BP systolic 140–170; BP diastolic 62–73; PULSE 60–69; RESP 10–35; TEMP 31–36.7; O2SAT 93–97
[2024-06-04 05:02] LABS: Add Manual Diff / Slide Review NO; Basophils Absolute Auto 0 /uL (0-100); Basophils Percent Auto 0.3 % (0-2); Eosinophils Absolute Auto 0 /uL (0-450); Eosinophils Percent Auto 0.2 % (2-4); Hematocrit 24.8 % (41-53); Hemoglobin 8.2 g/dL (13.5-17.5); Lymphocytes Absolute Auto 1400 /uL (1100-4500); Lymphocytes Percent Auto 15.7 % (25-40); Mean Corpuscular Hemoglobin 31.2 PG (26-34); Mean Corpuscular Volume 94.5 fL (80-100); Monocytes Absolute Auto 800 /uL (0-900); Monocytes Percent Auto 8.8 % (3-14); Neutrophils Absolute Auto 6900 /uL (1500-7000); Platelet Count 360 X10^3/uL (150-400); Red Blood Cell Count 2.62 X10^6/uL (4.5-5.9); Red Cell Distribution Width 17.7 % (11.6-14.8); White Blood Cell Count 9.1 X10^3/uL (4.5-11.0)
[2024-06-04 05:19] LABS: Alanine Aminotransferase 12 IU/L (<50); Albumin 3.1 g/dL (3.5-5.0); Albumin Globulin Ratio 1.1 (1.0-2.8); Alkaline Phosphatase 84 U/L (38-126); Aspartate Aminotransferase 22 IU/L (17-59); BUN Creatinine Ratio 21.8 (6-22); Bilirubin Total 0.1 mg/dL (0.2-1.3); Blood Urea Nitrogen 22 mg/dL (9-20); Calcium 8.9 mg/dL (8.4-10.2); Chloride 91 mmol/L (98-107); Estimated Glomerular Filt Rate > 60 mL/min (>60); Globulin 2.8 g/dL (1.7-4.1); Glucose 104 mg/dL (80-110); HEMOLYSIS < 15 (0-50); Magnesium 1.8 mg/dL (1.6-2.3); Sodium 138 mmol/L (137-145); Total Protein 5.9 g/dL (6.3-8.2)
[2024-06-04 06:23] LABS: Carbon Dioxide 33 mmol/L (22-32)
[2024-06-04] MEDS: BUDESONIDE 0.5 MG/2 ML NEB INH ×2 (08:13→17:26)
[2024-06-04] MEDS: ALBUTEROL/IPRATROPIUM 3 ML AMPUL INH ×3 (08:13→17:26)
[2024-06-04] MEDS: APIXABAN 5 MG TABLET PO ×2 (08:33→21:54)
[2024-06-04] MEDS: FUROSEMIDE 40 MG/4 ML VIAL IV ×2 (08:33→17:28)
[2024-06-04] MEDS: predniSONE 20 MG TABLET 40 MG PO (08:33)
[2024-06-04] MEDS: ASPIRIN EC 81 MG TABLET PO (08:33)
--- NOTE | 2024-06-04 15:42 | P.PN_ITS ---
Subjective Subjective Interval history: 84-year-old male with COPD, coronary artery disease, permanent pacemaker placement for heart block, class 3 obesity, remote tobacco abuse, and hypertension who was transferred via EMS from [facility] for hypoxia. He wears BiPAP at night, but has a history of taking BiPAP off. When he was assessed on June 02, his O2 sat was in the mid 80s. His BiPAP was placed back on, but he was noted to be slightly altered with regard to his mental status. In the ER, his pH was 7 2 2, pCO2 108, bicarb 45. He was initiated on BiPAP. He was also placed on prednisone for COPD exacerbation and IV furosemide for CHF exacerbation. Since admission, he tolerates BiPAP for short periods of time, up to 4 hours. He reports that he has ?felt better? with regard to his overall health. He states he is extremely frustrated that he is sent to the hospital ?any time my saturation is 88. ? He states that he is told it is the doctor's order and the nurses at [facility], [place] you have to send him here when that occurs. He believes it is interfering with his ability to rehab and begin walking again. He reports he has never had a consultation with pulmonology. Exam Vital Signs (past 8 hours): - 06/04/24 08:00 06/04/24 08:14 06/04/24 13:39 Temperature 97.5 F L Pulse Rate 66 60 68 Respiratory Rate 30 H 22 20 Blood Pressure 163/68 H Pulse Oximetry 97 94 94 Oxygen Delivery Method Oximask Nasal Cannula Oxygen Flow Rate 6 4 4 Fraction of Inspired Oxygen 30 SaO2/FiO2 Ratio 310 Oxygen Delivery Method Nasal Cannula Oxygen Flow Rate 4 Narrative Exam Narrative: GEN: Irritable elderly male, Alert and oriented x 3, NAD HEENT:NC, Face symmetric CHEST: Respiratory excursions symmetric, diffusely diminished but CTAB CV: RRR, no M/R/G ABD: Soft, obese, NT/ND, BT present in all 4 quadrants, body habitus limits exam EXTR: warm, well perfused, no C/C/E SKIN: warm and dry, no rash NEURO: Alert and oriented x 3, nonfocal Objective Labs 06/04/24 04:15 06/04/24 04:15 Labs: Laboratory Results - last 24 hr 06/04/24 04:15 WBC 9.1 RBC 2.62 L Hgb 8.2 L Hct 24.8 L MCV 94.5 MCH 31.2 MCHC 33.0 RDW 17.7 H Plt Count 360 Neut % (Auto) 75.0 Lymph % (Auto) 15.7 L [place] % (Auto) 8.8 Eos % (Auto) 0.2 L Baso % (Auto) 0.3 Neut # (Auto) 6900 Lymph # (Auto) 1400 [place] # (Auto) 800 Eos # (Auto) 0 Baso # (Auto) 0 Sodium 138 Potassium 4.0 Chloride 91 L Carbon Dioxide 33 H BUN 22 H Creatinine 1.01 Estimated GFR > 60 BUN/Creatinine Ratio 21.8 Glucose 104 Calcium 8.9 Magnesium 1.8 Total Bilirubin 0.1 L AST 22 ALT 12 Alkaline Phosphatase 84 Total Protein 5.9 L Albumin 3.1 L Globulin 2.8 Albumin/Globulin Ratio 1.1 PFSH Medical History Hypertension Mobitz II Surgical History H/O abdominal surgery History of permanent cardiac pacemaker placement Social History household members: spouse Smoking Status: Former smoker alcohol intake: never Assessment & Plan Assessment & Plan narrative: 1. Acute on chronic hypoxic, hypercarbic respiratory failure Patient remained stable on 2-4 L of oxygen via nasal cannula. Continue BiPAP at night. Would likely benefit from pulmonology consultation, which may help with his ongoing management at [facility] facility. There has been some discussion about patient perhaps benefitting from a trilogy. This would be a good indication for pulmonology consultation as well. 2. COPD with exacerbation Continue prednisone burst, presently day 3 of 5. 3. Acute on chronic diastolic congestive heart failure BUN is mildly increased today. Continue diuresing as tolerated. He has had a net diuresis of 1500 cc. 4. Class 3 obesity His obesity certainly complicates his respiratory status and CO2 retention. It also impedes his mobility. 5. Chronic AFib on chronic anticoagulation Presently rate controlled. Continue Eliquis anticoagulation. 6. Coronary artery disease No anginal symptoms. 7. Hypertension Blood pressures remain elevated currently. Anticipate ongoing improvement with diuresis. Code status DNR Prophylaxis On Eliquis Disposition Pending. Time-Based Coding :: [TOTAL MINUTES] spent with patient and on the chart (including review of chart, obtaining history, exam, reviewing outside data, placing orders, documenting exam and treatment plan, and counseling patient) on [DATE]. Quality VTE Deep Vein Thrombosis/Pulmonary Embolism Present on Admission: No
--- NOTE | 2024-06-04 19:32 | P.PN_ITS ---
Subjective Subjective Interval history: 84-year-old male with COPD, coronary artery disease, permanent pacemaker placement for heart block, class 3 obesity, remote tobacco abuse, and hypertension who was transferred via EMS from [facility] for hypoxia. He wears BiPAP at night, but has a history of taking BiPAP off. When he was assessed on June 02, his O2 sat was in the mid 80s. His BiPAP was placed back on, but he was noted to be slightly altered with regard to his mental status. In the ER, his pH was 7 2 2, pCO2 108, bicarb 45. He was initiated on BiPAP. He was also placed on prednisone for COPD exacerbation and IV furosemide for CHF exacerbation. Since admission, he was tolerating BiPAP for short periods of time, up to 4 hours. Patient reports he is overall feeling about the same. He tells me he was able to tolerate BiPAP from 10:00 p.m. last night until 4:00 a.m. this morning. He states he has no worsening shortness of breath. He continues to express frustration over what he describes as going back and forth to and from the nursing facility in the hospital. Exam Vital Signs (past 8 hours): - 06/04/24 13:39 06/04/24 16:00 06/04/24 17:27 Temperature 98.1 F Pulse Rate 68 67 69 Respiratory Rate 20 28 H 20 Blood Pressure 140/62 Pulse Oximetry 94 95 96 Oxygen Delivery Method Nasal Cannula Nasal Cannula Oxygen Flow Rate 4 6 Fraction of Inspired Oxygen 30 SaO2/FiO2 Ratio 310 Oxygen Delivery Method Nasal Cannula Oxygen Flow Rate 6 Narrative Exam Narrative: GEN: Irritable elderly male, Alert and oriented x 3, NAD HEENT:NC, Face symmetric CHEST: Respiratory excursions symmetric, diffusely diminished but CTAB CV: RRR, no M/R/G ABD: Soft, obese, NT/ND, BT present in all 4 quadrants, body habitus limits exam EXTR: warm, well perfused, no C/C/E SKIN: warm and dry, no rash NEURO: Alert and oriented x 3, nonfocal Objective Labs 06/05/24 04:06 06/05/24 04:06 Labs: Laboratory Results - last 24 hr 06/04/24 04:15 WBC 9.1 RBC 2.62 L Hgb 8.2 L Hct 24.8 L MCV 94.5 MCH 31.2 MCHC 33.0 RDW 17.7 H Plt Count 360 Neut % (Auto) 75.0 Lymph % (Auto) 15.7 L [place] % (Auto) 8.8 Eos % (Auto) 0.2 L Baso % (Auto) 0.3 Neut # (Auto) 6900 Lymph # (Auto) 1400 [place] # (Auto) 800 Eos # (Auto) 0 Baso # (Auto) 0 Sodium 138 Potassium 4.0 Chloride 91 L Carbon Dioxide 33 H BUN 22 H Creatinine 1.01 Estimated GFR > 60 BUN/Creatinine Ratio 21.8 Glucose 104 Calcium 8.9 Magnesium 1.8 Total Bilirubin 0.1 L AST 22 ALT 12 Alkaline Phosphatase 84 Total Protein 5.9 L Albumin 3.1 L Globulin 2.8 Albumin/Globulin Ratio 1.1 PFSH Medical History Hypertension Mobitz II Surgical History H/O abdominal surgery History of permanent cardiac pacemaker placement Social History household members: spouse Smoking Status: Former smoker alcohol intake: never Assessment & Plan Assessment & Plan narrative: 1. Acute on chronic hypoxic, hypercarbic respiratory failure Patient remained stable on 2 of oxygen via nasal cannula. Continue BiPAP at night. Would likely benefit from pulmonology consultation, which may help with his ongoing management at the custodial facility. There has been some discussion about patient perhaps benefitting from a trilogy. Evidently this has been attempted in the past, but can not be used in the nursing facilities due to no payor source. This would be a good indication for pulmonology consultation as well. 2. COPD with exacerbation Continue prednisone burst, presently day 4 of 5. 3. Acute on chronic diastolic congestive heart failure BUN is up 28 today. Continue diuresing as tolerated. He has had a net diuresis of 1700 cc. Will likely need to discontinue IV diuresis tomorrow. 4. Class 3 obesity His obesity certainly complicates his respiratory status and CO2 retention. It also impedes his mobility. 5. Chronic AFib on chronic anticoagulation Presently rate controlled. Continue Eliquis anticoagulation. 6. Coronary artery disease No anginal symptoms. 7. Hypertension Blood pressures are normalizing with diuresis. Code status DNR Prophylaxis On Eliquis Disposition Pending. Time-Based Coding :: [TOTAL MINUTES] spent with patient and on the chart (including review of chart, obtaining history, exam, reviewing outside data, placing orders, documenting exam and treatment plan, and counseling patient) on [DATE]. Quality VTE Deep Vein Thrombosis/Pulmonary Embolism Present on Admission: No
[2024-06-04] MEDS: AMITRIPTYLINE 25 MG TABLET PO (21:54)
[2024-06-04] MEDS: MELATONIN 3 MG TABLET 9 MG PO (21:54)
[2024-06-05] VITALS (12 sets, daily range): BP systolic 131–142; BP diastolic 59–73; PULSE 60–73; RESP 10–36; TEMP 35.8–36.8; O2SAT 93–97
[2024-06-05 05:00] LABS: Add Manual Diff / Slide Review NO; Basophils Absolute Auto 0 /uL (0-100); Basophils Percent Auto 0.2 % (0-2); Eosinophils Absolute Auto 0 /uL (0-450); Eosinophils Percent Auto 0.1 % (2-4); Hematocrit 24.3 % (41-53); Hemoglobin 7.8 g/dL (13.5-17.5); Lymphocytes Absolute Auto 1400 /uL (1100-4500); Lymphocytes Percent Auto 16.7 % (25-40); Mean Corpuscular HGB Conc 32.1 % (30-36); Mean Corpuscular Hemoglobin 30.3 PG (26-34); Mean Corpuscular Volume 94.5 fL (80-100); Monocytes Absolute Auto 800 /uL (0-900); Monocytes Percent Auto 9.2 % (3-14); Neutrophils Absolute Auto 6200 /uL (1500-7000); Neutrophils Percent Auto 73.8 % (50-75); Platelet Count 319 X10^3/uL (150-400); Red Blood Cell Count 2.57 X10^6/uL (4.5-5.9); White Blood Cell Count 8.5 X10^3/uL (4.5-11.0)
[2024-06-05 05:11] LABS: BUN Creatinine Ratio 32.6 (6-22); Blood Urea Nitrogen 28 mg/dL (9-20); Calcium 9.1 mg/dL (8.4-10.2); Chloride 90 mmol/L (98-107); Estimated Glomerular Filt Rate > 60 mL/min (>60); Glucose 103 mg/dL (80-110); HEMOLYSIS < 15 (0-50); Potassium 4.4 mmol/L (3.4-5.1); Sodium 138 mmol/L (137-145)
[2024-06-05 05:39] LABS: Carbon Dioxide 32 mmol/L (22-32)
[2024-06-05 05:45] LABS: Magnesium 1.8 mg/dL (1.6-2.3)
[2024-06-05] MEDS: APIXABAN 5 MG TABLET PO ×2 (08:12→21:54)
[2024-06-05] MEDS: ASPIRIN EC 81 MG TABLET PO (08:12)
[2024-06-05] MEDS: predniSONE 20 MG TABLET 40 MG PO (08:13)
[2024-06-05] MEDS: FUROSEMIDE 40 MG/4 ML VIAL IV ×2 (08:14→17:58)
[2024-06-05] MEDS: ALBUTEROL/IPRATROPIUM 3 ML AMPUL INH ×3 (08:51→18:43)
[2024-06-05] MEDS: BUDESONIDE 0.5 MG/2 ML NEB INH ×2 (08:51→18:43)
--- NOTE | 2024-06-05 15:36 | CM.DPC ---
DCP Cont: Per MD, pt has no hx of Pulmonology and will attempt to get bedside Hydro Plant Technician Consult tomorrow Thu to determine if any further recommendations towards reducing pt's ongoing risk of readmission. PT/OT currently not working with pt as he has been at his baseline and plan is return to SNF at d/c. SW to check in with [employer] Thursday to determine if new [place] auth needed for pt return. DRAGAN Herring
[2024-06-05] MEDS: MELATONIN 3 MG TABLET 9 MG PO (21:54)
[2024-06-05] MEDS: AMITRIPTYLINE 25 MG TABLET PO (21:54)
[2024-06-06] VITALS (28 sets, daily range): BP systolic 122–193; BP diastolic 57–79; PULSE 60–114; RESP 10–38; TEMP 36.2–36.7; O2SAT 90–98
[2024-06-06 05:32] LABS: Add Manual Diff / Slide Review NO; Basophils Absolute Auto 100 /uL (0-100); Basophils Percent Auto 0.6 % (0-2); Eosinophils Absolute Auto 0 /uL (0-450); Eosinophils Percent Auto 0.3 % (2-4); Hematocrit 24.6 % (41-53); Lymphocytes Absolute Auto 1700 /uL (1100-4500); Lymphocytes Percent Auto 17.5 % (25-40); Mean Corpuscular HGB Conc 32.6 % (30-36); Mean Corpuscular Hemoglobin 30.9 PG (26-34); Mean Corpuscular Volume 94.9 fL (80-100); Monocytes Absolute Auto 1200 /uL (0-900); Monocytes Percent Auto 11.9 % (3-14); Neutrophils Absolute Auto 6900 /uL (1500-7000); Neutrophils Percent Auto 69.7 % (50-75); Platelet Count 370 X10^3/uL (150-400); Red Blood Cell Count 2.59 X10^6/uL (4.5-5.9); Red Cell Distribution Width 17.7 % (11.6-14.8); White Blood Cell Count 9.9 X10^3/uL (4.5-11.0)
[2024-06-06 05:45] LABS: BUN Creatinine Ratio 32.6 (6-22); Blood Urea Nitrogen 30 mg/dL (9-20); Calcium 9.4 mg/dL (8.4-10.2); Chloride 90 mmol/L (98-107); Estimated Glomerular Filt Rate > 60 mL/min (>60); Glucose 93 mg/dL (80-110); HEMOLYSIS < 15 (0-50); Potassium 4.3 mmol/L (3.4-5.1); Sodium 138 mmol/L (137-145)
[2024-06-06 06:02] LABS: Carbon Dioxide 32 mmol/L (22-32)
[2024-06-06] MEDS: ALBUTEROL/IPRATROPIUM 3 ML AMPUL INH ×2 (07:44→19:10)
[2024-06-06] MEDS: BUDESONIDE 0.5 MG/2 ML NEB INH ×2 (07:44→19:10)
[2024-06-06] MEDS: FUROSEMIDE 40 MG/4 ML VIAL IV ×2 (08:07→17:02)
[2024-06-06] MEDS: ASPIRIN EC 81 MG TABLET PO (08:07)
[2024-06-06] MEDS: predniSONE 20 MG TABLET 40 MG PO (08:07)
[2024-06-06] MEDS: APIXABAN 5 MG TABLET PO ×2 (08:07→21:58)
--- NOTE | 2024-06-06 08:10 | PM.PN.1 ---
Subjective Subjective Interval history: Summary: 4-year-old male with COPD, coronary artery disease, permanent pacemaker placement for heart block, class 3 obesity, remote tobacco abuse, and hypertension who was transferred via EMS from [facility] for hypoxia. He wears BiPAP at night, but has a history of taking BiPAP off. When he was assessed on June 02, his O2 sat was in the mid 80s. His BiPAP was placed back on, but he was noted to be slightly altered with regard to his mental status. In the ER, his pH was 7 2 2, pCO2 108, bicarb 45. He was initiated on BiPAP. He was also placed on prednisone for COPD exacerbation and IV furosemide for CHF exacerbation. Since admission, he was tolerating BiPAP for short periods of time, up to 4 hours. Patient reports he is overall feeling about the same. He tells me he was able to tolerate BiPAP from 10:00 p.m. last night until 4:00 a.m. this morning. He states he has no worsening shortness of breath. He continues to express frustration over what he describes as going back and forth to and from the nursing facility in the hospital. S: He was doing well, denies much in terms of dyspnea. He is frustrated by having to come back and forth from his nursing facility to the hospital. Of note, the chest x-ray revealed fairly significant pulmonary edema. He has had a good diuresis with 2 L out yesterday. Exam Vital Signs (past 8 hours): - 06/06/24 01:41 06/06/24 03:04 06/06/24 04:45 Temperature 97.8 F Pulse Rate 60 Respiratory Rate 24 Blood Pressure 140/65 Pulse Oximetry 96 Oxygen Delivery Method Oxygen Flow Rate 3 Fraction of Inspired Oxygen 30 30 06/06/24 07:45 Temperature Pulse Rate 60 Respiratory Rate 18 Blood Pressure Pulse Oximetry 98 Oxygen Delivery Method Nasal Cannula Oxygen Flow Rate 3 Fraction of Inspired Oxygen 32 Fraction of Inspired Oxygen 32 SaO2/FiO2 Ratio 306 Oxygen Delivery Method Nasal Cannula Oxygen Flow Rate 3 Narrative Exam Narrative: NAD, alert and oriented. Fluent speech. He really appears to be comfortable. Lungs are clear, normal rate and effort. Diminished breath sounds in the bases. Heart is regular, no murmur gallop or rub. Abdomen is soft, non distended. Extremities with trace to 1+ edema. Objective ECG Impression: Sinus rhythm with 1st degree AV block Anterolateral infarct , age undetermined Labs 06/06/24 04:52 06/06/24 04:52 Labs: Laboratory Results - last 24 hr 06/06/24 04:52 WBC 9.9 RBC 2.59 L Hgb 8.0 L Hct 24.6 L MCV 94.9 MCH 30.9 MCHC 32.6 RDW 17.7 H Plt Count 370 Neut % (Auto) 69.7 Lymph % (Auto) 17.5 L [place] % (Auto) 11.9 Eos % (Auto) 0.3 L Baso % (Auto) 0.6 Neut # (Auto) 6900 Lymph # (Auto) 1700 [place] # (Auto) 1200 H Eos # (Auto) 0 Baso # (Auto) 100 Sodium 138 Potassium 4.3 Chloride 90 L Carbon Dioxide 32 BUN 30 H Creatinine 0.92 Estimated GFR > 60 BUN/Creatinine Ratio 32.6 H Glucose 93 Calcium 9.4 PFSH Medical History Mobitz II Hypertension Surgical History History of permanent cardiac pacemaker placement H/O abdominal surgery Social History household members: spouse Smoking Status: Former smoker alcohol intake: never Assessment & Plan Assessment & Plan narrative: 1. Acute on chronic hypoxic, hypercarbic respiratory failure, active. Patient remained stable on 2 of oxygen via nasal cannula. Continue BiPAP at night. 2. COPD with exacerbation, improved. Continue prednisone burst, presently day 4 of 5. 3. Acute on chronic diastolic congestive heart failure, improved. BUN is up 28 today. Continue diuresing as tolerated. He has had a net diuresis of 1700 cc. Will likely need to discontinue IV diuresis tomorrow. 4. Class 3 obesity, stable. His obesity certainly complicates his respiratory status and CO2 retention. It also impedes his mobility. 5. Chronic AFib on chronic anticoagulation, stable. Presently rate controlled. Continue Eliquis anticoagulation. 6. Coronary artery disease, stable. No anginal symptoms. 7. Hypertension, stable. Blood pressures are normalizing with diuresis. Plan: -given his chest x-ray, we will diurese him aggressively for another 24 hours before returning him to half-way facility. -we will continue BiPAP at the facility, and advised a lower threshold to send him back to the hospital per his wishes. -he was DNR, we will further clarify his level of care wishes and communicate these with to the facility. ROLAND: June 07. Code status DNR Prophylaxis On Eliquis Time-Based Coding :: [TOTAL MINUTES] spent with patient and on the chart (including review of chart, obtaining history, exam, reviewing outside data, placing orders, documenting exam and treatment plan, and counseling patient) on [DATE]. Quality VTE Deep Vein Thrombosis/Pulmonary Embolism Present on Admission: No
--- NOTE | 2024-06-06 12:35 | CM.DPNOTE ---
Addendum entered by DRAGAN Landers 06/06/24 15:58: FACILITY SERVICE MANAGER faxed PT/OT evals to [facility]. Auth pending. SL Original Note: DCP Note FACILITY SERVICE MANAGER reviewed EMR Per provider in morning rounds, attempt to plan on dc back to SNF tomorrow. per provider in morning rounds, does not anticipate pulmonology consult will happen at bedside today. Per [facility] at [facility], need new PT/OT evals for auth. FACILITY SERVICE MANAGER will fax PT/OT evals as soon as available. Per provider, okay with new PT/OT evals, updated PT/OT on new order. Per Disha at , can take pt back. New [place] auth needed. Best scenario 9 days worst 5 days of medicare days left thru [facility]. Family just needs to be updated. He will turn Private pay.? He would need 60 days of at home wellness before a new 100 days are given. Per Dsiha at , BLS needed, pt does not fit on ramp with their transport vans. Does [facility] still follow [facility] 100 day guidelines? FACILITY SERVICE MANAGER will f/u with [facility] on policy. FACILITY SERVICE MANAGER met with pt in room. reviewed plan. pt in agreement, understands he needs to work with PT/OT to return to . hopeful provider will talk with doctor about pt not coming back here when his oxygen drops to a certain level overnight. no PASRR needed if no med changes. P: anticipate return to pending [place] auth. BLS needed. team will continue to follow closely DRAGAN Landers
--- NOTE | 2024-06-06 14:31 | OT.IP.EVAL ---
Current Diagnoses Chronic obstructive pulmonary disease with (acute) exacerbation (06/02/24) Past Medical History (Last Reviewed 06/06/24 @ 08:13 by Hayden Moraes MD) Hypertension Mobitz II Surgical History (Last Reviewed 06/06/24 @ 08:13 by Hayden Moraes MD) H/O abdominal surgery History of permanent cardiac pacemaker placement Occupational Therapy Inpatient Evaluation/Re-Eval M1 PT/OT-IP Prior Functional Status Start: 06/06/24 14:50 Freq: NEEDED Status: Active Protocol: Document 06/06/24 14:50 CGR (Rec: 06/06/24 14:58 CGR [id number]) Medical Review Prior Functional Status Medical History Reviewed Yes Communication Pt is and effective verbal communicator. Mobility and Gait Pt was MOD I ~6 months ago with use of FWW. Activities of Daily Living and IADL's Pt was MOD I ~6 months ago. Prior Functional Level (Other details) Pt has been between the hospital and SNF for the last ~6 months. Social History Household Members spouse Living Arrangements Skilled Nurse Facility Number of Floors (Floors) One Floor Number of Stairs To Enter/Railing? 2 steps without rails Home Environment Standard Height Toilet,Walk in Shower Home Equipment Front Wheel Walker,Hand Held Shower,Grab Bars In Shower Employment Status Retired M2 OT-IP Current Condition Start: 06/06/24 14:50 Freq: Status: Active Protocol: Document 06/06/24 14:50 CGR (Rec: 06/06/24 14:58 CGR [id number]) Occupational Therapy Current Condition Current Condition Evaluation Date 06/06/24 Treatment Diagnosis hypoxia, pulmonary edema, COPD , CHF Diagnosis Onset Date 06/02/24 M3 OT- IP Subjective and Pain Start: 06/06/24 14:50 Freq: Status: Active Protocol: Document 06/06/24 14:50 CGR (Rec: 06/06/24 14:58 CGR [id number]) OT- Subjective Occupational Therapy Visit Type Type Initial Evaluation Visit Start Time 14:07 Visit Stop Time 14:31 Notes Partial co-treat with P.T. M4 OT- IP ADL's Start: 06/06/24 14:50 Freq: Status: Active Protocol: Document 06/06/24 14:50 CGR (Rec: 06/06/24 14:58 CGR [id number]) OT [id number] Comments OT Self-Feeding Comments not meal time OT ADL-Grooming Comments OT Grooming Comments not performed OT ADL-Oral Care Comments Oral Care Comments not performed OT ADL-Dressing General Eval Lower Body Dressing Ability Total Assistance Areas Needing Assistance Socks Comments OT Dressing Comments supine in bed OT ADL-Toileting General Evaluation Toileting Ability Total Assistance Comments OT Toileting Comments camacho OT ADL-Bathing Comments OT Bathing Comments not performed M5 OT- IP IADL's Start: 06/06/24 14:50 Freq: Status: Active Protocol: Document 06/06/24 14:50 CGR (Rec: 06/06/24 14:58 CGR [id number]) OT-Instrumental Activities of Daily Living Deficits IADL Deficits Identified No Deficits Home Safety Awareness Awareness of Need for Assistance at Home Good Awareness Ability to Problem Solve Emergency Able to Problem Solve Situations Medication Management Medication Management Caregiver Administers Money Management Money Management Caregiver Provides Assistance Meal Preparation Meal Preparation Caregiver Provides Assist Attache Attache Caregiver Provides Assist M6 OT- IP Functional Cognition Start: 06/06/24 14:50 Freq: Status: Active Protocol: Document 06/06/24 14:50 CGR (Rec: 06/06/24 14:58 CGR [id number]) Cognitive Factors Limiting Selfcare Function Cognitive Ability Level of Alertness Alert Patient Orientation Name,Age,Birthday,Month,Date, Year,Day of Week,Place, Situation Attention Span Ability Capable of Focused Attention, Capable of Sustained Attention Ability to Follow Commands Able to Follow One Step Commands with Increased Time, Able to Follow One Step Commands with Repetition OT- Vision and Hearing OT- Hearing Assessment OT- Hearing Assessment Hearing Impaired OT- Vision Assessment Visual Attentiveness WFL Occular Pursuits WFL Visual Convergence WFL M7 OT- IP Mobility and Balance Start: 06/06/24 14:50 Freq: Status: Active Protocol: Document 06/06/24 14:50 CGR (Rec: 06/06/24 14:58 CGR [id number]) OT- Bed Mobility Assessment Rolling Type of Rolling Roll to Right Level of Assistance Standby Assistance,Bedrails Supine to Sit Supine to Sit Assist Standby Assistance,Head of Bed Elevated,Bedrails Sit to Supine Sit to Supine Assist Moderate Assistance,Head of Bed Elevated,Bedrails Scooting Scooting to Edge of Bed Standby Assistance Scooting Up and Down in Bed Maximum Assistance,2 Person Assistance,Bedrails OT-Transfer Assessment Sit to and From Stand Sit to and from Stand Maximum Assistance,2 Person Assistance Technique Transfer Destination Bed Devices Transfer Assistive Devices Gait Belt,Front Wheeled Walker Comments Mobility Comments Attempted sit to stand from high bed and pt initially unable to perform. Then attempted again with max x 2 and was able to get into standing. Pt with poor endurance preventing further sit to stands. Pt scooted to HOB while seated x3 then needed mod a to returned to supine and max x 2 to scoot up in bed, he helped by bending his knees and pushing as well as pulling with his RUE. OT- Gait Assessment Comments Gait Ability Comments not performed OT- Balance Assessment Sitting Balance and Reactions Static Sitting Balance Ability Good Dynamic Sitting Balance Ability Good M8 OT- IP Objective Assessments Start: 06/06/24 14:50 Freq: Status: Active Protocol: Document 06/06/24 14:50 CGR (Rec: 06/06/24 14:58 CGR [id number]) OT Gross Range of Motion Upper Extremity Range of Motion Assessment Left Impaired OT Strength Comments Strength Comments grossly 4- to 3+/5 except L shld not tested OT- Coordination Assessment Upper Extremity Finger to Nose Test Within Functional Limits Finger Tapping Test Within Functional Limits OT-Muscle Tone Assessment Muscle Tone WNL Yes OT Sensation Assessment Edema Edema Absent M9 OT- IP Assessment and Plan Start: 06/06/24 14:50 Freq: Status: Active Protocol: Document 06/06/24 14:50 CGR (Rec: 06/06/24 14:58 CGR [id number]) OT Summary Assessment and Plan Potential Rehabilitation Potential Good Analytic Complexity at Evaluation High Summary OT Impairments Range of Motion,Strength, Balance,Functional Mobility, Self-Feeding,Grooming,Dressing ,Toileting,Bathing,Toilet Transfers,Shower Transfers, Activity Tolerance Progress Towards Goals Slow Progress due to Medical Issues Assessment Summary Pt presents as a high complexity evaluation s/p admit for hypoxia. Pt appears to be close to his level when last seen by this sign writer letterer or painter and will continue to benefit from therapy services to address deficits. Pt will need SNF upon discharge given 2 person assist need for sit to stand. Pt appears highly motivated but limited by endurance. Goals Self-Feeding Goal Independent Grooming Goal Independent Dressing Goal Independent Toileting Goal Independent Bathing Goal Independent Toilet Transfer Goal Independent Days to Meet Goals 25 Frequency of Treatment Other frequency 5x per week Treatment Plan OT Treatment Plan ADL Training,Functional Mobility,Therapeutic Exercises ,Patient/Family Education, Discharge Planning Other Treatment Recommendations and Next ADLs seated, UE strengthening, Treatment Focus BSC xfer Discharge Recommendations OT Discharge Recommendations SNF Rehab Transportation Needs at Discharge Wheelchair/Cabulance
--- NOTE | 2024-06-06 15:43 | PT.IIE ---
Current Diagnoses Chronic obstructive pulmonary disease with (acute) exacerbation (06/02/24) Surgical History (Last Reviewed 06/06/24 @ 08:13 by Hayden Moraes MD) H/O abdominal surgery History of permanent cardiac pacemaker placement Medical History (Last Reviewed 06/06/24 @ 08:13 by Hayden Moraes MD) Hypertension Mobitz II Physical Therapy Inpatient Evaluation/Re-Eval M1 PT/OT-IP Prior Functional Status Start: 06/06/24 14:50 Freq: NEEDED Status: Active Protocol: Document 06/06/24 14:50 CGR (Rec: 06/06/24 14:58 CGR [id number]) Medical Review Prior Functional Status Medical History Reviewed Yes Communication Pt is and effective verbal communicator. Mobility and Gait Pt was MOD I ~6 months ago with use of FWW. Activities of Daily Living and IADL's Pt was MOD I ~6 months ago. Prior Functional Level (Other details) Pt has been between the hospital and SNF for the last ~6 months. Social History Household Members spouse Living Arrangements Skilled Nurse Facility Number of Floors (Floors) One Floor Number of Stairs To Enter/Railing? 2 steps without rails Home Environment Standard Height Toilet,Walk in Shower Home Equipment Front Wheel Walker,Hand Held Shower,Grab Bars In Shower Employment Status Retired M2 PT-IP Current Condition Start: 06/06/24 15:34 Freq: NEEDED Status: Active Protocol: Document 06/06/24 14:06 MB (Rec: 06/06/24 15:43 MB [id number]) Physical Therapy Current Condition Current Condition Evaluation Date 06/06/24 Treatment Diagnosis Difficulty breathing, three recent adm from [facility] M3 PT-IP Subjective Start: 06/06/24 15:34 Freq: NEEDED Status: Active Protocol: Document 06/06/24 14:06 MB (Rec: 06/06/24 15:43 MB [id number]) Subjective Physical Therapy Visit Type Type Initial Evaluation Visit Start Time 14:06 Visit Stop Time 14:21 Number of RADIO STATION AUDIO ENGINEER Visits 0 Physical Therapy Visit Comments Patient Comments Pt SOB at rest and agreeable to PT. Therapy Pain Assessment Pain When Pain Assessed At Rest Pain Present Pain Present Denied Pain M4 PT-IP Mobility and Gait Start: 06/06/24 15:34 Freq: NEEDED Status: Active Protocol: Document 06/06/24 14:06 MB (Rec: 06/06/24 15:43 MB [id number]) PT-Bed Mobility Assessment Rolling Type of Rolling Roll to Right Level of Assist Standby Assistance Supine to Sit Supine to Sit Standby Assistance,Head of Bed Elevated,Bedrails Scooting Scooting to Edge of Bed Standby Assistance PT-Transfer Assessment Sit to and From Stand Sit to and from Stand Maximum Assistance,2 Person Assistance,Use of Upper Extremities Equipment Transfer Assistive Device Gait Belt,Front Wheeled Walker Orthotic/Prosthetic Devices or Brace: No Comments Mobility Comments Pt cannot stand up first attempt and cues to fully standing up second attempt. Pt left with OT and GPS FIELD DATA COLLECTOR d/t PT due for outpatient treatment. Gait Assessment Comments Gait Comments Unable to gait today PT-Balance Assessment Sitting Balance and Reactions Static Sitting Balance Ability Good Dynamic Sitting Balance Ability Good Standing Balance and Reactions Static Standing Balance Ability Poor Dynamic Standing Balance Ability Poor Device Used RW and 2 person assistance M5 PT-IP Objective Assessments Start: 06/06/24 15:34 Freq: NEEDED Status: Active Protocol: Document 06/06/24 14:06 MB (Rec: 06/06/24 15:43 MB [id number]) Orientation Orientation/Cognition Level of Alertness Alert Language Function Ability No Deficits Noted Safety Awareness Understands Safety Issues Memory Description No Deficits Noted Gross Range of Motion Upper Extremity ROM Impairments Defer to OT Lower Extremity ROM Assessment Bilaterally Impaired Strength Lower Extremity Strength Assessment Bilaterally Impaired Comments Strength Comments R ankle DF 4/5 and left ankle DF 3+/5; right knee extension 4/5 and left knee extension 3+ /5. B hip ROM limited d/t pannus Coordination Assessment Gross Coordination Gross Coordination Impaired Assessment Coordination Comments Slow mobility all limbs Sensation Assessment Comments Sensation Comments NT Muscle Tone Comments Muscle Tone Comments Increased PF tone B ankles M6 PT-IP Treatment Start: 06/06/24 15:34 Freq: NEEDED Status: Active Protocol: Document 06/06/24 14:06 MB (Rec: 06/06/24 15:43 MB [id number]) Physical Therapy Treatment Education Education Provided Safety M7 PT-IP Assessment and Plan Start: 06/06/24 15:34 Freq: NEEDED Status: Active Protocol: Document 06/06/24 14:06 MB (Rec: 06/06/24 15:43 MB [id number]) PT Summary Assessment and Plan Potential Rehabilitation Potential Fair Status of Condition at Evaluation Evolving Summary Impairments ROM,Strength,Balance,Bed Mobility,Transfers,Gait, Activity Tolerance Progress Towards Goals Slow Progress due to Activity Tolerance Assessment Summary Pt is an 84 y/o male re-adm from [facility] d/t ongoing respiratory issues, desaturation, chronic debility with pt reporting last date he stood up was on 06/01/24 with therapist at [facility]. Pt has been bed level to STS and side step level for many weeks. He presents with acute on chronic respiratory issues, increased body mass, globalized weakness and poor respiratory and muscular endurance. Pt is SBA for bed mobility and +2 max A to stand up today to RW. His O2 sats on 3L O2 remain in the low 90s and HR in the 60s BPM with limited mobility today. Goals Bed Mobility Goal Independent Transfer Goal Contact Guard Assistance,Four Wheeled Walker Gait Goal Contact Guard Assistance,Four Wheel Walker Gait Distance 15 Days to Meet Goals 10 Frequency of Treatment Frequency Of Treatment Once a Day Other frequency x2 Treatment Plan Physical Therapy Treatment Plan Bed Mobility Training,Transfer Training,Gait Training, Therapeutic Exercise,Balance Retraining,Discharge Planning, Hot or Cold Pack,Neuromuscular Re-ed,Coordination Retraining ,Manual Therapy Recommendations To Nursing Amount of Assist Needed Mechanical Lift Discharge Recommendations PT Discharge Recommendations SNF Rehab Transportation Needs at Discharge Wheelchair/Cabulance,Stretcher /Ambulance
--- NOTE | 2024-06-06 17:50 | PC.NURSE ---
Pt remains stable on 3L NC, no major changes in pt condition throughout shift. Denied pain. Repositioned in bed with 2 person assist.
[2024-06-06] MEDS: AMITRIPTYLINE 25 MG TABLET PO (21:58)
[2024-06-06] MEDS: MELATONIN 3 MG TABLET 9 MG PO (21:58)
[2024-06-07] VITALS (26 sets, daily range): BP systolic 123–154; BP diastolic 56–67; PULSE 60–67; RESP 10–32; TEMP 36.1–36.6; O2SAT 92–97
[2024-06-07] MEDS: BUDESONIDE 0.5 MG/2 ML NEB INH ×2 (06:06→18:31)
[2024-06-07] MEDS: ALBUTEROL/IPRATROPIUM 3 ML AMPUL INH ×3 (06:06→18:30)
[2024-06-07] MEDS: APIXABAN 5 MG TABLET PO ×2 (08:13→22:02)
[2024-06-07] MEDS: ASPIRIN EC 81 MG TABLET PO (08:13)
[2024-06-07] MEDS: FUROSEMIDE 40 MG/4 ML VIAL IV ×2 (08:13→17:31)
--- NOTE | 2024-06-07 10:33 | OT.IP.TRT ---
Current Diagnoses Chronic obstructive pulmonary disease with (acute) exacerbation (06/02/24) Occupational Therapy Treatment Note M2 OT-IP Current Condition Start: 06/06/24 14:50 Freq: Status: Active Protocol: Document 06/06/24 14:50 CGR (Rec: 06/06/24 14:58 CGR [id number]) Occupational Therapy Current Condition Current Condition Evaluation Date 06/06/24 Treatment Diagnosis hypoxia, pulmonary edema, COPD , CHF Diagnosis Onset Date 06/02/24 M3 OT- IP Subjective and Pain Start: 06/06/24 14:50 Freq: Status: Active Protocol: Document 06/07/24 10:45 CCC (Rec: 06/07/24 10:50 CCC [id number]) OT- Subjective Occupational Therapy Visit Type Type Treatment Note Visit Start Time 10:33 Visit Stop Time 10:43 Occupational Therapy Visit Comments Patient Comments Pt agreed to do oral care and grooming needs. Patient/Caregiver Goals TO get better. OT Pain Assessment Pain When Pain Assessed At Rest Pain Present Pain Present Denied Pain M4 OT- IP ADL's Start: 06/06/24 14:50 Freq: Status: Active Protocol: Document 06/07/24 10:45 CCC (Rec: 06/07/24 10:50 CCC [id number]) OT [id number] Comments OT Self-Feeding Comments not meal time OT ADL-Grooming General Evaluation Grooming Ability Standby Assistance Comments OT Grooming Comments set-up while seated OT ADL-Oral Care General Eval Oral Care Ability Independent Comments Oral Care Comments WHile seated M5 OT- IP IADL's Start: 06/06/24 14:50 Freq: Status: Active Protocol: Document 06/06/24 14:50 CGR (Rec: 06/06/24 14:58 CGR [id number]) OT-Instrumental Activities of Daily Living Deficits IADL Deficits Identified No Deficits Home Safety Awareness Awareness of Need for Assistance at Home Good Awareness Ability to Problem Solve Emergency Able to Problem Solve Situations Medication Management Medication Management Caregiver Administers Money Management Money Management Caregiver Provides Assistance Meal Preparation Meal Preparation Caregiver Provides Assist Clinical Studies Specialist Clinical Studies Specialist Caregiver Provides Assist M6 OT- IP Functional Cognition Start: 06/06/24 14:50 Freq: Status: Active Protocol: Document 06/06/24 14:50 CGR (Rec: 06/06/24 14:58 CGR [id number]) Cognitive Factors Limiting Selfcare Function Cognitive Ability Level of Alertness Alert Patient Orientation Name,Age,Birthday,Month,Date, Year,Day of Week,Place, Situation Attention Span Ability Capable of Focused Attention, Capable of Sustained Attention Ability to Follow Commands Able to Follow One Step Commands with Increased Time, Able to Follow One Step Commands with Repetition OT- Vision and Hearing OT- Hearing Assessment OT- Hearing Assessment Hearing Impaired OT- Vision Assessment Visual Attentiveness WFL Occular Pursuits WFL Visual Convergence WFL M7 OT- IP Mobility and Balance Start: 06/06/24 14:50 Freq: Status: Active Protocol: Document 06/06/24 14:50 CGR (Rec: 06/06/24 14:58 CGR [id number]) OT- Bed Mobility Assessment Rolling Type of Rolling Roll to Right Level of Assistance Standby Assistance,Bedrails Supine to Sit Supine to Sit Assist Standby Assistance,Head of Bed Elevated,Bedrails Sit to Supine Sit to Supine Assist Moderate Assistance,Head of Bed Elevated,Bedrails Scooting Scooting to Edge of Bed Standby Assistance Scooting Up and Down in Bed Maximum Assistance,2 Person Assistance,Bedrails OT-Transfer Assessment Sit to and From Stand Sit to and from Stand Maximum Assistance,2 Person Assistance Technique Transfer Destination Bed Devices Transfer Assistive Devices Gait Belt,Front Wheeled Walker Comments Mobility Comments Attempted sit to stand from high bed and pt initially unable to perform. Then attempted again with max x 2 and was able to get into standing. Pt with poor endurance preventing further sit to stands. Pt scooted to HOB while seated x3 then needed mod a to returned to supine and max x 2 to scoot up in bed, he helped by bending his knees and pushing as well as pulling with his RUE. OT- Gait Assessment Comments Gait Ability Comments not performed OT- Balance Assessment Sitting Balance and Reactions Static Sitting Balance Ability Good Dynamic Sitting Balance Ability Good M8 OT- IP Objective Assessments Start: 06/06/24 14:50 Freq: Status: Active Protocol: Document 06/06/24 14:50 CGR (Rec: 06/06/24 14:58 CGR [id number]) OT Gross Range of Motion Upper Extremity Range of Motion Assessment Left Impaired OT Strength Comments Strength Comments grossly 4- to 3+/5 except L shld not tested OT- Coordination Assessment Upper Extremity Finger to Nose Test Within Functional Limits Finger Tapping Test Within Functional Limits OT-Muscle Tone Assessment Muscle Tone WNL Yes OT Sensation Assessment Edema Edema Absent M9 OT- IP Assessment and Plan Start: 06/06/24 14:50 Freq: Status: Active Protocol: Document 06/07/24 10:45 [facility] (Rec: 06/07/24 10:50 [facility] [id number]) OT Summary Assessment and Plan Potential Rehabilitation Potential Good Analytic Complexity at Evaluation High Summary OT Impairments Range of Motion,Strength, Balance,Functional Mobility, Self-Feeding,Grooming,Dressing ,Toileting,Bathing,Toilet Transfers,Shower Transfers, Activity Tolerance Progress Towards Goals Slow Progress due to Medical Issues Assessment Summary Pt agreed to do grooming and oral care needs and wanting to wait to do standing with PT later. Pt to go to skilled rehab when medically stable. Goals Self-Feeding Goal Independent Grooming Goal Independent Dressing Goal Minimal Assistance Toileting Goal Minimal Assistance Bathing Goal Moderate Assistance Toilet Transfer Goal Moderate Assistance Days to Meet Goals 25 Frequency of Treatment Other frequency 5x per week Treatment Plan OT Treatment Plan ADL Training,Functional Mobility,Therapeutic Exercises ,Patient/Family Education, Discharge Planning Other Treatment Recommendations and Next ADLs seated, UE strengthening, Treatment Focus BSC xfer Discharge Recommendations OT Discharge Recommendations SNF Rehab Transportation Needs at Discharge Wheelchair/Cabulance
--- NOTE | 2024-06-07 11:10 | PT.IPTN ---
Current Diagnoses Chronic obstructive pulmonary disease with (acute) exacerbation (06/02/24) Physical Therapy Treatment Note M2 PT-IP Current Condition Start: 06/06/24 15:34 Freq: NEEDED Status: Active Protocol: Document 06/06/24 14:06 MB (Rec: 06/06/24 15:43 MB [id number]) Physical Therapy Current Condition Current Condition Evaluation Date 06/06/24 Treatment Diagnosis Difficulty breathing, three recent adm from [facility] M3 PT-IP Subjective Start: 06/06/24 15:34 Freq: NEEDED Status: Active Protocol: Document 06/07/24 09:20 AB (Rec: 06/07/24 13:03 AB [id number]) Subjective Physical Therapy Visit Type Type Treatment Note Visit Start Time 09:20 Visit Stop Time 09:35 Number of BRIQUETTE MACHINE OPERATOR Visits 0 Physical Therapy Visit Comments Patient Comments agreeable to do PT M4 PT-IP Mobility and Gait Start: 06/06/24 15:34 Freq: NEEDED Status: Active Protocol: Document 06/07/24 09:20 AB (Rec: 06/07/24 13:03 AB [id number]) PT-Bed Mobility Assessment Supine to Sit Supine to Sit Maximum Assistance,1 Person Assistance,Head of Bed Elevated,Bedrails PT-Transfer Assessment Sit to and From Stand Sit to and from Stand Moderate Assistance,Maximum Assistance,2 Person Assistance ,Use of Upper Extremities Equipment Transfer Assistive Device Gait Belt,Front Wheeled Walker Orthotic/Prosthetic Devices or Brace: No Transfers Transfer Destination Chair Transfer Technique Lateral Scoot Transfer Ability Level of Assist Maximum Assistance,2 Person Assistance,Use of Upper Extremities Comments Mobility Comments pt in bed and agreeable to do PT. pt completed supine to sit max A and max cues. HOB elevated and pt used bed rail to assist. pt needed to pull on PT to sit up. able to sit on EOB SBA. c/o dizziness. BP : 132/68. pt completed sit to stand x 3 attempts using FWW requirng mod A x 2 on first 2 attempts but requiring max A x 2 on last attempt. max cues provided. attempted step transfer to chair using fWW but pt unable. pt stated that he cannot lift his RLE up. pt with fear of falling and unable to take steps. assisted pt to chair using slide board. pt requiring max A x 2 and max cues. positioned pt on the chair max A x 2 to total A x 2. call light and table placed within reach. M5 PT-IP Objective Assessments Start: 06/06/24 15:34 Freq: NEEDED Status: Active Protocol: Document 06/06/24 14:06 MB (Rec: 06/06/24 15:43 MB [id number]) Orientation Orientation/Cognition Level of Alertness Alert Language Function Ability No Deficits Noted Safety Awareness Understands Safety Issues Memory Description No Deficits Noted Gross Range of Motion Upper Extremity ROM Impairments Defer to OT Lower Extremity ROM Assessment Bilaterally Impaired Strength Lower Extremity Strength Assessment Bilaterally Impaired Comments Strength Comments R ankle DF 4/5 and left ankle DF 3+/5; right knee extension 4/5 and left knee extension 3+ /5. B hip ROM limited d/t pannus Coordination Assessment Gross Coordination Gross Coordination Impaired Assessment Coordination Comments Slow mobility all limbs Sensation Assessment Comments Sensation Comments NT Muscle Tone Comments Muscle Tone Comments Increased PF tone B ankles M6 PT-IP Treatment Start: 06/06/24 15:34 Freq: NEEDED Status: Active Protocol: Document 06/07/24 09:20 AB (Rec: 06/07/24 13:03 AB [id number]) Physical Therapy Treatment Education Education Provided Safety M7 PT-IP Assessment and Plan Start: 06/06/24 15:34 Freq: NEEDED Status: Active Protocol: Document 06/07/24 09:20 AB (Rec: 06/07/24 13:03 AB [id number]) PT Summary Assessment and Plan Potential Rehabilitation Potential Fair Summary Impairments Pain,ROM,Strength,Balance, Coordination,Sensation,Tone, Cognition,Bed Mobility, Transfers,Gait,Activity Tolerance Progress Towards Goals Slow Progress due to Medical Issues,Slow Progress due to Activity Tolerance Assessment Summary pt requiring mod A x 2 to max A x 2 for sit to stand but unable to take steps to transfer using FWW despite max A x 2 and max cues provided. pt will require SNF rehab to improve mobility. Goals Bed Mobility Goal Independent Transfer Goal Contact Guard Assistance,Four Wheeled Walker Gait Goal Contact Guard Assistance,Four Wheel Walker Gait Distance 15 Days to Meet Goals 10 Frequency of Treatment Frequency Of Treatment Once a Day Treatment Plan Physical Therapy Treatment Plan Bed Mobility Training,Transfer Training,Gait Training, Therapeutic Exercise,Balance Retraining,Discharge Planning, Hot or Cold Pack,Neuromuscular Re-ed,Coordination Retraining ,Manual Therapy Recommendations To Nursing Amount of Assist Needed Mechanical Lift Discharge Recommendations PT Discharge Recommendations SNF Rehab Transportation Needs at Discharge Wheelchair/Cabulance,Stretcher /Ambulance
--- NOTE | 2024-06-07 12:00 | CM.DPNOTE ---
Addendum entered by DRAGAN Landers 06/07/24 13:19: No response from [facility] as of 1300 for auth. GLASS CRUSHER called Meri from to cancel dc for today. [facility] will f/u and plan for tomorrow around 1300. GLASS CRUSHER updated pt in room. remains in agreement with plan. denies questions at this time. GLASS CRUSHER completed BLS form for eventual transport, needs to be scheduled. behind FS. SL Original Note: DCP Note GLASS CRUSHER reviewed EMR Per meri at , could accept today no later than 1330. transport via BLS. GLASS CRUSHER attempted multiple times to coordinate with [facility] on auth- per their sales receptionist after 5th call, their entire CM team is in a mtg until 1400 today. Will attempt to get ahold of to call this GLASS CRUSHER back about an auth. GLASS CRUSHER met with pt/RN/spouse (via phone) in room. Pt and spouse report understanding that they may need to switch to PP soon and will coordinate with [facility] team about that. Pt and spouse confirm agreement with BLS transport due to wc not fitting on ramp. GLASS CRUSHER and RN answered questions to best of ability on the order set that will be sent with pt so he does not return to [facility] if his O2 does not drop to a certain level. Pt and spouse remain in agreement and express verbal understanding. in agreement with dc today if [facility] auth secured. No new PASRR needed unless meds change. P: anticipate return to [facility] pending [facility] auth. BLS needed. CM team will continue to follow closely DRAGAN Landers
--- NOTE | 2024-06-07 12:05 | OT.IP.TRT ---
Current Diagnoses Chronic obstructive pulmonary disease with (acute) exacerbation (06/02/24) Occupational Therapy Treatment Note M2 OT-IP Current Condition Start: 06/06/24 14:50 Freq: Status: Active Protocol: Document 06/06/24 14:50 [facility] (Rec: 06/06/24 14:58 CGR [id number]) Occupational Therapy Current Condition Current Condition Evaluation Date 06/06/24 Treatment Diagnosis hypoxia, pulmonary edema, COPD , CHF Diagnosis Onset Date 06/02/24 M3 OT- IP Subjective and Pain Start: 06/06/24 14:50 Freq: Status: Active Protocol: Document 06/07/24 12:09 [facility] (Rec: 06/07/24 12:14 [facility] [id number]) OT- Subjective Occupational Therapy Visit Type Type Treatment Note Visit Start Time 11:10 Visit Stop Time 12:05 Occupational Therapy Visit Comments Patient Comments Pt seen for 2nd visit as agreeable to get up with PT as well to try standing and transfer. Patient/Caregiver Goals TO get better. OT Pain Assessment Pain When Pain Assessed At Rest Pain Present Pain Present Denied Pain M4 OT- IP ADL's Start: 06/06/24 14:50 Freq: Status: Active Protocol: Document 06/07/24 10:45 [facility] (Rec: 06/07/24 10:50 [facility] [id number]) OT [id number] Comments OT Self-Feeding Comments not meal time OT ADL-Grooming General Evaluation Grooming Ability Standby Assistance Comments OT Grooming Comments set-up while seated OT ADL-Oral Care General Eval Oral Care Ability Independent Comments Oral Care Comments WHile seated M5 OT- IP IADL's Start: 06/06/24 14:50 Freq: Status: Active Protocol: Document 06/06/24 14:50 [facility] (Rec: 06/06/24 14:58 CGR [id number]) OT-Instrumental Activities of Daily Living Deficits IADL Deficits Identified No Deficits Home Safety Awareness Awareness of Need for Assistance at Home Good Awareness Ability to Problem Solve Emergency Able to Problem Solve Situations Medication Management Medication Management Caregiver Administers Money Management Money Management Caregiver Provides Assistance Meal Preparation Meal Preparation Caregiver Provides Assist Slasher Tender Slasher Tender Caregiver Provides Assist M6 OT- IP Functional Cognition Start: 06/06/24 14:50 Freq: Status: Active Protocol: Document 06/07/24 12:09 [facility] (Rec: 06/07/24 12:14 [facility] [id number]) Cognitive Factors Limiting Selfcare Function Cognitive Comments Cognitive Assessment Comments Pt needs lots of encouragement and reassurance. M7 OT- IP Mobility and Balance Start: 06/06/24 14:50 Freq: Status: Active Protocol: Document 06/07/24 12:09 [facility] (Rec: 06/07/24 12:14 [facility] [id number]) OT- Bed Mobility Assessment Sit to Supine Sit to Supine Assist Maximum Assistance,Head of Bed Elevated,Bedrails OT-Transfer Assessment Sit to and From Stand Sit to and from Stand Moderate Assistance,Maximum Assistance,2 Person Assistance Technique Transfer Destination Bed,Chair Devices Transfer Assistive Devices Gait Belt,Sliding Board Comments Mobility Comments Pt able to come to stand x3 from MAX AX 2 to stand to the FWW to MOD/MAXA X2 to the FWW with another person there to hold the FWW in place. Pt able to come to stand with bed raised up and not able to pickling tank operator his feet due to fear of falling and buckling. Opted to do sliding board transfer with MAX AX 2 and lots of cues for safety and reassurance. OT- Balance Assessment Sitting Balance and Reactions Static Sitting Balance Ability Good Dynamic Sitting Balance Ability Good Standing Balance and Reactions Static Standing Balance Ability Poor Dynamic Standing Balance Ability Poor M8 OT- IP Objective Assessments Start: 06/06/24 14:50 Freq: Status: Active Protocol: Document 06/06/24 14:50 [facility] (Rec: 06/06/24 14:58 [facility] [id number]) OT Gross Range of Motion Upper Extremity Range of Motion Assessment Left Impaired OT Strength Comments Strength Comments grossly 4- to 3+/5 except L shld not tested OT- Coordination Assessment Upper Extremity Finger to Nose Test Within Functional Limits Finger Tapping Test Within Functional Limits OT-Muscle Tone Assessment Muscle Tone WNL Yes OT Sensation Assessment Edema Edema Absent M9 OT- IP Assessment and Plan Start: 06/06/24 14:50 Freq: Status: Active Protocol: Document 06/07/24 12:09 [facility] (Rec: 06/07/24 12:14 [facility] [id number]) OT Summary Assessment and Plan Potential Rehabilitation Potential Good Analytic Complexity at Evaluation High Summary OT Impairments Range of Motion,Strength, Balance,Functional Mobility, Self-Feeding,Grooming,Dressing ,Toileting,Bathing,Toilet Transfers,Shower Transfers, Activity Tolerance Progress Towards Goals Progressing Toward Goals,Slow Progress due to Medical Issues Assessment Summary Pt able to come to stand x3 and then able to do sliding board transfer with MAX AX 2. Nursing present to care for the skin tear on his arm. Pt to go to skilled rehab when medically stable. Goals Self-Feeding Goal Independent Grooming Goal Independent Dressing Goal Minimal Assistance Toileting Goal Minimal Assistance Bathing Goal Moderate Assistance Toilet Transfer Goal Moderate Assistance Days to Meet Goals 25 Frequency of Treatment Other frequency 5x per week Treatment Plan OT Treatment Plan ADL Training,Functional Mobility,Therapeutic Exercises ,Patient/Family Education, Discharge Planning Other Treatment Recommendations and Next ADLs seated, UE strengthening, Treatment Focus BSC xfer Discharge Recommendations OT Discharge Recommendations SNF Rehab Transportation Needs at Discharge Wheelchair/Cabulance
--- NOTE | 2024-06-07 12:05 | OT.IP.TRT ---
Current Diagnoses Chronic obstructive pulmonary disease with (acute) exacerbation (06/02/24) Occupational Therapy Treatment Note M2 OT-IP Current Condition Start: 06/06/24 14:50 Freq: Status: Active Protocol: Document 06/06/24 14:50 [facility] (Rec: 06/06/24 14:58 [facility] [id number]) Occupational Therapy Current Condition Current Condition Evaluation Date 06/06/24 Treatment Diagnosis hypoxia, pulmonary edema, COPD , CHF Diagnosis Onset Date 06/02/24 M3 OT- IP Subjective and Pain Start: 06/06/24 14:50 Freq: Status: Active Protocol: Document 06/07/24 12:09 [facility] (Rec: 06/07/24 12:14 [facility] [id number]) OT- Subjective Occupational Therapy Visit Type Type Treatment Note Visit Start Time 11:10 Visit Stop Time 12:05 Occupational Therapy Visit Comments Patient Comments Pt seen for 2nd visit as agreeable to get up with PT as well to try standing and transfer. Patient/Caregiver Goals TO get better. OT Pain Assessment Pain When Pain Assessed At Rest Pain Present Pain Present Denied Pain M4 OT- IP ADL's Start: 06/06/24 14:50 Freq: Status: Active Protocol: Document 06/07/24 10:45 [facility] (Rec: 06/07/24 10:50 [facility] [id number]) OT [id number] Comments OT Self-Feeding Comments not meal time OT ADL-Grooming General Evaluation Grooming Ability Standby Assistance Comments OT Grooming Comments set-up while seated OT ADL-Oral Care General Eval Oral Care Ability Independent Comments Oral Care Comments WHile seated M5 OT- IP IADL's Start: 06/06/24 14:50 Freq: Status: Active Protocol: Document 06/06/24 14:50 [facility] (Rec: 06/06/24 14:58 [facility] [id number]) OT-Instrumental Activities of Daily Living Deficits IADL Deficits Identified No Deficits Home Safety Awareness Awareness of Need for Assistance at Home Good Awareness Ability to Problem Solve Emergency Able to Problem Solve Situations Medication Management Medication Management Caregiver Administers Money Management Money Management Caregiver Provides Assistance Meal Preparation Meal Preparation Caregiver Provides Assist Machinist Class B Machinist Class B Caregiver Provides Assist M6 OT- IP Functional Cognition Start: 06/06/24 14:50 Freq: Status: Active Protocol: Document 06/07/24 12:09 [facility] (Rec: 06/07/24 12:14 [facility] [id number]) Cognitive Factors Limiting Selfcare Function Cognitive Comments Cognitive Assessment Comments Pt needs lots of encouragement and reassurance. M7 OT- IP Mobility and Balance Start: 06/06/24 14:50 Freq: Status: Active Protocol: Document 06/07/24 12:09 [facility] (Rec: 06/07/24 12:14 [facility] [id number]) OT- Bed Mobility Assessment Sit to Supine Sit to Supine Assist Maximum Assistance,Head of Bed Elevated,Bedrails OT-Transfer Assessment Sit to and From Stand Sit to and from Stand Moderate Assistance,Maximum Assistance,2 Person Assistance Technique Transfer Destination Bed,Chair Devices Transfer Assistive Devices Gait Belt,Sliding Board Comments Mobility Comments Pt able to come to stand x3 from MAX AX 2 to stand to the FWW to MOD/MAXA X2 to the FWW with another person there to hold the FWW in place. Pt able to come to stand with bed raised up and not able to cone picker his feet due to fear of falling and buckling. Opted to do sliding board transfer with MAX AX 2 and lots of cues for safety and reassurance. OT- Balance Assessment Sitting Balance and Reactions Static Sitting Balance Ability Good Dynamic Sitting Balance Ability Good Standing Balance and Reactions Static Standing Balance Ability Poor Dynamic Standing Balance Ability Poor M8 OT- IP Objective Assessments Start: 06/06/24 14:50 Freq: Status: Active Protocol: Document 06/06/24 14:50 [facility] (Rec: 06/06/24 14:58 [facility] [id number]) OT Gross Range of Motion Upper Extremity Range of Motion Assessment Left Impaired OT Strength Comments Strength Comments grossly 4- to 3+/5 except L shld not tested OT- Coordination Assessment Upper Extremity Finger to Nose Test Within Functional Limits Finger Tapping Test Within Functional Limits OT-Muscle Tone Assessment Muscle Tone WNL Yes OT Sensation Assessment Edema Edema Absent M9 OT- IP Assessment and Plan Start: 06/06/24 14:50 Freq: Status: Active Protocol: Document 06/07/24 12:09 [facility] (Rec: 06/07/24 12:14 [facility] [id number]) OT Summary Assessment and Plan Potential Rehabilitation Potential Good Analytic Complexity at Evaluation High Summary OT Impairments Range of Motion,Strength, Balance,Functional Mobility, Self-Feeding,Grooming,Dressing ,Toileting,Bathing,Toilet Transfers,Shower Transfers, Activity Tolerance Progress Towards Goals Progressing Toward Goals,Slow Progress due to Medical Issues Assessment Summary Pt able to come to stand x3 and then able to do sliding board transfer with MAX AX 2. Nursing present to care for the skin tear on his arm. Encouraged pt to do leg and BUE exercises whiel in the recliner. Pt to go to skilled rehab when medically stable. Goals Self-Feeding Goal Independent Grooming Goal Independent Dressing Goal Minimal Assistance Toileting Goal Minimal Assistance Bathing Goal Moderate Assistance Toilet Transfer Goal Moderate Assistance Days to Meet Goals 25 Frequency of Treatment Other frequency 5x per week Treatment Plan OT Treatment Plan ADL Training,Functional Mobility,Therapeutic Exercises ,Patient/Family Education, Discharge Planning Other Treatment Recommendations and Next ADLs seated, UE strengthening, Treatment Focus BSC xfer Discharge Recommendations OT Discharge Recommendations SNF Rehab Transportation Needs at Discharge Wheelchair/Cabulance
--- NOTE | 2024-06-07 12:13 | PM.PN.1 ---
Subjective Subjective Interval history: S: He was doing better today. He does not feel short of breath in his edema is improving. He had a very good diuresis overnight. Insurance approval is still pending for his return to nursing home facility, [facility]. Estimated ROLAND for that reason it is June 08. Exam Vital Signs (past 8 hours): - 06/07/24 06:06 06/07/24 08:37 Pulse Rate 60 Respiratory Rate 26 H Pulse Oximetry 97 Oxygen Delivery Method Nasal Cannula Nasal Cannula BiPAP Oxygen Flow Rate 3 Fraction of Inspired Oxygen 32 Fraction of Inspired Oxygen 32 SaO2/FiO2 Ratio 303 Oxygen Delivery Method Nasal Cannula,BiPAP Oxygen Flow Rate 3 Narrative Exam Narrative: NAD, alert and oriented. Fluent speech. Lungs are clear, normal rate and effort. Decreased BS at bases. Heart is regular, no murmur gallop or rub. Abdomen is soft, non distended. Extremities are with 1+ edema. Objective Labs 06/06/24 04:52 06/06/24 04:52 [facility] Medical History Mobitz II Hypertension Surgical History History of permanent cardiac pacemaker placement H/O abdominal surgery Social History household members: spouse Smoking Status: Former smoker alcohol intake: never Assessment & Plan Assessment & Plan narrative: 1. Acute on chronic hypoxic, hypercarbic respiratory failure, present on admission and improving. Patient remained stable on 2 of oxygen via nasal cannula. Continue BiPAP at night. 2. COPD with exacerbation, present on admission and improved. Continue prednisone burst, presently day 4 of 5. 3. Acute on chronic diastolic congestive heart failure, present on admission and improved. BUN is up 28 today. Continue diuresing as tolerated. He has had a net diuresis of 1700 cc. Will likely need to discontinue IV diuresis tomorrow. 4. Class 3 obesity, stable. His obesity certainly complicates his respiratory status and CO2 retention. It also impedes his mobility. 5. Chronic AFib on chronic anticoagulation, stable. Presently rate controlled. Continue Eliquis anticoagulation. 6. Coronary artery disease, stable. No anginal symptoms. 7. Hypertension, stable. Blood pressures are normalizing with diuresis. Plan: -anticipate discharge back to nursing home tomorrow pending insurance approval. -we will continue to diurese. -we will discuss threshold for sending him back to the hospital with a nursing home facility. ROLAND: June 08. Code status DNR Prophylaxis On Eliquis Time-Based Coding :: [TOTAL MINUTES] spent with patient and on the chart (including review of chart, obtaining history, exam, reviewing outside data, placing orders, documenting exam and treatment plan, and counseling patient) on [DATE]. Quality VTE Deep Vein Thrombosis/Pulmonary Embolism Present on Admission: No
--- NOTE | 2024-06-07 16:32 | DIET.CONS ---
Dietary Consultation Note Admission Date: 06/02/2024 09:22 Assessment: 84 y M admitted for resp failure/COPD exacerbation. Nutrition screened for LOS. EMR reviewed, pt with 100% recorded PO intakes. Meal composition reviewed via DFM. Based on past dietary consult notes, pt had 2 hospitalizations in January and subsequent weight loss. Pt now +4.5 kg from last hospitalization in Apr. Pt currently being diuresis. Ht: 185.42 cm Wt: 127.5 kg BMI: 37.0 UBW: 123 kg on 05/16/23 Last BM: 06/07/24 (06/07/24 12:00) MNA: 12 Kavon Score: 19 Diet: 06/02/24 Dinner General (Regular) Diet Diet Modifications: Food Texture: Level 7 - Regular Liquid Consistency: Level 0 - Thin Nutrition Percent Meal Consumed 100% 06/07/24 11:00 Percent Meal Consumed 100% 06/06/24 18:00 Percent Meal Consumed 100% 06/06/24 12:49 Labs: RBC 2.59 X10^6/uL (4.5-5.9) L 06/06/24 04:52 Hgb 8.0 g/dL (13.5-17.5) L 06/06/24 04:52 Hct 24.6 % (41-53) L 06/06/24 04:52 Creatinine 0.92 mg/dL (0.66-1.25) 06/06/24 04:52 Lactate 0.6 mmol/L (0.7-2.1) L 06/02/24 07:36 NT-Pro-B Natriuret Pep 1240 pg/mL (<450) H 06/02/24 07:36 Nutrition Diagnosis: None at this time, will continue to follow weights and PO intakes Electronically Signed by: Ryann Marcelo 06/07/24 16:32 Clinical Dietitian [address] [id number]
[2024-06-07] MEDS: MELATONIN 3 MG TABLET 9 MG PO (22:01)
[2024-06-07] MEDS: AMITRIPTYLINE 25 MG TABLET PO (22:02)
[2024-06-08] VITALS (7 sets, daily range): BP systolic 107–153; BP diastolic 53–67; PULSE 60–61; RESP 10–28; TEMP 36.1–36.4; O2SAT 94–97
[2024-06-08] MEDS: BUDESONIDE 0.5 MG/2 ML NEB INH (07:27)
[2024-06-08] MEDS: ALBUTEROL/IPRATROPIUM 3 ML AMPUL INH (07:27)
[2024-06-08] MEDS: APIXABAN 5 MG TABLET PO (08:54)
[2024-06-08] MEDS: FUROSEMIDE 40 MG/4 ML VIAL IV (08:54)
[2024-06-08] MEDS: ASPIRIN EC 81 MG TABLET PO (08:54)
--- NOTE | 2024-06-08 10:24 | P.DS_ITS ---
History of Present Illness History of Present Illness Chief complaint: diff breathing Narrative: From H&P: 84-year-old male with a history of COPD, CHF, hypertension, comes into the ED from facility for evaluation of hypoxemia. According to the facility patient is normally prescribed a nightly nasal BiPAP, however he has a history of ?taking this off they state that this morning when they evaluated him his pulse ox was in the mid 80s, did place the BiPAP back on but states that he was slightly altered therefore called medics. According to medics patient at baseline he has not having any cough wheeze rales or complaints of chest pain or shortness of breath. Patient 100% on non-rebreather. At time of evaluation patient is A&O x3 following commands appropriately, however does appear somewhat can flu/slow to answer. Will place patient on BiPAP. Patient not complaining of any other symptoms such as abdominal pain nausea vomiting fever chills or any other GI/ symptoms at this time. Discharge Providers Provider Date of admission: 06/02/24 09:22 Discharge Date: 06/08/24 Primary care physician: Kalyn Morgan PA-C Consults: 06/06/24 12:21 Consult to Occupational Therapy Evaluate & Treat Comment: Physician Instructions: Evaluate and treat Consult to Physical Therapy Evaluate & Treat Comment: Physician Instructions: Evaluate and Treat Discharge provider: Hayden Moraes MD Summary Hospital Course Discharge Diagnosis: 1. Acute on chronic hypoxic, hypercarbic respiratory failure, present on admission and improved. Patient remained stable on 2 of oxygen via nasal cannula. Continue BiPAP at night. 2. COPD with exacerbation, present on admission and improved. Continue prednisone burst, presently day 4 of 5. 3. Acute on chronic diastolic congestive heart failure, present on admission and improved. 4. Class 3 obesity, stable. His obesity certainly complicates his respiratory status and CO2 retention. It also impedes his mobility. 5. Chronic AFib on chronic anticoagulation, stable. Presently rate controlled. Continue Eliquis anticoagulation. 6. Coronary artery disease, stable. No anginal symptoms. 7. Hypertension, stable. Blood pressures are normalizing with diuresis. Hospital Course: He was admitted with respiratory failure and hypoxia as well as hypercarbia. He does use BiPAP at the nursing facility at night. He was found on chest x-ray of pulmonary edema and leg edema and was diuresed aggressively while in the hospital. He improved with his breathing and respiratory status substantially with diuresis. On the day of discharge he was stable for discharge and his Lasix will be increased from 20-40 mg a day. In addition he requests more latitude for threshold to be sent back to the hospital as he does not like to be go back and forth. I will discuss more flexible O2 saturation thresholds with the facility. Status at Discharge Cognitive/behavioral status at discharge: oriented Functional status at discharge: uses cane/walker Overall status at discharge: patient is back to baseline Time Spent with Patient Time spent: Greater than 30 minutes Exam Vital Signs (past 8 hours): - 06/08/24 04:00 06/08/24 05:45 06/08/24 07:29 Temperature 97.0 F L Pulse Rate 60 Respiratory Rate 20 Blood Pressure 153/67 H 152/67 H Pulse Oximetry 94 97 Oxygen Delivery Method Nasal Cannula Oxygen Flow Rate 3 3 Fraction of Inspired Oxygen 45 06/08/24 08:00 06/08/24 08:00 06/08/24 08:58 Temperature 97.0 F L Pulse Rate 60 Respiratory Rate 22 Blood Pressure 125/58 L Pulse Oximetry 96 95 Oxygen Delivery Method Nasal Cannula BiPAP Nasal Cannula Oxygen Flow Rate 3 1 Fraction of Inspired Oxygen Fraction of Inspired Oxygen 45 SaO2/FiO2 Ratio 300 Oxygen Delivery Method Nasal Cannula Oxygen Flow Rate 1 Narrative Exam Narrative: NAD, alert and oriented. Fluent speech. Lungs are clear, normal rate and effort. Heart is regular, no murmur gallop or rub. Abdomen is soft, non distended. Extremities are with 1+ edema. Objective ECG Impression: Sinus rhythm with 1st degree AV block Anterolateral infarct , age undetermined Imaging Chest x-ray: My impression: pulmonary edema. Radiologist's impression: Progressive severe congestive heart failure exacerbation. Labs 06/06/24 04:52 06/06/24 04:52 [facility] Medical History Mobitz II Hypertension Surgical History History of permanent cardiac pacemaker placement H/O abdominal surgery Social History household members: spouse Smoking Status: Former smoker alcohol intake: never Discharge Assessment & Plan Assessment and Plan Assessment: 1. Acute on chronic hypoxic, hypercarbic respiratory failure, present on admission and improved. Patient remained stable on 2 of oxygen via nasal cannula. Continue BiPAP at night. 2. COPD with exacerbation, present on admission and improved. Continue prednisone burst, presently day 4 of 5. 3. Acute on chronic diastolic congestive heart failure, present on admission and improved. Plan of Treatment: Discharge back to the facility on chronic O2, BiPAP at night. We will increase Lasix from 20 to 40 mg a day. Discharge Plan Discharge Plan Patient Disposition: SNF Transfer to: [facility] Under care of provider: SNF Providers. Provider Discharge Comment: Stable for discharge to long-term facility. We will promote more flexibility on threshold to transfer to hospital based on his oxygen saturations and periodic desaturations. Discharge orders & Medications Prescriptions: New furosemide [Lasix] 40 mg tablet 40 mg PO DAILY Qty: 30 0RF Continued ascorbic acid (vitamin C) 1,000 mg tablet 1 gram PO BID tolterodine 4 mg capsule,extended release 24hr 4 mg PO DAILY aspirin [Adult Aspirin Regimen] 81 mg tablet,delayed release (DR/EC) 81 mg PO DAILY amitriptyline 25 mg tablet 25 mg BEDTIME omega-3 fatty acids 500 mg Capsule 500 mg PO DAILY Daily Fiber (psyllium-aspart) 3.4 gram Powder In Packet 1 packet PO DAILY polyethylene glycol 3350 8.5 gram Powder In Packet 8.5 g PO 3XW Eliquis 5 mg Tablet 5 mg PO BID multivitamin Tablet 1 tab PO DAILY cholecalciferol (vitamin D3) [Vitamin D3] 50 mcg (2,000 unit) Tablet 50 mcg PO DAILY Atrovent HFA 17 mcg/actuation HFA aerosol inhaler 2 puff INHALATION 4XD Patient Comments: [NO ORIGINAL SIG] budesonide-formoterol 160-4.5 mcg/actuation HFA aerosol inhaler 2 puff INHALATION BID Patient Comments: [NO ORIGINAL SIG] acetaminophen 325 mg Tablet 650 mg PO Q6H PRN (Reason: Fever/Mild Pain (1-3)) Qty: 3 0RF miscellaneous medical supply Misc 1 ea miscellaneous .nightly Qty: 1 0RF Rx Instructions: BIPAP with settings of IPAP 20, EPAP 8. Backup Rate 15. 1L O2 bleed in. amlodipine 2.5 mg tablet 2.5 mg PO DAILY allopurinol 100 mg tablet 100 mg PO DAILY losartan 25 mg tablet 12.5 mg PO BID Discontinued furosemide 20 mg tablet 20 mg BID Medication counseling provided by Pharmacist: No Follow up/Referrals: Kalyn Morgan PA-C [Primary Care Provider] - Discharge Health Status Multidrug resistant organism: No MDRO Diet/Activity/Treatments Diet: Low-sodium Food texture: Regular Visit Report/Discharge Packet Instructions: DI for Heart Failure Stand Alone Forms: Patient Portal/API Discharge Data Primary Care Provider: Kalyn Morgan VTE Deep Vein Thrombosis/Pulmonary Embolism Present on Admission: No
--- NOTE | 2024-06-08 14:43 | CM.DPNOTE ---
DC Note Patient has been discharged to [facility], [place] auth is in place # [id number]. Placed call to spouse Loraine, reviewed discharge plan, spouse remains aware and agreeable. Explained that recommendation is for BLS transport and sp agrees. BLS arranged for black pickler at 1200, with oxygen available. S medical necessity form completed and signed and placed with face sheet and POLST- left for BLS crew. Coordinated this discharge with Disha at [facility]. Emailed DC Summary, Rx and signed med list to Disha at [facility]. Plan: DC to [facility] via BLS transport, spouse updated and agreeable to plan. PAVEL
== END 2024-06-08 12:00 | DRG 291 ==
LOC: ED 08:22 → AC 09:24 → ICU 09:52
PROVIDERS: Family Medicine; Admitting Provider Internal Medicine; Emergency Provider Student in an Organized Health Care Education/Training Program; Family Provider Family Medicine; PCP Physician Assistant; Referring Provider Student in an Organized Health Care Education/Training Program; Visit Provider Internal Medicine
DX: I11.0 Hypertensive heart disease with heart failure (principal); I50.33 Acute on chronic diastolic (congestive) heart failure; J96.21 Acute and chronic respiratory failure with hypoxia; J96.22 Acute and chronic respiratory failure with hypercapnia; J44.1 Chronic obstructive pulmonary disease with (acute) exacerbation; I48.20 Chronic atrial fibrillation, unspecified; E66.813 Obesity, class 3; I25.10 Atherosclerotic heart disease of native coronary artery without angina pectoris; I44.1 Atrioventricular block, second degree; Z79.01 Long term (current) use of anticoagulants; Z68.37 Body mass index [BMI] 37.0-37.9, adult; Z66 Do not resuscitate; Z95.0 Presence of cardiac pacemaker; Z87.891 Personal history of nicotine dependence
CPT/HCPCS: 36415; 36600; 71045; 80048; 80053; 81001; 82550; 82805; 83605; 83690; 83735; 83880; 84145; 84484; 85025; 85610; 85730; 87040; 87077; 87086; 87154; 87633; 87797; 93005; 93010; 94640; 94660; 94762; 96374; 97162; 97167; 97530; 97535; 99285; A9270; J1938; J1940

== ENCOUNTER → 2024-06-22 10:11 | Outpatient (CLI) | payer OTHER, SELFPAY ==
[2024-02-07 21:39] VITALS: RESP 24
[2024-06-02 12:28] VITALS: BMI 37.0
[2024-06-08 05:45] VITALS: PULSE 60; RESP 24; O2SAT 97
--- NOTE | 2024-06-22 10:13 | DI.US.S_ITS ---
PROCEDURE: US PERIPH VENOUS LOW EXTREM LT INDICATIONS: ROUTINE TECHNIQUE: Real-time imaging, as well as color and pulse Doppler interrogation, were performed of the lower extremity deep veins from the inguinal ligament to the popliteal fossa, with documentation of the visualized calf veins. COMPARISON: None. FINDINGS: The common femoral, femoral, popliteal, and the visualized calf veins are normally compressible, and free of intraluminal thrombus. Color and pulse Doppler demonstrate normal phasic intraluminal flow. There is normal augmentation response to distal compression maneuver. IMPRESSION: No findings of lower extremity deep venous thrombosis. Dictated by: Brian Sarmiento M.D. on 06/22/2024 at 15:22 Approved by: Brian Sarmiento M.D. on 06/22/2024 at 15:22
== END ==
PROVIDERS: Family Provider Family Medicine; PCP Physician Assistant; Referring Provider Registered Nurse; Visit Provider Registered Nurse
DX: R79.1 Abnormal coagulation profile (principal); R22.42 Localized swelling, mass and lump, left lower limb
CPT/HCPCS: 93971

== ENCOUNTER 2024-07-15 00:06 | Emergency (ER) | payer OTHER, SELFPAY ==
[2024-06-30 09:13] VITALS: PULSE 60; RESP 24; O2SAT 97; BMI 37.0
[2024-07-15] VITALS (23 sets, daily range): BP systolic 114–169; BP diastolic 53–77; PULSE 59–85; RESP 20–26; TEMP 36.5; O2SAT 85–98; BMI 36.3
--- NOTE | 2024-07-15 00:21 | DI.RAD.S_ITS ---
PROCEDURE: XR CHEST 1V INDICATIONS: AMS, better now. TECHNIQUE: One view of the chest was acquired. COMPARISON: [facility], CR, XR CHEST 1V, 06/02/2024, 7:24. FINDINGS: Surgical changes and devices: Dual lead left-sided transvenous pacemaker. Lungs and pleura: Complete left hemithorax opacification. Hazy perihilar interstitial opacity on the right. Small right effusion. Mediastinum: The heart is not well seen. There is probably volume loss in left hemithorax. Bones and chest wall: No suspicious bony lesions. Overlying soft tissues appear unremarkable. IMPRESSION: Left hemithorax opacification, likely large effusion. Small right effusion and findings suggesting interstitial edema. Dictated by: Nasrin Cerda M.D. on 07/15/2024 at 1:50 Approved by: Nasrin Cerda M.D. on 07/15/2024 at 1:52
--- NOTE | 2024-07-15 00:22 | ED_ITS ---
HPI - General Adult General Chief complaint: Shortness of Breath/Dyspnea Stated complaint: increased AMS Time Seen by Provider: 07/15/24 00:20 Source: patient, EMS, RN notes reviewed and old records reviewed Mode of arrival: EMS Limitations: no limitations History of Present Illness HPI narrative: 84-year-old male history of COPD, CHF, atrial fibrillation on Eliquis and aspirin, MED, overactive bladder, gout history of prostate cancer who presents with possible altered mental status. EMS states patient has been alert and appropriate with them. They note that patient was hypoxic upon their arrival he was supposed to be on 3 L nasal cannula normally has normal O2 sat is 88-90%. He was also supposed to be using a CPAP at night but staff noted that he has not been compliant with this. They placed him on additional O2 and that seemed to improve his oxygen saturation. They state he has been alert oriented and appropriate with them throughout their drive able to answer questions and even correct his date of . Patient is alert here does not appear to be altered he has no complaints himself. Does note that his O2 sat can sometimes take some time to recover. He does have a wound in his abdomen which he states the dressing needs to be changed date is 07/07/2024 on the dressing. He has been at [facility] recovering from hernia repair. Patient was DNR/DNI. Related Data Home Medications Medication Instructions Recorded Confirmed ascorbic acid (vitamin C) 1,000 mg 1 gram PO BID 01/10/18 06/02/24 tablet aspirin 81 mg tablet,delayed 81 mg PO DAILY 01/10/18 06/02/24 release (Adult Aspirin Regimen) tolterodine 4 mg capsule,extended 4 mg PO DAILY 01/10/18 06/02/24 release 24 hr allopurinol 100 mg tablet 100 mg PO DAILY 02/08/24 06/02/24 amlodipine 2.5 mg tablet 2.5 mg PO DAILY 02/08/24 06/02/24 losartan 25 mg tablet 12.5 mg PO BID 02/08/24 06/02/24 amitriptyline 25 mg tablet 25 mg BEDTIME 05/09/24 06/02/24 apixaban 5 mg tablet (Eliquis) 5 mg PO BID 05/09/24 06/02/24 budesonide-formoterol HFA 160 2 puff inhalation BID 05/09/24 06/02/24 mcg-4.5 mcg/actuation aerosol inhaler cholecalciferol (vitamin D3) 50 50 mcg PO DAILY 05/09/24 06/02/24 mcg (2,000 unit) tablet (Vitamin D3) ipratropium bromide 17 2 puff inhalation 4XD 05/09/24 06/02/24 mcg/actuation HFA aerosol inhaler (Atrovent HFA) multivitamin 1 tab PO DAILY 05/09/24 06/02/24 omega-3 fatty acids 500 mg capsule 500 mg PO DAILY 05/09/24 06/02/24 polyethylene glycol 3350 8.5 gram 8.5 g PO 3XW 05/09/24 06/02/24 oral powder packet psyllium husk (aspartame) 3.4 gram 1 packet PO DAILY 05/09/24 06/02/24 oral powder packet (Daily Fiber (psyllium-aspartame)) Previous Rx's Medication Instructions Recorded acetaminophen 325 mg tablet 650 mg (2 x 325 mg) PO Q6H PRN 05/16/24 Fever/Mild Pain (1-3) #3 tabs miscellaneous medical supply 1 ea miscellaneous .nightly #1 ea 05/16/24 furosemide 40 mg tablet (Lasix) 40 mg PO DAILY #30 tabs 06/08/24 Allergies Allergy/AdvReac Type Severity Reaction Status Date / Time Adpbiyb-JVO-BxH Reductase Allergy Mild Elevated Verified 01/10/18 15:38 Inhibitor liver [Jrgdxup-Hwo-Eak Reductase enzymes Inhibitor] Review of Systems Review of Systems ROS Unobtainable: All systems reviewed & are unremarkable except as noted in HPI and below Patient History Medical History Mobitz II Hypertension Surgical History History of permanent cardiac pacemaker placement H/O abdominal surgery Social History household members: spouse Smoking Status: Never smoker alcohol intake: never Exam Narrative Exam Narrative: GEN: Elderly appearing male, alert and oriented x 3, patient appears to be in mild distress. HEENT: Atraumatic, pupils are equal round reactive to light, extraocular movements are intact, nares are clear, there is no conjunctival pallor. Throat is clear without any exudates, erythema, tonsillar enlargement or uvular deviation HEART: Regular rate and rhythm without murmur, clicks, rubs. Pulses are equal in upper and lower extremities LUNGS:Lungs clear to auscultation, no wheezes, rales, crackles, chest moves symmetrically, no tachypnea ABD:bowel sounds normal, soft, non-tender, no guarding, rebound, rigidity, no masses noted, no hepatosplenomegaly, patient was feeling wound on his abdomen there is a little bit of odor no active drainage no erythema. Culture was not obtained :No CVA tenderness MSCL: Non-tender, no muscle atrophy, muscles strength 5/5 upper and lower extremities, full range of motion. NEURO:CN 2-12 intact, sensation normal, Initial Vital Signs Initial Vital Signs: Vital Signs Pulse Rate 85 07/15/24 00:15 Blood Pressure 169/77 H 07/15/24 00:15 Pulse Oximetry 98 07/15/24 00:15 Oxygen Delivery Method Oximask 07/15/24 00:15 Oxygen Flow Rate 4 07/15/24 00:15 Course Orders Ordered: ED Orders 07/15/24 00:20 Urinalysis and Microscopic Stat Urine Drug Screen, Rapid Stat EKG-12 Lead Stat 07/15/24 00:21 XR chest 1V Stat 07/15/24 00:40 Blood Culture Stat 07/15/24 00:48 BNP [NT-proBNP (BNP-Adult 18+)] Stat Complete Blood Count AUTO DIFF Stat Comprehensive Metabolic Panel Stat Lactate (Lactic Acid) Stat PTT Partial Thromboplastin [place] Stat Prothrombin Time INR Stat Troponin & CK Cardiac Panel Stat Wound Culture and Gram Stain Stat 07/15/24 00:54 CT chest w con Stat Vital Signs Vital signs: Vital Signs - 8 hr 07/15/24 00:15 07/15/24 00:15 07/15/24 00:27 Temperature 97.7 F Pulse Rate 85 82 Respiratory Rate 20 Blood Pressure 169/77 H 169/77 H Pulse Oximetry 98 98 Oxygen Delivery Method Oximask Non -Rebreather Oxygen Flow Rate 4 15 07/15/24 00:30 07/15/24 00:57 07/15/24 00:57 Temperature Pulse Rate 73 76 Respiratory Rate 26 H 24 Blood Pressure 132/59 L Pulse Oximetry 92 92 Oxygen Delivery Method Oximask Oximask Oxygen Flow Rate 4 4 07/15/24 01:00 07/15/24 01:00 07/15/24 01:25 Temperature Pulse Rate 60 Respiratory Rate 24 Blood Pressure 126/59 L 135/65 Pulse Oximetry 96 Oxygen Delivery Method Oximask Oxygen Flow Rate 4 07/15/24 01:25 07/15/24 01:30 07/15/24 01:31 Temperature Pulse Rate 78 Respiratory Rate 24 Blood Pressure 138/63 Pulse Oximetry 89 L 95 Oxygen Delivery Method Oximask Oxygen Flow Rate 4 07/15/24 01:31 07/15/24 02:00 07/15/24 02:01 Temperature Pulse Rate 62 66 Respiratory Rate 24 26 H Blood Pressure 156/67 H Pulse Oximetry 95 93 Oxygen Delivery Method Oximask Oximask Oxygen Flow Rate 4 4 07/15/24 02:01 07/15/24 02:30 07/15/24 02:31 Temperature Pulse Rate 63 70 Respiratory Rate Blood Pressure 145/66 H Pulse Oximetry 94 91 Oxygen Delivery Method Oximask Oxygen Flow Rate 3 07/15/24 02:31 07/15/24 03:00 07/15/24 03:00 Temperature Pulse Rate 74 79 Respiratory Rate Blood Pressure 159/69 H Pulse Oximetry 92 85 L Oxygen Delivery Method Oxygen Flow Rate 07/15/24 03:30 07/15/24 03:31 07/15/24 03:31 Temperature Pulse Rate 72 69 Respiratory Rate Blood Pressure 126/60 Pulse Oximetry 88 L 90 L Oxygen Delivery Method Oxygen Flow Rate 07/15/24 04:00 07/15/24 04:00 07/15/24 04:30 Temperature Pulse Rate 78 71 Respiratory Rate Blood Pressure 132/63 Pulse Oximetry 87 L 91 Oxygen Delivery Method Oxygen Flow Rate 07/15/24 04:31 07/15/24 04:31 07/15/24 05:00 Temperature Pulse Rate 70 Respiratory Rate Blood Pressure 114/53 L 119/58 L Pulse Oximetry 88 L Oxygen Delivery Method Oxygen Flow Rate 07/15/24 05:00 07/15/24 05:30 07/15/24 05:31 Temperature Pulse Rate 66 71 Respiratory Rate Blood Pressure 157/68 H Pulse Oximetry 94 88 L Oxygen Delivery Method Oximask Oxygen Flow Rate 3 07/15/24 05:31 07/15/24 06:00 07/15/24 06:01 Temperature Pulse Rate 68 59 L Respiratory Rate Blood Pressure 160/63 H Pulse Oximetry 89 L 86 L Oxygen Delivery Method Oxygen Flow Rate 07/15/24 06:01 Temperature Pulse Rate 67 Respiratory Rate Blood Pressure Pulse Oximetry 87 L Oxygen Delivery Method Oxygen Flow Rate Medical Decision Making Lab Data 07/15/24 00:48 07/15/24 00:48 Labs: Lab Results 07/15/24 Range/Units 00:48 WBC 11.1 H (4.5-11.0) X10^3/uL RBC 2.99 L (4.5-5.9) X10^6/uL Hgb 8.9 L (13.5-17.5) g/dL Hct 27.5 L (41-53) % MCV 91.9 (80-100) fL MCH 29.7 (26-34) PG MCHC 32.3 (30-36) % RDW 17.1 H (11.6-14.8) % Plt Count 357 (150-400) X10^3/uL Neut % (Auto) 69.7 (50-75) % Lymph % (Auto) 19.2 L (25-40) % [place] % (Auto) 8.7 (3-14) % Eos % (Auto) 1.6 L (2-4) % Baso % (Auto) 0.8 (0-2) % Neut # (Auto) 7700 H (7725-8394) /uL Lymph # (Auto) 2100 (2859-8502) /uL [place] # (Auto) 1000 H (0-900) /uL Eos # (Auto) 200 (0-450) /uL Baso # (Auto) 100 (0-100) /uL PT 18.2 H (9.4-12.5) SECONDS INR 1.6 H (0.9-1.3) APTT 37 H (25.1-36.5) SECONDS Sodium 138 (137-145) mmol/L Potassium 4.2 (3.4-5.1) mmol/L Chloride 92 L (98-107) mmol/L Carbon Dioxide 38 H (22-32) mmol/L BUN 18 (9-20) mg/dL Creatinine 0.86 (0.66-1.25) mg/dL Estimated GFR > 60 (>60) mL/min BUN/Creatinine Ratio 20.9 (6-22) Glucose 95 (80-110) mg/dL Lactate 0.9 (0.7-2.1) mmol/L Calcium 9.4 (8.4-10.2) mg/dL Total Bilirubin 0.6 (0.2-1.3) mg/dL AST 34 (17-59) IU/L ALT 11 (<50) IU/L Alkaline Phosphatase 80 (38-126) U/L Total Creatine Kinase 46 L (55-170) U/L Troponin I 0.018 (0.01-0.034) ng/mL NT-Pro-B Natriuret Pep 1010 H (<450) pg/mL Total Protein 7.1 (6.3-8.2) g/dL Albumin 3.6 (3.5-5.0) g/dL Globulin 3.5 (1.7-4.1) g/dL Albumin/Globulin Ratio 1.0 (1.0-2.8) ECG Data Attestation: I personally reviewed and interpreted this ECG as follows: Prior ECG tracings: available for review Interpretation: Atrial sensed ventricularly paced rhythm rate of 70 VT 242 QRS is 160, QTC 486. Prior EKG with sinus rhythm first-degree AV block MDM Narrative Medical decision making narrative: Labs show white count of 11, hemoglobin 8.9 platelets of 357. INR is 1.6, CO2 is 38 chloride 92 otherwise appropriate electrolytes creatinine is 0.86 lactate 0.9 these are negative total CK is 46 troponins is 0.018, BNP is 1010. EKG shows atrial sensed ventricular paced rhythm. Chest x-ray shows new opacification of the entire left lung no shift appreciated waiting formal report. Former report shows left hemithorax opacification likely large effusion, small right effusion and findings suggesting interstitial edema. CT chest shows large bilateral pleural effusions and left lung atelectasis soft tissue filling defect in the left main bronchus maybe cause relative left hemithorax volvulus bronchoscopy recommended. Pulmonary artery hypertension indicated by pulmonary outflow tract enlargement 84-year-old male who seems alert and appropriate but does not appear to be having some increasing O2 requirements chest x-ray shows opacification of left long no shift CT chest obtained to see if this appears to be more fluid he has had what appears to be a large effusion on prior imaging. Patient may require admission for a thoracentesis he has a slight increase in his O2 requirements is 4-5L nasal cannula instead of his usual 3L NC per report. Spoke with patient at 2:32 a.m. if he would be willing to be transferred for bronchoscopy if offered. Patient states he might be amenable he would like to find out what his options are. Patient is currently on 3L NC Spoke with [place] hospitalist Dr. Echols at [place]. Reviewed findings from today pad patient's workups, CT findings, vitals including proximally 3-4 L O2 requirement. Transfer for potential bronch. Recheck at 0530 spoke with patient. He is agreeable to transfer. Discussed may get a potential bronchoscopy, will be decided after evaluation with hospitalist/pulm. Patient and also spoke together on phone. Discharge Plan Departure Patient Disposition: [facility] Clinical Impression: Large pleural effusion, Hypoxia Prescriptions: No Action ascorbic acid (vitamin C) 1,000 mg tablet 1 gram PO BID tolterodine 4 mg capsule,extended release 24hr 4 mg PO DAILY aspirin [Adult Aspirin Regimen] 81 mg tablet,delayed release (DR/EC) 81 mg PO DAILY amitriptyline 25 mg tablet 25 mg BEDTIME omega-3 fatty acids 500 mg Capsule 500 mg PO DAILY Daily Fiber (psyllium-aspart) 3.4 gram Powder In Packet 1 packet PO DAILY polyethylene glycol 3350 8.5 gram Powder In Packet 8.5 g PO 3XW Eliquis 5 mg Tablet 5 mg PO BID multivitamin Tablet 1 tab PO DAILY cholecalciferol (vitamin D3) [Vitamin D3] 50 mcg (2,000 unit) Tablet 50 mcg PO DAILY Atrovent HFA 17 mcg/actuation HFA aerosol inhaler 2 puff INHALATION 4XD Patient Comments: [NO ORIGINAL SIG] budesonide-formoterol 160-4.5 mcg/actuation HFA aerosol inhaler 2 puff INHALATION BID Patient Comments: [NO ORIGINAL SIG] acetaminophen 325 mg Tablet 650 mg PO Q6H PRN (Reason: Fever/Mild Pain (1-3)) Qty: 3 0RF miscellaneous medical supply Misc 1 ea miscellaneous .nightly Qty: 1 0RF Rx Instructions: BIPAP with settings of IPAP 20, EPAP 8. Backup Rate 15. 1L O2 bleed in. furosemide [Lasix] 40 mg tablet 40 mg PO DAILY Qty: 30 0RF amlodipine 2.5 mg tablet 2.5 mg PO DAILY allopurinol 100 mg tablet 100 mg PO DAILY losartan 25 mg tablet 12.5 mg PO BID Referrals: Kalyn Morgan PA-C [Primary Care Provider] -
--- NOTE | 2024-07-15 00:35 | EKG_ITS ---
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
--- NOTE | 2024-07-15 00:54 | DI.CT.S_ITS ---
PROCEDURE: CT CHEST W CON INDICATIONS: Left lung opacification TECHNIQUE: After the administration of intravenous contrast, 5 mm thick sections acquired from the pulmonary apices to the posterior costophrenic angles. 1 mm axial lung, 5 mm thick coronal and sagittal reformats and 7 mm axial MIP were acquired. For radiation dose reduction, the following was used: automated exposure control, adjustment of mA and/or kV according to patient size. COMPARISON: [facility], CT, CT CHEST ABD PEL W CON, 05/09/2024, 11:24. FINDINGS: Image quality: Diagnostic. Lungs and Pleura: Volume loss and left pleural effusion surrounding the entire left lung. There is a soft tissue filling defect in the left main bronchus just below the level of the john. Moderate to large, dependently layering right pleural effusion and associated right lower lobe atelectasis. Aerated lung demonstrates mild interstitial thickening. Trachea is patent. Lower Neck: No enlarged lymph nodes. Thyroid: Normal CT appearance. Axillae: No enlarged lymph nodes. Chest Wall: Left pacemaker power pack. Bones: No suspicious bone lesion. Mild degenerative changes in the spine. Thoracic Vessels: Pulmonary artery outflow tract is enlarged at 4.1 cm. Aorta is normal caliber. Mild arch calcification. Mediastinum and [place]: No enlarged lymph nodes. Heart: Mild cardiomegaly. Pacemaker leads in place. No significant effusion. Esophagus: No wall thickening. No hiatal hernia. . Upper Abdomen: Lamellated cholelithiasis. Small left lobe hepatic cyst. Visible portions of upper abdominal organs are otherwise normal. IMPRESSION: Large bilateral pleural effusions and left lung atelectasis. Soft tissue filling defect in the left main bronchus may cause relative left hemithorax volume loss. Bronchoscopy is recommended. Pulmonary artery hypertension indicated by pulmonary artery outflow tract enlargement. Dictated by: Nasrin Cerda M.D. on 07/15/2024 at 2:05 Approved by: Nasrin Cerda M.D. on 07/15/2024 at 2:14
[2024-07-15 01:07] LABS: Add Manual Diff / Slide Review NO; Basophils Absolute Auto 100 /uL (0-100); Basophils Percent Auto 0.8 % (0-2); Eosinophils Absolute Auto 200 /uL (0-450); Eosinophils Percent Auto 1.6 % (2-4); Hematocrit 27.5 % (41-53); Hemoglobin 8.9 g/dL (13.5-17.5); Lymphocytes Absolute Auto 2100 /uL (1100-4500); Lymphocytes Percent Auto 19.2 % (25-40); Mean Corpuscular HGB Conc 32.3 % (30-36); Mean Corpuscular Hemoglobin 29.7 PG (26-34); Mean Corpuscular Volume 91.9 fL (80-100); Monocytes Absolute Auto 1000 /uL (0-900); Monocytes Percent Auto 8.7 % (3-14); Neutrophils Absolute Auto 7700 /uL (1500-7000); Neutrophils Percent Auto 69.7 % (50-75); Platelet Count 357 X10^3/uL (150-400); Red Blood Cell Count 2.99 X10^6/uL (4.5-5.9); Red Cell Distribution Width 17.1 % (11.6-14.8); White Blood Cell Count 11.1 X10^3/uL (4.5-11.0)
--- NOTE | 2024-07-15 01:10 | PC.NURSE ---
Pt taken to imaging via ED stretcher with biomedical repair technician, ED RN, and helicopter technician x 2
[2024-07-15 01:12] LABS: INR 1.6 (0.9-1.3); Prothrombin Time 18.2 SECONDS (9.4-12.5)
[2024-07-15 01:15] LABS: PTT Partial Thromboplastin Tim 37 SECONDS (25.1-36.5)
[2024-07-15 01:16] LABS: Creatine Kinase 46 U/L (55-170); Lactate (Lactic Acid) 0.9 mmol/L (0.7-2.1)
[2024-07-15 01:17] LABS: Alanine Aminotransferase 11 IU/L (<50); Albumin 3.6 g/dL (3.5-5.0); Alkaline Phosphatase 80 U/L (38-126); Aspartate Aminotransferase 34 IU/L (17-59); BUN Creatinine Ratio 20.9 (6-22); Bilirubin Total 0.6 mg/dL (0.2-1.3); Blood Urea Nitrogen 18 mg/dL (9-20); Calcium 9.4 mg/dL (8.4-10.2); Chloride 92 mmol/L (98-107); Estimated Glomerular Filt Rate > 60 mL/min (>60); Globulin 3.5 g/dL (1.7-4.1); Glucose 95 mg/dL (80-110); Potassium 4.2 mmol/L (3.4-5.1); Sodium 138 mmol/L (137-145); Total Protein 7.1 g/dL (6.3-8.2)
[2024-07-15 01:23] LABS: Carbon Dioxide 38 mmol/L (22-32)
[2024-07-15 01:28] LABS: NT-proBNP (BNP-Adult 18+) 1010 pg/mL (<450); Troponin I 0.018 ng/mL (0.01-0.034)
[2024-07-15 01:30] LABS: HEMOLYSIS 65 (0-50)
== END 2024-07-15 06:40 | disposition short-term general hospital (02) ==
PROVIDERS: Emergency Provider Emergency Medicine; Family Provider Family Medicine; PCP Physician Assistant
DX: J90 Pleural effusion, not elsewhere classified (principal); R09.02 Hypoxemia; J44.9 Chronic obstructive pulmonary disease, unspecified; I50.9 Heart failure, unspecified; I48.91 Unspecified atrial fibrillation; Z79.01 Long term (current) use of anticoagulants; Z85.46 Personal history of malignant neoplasm of prostate
CPT/HCPCS: 36415; 71045; 71260; 80053; 82550; 83605; 83880; 84484; 85025; 85610; 85730; 87040; 87070; 87075; 87077; 87186; 87205; 93005; 99284; 99285; Q9967

== ENCOUNTER 2024-08-20 20:38 | Inpatient (IN) | payer OTHER, SELFPAY ==
[2024-06-30 09:13] VITALS: PULSE 60; RESP 24; O2SAT 97; BMI 37.0
[2024-08-20] VITALS (16 sets, daily range): BP systolic 98–157; BP diastolic 56–67; PULSE 79–98; RESP 20–53; TEMP 37.7; O2SAT 38–98; BMI 37.1
--- NOTE | 2024-08-20 20:41 | DI.RAD.S_ITS ---
PROCEDURE: XR CHEST 1V INDICATIONS: Chest Pain TECHNIQUE: One view of the chest was acquired. COMPARISON: [facility], CT, CT CHEST W CON, 07/15/2024, 1:07. [facility], CR, XR CHEST 1V, 07/15/2024, 0:29. [facility], CR, XR CHEST 1V, 06/02/2024, 7:24. FINDINGS: Surgical changes and devices: Cardiac pacemaker is seen with pulse generator in the left chest. Lungs and pleura: Left upper lobe and left lower lobe consolidative opacities are suspicious for pneumonia. Suspected small left pleural effusion. Possible trace right pleural effusion. No pneumothorax. Mediastinum: Cardiac silhouette is mildly enlarged. Bones and chest wall: No suspicious bony lesions. Overlying soft tissues appear unremarkable. IMPRESSION: Left upper lobe and lower lobe consolidations are suspicious for pneumonia. Suspected small left and trace right pleural effusions. Approved by: Gentry Dietz M.D. on 08/20/2024 at 21:25
--- NOTE | 2024-08-20 20:45 | EKG_ITS ---
[facility] [address] [place] [address] Test Date: 2024-08-20 Pat Name: Filemon Moore Department: 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
--- NOTE | 2024-08-20 20:47 | ED.GENADULT ---
HPI - General Adult General Chief complaint: Shortness of Breath/Dyspnea Stated complaint: sob Time Seen by Provider: 08/20/24 20:45 History of Present Illness HPI narrative: 84-year-old male with known POLST DNR order, [facility] resident, history of COPD, chronic oxygen 1-2 L, uses CPAP with sleep, noted to have increasing shortness of breath over the last few days, particularly short of breath this evening, EMS called, 60% room air sat, placed on non-rebreather oxygen for transport, 85% sats, in respiratory distress. Denies chest pain. Denies lower extremity edema. Related Data Home Medications Medication Instructions Recorded Confirmed ascorbic acid (vitamin C) 1,000 mg 1 gram PO BID 01/10/18 08/20/24 tablet tolterodine 4 mg capsule,extended 4 mg PO DAILY 01/10/18 08/20/24 release 24 hr allopurinol 100 mg tablet 100 mg PO DAILY 02/08/24 08/20/24 amitriptyline 25 mg tablet 25 mg BEDTIME 05/09/24 08/20/24 apixaban 5 mg tablet (Eliquis) 5 mg PO BID 05/09/24 08/20/24 budesonide-formoterol HFA 160 2 puff inhalation BID 05/09/24 08/20/24 mcg-4.5 mcg/actuation aerosol inhaler cholecalciferol (vitamin D3) 50 50 mcg PO DAILY 05/09/24 08/20/24 mcg (2,000 unit) tablet (Vitamin D3) ipratropium bromide 17 2 puff inhalation 4XD 05/09/24 08/20/24 mcg/actuation HFA aerosol inhaler (Atrovent HFA) multivitamin 1 tab PO DAILY 05/09/24 08/20/24 polyethylene glycol 3350 8.5 gram 8.5 g PO 3XW 05/09/24 08/20/24 oral powder packet psyllium husk 3.4 gram oral powder 1 packet PO DAILY 05/09/24 08/20/24 packet (Daily Fiber (psyllium-aspartame)) Previous Rx's Medication Instructions Recorded acetaminophen 325 mg tablet 650 mg (2 x 325 mg) PO Q6H PRN 05/16/24 Fever/Mild Pain (1-3) #3 tabs miscellaneous medical supply 1 ea miscellaneous .nightly #1 ea 02/03/25 furosemide 40 mg tablet (Lasix) 40 mg PO DAILY #30 tabs 06/08/24 Allergies Allergy/AdvReac Type Severity Reaction Status Date / Time Hoemblb-EQA-CyB Reductase Allergy Mild Elevated Verified 08/20/24 22:19 Inhibitor liver [Vlnimpu-Loh-Lle Reductase enzymes Inhibitor] Patient History Medical History Mobitz II Hypertension Surgical History History of permanent cardiac pacemaker placement H/O abdominal surgery Social History household members: spouse Smoking Status: Former smoker alcohol intake: never Exam Narrative Exam Narrative: GENERAL: Alert, looking around, in moderate-severe respiratory distress. HEAD: Atraumatic. Normocephalic. EYES: Pupils equal round and reactive. Extraocular motions intact. No scleral icterus. No injection or drainage. ENT: Nose without bleeding, purulent drainage. Throat without erythema, tonsillar hypertrophy or exudate. Airway patent. NECK: Trachea midline. Non tender CARDIOVASCULAR: Regular rate and rhythm without murmurs, gallops, or rubs. RESPIRATORY: Respiratory distress with intercostal retractions, suprasternal retractions, some abdominal breathing. Crackles bilateral. I could not hear wheezes. Speaks in single words. GASTROINTESTINAL: Abdomen soft, non-tender, nondistended. Obese, well-healed scars. EXTREMITIES: No edema or joint tenderness. No edema unilateral bilateral lower extremities. BACK: Nontender without deformity or crepitance. No flank tenderness. NEURO: AOx3. Motor functions grossly nonfocal. Anxious looking around, alert, able to answer questions yes and no. SKIN: No rash or erythema of visible areas Initial Vital Signs Initial Vital Signs: Vital Signs Pulse Rate 94 H 08/20/24 20:42 Respiratory Rate 53 H 08/20/24 20:42 Pulse Oximetry 38 L 08/20/24 20:42 Course Orders Ordered: ED Orders 08/20/24 20:41 XR chest 1V Stat EKG-12 Lead Stat RT Consult Eval and Treat NOW 08/20/24 20:42 Complete Blood Count AUTO DIFF Stat Comprehensive Metabolic Panel Stat Covid-19 + FLU A/B + RSV - PCR Stat Lactate (Lactic Acid) Stat Lipase Stat Magnesium Stat NT-proBNP (BNP-Adult 18+) Stat PTT Partial Thromboplastin [place] Stat Prothrombin Time INR Stat Troponin & CK Cardiac Panel Stat 08/20/24 21:00 Blood Culture Stat 08/20/24 21:04 Venous Blood Gas Routine VBG [Venous Blood Gas] STAT 08/20/24 21:54 CT chest wo con Stat Acetaminophen (Acetaminophen 325 Mg Tablet) 650 mg PO Q6H PRN PRN Reason: Fever/Mild Pain (1-3) Albuterol (Albuterol 2.5 Mg/3 Ml Neb (Adult)) 2.5 mg INH [id number] LU Albuterol (Albuterol 2.5 Mg/3 Ml Neb (Adult)) 2.5 mg INH RTQ2HR PRN PRN Reason: Shortness Of Breath Last Admin: 08/21/24 03:57 Dose: 2.5 mg Documented By: MR Apixaban (Apixaban 5 Mg Tablet) 5 mg PO BID LU Budesonide (Budesonide 0.5 Mg/2 Ml Neb) 0.5 mg INH RTBID LU Piperacillin Sod/Tazobactam (Sod 4.5 gm/ Sodium Chloride) 100 mls @ 25 mls/hr IV Q8H LU Last Admin: 08/21/24 02:02 Dose: 25 mls/hr Documented By: CHRISTA Vancomycin HCl 1,000 mg/ (Sodium Chloride) 250 mls @ 250 mls/hr IV Q24H LU Morphine Sulfate (Morphine 2 Mg/Ml Inj) 1 mg IV Q2HR PRN PRN Reason: dypnea Last Admin: 08/21/24 03:03 Dose: 1 mg Documented By: CHRISTA Naloxone HCl (Naloxone 0.4 Mg/Ml Vial) 0.2 mg IV Q2MIN PRN PRN Reason: Opiate Reversal Oxybutynin Chloride (Oxybutynin 5 Mg Er Tab) 10 mg PO DAILY [facility] Pantoprazole Sodium (Pantoprazole 40 Mg Vial) 40 mg IV DAILY LU Vancomycin HCl (Vancomycin Per Pharmacy) 1 request MISC NOW PRN PRN Reason: pneumonia Discontinued Medications Albuterol/Ipratropium (Albuterol/Ipratropium 3 Ml Ampul) 3 ml INH NOW ONE Stop: 08/20/24 20:46 Last Admin: 08/20/24 21:00 Dose: 3 ml Documented By: JOSE Piperacillin Sod/Tazobactam (Sod 4.5 gm/ Sodium Chloride) 100 mls @ 200 mls/hr IV NOW ONE Stop: 08/20/24 21:02 Last Infusion: 08/20/24 22:03 Dose: Infused Documented By: Admin: 08/20/24 21:32 Dose: 200 mls/hr Documented By: JOSE Vancomycin HCl 2,000 mg/ (Sodium Chloride) 500 mls @ 250 mls/hr IV NOW ONE Stop: 08/20/24 21:02 Last Admin: 08/20/24 21:44 Dose: 250 mls/hr Documented By: JOSE Doxycycline Hyclate 100 mg/ (Sodium Chloride) 100 mls @ 100 mls/hr IV NOW ONE Stop: 08/20/24 21:02 Last Infusion: 08/20/24 23:30 Dose: Infused Documented By: Admin: 08/20/24 22:01 Dose: 100 mls/hr Documented By: JOSE Magnesium Sulfate (Magnesium Sulfate) 2 gm in 50 mls @ 150 mls/hr IV NOW ONE Stop: 08/20/24 21:38 Last Infusion: 08/20/24 21:49 Dose: Infused Documented By: JOSE Co-signed By: NAS Admin: 08/20/24 21:24 Dose: 150 mls/hr Documented By: JOSE Co-signed By: NAS Sodium Chloride (Normal Saline 0.9%) 1,000 mls @ 1,000 mls/hr IV BOLUS ONE Stop: 08/21/24 00:19 Last Admin: 08/20/24 23:20 Dose: 1,000 mls/hr Documented By: JOSE Methylprednisolone (Methylprednisolone 125 Mg/2 Ml Vial) 125 mg IV NOW ONE Stop: 08/20/24 20:46 Last Admin: 08/20/24 20:50 Dose: 125 mg Documented By: JOSE Non-Formulary Medication (Budesonide-Formoterol) 2 puff INHALATION BID LU Vital Signs Vital signs: Vital Signs - 8 hr 08/20/24 21:00 08/20/24 21:00 08/20/24 21:01 Pulse Rate 87 90 Respiratory Rate 41 H 48 H Blood Pressure Pulse Oximetry 92 92 Oxygen Delivery Method Fraction of Inspired Oxygen 100 08/20/24 21:01 08/20/24 21:30 08/20/24 21:31 Pulse Rate 98 H 97 H Respiratory Rate 46 H 47 H Blood Pressure 147/64 H Pulse Oximetry 93 94 Oxygen Delivery Method Fraction of Inspired Oxygen 08/20/24 21:31 08/20/24 22:00 08/20/24 22:01 Pulse Rate 92 H 89 Respiratory Rate 51 H 49 H Blood Pressure 157/67 H Pulse Oximetry 98 98 Oxygen Delivery Method Fraction of Inspired Oxygen 08/20/24 22:01 08/20/24 22:40 08/20/24 22:42 Pulse Rate 89 84 Respiratory Rate 48 H Blood Pressure 117/56 L Pulse Oximetry 97 98 Oxygen Delivery Method BiPAP Fraction of Inspired Oxygen 08/20/24 22:42 08/20/24 23:00 08/20/24 23:01 Pulse Rate 80 79 Respiratory Rate 48 H 49 H Blood Pressure 123/60 Pulse Oximetry 88 L 88 L Oxygen Delivery Method BiPAP Fraction of Inspired Oxygen 08/20/24 23:01 08/20/24 23:30 08/20/24 23:30 Pulse Rate 80 Respiratory Rate 45 H Blood Pressure 99/57 L 98/56 L Pulse Oximetry 94 Oxygen Delivery Method Fraction of Inspired Oxygen 08/20/24 23:40 08/20/24 23:40 08/20/24 23:50 Pulse Rate 81 Respiratory Rate 51 H Blood Pressure 106/58 L 124/59 L Pulse Oximetry 94 Oxygen Delivery Method Fraction of Inspired Oxygen 08/20/24 23:50 Pulse Rate 80 Respiratory Rate 45 H Blood Pressure Pulse Oximetry 92 Oxygen Delivery Method Fraction of Inspired Oxygen Medical Decision Making Lab Data Lab results narrative: White blood cell count 40418, hemoglobin 9.6, platelets 486,000. Glucose 163. BUN 39 with creatinine 1.51. Serum CO2 38 elevated. Serum chloride 83 decreased. Sodium 129 decreased. Potassium 3.6 normal range. Magnesium 1.5 low. Liver functions normal. Lipase normal. Troponin 0.023 measurable but quite low. 08/21/24 04:20 08/21/24 04:20 Labs: Lab Results 08/20/24 08/20/24 08/20/24 Range/Units 20:42 21:04 22:50 WBC 28.1 H (4.5-11.0) X10^3/uL RBC 3.30 L (4.5-5.9) X10^6/uL Hgb 9.6 L (13.5-17.5) g/dL Hct 29.8 L (41-53) % MCV 90.4 (80-100) fL MCH 29.2 (26-34) PG MCHC 32.3 (30-36) % RDW 17.0 H (11.6-14.8) % Plt Count 486 H (150-400) X10^3/uL Neut % (Auto) Not Reportable Lymph % (Auto) Not Reportable Menard % (Auto) Not Reportable Eos % (Auto) Not Reportable Baso % (Auto) Not Reportable Lymph # (Auto) Not Reportable Menard # (Auto) Not Reportable Baso # (Auto) Not Reportable Total Counted 100 Seg Neutrophils % 80.0 H (38-70) % Band Neutrophils % 7.0 (3-7) % Lymphocytes % (Manual) 11.0 L (25-45) % Monocytes % (Manual) 2.0 (2-11) % Neutrophils # (Manual) 74280 H (5611-6855) /uL RBC Morphology See below Anisocytosis 1+ H PT 26.2 H (9.4-12.5) SECONDS INR 2.4 H (0.9-1.3) APTT 37 H (25.1-36.5) SECONDS VBG pH 7.24 L (7.33-7.43) VBG pO2 56 H (35-45) mmHg VBG HCO3 39 H (24-28) mmol/L VBG Total CO2 39 H (24-29) mmol/L VBG O2 Saturation 81 H (70-75) % VBG Base Excess 7.3 H (0-4) mmol/L FiO2 % 100 % % Sodium 129 L (137-145) mmol/L Potassium 3.6 (3.4-5.1) mmol/L Chloride 83 L (98-107) mmol/L Carbon Dioxide 38 H (22-32) mmol/L BUN 39 H (9-20) mg/dL Creatinine 1.51 H (0.66-1.25) mg/dL Estimated GFR 45 L (>60) mL/min BUN/Creatinine Ratio 25.8 H (6-22) Glucose 163 H (70-99) mg/dL Lactate 2.7 H 2.1 (0.7-2.1) mmol/L Calcium 8.9 (8.4-10.2) mg/dL Magnesium 1.5 L (1.6-2.3) mg/dL Total Bilirubin 0.5 (0.2-1.3) mg/dL AST 29 (17-59) IU/L ALT 15 (<50) IU/L Alkaline Phosphatase 119 (38-126) U/L Total Creatine Kinase < 20 L (55-170) U/L Troponin I 0.023 (0.01-0.034) ng/mL NT-Pro-B Natriuret Pep 7450 H (<450) pg/mL Total Protein 7.0 (6.3-8.2) g/dL Albumin 3.5 (3.5-5.0) g/dL Globulin 3.5 (1.7-4.1) g/dL Albumin/Globulin Ratio 1.0 (1.0-2.8) Lipase 42 (23-300) U/L SARS-CoV-2 (PCR) Negative (Negative) Influenza A (RT-PCR) Flu a negative (NEGATIVE) Influenza B (RT-PCR) Flu b negative (NEGATIVE) RSV (PCR) Negative (Negative) Imaging Data Chest x-ray: Radiologist's Impression: [place] [address] XRay Report Signed Patient: Filemon Moore MR#: [id number] : 1940 Acct:[id number] Age/Sex: 84 / M Date of Service: 08/20/24 Loc: ED Accession Number: [id number] Procedure: XR chest 1V Ordering Provider: Owen Díaz MD PROCEDURE: XR CHEST 1V INDICATIONS: Chest Pain TECHNIQUE: One view of the chest was acquired. COMPARISON: [facility], CT, CT CHEST W CON, 07/15/2024, 1:07. [facility], CR, XR CHEST 1V, 07/15/2024, 0:29. [facility], CR, XR CHEST 1V, 06/02/2024, 7:24. FINDINGS: Surgical changes and devices: Cardiac pacemaker is seen with pulse generator in the left chest. Lungs and pleura: Left upper lobe and left lower lobe consolidative opacities are suspicious for pneumonia. Suspected small left pleural effusion. Possible trace right pleural effusion. No pneumothorax. Mediastinum: Cardiac silhouette is mildly enlarged. Bones and chest wall: No suspicious bony lesions. Overlying soft tissues appear unremarkable. IMPRESSION: Left upper lobe and lower lobe consolidations are suspicious for pneumonia. Suspected small left and trace right pleural effusions. Approved by: Gentry Dietz M.D. on 08/20/2024 at 21:25 CT chest noncontrast: Radiologist's Impression: [address] [address] [address] Scan Report Signed Patient: Filemon Moore MR#: [id number] : 1940 Acct:[id number] Age/Sex: 84 / M Date of Service: 08/20/24 Loc: ED Accession Number: [id number] Procedure: CT chest wo con Ordering Provider: Owen Díaz MD PROCEDURE: CT CHEST WO CON INDICATIONS: hospitalist CT, SOB, CHF exacerbation, L>R lung consolidations TECHNIQUE: Noncontrast 5 mm thick sections acquired from the pulmonary apices to the posterior costophrenic angles. 1 mm lung window, 5 mm thick coronal and sagittal and 7 mm axial MIP reformats were then acquired. For radiation dose reduction, the following was used: automated exposure control, adjustment of mA and/or kV according to patient size. COMPARISON: [facility], CT, CT CHEST W CON, 07/15/2024, 1:07. [facility], CR, XR CHEST 1V, 08/20/2024, 20:39. FINDINGS: Image quality: Diagnostic. Lower Neck: No enlarged lymph nodes. Thyroid: No thyroid nodules which require sonographic follow up, per consensus guidelines. Axillae: No enlarged lymph nodes. Chest Wall: Cardiac pacemaker is seen with pulse generator in the left chest. Bones: Severe glenohumeral osteoarthrosis bilaterally, worse on the left. Lungs and Pleura: Mild respiratory motion. Diffuse consolidative opacities throughout the left lung. Small to moderate bilateral pleural effusions. No pneumothorax. Mild right basilar atelectasis or consolidation. No pleural thickening is seen to suggest empyema. Heart: Heart size is mildly enlarged. No pericardial effusion. Thoracic Vessels: Main pulmonary artery is again noted to be enlarged, which can be seen in setting of pulmonary arterial hypertension. No thoracic aortic aneurysm. Mediastinum and Krystina: No enlarged lymph nodes. Esophagus: No wall thickening. No hiatal hernia. Upper Abdomen: Visualized upper abdomen solid organs and bowel loops appear normal. IMPRESSION: 1. Diffuse consolidations throughout the left lung are suspicious for pneumonia. 2. Mild right basilar atelectasis or small consolidation. 3. Small to moderate bilateral pleural effusions. Approved by: Gentry Dietz M.D. on 08/20/2024 at 23:12 ECG Data Interpretation: Indeterminate rhythm, history of atrial fibrillation known in the past, ventricular response rate 93, QRS 94, QTC 465. No obvious ST segment elevation or depression changes. Some movement artifact noted. MDM Narrative Medical decision making narrative: 84-year-old male with DNR status, [place] [facility] resident, COPD, home oxygen, home CPAP for sleep, obesity, has increasing shortness of breath, crackles on right exam, no significant lower extremity edema, hypoxia in the field, placed on non-rebreather, amenable to BiPAP which has been ordered. VBG and other labs pending. COVID/flu/RSV swab pending. Chest x-ray and EKG pending. We will try to identify and treat reversible causes. RT at bedside to set up BiPAP. Chest x-ray with left multi lobar infiltrates, some central clearing, no air-fluid level, right basilar infiltrate as well. ED wet read. Radiology report pending. Blood cultures, we will treat for healthcare facility acquired pneumonia. IV Zosyn, IV vancomycin, IV doxycycline. COVID influenza RSV negative. BNP 7000 elevated. Troponin negative. Venous blood gas: PH 7.24, PaO2 56, Pco2 39. 2200, case discussed with hospitalist Dr. Elena, who seemed to be under the impression the patient had CT Chest now showing obstructive endobronchial lesion/debris on left side, however this was described on CT scan 07/15/2024, no CT yet has been done tonight. He requests CT chest imaging tonight, ordered. 2320, CT chest noncontrast study, no mention of any endobronchial lesions; pulmonary infiltrates are noted, bilateral small pleural effusions. See radiology report. We will query hospitalist for update disposition plan. Loraine now at bedside. Discussion of his situation, still quite tachypneic, on BiPAP, soft blood pressures, he could worsen and deteriorate further. They desire to stay here, aware that he may not respond to treatment measures, it might eventually need comfort care measures. They would like to continue care here for now, did not want to pursue transfers at this time. 2350, case discussed with hospitalist Dr. Elena who accepts patient for admission to inpatient Critical Care Time Critical Care Time Critical Care Time: Yes Total Critical Care Time: 35 Attestation: The high probability of a clinically significant, sudden or life threatening deterioration of the [cardiopulmonary,] system(s) required my full and direct attention, intervention and personal management. The aggregate critical care time was [35] minutes. This time is in addition to time spent performing reported procedures but includes the following: [x] Data Review and interpretation [x] Patient assessment and monitoring of vital signs [x] Documentation [x] Medication orders and management Discharge Plan Departure Patient Disposition: Admitted As Inpatient Clinical Impression: Acute respiratory distress, Pneumonia, DNR (do not resuscitate), Acute and chronic respiratory failure with hypoxia, Hypomagnesemia Admit Date/Time: 08/20/24 23:51 Admit Provider: Ahmet Vines
[2024-08-20] MEDS: methylPREDNISolone 125 MG/2 ML VIAL IV (20:50)
[2024-08-20 20:54] LABS: Hematocrit 29.8 % (41-53); Hemoglobin 9.6 g/dL (13.5-17.5); Mean Corpuscular HGB Conc 32.3 % (30-36); Mean Corpuscular Hemoglobin 29.2 PG (26-34); Mean Corpuscular Volume 90.4 fL (80-100); Platelet Count 486 X10^3/uL (150-400); White Blood Cell Count 28.1 X10^3/uL (4.5-11.0)
[2024-08-20 20:55] LABS: Add Manual Diff / Slide Review YES
[2024-08-20 20:59] LABS: INR 2.4 (0.9-1.3); Prothrombin Time 26.2 SECONDS (9.4-12.5)
[2024-08-20] MEDS: ALBUTEROL/IPRATROPIUM 3 ML AMPUL INH (21:00)
[2024-08-20 21:05] LABS: Alanine Aminotransferase 15 IU/L (<50); Albumin 3.5 g/dL (3.5-5.0); Alkaline Phosphatase 119 U/L (38-126); Aspartate Aminotransferase 29 IU/L (17-59); BUN Creatinine Ratio 25.8 (6-22); Bilirubin Total 0.5 mg/dL (0.2-1.3); Blood Urea Nitrogen 39 mg/dL (9-20); Calcium 8.9 mg/dL (8.4-10.2); Carbon Dioxide 38 mmol/L (22-32); Chloride 83 mmol/L (98-107); Creatine Kinase < 20 U/L (55-170); Estimated Glomerular Filt Rate 45 mL/min (>60); Globulin 3.5 g/dL (1.7-4.1); Glucose 163 mg/dL (70-99); HEMOLYSIS < 15 (0-50); Lactate (Lactic Acid) 2.7 mmol/L (0.7-2.1); Lipase 42 U/L (23-300); Magnesium 1.5 mg/dL (1.6-2.3); Potassium 3.6 mmol/L (3.4-5.1); Sodium 129 mmol/L (137-145)
[2024-08-20 21:08] LABS: Base Excess VBG 7.3 mmol/L (0-4); HCO3 VBG 39 mmol/L (24-28); Oxygen Saturation VBG 81 % (70-75); PO2 VBG 56 mmHg (35-45); Total CO2 VBG 39 mmol/L (24-29); pH VBG 7.24 (7.33-7.43)
[2024-08-20 21:11] LABS: PTT Partial Thromboplastin Tim 37 SECONDS (25.1-36.5)
[2024-08-20 21:16] LABS: NT-proBNP (BNP-Adult 18+) 7450 pg/mL (<450); Troponin I 0.023 ng/mL (0.01-0.034)
[2024-08-20 21:20] LABS: Anisocytosis 1+; Neutrophils Absolute Manual 24447 /uL (3000-5900); Total Cells Counted 100
[2024-08-20] MEDS: MAGNESIUM SULFATE 2 GM/50 ML PIGGYBACK IV (21:24)
[2024-08-20] MEDS: PIPERACILLIN/TAZO 4.5 GM in SODIUM CHLORIDE 0.9% 100 ML IV (21:32)
[2024-08-20] MEDS: VANCOMYCIN 2,000 MG in SODIUM CHLORIDE 0.9% 500 ML 250 MG IV (21:44)
[2024-08-20 21:48] LABS: Influenza A - CEPHEID Flu A NEGATIVE (NEGATIVE); Influenza B - CEPHEID Flu B NEGATIVE (NEGATIVE); Respiratory Syncytial Virus Negative (Negative)
--- NOTE | 2024-08-20 21:54 | DI.CT.S_ITS ---
PROCEDURE: CT CHEST WO CON INDICATIONS: hospitalist CT, SOB, CHF exacerbation, L>R lung consolidations TECHNIQUE: Noncontrast 5 mm thick sections acquired from the pulmonary apices to the posterior costophrenic angles. 1 mm lung window, 5 mm thick coronal and sagittal and 7 mm axial MIP reformats were then acquired. For radiation dose reduction, the following was used: automated exposure control, adjustment of mA and/or kV according to patient size. COMPARISON: [facility], CT, CT CHEST W CON, 07/15/2024, 1:07. [facility], CR, XR CHEST 1V, 08/20/2024, 20:39. FINDINGS: Image quality: Diagnostic. Lower Neck: No enlarged lymph nodes. Thyroid: No thyroid nodules which require sonographic follow up, per consensus guidelines. Axillae: No enlarged lymph nodes. Chest Wall: Cardiac pacemaker is seen with pulse generator in the left chest. Bones: Severe glenohumeral osteoarthrosis bilaterally, worse on the left. Lungs and Pleura: Mild respiratory motion. Diffuse consolidative opacities throughout the left lung. Small to moderate bilateral pleural effusions. No pneumothorax. Mild right basilar atelectasis or consolidation. No pleural thickening is seen to suggest empyema. Heart: Heart size is mildly enlarged. No pericardial effusion. Thoracic Vessels: Main pulmonary artery is again noted to be enlarged, which can be seen in setting of pulmonary arterial hypertension. No thoracic aortic aneurysm. Mediastinum and Krystina: No enlarged lymph nodes. Esophagus: No wall thickening. No hiatal hernia. Upper Abdomen: Visualized upper abdomen solid organs and bowel loops appear normal. IMPRESSION: 1. Diffuse consolidations throughout the left lung are suspicious for pneumonia. 2. Mild right basilar atelectasis or small consolidation. 3. Small to moderate bilateral pleural effusions. Approved by: Gentry Dietz M.D. on 08/20/2024 at 23:12
[2024-08-20 22:01] LABS: COVID-19 CEPHEID 4-PLEX PCR Negative (Negative)
[2024-08-20] MEDS: DOXYCYCLINE 100 MG in SODIUM CHLORIDE 0.9% 100 ML IV (22:01)
[2024-08-20 22:23] LABS: Reflexed Lactate in 2 Hours Y
--- NOTE | 2024-08-20 23:05 | PC.NURSE ---
Pt's BP is trending down. Currently 99/57 on monitor. Md is bedside and aware. New order for 1L NS bolus. WCTM.
[2024-08-20 23:08] LABS: Lactate 2HR (Lactic Acid Rflx) 2.1 mmol/L (0.7-2.1)
[2024-08-20] MEDS: SODIUM CHLORIDE 0.9% 1,000 ML 1000 ML IV (23:20)
[2024-08-21] VITALS (70 sets, daily range): BP systolic 79–142; BP diastolic 44–72; PULSE 60–90; RESP 20–49; TEMP 31.1–37.1; O2SAT 84–99; BMI 34.4
--- NOTE | 2024-08-21 00:09 | P.HP_ITS ---
History of Present Illness History of Present Illness Date Patient Seen: 08/21/24 Time Patient Seen: 02:00 Chief complaint: sob Narrative: 84 y/o resident of long-term care facility with PMH of oxygen-dependent COPD, on 1-2 L of oxygen, nasal BiPAP, CHF, A-fib, who was recently hospitalized with hypoxic respiratory failure, presented with progressive dyspnea that started few days ago. He was severely hypoxic in the facility and in the ED and was immidiately started on BiPAP. Images revealed b/l pleural effusions and Lt lung infiltrates. Admitted with PNA, hypoxemic respiratory failure for IV abx, oxygen, non- invasive mechanical ventilation. confirmed DNR, DNI status. [facility] Medical History (Updated 08/21/24 @ 07:44 by Ahmet Elena MD) COPD (chronic obstructive pulmonary disease) Mobitz II Hypertension Surgical History History of permanent cardiac pacemaker placement H/O abdominal surgery Social History household members: spouse Smoking Status: Former smoker alcohol intake: never Meds Home Medications and Allergies Home Medications Medication Instructions Recorded Confirmed Type ascorbic acid (vitamin C) 1,000 mg 1 gram PO BID 01/10/18 08/20/24 History tablet tolterodine 4 mg capsule,extended 4 mg PO DAILY 01/10/18 08/20/24 History release 24 hr allopurinol 100 mg tablet 100 mg PO DAILY 02/08/24 08/20/24 History amitriptyline 25 mg tablet 25 mg BEDTIME 05/09/24 08/20/24 History apixaban 5 mg tablet (Eliquis) 5 mg PO BID 05/09/24 08/20/24 History budesonide-formoterol HFA 160 2 puff inhalation BID 05/09/24 08/20/24 History mcg-4.5 mcg/actuation aerosol inhaler cholecalciferol (vitamin D3) 50 50 mcg PO DAILY 05/09/24 08/20/24 History mcg (2,000 unit) tablet (Vitamin D3) ipratropium bromide 17 2 puff inhalation 4XD 05/09/24 08/20/24 History mcg/actuation HFA aerosol inhaler (Atrovent HFA) multivitamin 1 tab PO DAILY 05/09/24 08/20/24 History polyethylene glycol 3350 8.5 gram 8.5 g PO 3XW 05/09/24 08/20/24 History oral powder packet psyllium husk 3.4 gram oral powder 1 packet PO DAILY 05/09/24 08/20/24 History packet (Daily Fiber (psyllium-aspartame)) acetaminophen 325 mg tablet 650 mg (2 x 325 mg) PO Q6H PRN 05/16/24 08/20/24 Rx Fever/Mild Pain (1-3) #3 tabs miscellaneous medical supply 1 ea miscellaneous .nightly #1 ea 05/16/24 08/21/24 Rx furosemide 40 mg tablet (Lasix) 40 mg PO DAILY #30 tabs 06/08/24 08/20/24 Rx Allergies Allergy/AdvReac Type Severity Reaction Status Date / Time [id number] Reductase Allergy Mild Elevated Verified 08/20/24 22:19 Inhibitor liver [Jptinoj-Sxh-Unr Reductase enzymes Inhibitor] Review of Systems Review of Systems Narrative: Unobtainable, on BiPAP, in respiratory distress Exam Vital Signs (past 8 hours): - 08/20/24 20:42 08/20/24 20:44 08/20/24 20:44 Temperature Pulse Rate 94 H 94 H Respiratory Rate 53 H 42 H Blood Pressure 138/64 Pulse Oximetry 38 L 76 L Oxygen Delivery Method Fraction of Inspired Oxygen 08/20/24 20:46 08/20/24 21:00 08/20/24 21:00 Temperature 99.8 F H Pulse Rate 90 87 Respiratory Rate 42 H 41 H Blood Pressure 138/64 Pulse Oximetry 88 L 92 Oxygen Delivery Method BiPAP Fraction of Inspired Oxygen 100 08/20/24 21:01 08/20/24 21:01 08/20/24 21:30 Temperature Pulse Rate 90 98 H Respiratory Rate 48 H 46 H Blood Pressure 147/64 H Pulse Oximetry 92 93 Oxygen Delivery Method Fraction of Inspired Oxygen 08/20/24 21:31 08/20/24 21:31 08/20/24 22:00 Temperature Pulse Rate 97 H 92 H Respiratory Rate 47 H 51 H Blood Pressure 157/67 H Pulse Oximetry 94 98 Oxygen Delivery Method Fraction of Inspired Oxygen 08/20/24 22:01 08/20/24 22:01 08/20/24 22:40 Temperature Pulse Rate 89 89 Respiratory Rate 49 H Blood Pressure 117/56 L Pulse Oximetry 98 97 Oxygen Delivery Method Fraction of Inspired Oxygen 08/20/24 22:42 08/20/24 22:42 08/20/24 23:00 Temperature Pulse Rate 84 80 Respiratory Rate 48 H 48 H Blood Pressure 123/60 Pulse Oximetry 98 88 L Oxygen Delivery Method BiPAP BiPAP Fraction of Inspired Oxygen 08/20/24 23:01 08/20/24 23:01 08/20/24 23:30 Temperature Pulse Rate 79 80 Respiratory Rate 49 H 45 H Blood Pressure 99/57 L Pulse Oximetry 88 L 94 Oxygen Delivery Method Fraction of Inspired Oxygen 08/20/24 23:30 08/20/24 23:40 08/20/24 23:40 Temperature Pulse Rate 81 Respiratory Rate 51 H Blood Pressure 98/56 L 106/58 L Pulse Oximetry 94 Oxygen Delivery Method Fraction of Inspired Oxygen 08/20/24 23:50 08/20/24 23:50 08/21/24 00:00 Temperature Pulse Rate 80 82 Respiratory Rate 45 H 49 H Blood Pressure 124/59 L Pulse Oximetry 92 91 Oxygen Delivery Method Fraction of Inspired Oxygen Fraction of Inspired Oxygen 100 Oxygen Delivery Method BiPAP Narrative Exam Narrative: General - in respiratory distress RS - tachypneic ~ 40, BiPAP on CVS -irreghular CVS - w/o leg edema or JVD Objective Imaging CT scan - chest: Radiologist's impression: .1. Diffuse consolidations throughout the left lung are suspicious for pneumonia. 2. Mild right basilar atelectasis or small consolidation. 3. Small to moderate bilateral pleural effusions. Labs 08/21/24 04:20 08/21/24 04:20 Labs: Laboratory Results - last 24 hr 08/20/24 08/20/24 08/20/24 20:42 21:04 22:50 WBC 28.1 H RBC 3.30 L Hgb 9.6 L Hct 29.8 L MCV 90.4 MCH 29.2 MCHC 32.3 RDW 17.0 H Plt Count 486 H Neut % (Auto) Not Reportable Lymph % (Auto) Not Reportable [place] % (Auto) Not Reportable Eos % (Auto) Not Reportable Baso % (Auto) Not Reportable Lymph # (Auto) Not Reportable [place] # (Auto) Not Reportable Baso # (Auto) Not Reportable Total Counted 100 Seg Neutrophils % 80.0 H Band Neutrophils % 7.0 Lymphocytes % (Manual) 11.0 L Monocytes % (Manual) 2.0 Neutrophils # (Manual) 50834 H RBC Morphology See below Anisocytosis 1+ H PT 26.2 H INR 2.4 H APTT 37 H VBG pH 7.24 L VBG pO2 56 H VBG HCO3 39 H VBG Total CO2 39 H VBG O2 Saturation 81 H VBG Base Excess 7.3 H FiO2 % 100 % Sodium 129 L Potassium 3.6 Chloride 83 L Carbon Dioxide 38 H BUN 39 H Creatinine 1.51 H Estimated GFR 45 L BUN/Creatinine Ratio 25.8 H Glucose 163 H Lactate 2.7 H 2.1 Calcium 8.9 Magnesium 1.5 L Total Bilirubin 0.5 AST 29 ALT 15 Alkaline Phosphatase 119 Total Creatine Kinase < 20 L Troponin I 0.023 NT-Pro-B Natriuret Pep 7450 H Total Protein 7.0 Albumin 3.5 Globulin 3.5 Albumin/Globulin Ratio 1.0 Lipase 42 SARS-CoV-2 (PCR) Negative Influenza A (RT-PCR) Flu a negative Influenza B (RT-PCR) Flu b negative RSV (PCR) Negative Assessment & Plan Assessment and plan (1) Pneumonia: Status: Acute (2) Acute hypoxic respiratory failure: Status: Acute (3) COPD (chronic obstructive pulmonary disease): Status: Acute (4) Hypertension: Status: Acute Assessment & Plan narrative: Pneumonia - Zosyn, Vancomycin Acute on Chronic Hypoxemic Respiratory Failure - tolerates BiPAP - confirmed DNI status A-fib / HTN / CHF - Eliquis - given IVFs in ED fo hypotension - Lasix held Patient consented to a real time, audio-video telemedicine visit with RN assisting during the exam. Patient located at [place], [place]. Provider located in [place]. Time-Based Coding :: [TOTAL MINUTES] spent with patient and on the chart (including review of chart, obtaining history, exam, reviewing outside data, placing orders, documenting exam and treatment plan, and counseling patient) on [DATE].
[2024-08-21] MEDS: PIPERACILLIN/TAZO 4.5 GM in SODIUM CHLORIDE 0.9% 100 ML IV (02:02)
[2024-08-21] MEDS: MORPHINE 2 MG/ML INJ 1 MG IV ×3 (03:03→21:32)
--- NOTE | 2024-08-21 03:28 | PC.NURSE ---
Pt. arrived to the unit via stretcher. Pt. required max assist of at least 4 people using a hover mat to transfer from stretcher to the bed. Pt. was accompanied by his . Pt. denied pain and is on Bipap for shortness of breath. Gould pt. to the room, call light use and bed control. Fall precaution in place.
[2024-08-21] MEDS: ALBUTEROL 2.5 MG/3 ML NEB (ADULT) INH ×6 (03:57→23:29)
[2024-08-21 04:49] LABS: BUN Creatinine Ratio 21.4 (6-22); Blood Urea Nitrogen 40 mg/dL (9-20); Calcium 8.3 mg/dL (8.4-10.2); Carbon Dioxide 31 mmol/L (22-32); Chloride 88 mmol/L (98-107); Estimated Glomerular Filt Rate 35 mL/min (>60); Glucose 111 mg/dL (70-99); HEMOLYSIS < 15 (0-50); Potassium 3.6 mmol/L (3.4-5.1); Sodium 127 mmol/L (137-145)
[2024-08-21 04:50] LABS: Hematocrit 27.3 % (41-53); Hemoglobin 8.8 g/dL (13.5-17.5); Lactate (Lactic Acid) 1.9 mmol/L (0.7-2.1); Mean Corpuscular HGB Conc 32.3 % (30-36); Mean Corpuscular Hemoglobin 29.2 PG (26-34); Mean Corpuscular Volume 90.3 fL (80-100); Platelet Count 353 X10^3/uL (150-400); Red Blood Cell Count 3.02 X10^6/uL (4.5-5.9); Red Cell Distribution Width 16.9 % (11.6-14.8); White Blood Cell Count 25.3 X10^3/uL (4.5-11.0)
[2024-08-21 04:52] LABS: Add Manual Diff / Slide Review YES
[2024-08-21 05:20] LABS: Neutrophils Absolute Manual 24035 /uL (3000-5900); Total Cells Counted 100
[2024-08-21 05:21] LABS: Anisocytosis 1+
[2024-08-21 05:38] LABS: MRSA (Nasal) PCR DETECTED (Not Detect)
[2024-08-21] MEDS: BUDESONIDE 0.5 MG/2 ML NEB INH ×2 (07:08→19:48)
--- NOTE | 2024-08-21 08:02 | P.PN_ITS ---
Subjective Subjective Date Patient Seen: 08/21/24 Time Patient Seen: 08:20 Interval history: Narrative: 84 y/o resident of long-term care [facility] with PMH of oxygen-dependent COPD, on 1-2 L of oxygen, nasal BiPAP, CHF, A-fib, who was recently hospitalized with hypoxic respiratory failure, presented with progressive dyspnea that started few days ago. He was severely hypoxic in the facility and in the ED and was immidiately started on BiPAP. Images revealed b/l pleural effusions and Lt lung infiltrates. Admitted with PNA, hypoxemic respiratory failure for IV abx, oxygen, non- invasive mechanical ventilation. confirmed DNR, DNI status. Interim history: 08/21: The patient is on BiPAP. Blood pressures are in the 80s over 50s, but he is asymptomatic with blood pressures rising when he wakes up. He denies chest pain. He notes feeling mildly short of breath. He has no pain complaints. Exam Vital Signs (past 8 hours): - 08/21/24 00:10 08/21/24 00:10 08/21/24 00:20 Temperature Pulse Rate 80 79 Respiratory Rate 46 H 48 H Blood Pressure 127/62 Pulse Oximetry 90 L 89 L Oxygen Delivery Method Fraction of Inspired Oxygen 08/21/24 00:20 08/21/24 00:30 08/21/24 01:00 Temperature Pulse Rate 76 Respiratory Rate Blood Pressure 127/62 Pulse Oximetry 89 L Oxygen Delivery Method Fraction of Inspired Oxygen 100 08/21/24 01:13 08/21/24 02:31 08/21/24 02:36 Temperature 98.7 F Pulse Rate 84 79 Respiratory Rate 48 H 48 H Blood Pressure 142/72 H Pulse Oximetry 92 94 Oxygen Delivery Method BiPAP Fraction of Inspired Oxygen 08/21/24 03:00 08/21/24 03:30 08/21/24 04:00 Temperature Pulse Rate 79 71 72 Respiratory Rate 49 H 47 H 45 H Blood Pressure Pulse Oximetry 93 93 94 Oxygen Delivery Method Fraction of Inspired Oxygen 08/21/24 04:30 08/21/24 04:33 08/21/24 05:00 Temperature Pulse Rate 71 61 Respiratory Rate 42 H 42 H Blood Pressure Pulse Oximetry 97 98 Oxygen Delivery Method Fraction of Inspired Oxygen 100 08/21/24 05:23 08/21/24 05:23 08/21/24 05:30 Temperature Pulse Rate 64 71 Respiratory Rate 41 H 46 H Blood Pressure 92/50 L Pulse Oximetry 99 99 Oxygen Delivery Method Fraction of Inspired Oxygen 08/21/24 06:00 08/21/24 06:00 08/21/24 07:10 Temperature Pulse Rate 61 Respiratory Rate 39 H Blood Pressure 101/54 L Pulse Oximetry 99 Oxygen Delivery Method Fraction of Inspired Oxygen 100 08/21/24 07:21 Temperature Pulse Rate 65 Respiratory Rate 40 H Blood Pressure Pulse Oximetry 97 Oxygen Delivery Method BiPAP Fraction of Inspired Oxygen Fraction of Inspired Oxygen 100 Oxygen Delivery Method BiPAP Narrative Exam Narrative: Gen: obese male, no acute distress, BiPAP mask in place HEENT: no JVD CV: RRR. no m/r/g. Pulm: diminished breath sounds bilateral lung bases. Abd: Soft, non-distended. Ext: trace bilateral LE edema Objective Imaging *: Radiologist's impression: 1. Chest x-ray 08/20/2024: Left upper lobe and lower lobe consolidations are suspicious for pneumonia. Suspected small left and trace right pleural effusions. 2. Chest CT without contrast 08/20/2024: 1. Diffuse consolidations throughout the left lung are suspicious for pneumonia. 2. Mild right basilar atelectasis or small consolidation. 3. Small to moderate bilateral pleural effusions. 3. Chest xray 07/15/2024: Left hemithorax opacification, likely large effusion. Small right effusion and findings suggesting interstitial edema. Labs 08/21/24 04:20 08/21/24 04:20 Labs: Laboratory Results - last 24 hr 08/20/24 08/20/24 08/20/24 20:42 21:04 22:50 WBC 28.1 H RBC 3.30 L Hgb 9.6 L Hct 29.8 L MCV 90.4 MCH 29.2 MCHC 32.3 RDW 17.0 H Plt Count 486 H Neut % (Auto) Not Reportable Lymph % (Auto) Not Reportable [place] % (Auto) Not Reportable Eos % (Auto) Not Reportable Baso % (Auto) Not Reportable Lymph # (Auto) Not Reportable [place] # (Auto) Not Reportable Baso # (Auto) Not Reportable Total Counted 100 Seg Neutrophils % 80.0 H Band Neutrophils % 7.0 Lymphocytes % (Manual) 11.0 L Monocytes % (Manual) 2.0 Neutrophils # (Manual) 21519 H RBC Morphology See below Anisocytosis 1+ H PT 26.2 H INR 2.4 H APTT 37 H VBG pH 7.24 L VBG pO2 56 H VBG HCO3 39 H VBG Total CO2 39 H VBG O2 Saturation 81 H VBG Base Excess 7.3 H FiO2 % 100 % Sodium 129 L Potassium 3.6 Chloride 83 L Carbon Dioxide 38 H BUN 39 H Creatinine 1.51 H Estimated GFR 45 L BUN/Creatinine Ratio 25.8 H Glucose 163 H Lactate 2.7 H 2.1 Calcium 8.9 Magnesium 1.5 L Total Bilirubin 0.5 AST 29 ALT 15 Alkaline Phosphatase 119 Total Creatine Kinase < 20 L Troponin I 0.023 NT-Pro-B Natriuret Pep 7450 H Total Protein 7.0 Albumin 3.5 Globulin 3.5 Albumin/Globulin Ratio 1.0 Lipase 42 Nasal Screen MRSA (PCR) SARS-CoV-2 (PCR) Negative Influenza A (RT-PCR) Flu a negative Influenza B (RT-PCR) Flu b negative RSV (PCR) Negative 08/21/24 08/21/24 04:20 04:23 WBC 25.3 H RBC 3.02 L Hgb 8.8 L Hct 27.3 L MCV 90.3 MCH 29.2 MCHC 32.3 RDW 16.9 H Plt Count 353 Neut % (Auto) Not Reportable Lymph % (Auto) Not Reportable [place] % (Auto) Not Reportable Eos % (Auto) Not Reportable Baso % (Auto) Not Reportable Lymph # (Auto) Not Reportable [place] # (Auto) Not Reportable Baso # (Auto) Not Reportable Total Counted 100 Seg Neutrophils % 78.0 H Band Neutrophils % 17.0 H Lymphocytes % (Manual) 1.0 L Monocytes % (Manual) 4.0 Neutrophils # (Manual) 32609 H RBC Morphology See below Anisocytosis 1+ H PT INR APTT VBG pH VBG pO2 VBG HCO3 VBG Total CO2 VBG O2 Saturation VBG Base Excess FiO2 % Sodium 127 L Potassium 3.6 Chloride 88 L Carbon Dioxide 31 BUN 40 H Creatinine 1.87 H Estimated GFR 35 L BUN/Creatinine Ratio 21.4 Glucose 111 H Lactate 1.9 Calcium 8.3 L Magnesium Total Bilirubin AST ALT Alkaline Phosphatase Total Creatine Kinase Troponin I NT-Pro-B Natriuret Pep Total Protein Albumin Globulin Albumin/Globulin Ratio Lipase Nasal Screen MRSA (PCR) Detected H SARS-CoV-2 (PCR) Influenza A (RT-PCR) Influenza B (RT-PCR) RSV (PCR) PFSH Medical History COPD (chronic obstructive pulmonary disease) Hypertension Mobitz II Surgical History H/O abdominal surgery History of permanent cardiac pacemaker placement Social History household members: spouse Smoking Status: Former smoker alcohol intake: never Assessment & Plan Assessment & Plan narrative: Pneumonia - Zosyn, Vancomycin Acute on Chronic Hypoxemic Respiratory Failure - tolerates BiPAP - confirmed DNI status A-fib / HTN / CHF - Eliquis - given IVFs in ED fo hypotension - Lasix held Code status: DNR/DNI Quality VTE Deep Vein Thrombosis/Pulmonary Embolism Present on Admission: Yes [employer]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
[2024-08-21] MEDS: PIPERACILLIN/TAZO 3.375 GM in SODIUM CHLORIDE 0.9% 100 ML IV ×3 (08:06→23:18)
[2024-08-21] MEDS: APIXABAN 5 MG TABLET PO ×2 (08:11→21:01)
[2024-08-21] MEDS: OXYBUTYNIN 5 MG ER TAB 10 MG PO (08:11)
[2024-08-21] MEDS: PANTOPRAZOLE 40 MG VIAL IV (08:12)
--- NOTE | 2024-08-21 14:24 | CM.DPNOTE ---
DCP: Confirmed that this patient is from [facility], per September. Is there under rehab with the possiblilty of being alf. Have not done assessment, but patient is currently in the ICU on BIPAP. Sofie Lu RN/[employer]
[2024-08-21] MEDS: hydrOXYzine HCL 25 MG TABLET PO ×2 (15:04→22:43)
[2024-08-21 15:13] LABS: Acinetobacter calcoa-baumannii Not Detected (Not Detect); Bacteroides fragilis Not Detected (Not Detect); Candida albicans Not Detected (Not Detect); Candida auris Not Detected (Not Detect); Candida glabrata Not Detected (Not Detect); Candida krusei Not Detected (Not Detect); Candida parapsilosis Not Detected (Not Detect); Candida tropicalis Not Detected (Not Detect); Cryptococcus neoformans/gatti Not Detected (Not Detect); Enterobacter cloacae complex Not Detected (Not Detect); Enterobacterales Not Detected (Not Detect); Enterococcus faecalis Not Detected (Not Detect); Enterococcus faecium Not Detected (Not Detect); Haemophilus influenzae Detected (Not Detect); Klebsiella aerogenes Not Detected (Not Detect); Listeria monocytogenes Not Detected (Not Detect); Neisseria meningitidis Not Detected (Not Detect); Proteus species Not Detected (Not Detect); Pseudomonas aeruginosa Not Detected (Not Detect); Salmonella species Not Detected (Not Detect); Serratia marcescens Not Detected (Not Detect); Staphylococcus epidermidis Not Detected (Not Detect); Staphylococcus lugdunensis Not Detected (Not Detect); Staphylococcus species Not Detected (Not Detect); Stenotrophomonas maltophilia Not Detected (Not Detect); Streptococcus agalactiae (Gr B Not Detected (Not Detect); Streptococcus pneumonia Not Detected (Not Detect); Streptococcus pyogenes (Gr A) Not Detected (Not Detect); Streptococcus species Not Detected (Not Detect)
[2024-08-21] MEDS: SODIUM CHLORIDE 0.9% FLUSH 10 ML IV (21:01)
[2024-08-21] MEDS: SODIUM CHLORIDE 0.9% 1,000 ML 250 ML IV (21:15)
[2024-08-21] MEDS: VANCOMYCIN 1,000 MG in SODIUM CHLORIDE 0.9% 250 ML 250 MG IV (21:33)
--- NOTE | 2024-08-21 21:48 | PC.NURSE ---
Addendum entered by Lorraine Zimmer R.N. 08/22/24 06:36: BP stabilized after bolus, MAP remained > 65-see vital trends. Patient wore Bipap throught the night, IV morphine, PO Vistaril, and neb tx given for comfort-see Emar. Incontinent 1dark void and small loose brown stool. Patient did not sleep much,uses call light frequently. Agreeable to reposition with small movements, declines frequent or major turning. Addendum entered by Lorraine Zimmer R.N. 08/21/24 22:20: Bolus complete, BP 90/47(66) Vanco now infusing. 1mg IV morphine given for dyspnea. Patient refuses to turn, is 'bridged' tilted bed to Rt.HOB 45 degrees. Original Note: [employer] Notes-At 2036 Dr. Sabine LARSON Hospitalist notified about BP trending down to 80s/40s MAP <61. 25oml NS bolus ordered and started. Patient was drowsy but rousesa and oriented. Bipap in place 60% 20/8 RR 24 SpO2 >93%.
[2024-08-22] VITALS (68 sets, daily range): BP systolic 89–125; BP diastolic 51–60; PULSE 59–79; RESP 20–47; TEMP 36–36.7; O2SAT 90–100
[2024-08-22] MEDS: MORPHINE 2 MG/ML INJ 1 MG IV (01:22)
[2024-08-22 05:41] LABS: Add Manual Diff / Slide Review NO; Basophils Absolute Auto 100 /uL (0-100); Basophils Percent Auto 0.3 % (0-2); Eosinophils Absolute Auto 0 /uL (0-450); Hematocrit 22.6 % (41-53); Hemoglobin 7.4 g/dL (13.5-17.5); Lymphocytes Absolute Auto 600 /uL (1100-4500); Lymphocytes Percent Auto 3.8 % (25-40); Mean Corpuscular HGB Conc 32.7 % (30-36); Mean Corpuscular Hemoglobin 29.2 PG (26-34); Mean Corpuscular Volume 89.4 fL (80-100); Monocytes Absolute Auto 1100 /uL (0-900); Monocytes Percent Auto 6.6 % (3-14); Neutrophils Absolute Auto 15200 /uL (1500-7000); Neutrophils Percent Auto 89.3 % (50-75); Platelet Count 294 X10^3/uL (150-400); Red Blood Cell Count 2.53 X10^6/uL (4.5-5.9); Red Cell Distribution Width 16.6 % (11.6-14.8)
[2024-08-22] MEDS: BUDESONIDE 0.5 MG/2 ML NEB INH ×2 (05:51→18:22)
[2024-08-22] MEDS: ALBUTEROL 2.5 MG/3 ML NEB (ADULT) INH ×5 (05:51→23:47)
[2024-08-22 05:52] LABS: BUN Creatinine Ratio 28.4 (6-22); Blood Urea Nitrogen 52 mg/dL (9-20); Calcium 8.5 mg/dL (8.4-10.2); Carbon Dioxide 31 mmol/L (22-32); Chloride 88 mmol/L (98-107); Estimated Glomerular Filt Rate 36 mL/min (>60); Glucose 98 mg/dL (70-99); HEMOLYSIS < 15 (0-50); Potassium 3.7 mmol/L (3.4-5.1); Sodium 127 mmol/L (137-145)
[2024-08-22] MEDS: PIPERACILLIN/TAZO 3.375 GM in SODIUM CHLORIDE 0.9% 100 ML IV ×3 (06:55→23:24)
[2024-08-22] MEDS: APIXABAN 5 MG TABLET PO ×2 (08:26→21:44)
[2024-08-22] MEDS: OXYBUTYNIN 5 MG ER TAB 10 MG PO (08:26)
[2024-08-22] MEDS: PANTOPRAZOLE 40 MG VIAL IV (08:26)
[2024-08-22] MEDS: SODIUM CHLORIDE 0.9% FLUSH 10 ML IV ×2 (08:27→21:43)
--- NOTE | 2024-08-22 09:32 | CM.DANOTE ---
Patient is an 84 yo male, originally had been living at home in [place] with spouse, multiple medical complications led him to hospitalizations at [facility], [facility], [facility] and within the last 6 months. Per MD, pt with baseline O2 and nasal bipap at baseline and admitted for Pneumonia and hypoxic respiratory failure and is DNR/DNI. Per RN, pt able to tolerate 4LO2 at this time and making slow improvements. Patient also with a hx of being in and out of [facility] and [facility] and was declined at other SNFs due to heavy care needs. Patient was admitted at from 05/09-05/17, discharged to and then again in May 2024 and returns from . PCP: Kalyn Morgan?? Payer: [employer] SW met bedside with pt and explained role and he confirms that he has remained at [facility] since his last admission in May 2024 a couple months ago and initially was auth'd by [place] for SNF but has transitioned to Private Pay at [facility] recently. SW inquired if he has applied for Medicaid and pt states no, I don't want to do that, I prefer to privately pay at this time. Pt confirms he has been working with PT at [facility] and preference is to return. Pt is agreeable with SW attempting to get [facility] auth since he has been admitted to the hospital and being treated for new medical condition. Pt confirms that spouse is aware he has been admitted to the hospital and he will keep her updated. Pt and spouse previously informed of Hospice services and supports during last admission in case pt continues to decline in health. Hospice not discussed during this admission at this time. PT/OT likely needed closer to discharge towards attempting [facility] auth. Plan: SW to follow closely for confirming with [facility] if PASRR needed for return (as pt has been private pay and will attempt [facility] auth at d/c) and plan of return to [facility] via S due to pt's care needs and oxygen levels. DRAGAN Herring Discharge Planning/Care Management CM Discharge Assessment Start: 08/20/24 23:52 Freq: Status: Active Protocol: Document 08/22/24 09:30 BF (Rec: 08/22/24 09:32 BF [id number]) Discharge Planning Assessment Assigned Back Closer DRAGAN Ott DPOA/Assigned Designee Name spouse Loraine Contact Information [phone] Advance Directives? Yes: Yes/POLST Advance Directives on File Yes History Provided By Patient,Family Member,Medical Record Has Patient been admitted in last 30 No days? Comment Last admit was Apr 2024 and May 2024 and discharged back to [facility] SNF rehab Prior Living Arrangements House Household Members spouse Type of transporation used prior to Relies on Others admit Facility Name Admitted From: [facility] Willing to Return to Facility? Yes Independent with ADL's No Is patient alert and oriented? Yes Needs Assistance With Bathing,Meal Prep,Managing Medications,Home Chores / Shopping Caregiver for Another No Community Services used prior to Oxygen Therapy,Physical admission: Therapy,Occupational Therapy DME Already Rented / Owned Wheelchair Patient/Family Preference Jail Facility Comment Bipap and high oxygen needs, heavy care Discharge Plan Jail Facility Transportation Arrangement cabulance vs BLS Referrals Initiated Jail Additional Comment [facility] can accept back, will attempt [facility] auth closer to d/c If patient plan is SNF: Has PASSR been No: return to [facility], no completed? PASRR needed Whiteboard Updated in Patient Room with Yes name and ext. # of Back Closer Review Status In Process Please Provide Date Initial DC 08/22/24 Assessment Was Performed Next Review Type Continued Stay Review
[2024-08-22] MEDS: hydrOXYzine HCL 25 MG TABLET PO ×2 (10:11→18:04)
--- NOTE | 2024-08-22 14:36 | PM.PN.1 ---
Subjective Subjective Interval history: S: He was feeling a little bit better. He was still coughing up a fair amount of phlegm. Imaging was reviewed and CT does indicate bilateral infiltrates and small to moderate effusions. He denies any nausea. Exam Vital Signs (past 8 hours): - 08/22/24 07:00 08/22/24 07:00 08/22/24 07:27 Temperature 96.8 F L Pulse Rate 60 Respiratory Rate 34 H 36 H Blood Pressure 103/59 L 103/59 L Pulse Oximetry 95 Oxygen Delivery Method Oxygen Flow Rate Fraction of Inspired Oxygen 60 08/22/24 07:30 08/22/24 07:41 08/22/24 08:00 Temperature Pulse Rate 60 Respiratory Rate 32 H Blood Pressure 99/55 L Pulse Oximetry 96 Oxygen Delivery Method BiPAP Oxygen Flow Rate Fraction of Inspired Oxygen 08/22/24 08:00 08/22/24 08:00 08/22/24 08:30 Temperature Pulse Rate 60 60 Respiratory Rate 30 H 32 H Blood Pressure 99/55 L Pulse Oximetry 96 96 Oxygen Delivery Method Oxygen Flow Rate Fraction of Inspired Oxygen 08/22/24 08:30 08/22/24 09:00 08/22/24 09:00 Temperature Pulse Rate 59 L Respiratory Rate 32 H Blood Pressure 120/55 L Pulse Oximetry 91 Oxygen Delivery Method Oxygen Flow Rate 4 Fraction of Inspired Oxygen 08/22/24 09:00 08/22/24 09:30 08/22/24 10:00 Temperature Pulse Rate 60 60 60 Respiratory Rate 30 H 30 H 41 H Blood Pressure 120/55 L Pulse Oximetry 93 92 93 Oxygen Delivery Method Oxygen Flow Rate 4 Fraction of Inspired Oxygen 08/22/24 10:01 08/22/24 10:01 08/22/24 10:10 Temperature Pulse Rate 60 77 Respiratory Rate 37 H 32 H Blood Pressure 109/53 L 109/53 L Pulse Oximetry 93 90 L Oxygen Delivery Method Oxygen Flow Rate 4 Fraction of Inspired Oxygen 08/22/24 10:30 08/22/24 10:53 08/22/24 11:00 Temperature Pulse Rate 60 60 60 Respiratory Rate 33 H 24 36 H Blood Pressure 123/60 Pulse Oximetry 93 94 94 Oxygen Delivery Method Nasal Cannula Oxygen Flow Rate 4 Fraction of Inspired Oxygen 36 08/22/24 11:00 08/22/24 11:30 08/22/24 12:00 Temperature Pulse Rate 62 60 Respiratory Rate 30 H 30 H Blood Pressure 123/60 Pulse Oximetry 91 91 Oxygen Delivery Method Oxygen Flow Rate Fraction of Inspired Oxygen 08/22/24 12:01 08/22/24 12:01 08/22/24 12:30 Temperature Pulse Rate 60 69 Respiratory Rate 32 H 37 H Blood Pressure 107/56 L Pulse Oximetry 92 91 Oxygen Delivery Method Oxygen Flow Rate Fraction of Inspired Oxygen 08/22/24 13:00 08/22/24 13:00 08/22/24 13:30 Temperature Pulse Rate 63 79 Respiratory Rate 32 H 47 H Blood Pressure 115/55 L Pulse Oximetry 96 90 L Oxygen Delivery Method Oxygen Flow Rate Fraction of Inspired Oxygen 08/22/24 14:26 Temperature Pulse Rate 59 L Respiratory Rate 29 H Blood Pressure 125/58 L Pulse Oximetry 93 Oxygen Delivery Method Oxygen Flow Rate 4 Fraction of Inspired Oxygen Fraction of Inspired Oxygen 36 SaO2/FiO2 Ratio 261 Oxygen Delivery Method Nasal Cannula Oxygen Flow Rate 4 Narrative Exam Narrative: NAD, alert and oriented. Fluent speech. Lungs are clear, normal rate and effort. Some scattered rhonchi. Heart is regular, no murmur gallop or rub. Abdomen is soft, non distended. Extremities with 1+ edema. Objective Labs 08/22/24 05:30 08/22/24 05:30 Labs: Laboratory Results - last 24 hr 08/20/24 08/20/24 08/22/24 21:00 21:04 05:30 WBC 17.0 H RBC 2.53 L Hgb 7.4 L Hct 22.6 L MCV 89.4 MCH 29.2 MCHC 32.7 RDW 16.6 H Plt Count 294 Neut % (Auto) 89.3 H Lymph % (Auto) 3.8 L [place] % (Auto) 6.6 Eos % (Auto) 0.0 L Baso % (Auto) 0.3 Neut # (Auto) 97658 H Lymph # (Auto) 600 L [place] # (Auto) 1100 H Eos # (Auto) 0 Baso # (Auto) 100 VBG pCO2 Not Reportable Sodium 127 L Potassium 3.7 Chloride 88 L Carbon Dioxide 31 BUN 52 H Creatinine 1.83 H Estimated GFR 36 L BUN/Creatinine Ratio 28.4 H Glucose 98 Calcium 8.5 A.calcoaceticus-baumannii cmplx PCR Not detected Bacteroides fragilis Not detected Lizz albicans (PCR) Not detected Lizz auris (PCR) Not detected C. glabrata (PCR) Not detected C. krusei (PCR) Not detected C. parapsilosis (PCR) Not detected C. tropicalis (PCR) Not detected C. neoform/gattii (PCR) Not detected Enterobacterales (PCR) Not detected E. cloacae complex PCR Not detected Enterococc faecalis PCR Not detected Enterococc faecium PCR Not detected E. coli (PCR) Not detected H. influenzae (PCR) Detected Klebsiella aerogenes (PCR) Not detected Klebsiella oxytoca PCR Not detected Klebsiella pneumoniae Not detected List. monocytogenes PCR Not detected N. meningitidis (PCR) Not detected Proteus species (PCR) Not detected Salmonella spp. (PCR) Not detected Serratia marcescens PCR Not detected Staphylococcus sp PCR Not detected Staph aureus (PCR) Not detected mecA/C & MREJ Resist Gene Not applicable mecA/C-Methicil Resis Gene Not applicable mcr-1 Colistin Res Gene PCR Not applicable Staph epidermidis (PCR) Not detected Staph lugdunensis PCR Not detected S. maltophilia (PCR) Not detected Streptococcus sp PCR Not detected Group A Strep (PCR) Not detected Strep agalactiae (PCR) Not detected Strep pneumoniae (PCR) Not detected P. aeruginosa (PCR) Not detected Neftali/B-Vanco Res Genes Not applicable blaIMP Car res Gene PCR Not applicable KPC-Carbap Res Gene PCR Not applicable blaNDM Car Res Gene PCR Not applicable OXA-48 Carbapenem Resis Gene (PCR) Not applicable blaVIM Car Res Gene PCR Not applicable CTX-M Gene Resistance (PCR) Not applicable [facility] Medical History COPD (chronic obstructive pulmonary disease) Mobitz II Hypertension Surgical History History of permanent cardiac pacemaker placement H/O abdominal surgery Social History household members: spouse Smoking Status: Former smoker alcohol intake: never Assessment & Plan Assessment & Plan narrative: 1. Pneumonia, present on admission and active. - Zosyn, Vancomycin 2. Acute on Chronic Hypoxemic Respiratory Failure, present on admission and active. - tolerates BiPAP - confirmed DNI status 3. A-fib / HTN / CHF, present on admission and stable. - Eliquis - given IVFs in ED fo hypotension - Lasix held PLAN: -continue antibiotics -wean oxygen as able. -BiPAP at night, which is his custom. ROLAND: SNF 08/24. Code status: DNR/DNI Time-Based Coding :: [TOTAL MINUTES] spent with patient and on the chart (including review of chart, obtaining history, exam, reviewing outside data, placing orders, documenting exam and treatment plan, and counseling patient) on [DATE]. Quality VTE Deep Vein Thrombosis/Pulmonary Embolism Present on Admission: Yes
--- NOTE | 2024-08-22 16:12 | PC.NURSE ---
Pt transitioned off BIPAP for breakfast onto NC. Able to titrate down to 3L and keep patient off BIPAP all shift. Desaturation with turning, supported by increasing NC to 6L. Ate about 25% of each meal. Turning q2h, heals floated with education as to why. Incontinent of urine. No reports of pain during shift. Updated over the phone.
[2024-08-22] MEDS: VANCOMYCIN 1,000 MG in SODIUM CHLORIDE 0.9% 250 ML 250 MG IV (21:42)
[2024-08-23] VITALS (32 sets, daily range): BP systolic 99–137; BP diastolic 53–64; PULSE 60–67; RESP 20–46; TEMP 36.4–36.8; O2SAT 79–98; BMI 35.0
[2024-08-23] MEDS: hydrOXYzine HCL 25 MG TABLET PO (03:27)
[2024-08-23] MEDS: PANTOPRAZOLE DR 40 MG TABLET PO (06:46)
[2024-08-23] MEDS: PIPERACILLIN/TAZO 3.375 GM in SODIUM CHLORIDE 0.9% 100 ML IV ×2 (06:56→15:39)
--- NOTE | 2024-08-23 07:46 | PM.PN.1 ---
Subjective Subjective Interval history: S: He was more short of breath today. He has been requiring BiPAP all day and becomes tachypneic, hypoxic, and anxious if he comes off it for more than a minute or 2. He has been given IV antibiotics for pneumonia with infiltrates on x-ray. He did have a thoracentesis for pleural effusion at [facility] a month ago. Exam Vital Signs (past 8 hours): - 08/22/24 23:48 08/23/24 00:00 08/23/24 00:00 Pulse Rate 60 Respiratory Rate 35 H Blood Pressure 108/53 L 111/53 L Pulse Oximetry 96 Fraction of Inspired Oxygen 0.55 08/23/24 00:30 08/23/24 01:00 08/23/24 01:01 Pulse Rate 60 60 Respiratory Rate 33 H 36 H Blood Pressure 109/55 L Pulse Oximetry 94 Fraction of Inspired Oxygen 08/23/24 01:01 08/23/24 01:30 08/23/24 02:00 Pulse Rate 60 60 60 Respiratory Rate 34 H 32 H 34 H Blood Pressure Pulse Oximetry 98 Fraction of Inspired Oxygen 08/23/24 02:00 08/23/24 02:30 08/23/24 03:32 Pulse Rate 61 Respiratory Rate 35 H Blood Pressure 115/58 L 115/59 L Pulse Oximetry 96 Fraction of Inspired Oxygen 0.55 Fraction of Inspired Oxygen 0.55 SaO2/FiO2 Ratio 287 Oxygen Delivery Method BiPAP Oxygen Flow Rate 3 Narrative Exam Narrative: NAD, alert and oriented. Fluent speech. Comfortable on BiPAP. Lungs are clear, normal rate and effort. Heart is regular, no murmur gallop or rub. Abdomen is soft, non distended. Extremities with 1+ edema. Objective Labs 08/22/24 05:30 08/22/24 05:30 [facility] Medical History COPD (chronic obstructive pulmonary disease) Mobitz II Hypertension Surgical History History of permanent cardiac pacemaker placement H/O abdominal surgery Social History household members: spouse Smoking Status: Former smoker alcohol intake: never Assessment & Plan Assessment & Plan narrative: 1. Pneumonia, present on admission and active. 2. Acute on Chronic Hypoxemic Respiratory Failure, present on admission and active. 3. A-fib, present on admission and stable. 4. HTN, present on admission and stable. 5. Acute on chronic systolic heart failure with an EF of 35-40% with an akinetic distal ventricle, present on admission and active. 6. Obesity Class2 , present on admission and active. PLAN: -continue antibiotics -wean oxygen as able. -resume diuresis today. -repeat chest x-ray morning of August 24 to rule out recurrent pleural effusions as he was recently had a thoracentesis for acute hypoxic respiratory failure which made a big clinical difference. ROLAND: SNF 08/26. Code status: DNR/DNI Time-Based Coding :: [TOTAL MINUTES] spent with patient and on the chart (including review of chart, obtaining history, exam, reviewing outside data, placing orders, documenting exam and treatment plan, and counseling patient) on [DATE]. Quality VTE Deep Vein Thrombosis/Pulmonary Embolism Present on Admission: Yes
[2024-08-23] MEDS: ALBUTEROL 2.5 MG/3 ML NEB (ADULT) INH ×5 (08:11→23:45)
[2024-08-23] MEDS: BUDESONIDE 0.5 MG/2 ML NEB INH ×2 (08:11→18:34)
[2024-08-23] MEDS: OXYBUTYNIN 5 MG ER TAB 10 MG PO (08:56)
[2024-08-23] MEDS: APIXABAN 5 MG TABLET PO (08:56)
[2024-08-23] MEDS: SODIUM CHLORIDE 0.9% FLUSH 10 ML IV ×4 (08:57→21:40)
[2024-08-23] MEDS: MORPHINE 2 MG/ML INJ 1 MG IV (10:14)
--- NOTE | 2024-08-23 10:52 | OT.IPNOTE ---
Per nursing pt was placed back on Bipap after breakfast and at this time not appropriate for OT eval. To check on pt tomorrow due to low census for OT.
--- NOTE | 2024-08-23 12:45 | CM.DPC ---
DCP Cont: Per MD, pt making slow progress and was weaned to 4LO2 yesterday but throughout the day ranged anywhere from 3-6LO2 and MD to start more diuretic to improve breathing and anticipates possibly d/c in 2-3 days (maybe 08/25) if medically stable but pt historically slow to improve. PT/OT ordered towards [facility] auth. Per RN, pt placed back on bipap for most of today and therefore PT/OT eval on hold. SW updated [facility] and they confirm pt can return and agreeable to SW attempting [facility] auth but unsure if pt has any SNF days left. No PASRR needed for return. SW waiting to fax [facility] for SNF auth review as PT/OT on hold and if pt still on bipap during the day today then likely another couple days before stable for d/c. Namrata Garcia, TIRE DESIGN ENGINEER
--- NOTE | 2024-08-23 12:49 | PC.WOUNDPHOT ---
(1) chronic abdominal wound from previous surgery per patient, proximal healing area measures [id number] with larger distal area 5cmX5.5cmx0. Nonadherant gentle border foam dressing applied. (2) bruising/dry abrasion to right forearm noted, area is dry. Covered with nonadherant gentle border dressing. (3) blanchable redness to buttock, continue off loading measures and moisture management, mepilex border sacrum dressing applied (4) excoriation to groin and reva area
[2024-08-23] MEDS: FUROSEMIDE 40 MG/4 ML VIAL IV ×2 (13:50→18:46)
--- NOTE | 2024-08-23 14:21 | PC.WOUNDPHOT ---
Blanching erythemia across bridge of nose. RT notified. Duoderm and piece of allevyn gentle border foam dressing applied. Continue to monitor closely.
--- NOTE | 2024-08-23 15:50 | PT-IP ANOTE ---
PT eval order received. EMR reviewed. per nurse, pt now on bipap at 40%. talked to hospitalist and agreed to have PT on hold today. will f/u.
[2024-08-23 17:43] LABS: Blood Urea Nitrogen 54 mg/dL (9-20); Calcium 8.9 mg/dL (8.4-10.2); Carbon Dioxide 33 mmol/L (22-32); Chloride 90 mmol/L (98-107); Estimated Glomerular Filt Rate 34 mL/min (>60); Glucose 114 mg/dL (70-99); HEMOLYSIS < 15 (0-50); Potassium 3.4 mmol/L (3.4-5.1); Sodium 130 mmol/L (137-145)
[2024-08-23] MEDS: POTASSIUM CHLORIDE 20 MEQ TAB 40 MEQ PO (18:46)
[2024-08-23] MEDS: APIXABAN 5 MG TABLET 2.5 MG PO (21:40)
[2024-08-23] MEDS: VANCOMYCIN TROUGH 1 REQUEST MISC (21:41)
[2024-08-23 21:54] LABS: Magnesium 2.1 mg/dL (1.6-2.3); Vancomycin Trough 14.9 ug/mL (10-20)
[2024-08-23] MEDS: VANCOMYCIN 1,000 MG in SODIUM CHLORIDE 0.9% 250 ML 250 MG IV (22:09)
[2024-08-24] VITALS (64 sets, daily range): BP systolic 102–129; BP diastolic 52–84; PULSE 60–62; RESP 20–54; TEMP 35.9–36.4; O2SAT 92–98
[2024-08-24] MEDS: PIPERACILLIN/TAZO 3.375 GM in SODIUM CHLORIDE 0.9% 100 ML IV ×4 (00:10→23:20)
[2024-08-24] MEDS: VANCOMYCIN PEAK 1 REQUEST MISC (00:34)
[2024-08-24 01:04] LABS: Vancomycin Peak 24.6 ug/mL (20-40)
--- NOTE | 2024-08-24 07:38 | DI.RAD.S_ITS ---
PROCEDURE: XR CHEST 1V INDICATIONS: dyspnea TECHNIQUE: One view of the chest was acquired. COMPARISON: [facility], CR, XR CHEST 1V, 08/20/2024, 20:39. FINDINGS: Surgical changes and devices: Pacemaker. Lungs and pleura: Unchanged appearance of increased pulmonary vascularity. Patchy and consolidative opacities remain most prominent in the left lung, unchanged. Minimal effusions. Mediastinum: Mediastinal contours appear normal. Heart size is enlarged. Bones and chest wall: No suspicious bony lesions. Overlying soft tissues appear unremarkable. IMPRESSION: Stable interval exam demonstrating increased vascularity and consolidative opacities. Dictated by: Hailee Alcantara M.D. on 08/24/2024 at 8:42 Approved by: Hailee Alcantara M.D. on 08/24/2024 at 8:43
--- NOTE | 2024-08-24 07:38 | P.PN_ITS ---
Subjective Subjective Interval history: Summary: 84 y/o resident of [facility] with PMH of oxygen-dependent COPD, on 1-2 L of oxygen, nasal BiPAP, CHF, A-fib, who was recently hospitalized with hypoxic respiratory failure, presented with progressive dyspnea that started few days ago. He was severely hypoxic in the facility and in the ED and was immidiately started on BiPAP. Images revealed b/l pleural effusions and Lt lung infiltrates. Admitted with PNA, hypoxemic respiratory failure for IV abx, oxygen, non- invasive mechanical ventilation. confirmed DNR, DNI status. Interim history: 08/21: The patient is on BiPAP. Blood pressures are in the 80s over 50s, but he is asymptomatic with blood pressures rising when he wakes up. He denies chest pain. He notes feeling mildly short of breath. He has no pain complaints. 08/22: Did well off from BiPAP for good part of the day. Was improving. 08/23: Was more short of breath and required BiPAP for most of the day. We will become fairly quickly winded, tachypneic, and anxious. We would also desaturate. Lasix was restarted IV. S: He remains comfortable for very short periods of time off from BiPAP. No chest pain. No cough. Chest x-ray appears worse today. Exam Vital Signs (past 8 hours): - 08/24/24 00:00 08/24/24 00:00 08/24/24 00:30 Temperature Pulse Rate 60 60 Respiratory Rate 35 H 36 H Blood Pressure Pulse Oximetry 95 93 Oxygen Delivery Method BiPAP 08/24/24 01:00 08/24/24 01:30 08/24/24 01:49 Temperature Pulse Rate 60 60 60 Respiratory Rate 35 H 35 H 35 H Blood Pressure Pulse Oximetry 94 93 Oxygen Delivery Method 08/24/24 01:49 08/24/24 02:00 08/24/24 02:30 Temperature 97.6 F Pulse Rate 60 60 Respiratory Rate 33 H 36 H Blood Pressure 105/64 Pulse Oximetry Oxygen Delivery Method 08/24/24 03:00 08/24/24 03:30 08/24/24 04:00 Temperature Pulse Rate 60 60 Respiratory Rate 32 H 33 H Blood Pressure Pulse Oximetry Oxygen Delivery Method BiPAP 08/24/24 04:00 08/24/24 04:30 08/24/24 05:00 Temperature Pulse Rate 60 60 60 Respiratory Rate 32 H 34 H 35 H Blood Pressure Pulse Oximetry Oxygen Delivery Method 08/24/24 05:27 08/24/24 05:27 08/24/24 05:30 Temperature Pulse Rate 60 60 Respiratory Rate 37 H 34 H Blood Pressure 105/52 L Pulse Oximetry 94 94 Oxygen Delivery Method 08/24/24 06:00 Temperature Pulse Rate 60 Respiratory Rate 34 H Blood Pressure Pulse Oximetry 95 Oxygen Delivery Method Fraction of Inspired Oxygen 0.35 SaO2/FiO2 Ratio 287 Oxygen Delivery Method BiPAP Oxygen Flow Rate 3 Narrative Exam Narrative: NAD, alert and oriented. Fluent speech. Comfortable on BiPAP. Lungs are clear, normal rate and effort. Heart is regular, no murmur gallop or rub. Abdomen is soft, non distended. Extremities with 1+ edema. Objective ECG Impression: Intervals [place] Rate: 93 P: WI: QRS: 2 QRSD: 94 T: 82 QT: 374 QTc: 465 Interpretive Statements baseline artifact prevents accurate determination of rhythm Anterior infarct , age undetermined Imaging Multiple studies: : Radiologist's impression: 1. Chest x-ray 08/20/2024: Left upper lobe and lower lobe consolidations are suspicious for pneumonia. Suspected small left and trace right pleural effusions. 2. Chest CT without contrast 08/20/2024: 1. Diffuse consolidations throughout the left lung are suspicious for pneumonia. 2. Mild right basilar atelectasis or small consolidation. 3. Small to moderate bilateral pleural effusions. 3. Chest xray 07/15/2024: Left hemithorax opacification, likely large effusion. Small right effusion and findings suggesting interstitial edema. Labs 08/24/24 07:08 08/24/24 07:08 Labs: Laboratory Results - last 24 hr 08/23/24 08/23/24 08/24/24 17:12 21:16 00:27 Sodium 130 L Potassium 3.4 Chloride 90 L Carbon Dioxide 33 H BUN 54 H Creatinine 1.93 H Estimated GFR 34 L BUN/Creatinine Ratio 28.0 H Glucose 114 H Calcium 8.9 Magnesium 2.1 Vancomycin Peak 24.6 Vancomycin Trough 14.9 PFSH Medical History COPD (chronic obstructive pulmonary disease) Mobitz II Hypertension Surgical History History of permanent cardiac pacemaker placement H/O abdominal surgery Social History household members: spouse Smoking Status: Former smoker alcohol intake: never Assessment & Plan Assessment & Plan narrative: 1. Pneumonia, present on admission and active. 2. Acute on Chronic Hypoxemic Respiratory Failure, present on admission and active. 3. A-fib, present on admission and stable. 4. HTN, present on admission and stable. 5. Acute on chronic systolic heart failure with an EF of 35-40% with an akinetic distal ventricle, present on admission and active. 6. Obesity Class2 , present on admission and active. 7. Probable recurrent left greater than right pleural effusion. Did request a thoracentesis with Radiology today, they declined due to apixaban and an INR which is elevated. PLAN: -continue antibiotics -wean oxygen as able. -BiPAP as needed and at night. -continue diuresis today. Lasix BID IV. -hold apixaban and q.a.m. INR. Attempt thoracentesis with Radiology in the next 1-2 days when the INR goes under 1.4. ROLAND: SNF 08/26 ([facility]) if improved. Code status: DNR/DNI Time-Based Coding :: [TOTAL MINUTES] spent with patient and on the chart (including review of chart, obtaining history, exam, reviewing outside data, placing orders, documenting exam and treatment plan, and counseling patient) on [DATE]. Quality VTE Deep Vein Thrombosis/Pulmonary Embolism Present on Admission: Yes
[2024-08-24 07:39] LABS: Hemoglobin 7.8 g/dL (13.5-17.5); Mean Corpuscular HGB Conc 32.4 % (30-36); Mean Corpuscular Volume 89.6 fL (80-100); Platelet Count 367 X10^3/uL (150-400); Red Blood Cell Count 2.68 X10^6/uL (4.5-5.9); Red Cell Distribution Width 16.8 % (11.6-14.8); White Blood Cell Count 22.2 X10^3/uL (4.5-11.0)
[2024-08-24] MEDS: BUDESONIDE 0.5 MG/2 ML NEB INH ×2 (07:43→19:06)
[2024-08-24] MEDS: ALBUTEROL 2.5 MG/3 ML NEB (ADULT) INH ×5 (07:44→23:21)
[2024-08-24 07:59] LABS: BUN Creatinine Ratio 34.4 (6-22); Blood Urea Nitrogen 54 mg/dL (9-20); Calcium 8.8 mg/dL (8.4-10.2); Carbon Dioxide 32 mmol/L (22-32); Chloride 92 mmol/L (98-107); Estimated Glomerular Filt Rate 43 mL/min (>60); Glucose 112 mg/dL (70-99); HEMOLYSIS 36 (0-50); Magnesium 2.1 mg/dL (1.6-2.3); Potassium 3.9 mmol/L (3.4-5.1); Sodium 132 mmol/L (137-145)
[2024-08-24] MEDS: APIXABAN 5 MG TABLET 2.5 MG PO (08:17)
[2024-08-24] MEDS: PANTOPRAZOLE DR 40 MG TABLET PO (08:21)
[2024-08-24] MEDS: OXYBUTYNIN 5 MG ER TAB 10 MG PO (08:21)
[2024-08-24] MEDS: FUROSEMIDE 40 MG/4 ML VIAL IV ×3 (08:21→23:36)
[2024-08-24] MEDS: SODIUM CHLORIDE 0.9% FLUSH 10 ML IV ×2 (08:22→21:00)
--- NOTE | 2024-08-24 11:30 | OT.IPNOTE ---
Attempted OT eval prior to lunch time and pt refusing to at this time.
--- NOTE | 2024-08-24 12:54 | PT-IP ANOTE ---
pt refused PT eval this am. will recheck in pm
--- NOTE | 2024-08-24 15:58 | PT-IP ANOTE ---
checked on pt this afternoon and refused PT. stated that he is not ready. agreed to try tomorrow. nurse aware.
[2024-08-24] MEDS: VANCOMYCIN 1,000 MG in SODIUM CHLORIDE 0.9% 250 ML 250 MG IV (22:18)
[2024-08-25] VITALS (62 sets, daily range): BP systolic 110–156; BP diastolic 53–67; PULSE 60–161; RESP 20–44; TEMP 36.7–36.8; O2SAT 85–100
[2024-08-25 06:14] LABS: BUN Creatinine Ratio 25.4 (6-22); Blood Urea Nitrogen 46 mg/dL (9-20); Calcium 8.9 mg/dL (8.4-10.2); Carbon Dioxide 36 mmol/L (22-32); Chloride 92 mmol/L (98-107); Estimated Glomerular Filt Rate 36 mL/min (>60); Glucose 113 mg/dL (70-99); HEMOLYSIS < 15 (0-50); Hemoglobin 7.6 g/dL (13.5-17.5); Mean Corpuscular HGB Conc 33.2 % (30-36); Mean Corpuscular Hemoglobin 29.6 PG (26-34); Mean Corpuscular Volume 89.1 fL (80-100); Platelet Count 376 X10^3/uL (150-400); Potassium 3.6 mmol/L (3.4-5.1); Red Blood Cell Count 2.58 X10^6/uL (4.5-5.9); Red Cell Distribution Width 16.9 % (11.6-14.8); Sodium 133 mmol/L (137-145); White Blood Cell Count 15.8 X10^3/uL (4.5-11.0)
[2024-08-25] MEDS: PANTOPRAZOLE DR 40 MG TABLET PO (06:33)
[2024-08-25] MEDS: BUDESONIDE 0.5 MG/2 ML NEB INH ×2 (07:43→19:52)
[2024-08-25] MEDS: ALBUTEROL 2.5 MG/3 ML NEB (ADULT) INH ×5 (07:43→22:08)
[2024-08-25] MEDS: PIPERACILLIN/TAZO 3.375 GM in SODIUM CHLORIDE 0.9% 100 ML IV ×3 (08:13→23:30)
[2024-08-25] MEDS: OXYBUTYNIN 5 MG ER TAB 10 MG PO (08:15)
[2024-08-25] MEDS: SODIUM CHLORIDE 0.9% FLUSH 10 ML IV ×2 (08:15→21:52)
--- NOTE | 2024-08-25 10:53 | DI.US.S_ITS ---
PROCEDURE: US CHEST INDICATIONS: comparison of pne TECHNIQUE: Grayscale scanning of the area of concern, with image documentation. COMPARISON: [facility], CT, CT CHEST WO CON, 08/20/2024, 22:34. [facility], CR, XR CHEST 1V, 08/25/2024, 10:57. FINDINGS/IMPRESSION: Moderate left pleural effusion and small to moderate right pleural effusion. Approved by: Gentry Dietz M.D. on 08/25/2024 at 12:19
--- NOTE | 2024-08-25 10:53 | DI.RAD.S_ITS ---
PROCEDURE: XR CHEST 1V INDICATIONS: comparison of pne TECHNIQUE: One view of the chest was acquired. COMPARISON: [facility], , XR CHEST 1V, 08/24/2024, 7:45. [facility], CR, XR CHEST 1V, 08/20/2024, 20:39. FINDINGS: Surgical changes and devices: Cardiac pacemaker is seen with pulse generator in the left chest. Lungs and pleura: Bilateral pulmonary opacities do not appear significantly changed when compared to the exam from the day prior. Small pleural effusions. No pneumothorax. Mediastinum: Cardiac silhouette is enlarged. Bones and chest wall: No suspicious bony lesions. Overlying soft tissues appear unremarkable. IMPRESSION: Diffuse bilateral pulmonary opacities do not appear significantly changed. Small bilateral pleural effusions. Approved by: Gentry Dietz M.D. on 08/25/2024 at 12:04
--- NOTE | 2024-08-25 11:04 | DIET.CONS ---
Dietary Consultation Note Admission Date: 08/20/2024 23:51 Assessment: 84 y M admitted for pneumonia and resp failure. Dietitian screened for LOS. Met with pt at bedside who reports limited appetite and getting full easy d/t feeling bloated (per rounds, pt may be getting a thoracentesis). Before this hospitalization reports appetite was better and eating more, but unable to provide specifics. Based on past dietary consult notes, pt had 2 hospitalizations in January and subsequent severe weight loss. No severe weight loss since. Doesn't like chocolate ensure. Would like smaller portions at meals d/t feeling overwhelmed with food amount. Reports RN has been cutting up the meat for him. Ht: 185.42 cm Wt: 120.5 kg BMI: 35.0 UBW: 124.7 kg on 07/15/24 (-3% weight loss in 1.5 months, non-severe) 123 kg on 05/16/24 142.9 kg on 02/09/24 (-15.5% weight loss within 7 months, non-severe) Last BM: 08/21/24 (08/23/24 08:21) MNA: 8 Kavon Score: 16 Diet: 08/21/24 Breakfast General (Regular) Diet Diet Modifications: Food Texture: Level 7 - Regular Liquid Consistency: Level 0 - Thin Nutrition Percent Meal Consumed refused breakfast patient want 08/25/24 09:20 popsicle Percent Meal Consumed 50% 08/24/24 18:00 Percent Meal Consumed 25% 08/24/24 12:00 Percent Meal Consumed 25% 08/24/24 09:00 Percent Meal Consumed patient refused just want 08/23/24 18:00 popsicle Percent Meal Consumed 0% 08/23/24 18:00 Labs: RBC 2.58 X10^6/uL (4.5-5.9) L 08/25/24 04:30 Hgb 7.6 g/dL (13.5-17.5) L 08/25/24 04:30 Hct 23.0 % (41-53) L 08/25/24 04:30 Creatinine 1.81 mg/dL (0.66-1.25) H 08/25/24 04:30 Lactate 1.9 mmol/L (0.7-2.1) 08/21/24 04:20 NT-Pro-B Natriuret Pep 7450 pg/mL (<450) H 08/20/24 20:42 Nutrition Diagnosis: Inadequate oral intakes r/t feeling full quickly aeb pt reports bloating and needing time before can eat again and recorded PO intakes <50% Interventions: -Chopped meats, pt reports not needing extra sauces or gravy -1/2 portion sizes next 1-2 days -Vanilla/strawberry Ensure 1-2x/day as tolerated -Discussed sipping caloric beverages between meals as tolerated until appetite returns EER: 1800 kcals (15 kcals/kg per BMI) 70 g protein (.8 g/kg per current renal status and CHF) Monitoring/Evaluations: ONS tolerance, po intakes Electronically Signed by: Ryann Marcelo 08/25/24 11:04 Clinical Dietitian [address] [id number]
[2024-08-25] MEDS: FUROSEMIDE 40 MG/4 ML VIAL IV (12:27)
--- NOTE | 2024-08-25 13:05 | PT-IP ANOTE ---
Patient reviewed in rounds. Due to his medical status he is not ready to participate in Physical Therapy at this time. Thoracentesis is planned. Will discharge Physical Therapy order at this time. Please re-order Physical Therapy when pt medically ready to advance his activity with therapy.
--- NOTE | 2024-08-25 13:06 | OT.IPNOTE ---
Per nursing pt not medically appropriate for OT eval at this time, hospitalist agreed okay to discharge therapy orders at this time.
[2024-08-25] MEDS: methylPREDNISolone 125 MG/2 ML VIAL IV ×2 (14:10→20:50)
--- NOTE | 2024-08-25 14:13 | P.PN_ITS ---
Subjective Subjective Date Patient Seen: 08/25/24 Interval history: Chief complaint: Shortness of breath with acute hypoxic respiratory failure secondary to pneumonia History of present illness: 84 y/o resident of long-term care facility with PMH of oxygen-dependent COPD, on 1-2 L of oxygen, nasal BiPAP, CHF, A-fib, who was recently hospitalized with hypoxic respiratory failure, presented with progressive dyspnea that started few days ago. He was severely hypoxic in the facility and in the ED and was immidiately started on BiPAP. Images revealed b/l pleural effusions and Lt lung infiltrates. Admitted with PNA, hypoxemic respiratory failure for IV abx, oxygen, non- invasive mechanical ventilation. confirmed DNR, DNI status. Hospital course: 08/21: The patient is on BiPAP. Blood pressures are in the 80s over 50s, but he is asymptomatic with blood pressures rising when he wakes up. He denies chest pain. He notes feeling mildly short of breath. He has no pain complaints. 08/22: Did well off from BiPAP for good part of the day. Was improving. 08/23: Was more short of breath and required BiPAP for most of the day. We will become fairly quickly winded, tachypneic, and anxious. We would also desaturate. Lasix was restarted IV. 08/24: remains comfortable for very short periods of time off from BiPAP. No chest pain. No cough. Chest x-ray appears worse today. 08/25: Continuous reliance on BiPAP somewhat confused today unable to take biopsy path for even short periods chest x-ray is worse today than yesterday ultrasound of the chest reveals moderate left and small right pleural effusion Patient is DNR we will try some escalated Lasix and Solu-Medrol recheck a PT INR to see if thoracentesis is possible tomorrow Review of systems: Patient unable to participate Physical exam: Labored respirations on BiPAP Patient is intermittently confused but is asking about his plan of care Markedly shortened respiratory phases rales throughout and markedly diminished sound transmission Abdomen nontender nondistended new line extremities 2+ edema Assessment and plan: Acute on chronic respiratory failure with extensive right-sided pneumonia and progression despite aggressive treatment with vancomycin and Zosyn and Lasix -escalate diuresis new to Lasix 80 mg IV q.8 -high-dose Solu-Medrol 125 IV q.6 hours -Continue BiPAP -discussed code status patient is do not intubate do not resuscitate -recheck PT INR for possible thoracentesis in the morning Chronic atrial fibrillation controlled ventricular response Patient is anticoagulated (unfortunately) no further DVT prophylaxis measures Code status -DNR Exam Vital Signs (past 8 hours): - 08/25/24 06:30 08/25/24 07:00 08/25/24 07:30 Temperature Pulse Rate 60 61 60 Respiratory Rate 30 H 36 H 34 H Blood Pressure Pulse Oximetry 97 96 Oxygen Delivery Method Fraction of Inspired Oxygen 08/25/24 07:44 08/25/24 07:53 08/25/24 08:00 Temperature Pulse Rate 62 Respiratory Rate 34 H Blood Pressure 132/60 Pulse Oximetry 96 Oxygen Delivery Method Nasal Cannula BiPAP Fraction of Inspired Oxygen 0.35 08/25/24 08:00 08/25/24 08:08 08/25/24 08:08 Temperature Pulse Rate 161 H 60 Respiratory Rate 40 H 32 H Blood Pressure 132/60 Pulse Oximetry 96 87 L Oxygen Delivery Method Fraction of Inspired Oxygen 08/25/24 08:30 08/25/24 09:00 08/25/24 09:20 Temperature 98.3 F Pulse Rate 86 60 Respiratory Rate 33 H 37 H Blood Pressure Pulse Oximetry 98 90 L Oxygen Delivery Method Fraction of Inspired Oxygen 08/25/24 09:30 08/25/24 10:00 08/25/24 10:30 Temperature Pulse Rate 60 60 62 Respiratory Rate 35 H 38 H 38 H Blood Pressure Pulse Oximetry 85 L 97 93 Oxygen Delivery Method Fraction of Inspired Oxygen 08/25/24 11:00 08/25/24 11:55 08/25/24 12:00 Temperature Pulse Rate 60 Respiratory Rate 41 H Blood Pressure Pulse Oximetry 98 Oxygen Delivery Method Nasal Cannula BiPAP Fraction of Inspired Oxygen 30 Fraction of Inspired Oxygen 30 SaO2/FiO2 Ratio 274 Oxygen Delivery Method Nasal Cannula,BiPAP Oxygen Flow Rate 3 Objective Labs 08/25/24 04:30 08/25/24 04:30 Labs: Laboratory Results - last 24 hr 08/25/24 04:30 WBC 15.8 H RBC 2.58 L Hgb 7.6 L Hct 23.0 L MCV 89.1 MCH 29.6 MCHC 33.2 RDW 16.9 H Plt Count 376 Sodium 133 L Potassium 3.6 Chloride 92 L Carbon Dioxide 36 H BUN 46 H Creatinine 1.81 H Estimated GFR 36 L BUN/Creatinine Ratio 25.4 H Glucose 113 H Calcium 8.9 PFSH Medical History COPD (chronic obstructive pulmonary disease) Mobitz II Hypertension Surgical History History of permanent cardiac pacemaker placement H/O abdominal surgery Social History household members: spouse Smoking Status: Former smoker alcohol intake: never Assessment & Plan Time-Based Coding :: [TOTAL MINUTES] spent with patient and on the chart (including review of chart, obtaining history, exam, reviewing outside data, placing orders, documenting exam and treatment plan, and counseling patient) on [DATE]. Quality VTE Deep Vein Thrombosis/Pulmonary Embolism Present on Admission: Yes
[2024-08-25 14:56] LABS: Base Excess ABG 7.8 mmol/L (-2-3); Blood Gas Collection Site Left Brachial; Blood Gas Mode Bi-Level Ventilation; Delivery System BiPAP; HCO3 ABG 32 mmol/L (23-27); PCO2 ABG 43.9 mmHg (35-45); PEEP 8; Respiratory Rate 20; TCO2 ABG 31 mmol/L (23-27); pH ABG 7.47 (7.35-7.45)
[2024-08-25 15:43] LABS: INR 1.9 (0.9-1.3); Prothrombin Time 20.8 SECONDS (9.4-12.5)
[2024-08-25] MEDS: FUROSEMIDE 80 MG in SODIUM CHLORIDE 0.9% 50 ML 116 MG IV (15:49)
[2024-08-25] MEDS: hydrOXYzine HCL 25 MG TABLET PO (21:53)
[2024-08-25] MEDS: VANCOMYCIN 1,000 MG in SODIUM CHLORIDE 0.9% 250 ML 250 MG IV (22:07)
[2024-08-26] VITALS (47 sets, daily range): BP systolic 104–151; BP diastolic 51–104; PULSE 60–198; RESP 10–44; TEMP 36.8; O2SAT 86–98
[2024-08-26] MEDS: FUROSEMIDE 40 MG/4 ML VIAL IV (00:15)
[2024-08-26] MEDS: methylPREDNISolone 125 MG/2 ML VIAL IV ×4 (02:32→20:12)
[2024-08-26] MEDS: PANTOPRAZOLE DR 40 MG TABLET PO (06:31)
[2024-08-26] MEDS: PIPERACILLIN/TAZO 3.375 GM in SODIUM CHLORIDE 0.9% 100 ML IV ×3 (08:32→23:14)
[2024-08-26] MEDS: OXYBUTYNIN 5 MG ER TAB 10 MG PO (08:42)
[2024-08-26] MEDS: FUROSEMIDE 80 MG in SODIUM CHLORIDE 0.9% 50 ML 116 MG IV ×3 (08:42→23:07)
[2024-08-26] MEDS: SODIUM CHLORIDE 0.9% FLUSH 10 ML IV ×2 (08:43→20:12)
[2024-08-26] MEDS: ALBUTEROL 2.5 MG/3 ML NEB (ADULT) INH ×4 (09:09→22:58)
[2024-08-26] MEDS: BUDESONIDE 0.5 MG/2 ML NEB INH ×2 (09:09→19:04)
[2024-08-26] MEDS: PHYTONADIONE (VIT K1) 5 MG in SODIUM CHLORIDE 0.9% 100 ML 201 MG IV (10:00)
--- NOTE | 2024-08-26 10:59 | DI.US.S_ITS ---
PROCEDURE: US THORACENTESIS INDICATIONS: pleural effusion TECHNIQUE: The indications, alternatives, benefits, risks, and complications of the procedure were explained to the patient. Written informed consent was obtained and placed in the chart. The chest was examined sonographically, and an appropriate site was chosen for thoracentesis. The skin was prepared and draped in the usual sterile fashion, and 1% lidocaine was infiltrated from the skin down through the pleural surface. A 19-gauge catheter-covered needle was then introduced into the pleural space, the catheter was advanced and the needle was withdrawn, and thereafter pleural fluid was aspirated. The catheter was then removed and a dressing was applied. COMPARISON: [facility], CT, CT CHEST WO CON, 08/20/2024, 22:34. [facility], CR, XR CHEST 1V, 08/25/2024, 10:57. FINDINGS: Access site: Right hemithorax. Needle: One-Step centesis catheter with introducer needle. Fluid volume and description: 700 mL clear ronnie fluid Fluid sent for diagnostic testing: Yes, labs per ordering provider Medications: 1% lidocaine for local anaesthesia. Complications: None; post-procedural chest radiograph is pending to assess for pneumothorax. IMPRESSION: Successful ultrasound-guided thoracentesis. Approved by: Gentry Dietz M.D. on 08/26/2024 at 15:57
[2024-08-26] MEDS: MORPHINE 2 MG/ML INJ 1 MG IV (11:38)
--- NOTE | 2024-08-26 12:25 | DI.RAD.S_ITS ---
PROCEDURE: XR CHEST 1V INDICATIONS: post thoracentesis TECHNIQUE: One view of the chest was acquired. COMPARISON: [facility], , XR CHEST 1V, 08/25/2024, 10:57. [facility], CR, XR CHEST 1V, 08/24/2024, 7:45. FINDINGS: Surgical changes and devices: None. Lungs and pleura: Diffuse left opacities and right basilar opacities. No pneumothorax. Small pleural effusions. Increased pulmonary markings. Mediastinum: Mediastinal contours appear normal. Heart size is enlarged. Bones and chest wall: No suspicious bony lesions. Overlying soft tissues appear unremarkable. IMPRESSION: Small pleural effusions. No pneumothorax. Stable diffuse left and right basilar airspace opacities. Increased pulmonary markings, suggestive of pulmonary edema. Dictated by: Brian Sarmiento M.D. on 08/26/2024 at 12:56 Approved by: Brian Sarmiento M.D. on 08/26/2024 at 12:57
[2024-08-26 13:55] LABS: Body Fluid Red Blood Cells 9364 /uL; Body Fluid Tot Nucleated Cells 2985 /uL
[2024-08-26 13:57] LABS: Body Fluid Appearance SLIGHTLY CLOUDY; Body Fluid Clotted? NO CLOTS PRESENT; Body Fluid Color YELLOW
--- NOTE | 2024-08-26 14:32 | CM.DPNOTE ---
DCP Cont Reviewed chart. Patient discussed in multidisciplinary rounds. Patient would benefit from a thoracentesis, Dr Kelley unsure this is available today. Patient has been mostly Bipap dependent. Patient is slowly improving, reports he is able to breathe more easily this afternoon. Patient on 3L as of 1300 08/26. Therapy orders have been discharged ; provider will need to reorder. team to follow closely for SNF coordination: 1. Need therapy evals and notes 2. Submission of therapy notes and clinical to [facility] for review of SNF auth request 3. Communication with [facility], admissions. No PASRR needed for return to . team following clinical course closely. PAVEL
--- NOTE | 2024-08-26 14:42 | P.PN_ITS ---
Subjective Subjective Date Patient Seen: 08/26/24 Interval history: Chief complaint: Shortness of breath with acute hypoxic respiratory failure secondary to pneumonia History of present illness: 84 y/o resident of long-term care facility with PMH of oxygen-dependent COPD, on 1-2 L of oxygen, nasal BiPAP, CHF, A-fib, who was recently hospitalized with hypoxic respiratory failure, presented with progressive dyspnea that started few days ago. He was severely hypoxic in the facility and in the ED and was immidiately started on BiPAP. Images revealed b/l pleural effusions and Lt lung infiltrates. Admitted with PNA, hypoxemic respiratory failure for IV abx, oxygen, non- invasive mechanical ventilation. confirmed DNR, DNI status. Hospital course: 08/21: The patient is on BiPAP. Blood pressures are in the 80s over 50s, but he is asymptomatic with blood pressures rising when he wakes up. He denies chest pain. He notes feeling mildly short of breath. He has no pain complaints. 08/22: Did well off from BiPAP for good part of the day. Was improving. 08/23: Was more short of breath and required BiPAP for most of the day. We will become fairly quickly winded, tachypneic, and anxious. We would also desaturate. Lasix was restarted IV. 08/24: remains comfortable for very short periods of time off from BiPAP. No chest pain. No cough. Chest x-ray appears worse today. 08/25: Continuous reliance on BiPAP somewhat confused today unable to take biopsy path for even short periods chest x-ray is worse today than yesterday ultrasound of the chest reveals moderate left and small right pleural effusion Patient is DNR we will try some escalated Lasix and Solu-Medrol recheck a PT INR to see if thoracentesis is possible tomorrow 08/26: Patient underwent therapeutic and diagnostic thoracentesis 750 cc was withdrawn patient is breathing much more comfortably and was able to come off BiPAP and had a little bit of meat loaf to eat chest x-ray shows a small pleural effusion on both sides now Review of systems: No nausea No palpitations or chest pain No headache Physical exam: Mildly labored respirations on nasal cannula Alert and cogent Moderately shortened respiratory phases rales throughout and markedly diminished sound transmission Abdomen nontender nondistended new line extremities 2+ edema Assessment and plan: Acute on chronic respiratory failure with extensive right-sided pneumonia and progression despite aggressive treatment with vancomycin and Zosyn and Lasix -escalated diuresis new to Lasix 80 mg IV q.8 -high-dose Solu-Medrol 125 IV q.6 hours -Continue BiPAP as needed -discussed code status patient is do not intubate do not resuscitate ing Chronic atrial fibrillation controlled ventricular response we will not resume anticoagulation as patient may need another thoracentesis Patient is anticoagulated (unfortunately) no further DVT prophylaxis measures we will not resume Code status -DNR Exam Vital Signs (past 8 hours): - 08/26/24 08:00 08/26/24 09:09 08/26/24 09:38 Temperature 98.3 F Pulse Rate Respiratory Rate Blood Pressure 147/68 H Pulse Oximetry Oxygen Delivery Method BiPAP Oxygen Flow Rate Fraction of Inspired Oxygen 30 08/26/24 12:00 08/26/24 12:16 08/26/24 12:16 Temperature Pulse Rate 198 H 64 Respiratory Rate 37 H 43 H Blood Pressure 127/58 L Pulse Oximetry 89 L 86 L Oxygen Delivery Method Oxygen Flow Rate Fraction of Inspired Oxygen 08/26/24 12:30 08/26/24 13:00 08/26/24 13:04 Temperature Pulse Rate 60 60 Respiratory Rate 43 H 44 H Blood Pressure Pulse Oximetry 93 93 97 Oxygen Delivery Method Nasal Cannula Oxygen Flow Rate 3 Fraction of Inspired Oxygen 08/26/24 13:34 Temperature Pulse Rate 63 Respiratory Rate 30 H Blood Pressure Pulse Oximetry 97 Oxygen Delivery Method Nasal Cannula Oxygen Flow Rate 3 Fraction of Inspired Oxygen Fraction of Inspired Oxygen 30 SaO2/FiO2 Ratio 274 Oxygen Delivery Method Nasal Cannula Oxygen Flow Rate 3 Objective Labs 08/25/24 04:30 08/25/24 04:30 Labs: Laboratory Results - last 24 hr 08/25/24 08/25/24 08/26/24 12:00 14:52 12:34 PT 20.8 H D INR 1.9 H ABG Sample Site Left brachial ABG pH 7.47 H ABG pCO2 43.9 ABG HCO3 32 H ABG Total CO2 31 H ABG Base Excess 7.8 H Hayden Test N/a Respiration Rate 20 O2 Delivery Device Bipap Mode of Support Bi-level ventilation FiO2 % 30.0 % PEEP or CPAP 8 Fluid Color Yellow Fluid Appearance Slightly cloudy Fluid RBC 9364 Fld Tot Nucleated Cell 2985 Body Fluid Clot No clots present PFSH Medical History COPD (chronic obstructive pulmonary disease) Mobitz II Hypertension Surgical History History of permanent cardiac pacemaker placement H/O abdominal surgery Social History household members: spouse Smoking Status: Former smoker alcohol intake: never Assessment & Plan Time-Based Coding :: [TOTAL MINUTES] spent with patient and on the chart (including review of chart, obtaining history, exam, reviewing outside data, placing orders, documenting exam and treatment plan, and counseling patient) on [DATE]. Quality VTE Deep Vein Thrombosis/Pulmonary Embolism Present on Admission: Yes
[2024-08-26] MEDS: polyethylene glycoL 3350 17 GM POWD.PACK PO (14:47)
[2024-08-26 14:53] LABS: Lymphocytes Body Fluid 25 %; MESO/MACRO/MONO Body Fluid 9 %; Neutrophils Body Fluid 65 %
[2024-08-26] MEDS: VANCOMYCIN 1,000 MG in SODIUM CHLORIDE 0.9% 250 ML 250 MG IV (21:59)
[2024-08-27] VITALS (59 sets, daily range): BP systolic 120–160; BP diastolic 59–94; PULSE 59–63; RESP 10–44; TEMP 36.1–36.4; O2SAT 87–97
[2024-08-27] MEDS: methylPREDNISolone 125 MG/2 ML VIAL IV ×3 (02:04→15:00)
[2024-08-27] MEDS: SODIUM CHLORIDE 0.9% FLUSH 10 ML IV ×3 (02:04→21:52)
[2024-08-27 05:08] LABS: Add Manual Diff / Slide Review NO; Basophils Absolute Auto 0 /uL (0-100); Eosinophils Absolute Auto 0 /uL (0-450); Hematocrit 23.8 % (41-53); Hemoglobin 7.9 g/dL (13.5-17.5); Lymphocytes Absolute Auto 600 /uL (1100-4500); Mean Corpuscular HGB Conc 33.3 % (30-36); Mean Corpuscular Hemoglobin 29.6 PG (26-34); Monocytes Absolute Auto 500 /uL (0-900); Monocytes Percent Auto 3.3 % (3-14); Neutrophils Absolute Auto 14100 /uL (1500-7000); Neutrophils Percent Auto 92.7 % (50-75); Platelet Count 392 X10^3/uL (150-400); Red Blood Cell Count 2.68 X10^6/uL (4.5-5.9); Red Cell Distribution Width 16.8 % (11.6-14.8); White Blood Cell Count 15.2 X10^3/uL (4.5-11.0)
[2024-08-27 05:21] LABS: Alanine Aminotransferase 32 IU/L (<50); Alkaline Phosphatase 199 U/L (38-126); Aspartate Aminotransferase 39 IU/L (17-59); BUN Creatinine Ratio 28.3 (6-22); Bilirubin Total 0.3 mg/dL (0.2-1.3); Blood Urea Nitrogen 41 mg/dL (9-20); Carbon Dioxide 36 mmol/L (22-32); Chloride 92 mmol/L (98-107); Estimated Glomerular Filt Rate 47 mL/min (>60); Glucose 189 mg/dL (70-99); HEMOLYSIS < 15 (0-50); Potassium 2.9 mmol/L (3.4-5.1); Sodium 136 mmol/L (137-145)
[2024-08-27] MEDS: PANTOPRAZOLE DR 40 MG TABLET PO (06:17)
[2024-08-27] MEDS: POTASSIUM CHLORIDE 20 MEQ TAB 40 MEQ PO (06:17)
[2024-08-27] MEDS: POTASSIUM CHLORIDE IN WATER 10 MEQ/100 ML PIGGYBACK 100 MEQ IV ×3 (06:18→09:40)
[2024-08-27] MEDS: FUROSEMIDE 80 MG in SODIUM CHLORIDE 0.9% 50 ML 116 MG IV ×2 (06:18→15:58)
[2024-08-27] MEDS: BUDESONIDE 0.5 MG/2 ML NEB INH ×2 (07:36→19:36)
[2024-08-27] MEDS: ALBUTEROL 2.5 MG/3 ML NEB (ADULT) INH ×5 (07:36→23:02)
[2024-08-27] MEDS: PIPERACILLIN/TAZO 3.375 GM in SODIUM CHLORIDE 0.9% 100 ML IV ×2 (08:07→15:00)
[2024-08-27] MEDS: OXYBUTYNIN 5 MG ER TAB 10 MG PO (08:17)
[2024-08-27] MEDS: polyethylene glycoL 3350 17 GM POWD.PACK PO (08:17)
[2024-08-27] MEDS: POTASSIUM CHLORIDE 20 MEQ TAB PO (12:57)
--- NOTE | 2024-08-27 15:24 | DI.RAD.S_ITS ---
PROCEDURE: XR CHEST 1V INDICATIONS: pna TECHNIQUE: One view of the chest was acquired. COMPARISON: [facility], CT, CT CHEST WO CON, 08/20/2024, 22:34. [facility], CR, XR CHEST 1V, 08/24/2024, 7:45. [facility], CR, XR CHEST 1V, 08/25/2024, 10:57. [facility], US, US CHEST, 08/25/2024, 11:29. [facility], CR, XR CHEST 1V, 08/26/2024, 12:20. FINDINGS: Surgical changes and devices: A pacer device is seen. The leads are seen in stable positions. Lungs and pleura: Poorly defined infiltrate can be seen throughout the left lung, which appears slightly worse on the current study than on the prior. There is blunting of both costophrenic angles. No pneumothorax is seen on this semiupright study. Mediastinum: Mediastinal contours appear normal. Heart size is moderately enlarged. Atherosclerotic calcification of the aortic arch is noted. Bones and chest wall: No suspicious bony lesions. Age-appropriate bony degenerative changes are seen. Overlying soft tissues appear unremarkable. IMPRESSION: Poorly defined infiltrate seen throughout the left lung, which is slightly worse on the current study than on the prior plain film. Small bilateral pleural effusions. Moderate cardiomegaly. Dictated by: Jon Carbajal M.D. on 08/27/2024 at 15:00 Approved by: Jon Carbajal M.D. on 08/27/2024 at 15:02
--- NOTE | 2024-08-27 16:46 | PM.PN.1 ---
Subjective Subjective Date Patient Seen: 08/27/24 Interval history: hief complaint: Shortness of breath with acute hypoxic respiratory failure secondary to pneumonia History of present illness: 84 y/o resident of long-term care facility with PMH of oxygen-dependent COPD, on 1-2 L of oxygen, nasal BiPAP, CHF, A-fib, who was recently hospitalized with hypoxic respiratory failure, presented with progressive dyspnea that started few days ago. He was severely hypoxic in the facility and in the ED and was immidiately started on BiPAP. Images revealed b/l pleural effusions and Lt lung infiltrates. Admitted with PNA, hypoxemic respiratory failure for IV abx, oxygen, non-invasive mechanical ventilation. confirmed DNR, DNI status. Hospital course: 08/21: The patient is on BiPAP. Blood pressures are in the 80s over 50s, but he is asymptomatic with blood pressures rising when he wakes up. He denies chest pain. He notes feeling mildly short of breath. He has no pain complaints. 08/22: Did well off from BiPAP for good part of the day. Was improving. 08/23: Was more short of breath and required BiPAP for most of the day. We will become fairly quickly winded, tachypneic, and anxious. We would also desaturate. Lasix was restarted IV. 08/24: remains comfortable for very short periods of time off from BiPAP. No chest pain. No cough. Chest x-ray appears worse today. 08/25: Continuous reliance on BiPAP somewhat confused today unable to take biopsy path for even short periods chest x-ray is worse today than yesterday ultrasound of the chest reveals moderate left and small right pleural effusion Patient is DNR we will try some escalated Lasix and Solu-Medrol recheck a PT INR to see if thoracentesis is possible tomorrow 08/26: Patient underwent therapeutic and diagnostic thoracentesis 750 cc was withdrawn patient is breathing much more comfortably and was able to come off BiPAP and had a little bit of meat loaf to eat chest x-ray shows a small pleural effusion on both sides now 08/27: Patient has much less labored breathing is tolerating diet no edema of the lower extremities now BUN creatinine are slightly improved chest x-ray is improved with reduction in bilateral pleural effusions Review of systems: No nausea No palpitations or chest pain No headache Physical exam: Mildly labored respirations on nasal cannula Alert and cogent Moderately shortened respiratory phases rales throughout and markedly diminished sound transmission Abdomen nontender nondistended new line extremities Trace pedal edema Assessment and plan: Acute on chronic respiratory failure with extensive right-sided pneumonia and progression despite aggressive treatment with vancomycin and Zosyn and Lasix -escalated diuresis new to Lasix 80 mg IV q.8 we will deescalate to 40 mg IV q.12 -high-dose Solu-Medrol 125 IV q.6 hours de-escalated to 60 IV q.12 hours -no further episodes were BiPAP was needed -discussed code status patient is do not intubate do not resuscitate Chronic atrial fibrillation controlled ventricular response we will not resume anticoagulation as patient may need another thoracentesis Patient is anticoagulated (unfortunately) no further DVT prophylaxis measures we will not resume Code status -DNR Exam Vital Signs (past 8 hours): - 08/27/24 09:00 08/27/24 11:00 08/27/24 11:43 Pulse Rate 61 60 60 Respiratory Rate 40 H 36 H 31 H Blood Pressure Pulse Oximetry 89 L 95 92 Oxygen Delivery Method Nasal Cannula Oxygen Flow Rate 2 Fraction of Inspired Oxygen 08/27/24 12:00 08/27/24 13:30 08/27/24 14:36 Pulse Rate 60 60 Respiratory Rate 33 H 20 Blood Pressure 133/63 Pulse Oximetry 91 90 L Oxygen Delivery Method Nasal Cannula Nasal Cannula Oxygen Flow Rate 2 Fraction of Inspired Oxygen 28 Fraction of Inspired Oxygen 28 SaO2/FiO2 Ratio 321 Oxygen Delivery Method Nasal Cannula Oxygen Flow Rate 2 Objective Labs 08/27/24 04:15 08/27/24 04:15 Labs: Laboratory Results - last 24 hr 08/26/24 08/27/24 12:34 04:15 WBC 15.2 H RBC 2.68 L Hgb 7.9 L Hct 23.8 L MCV 89.0 MCH 29.6 MCHC 33.3 RDW 16.8 H Plt Count 392 Neut % (Auto) 92.7 H Lymph % (Auto) 4.0 L [place] % (Auto) 3.3 Eos % (Auto) 0.0 L Baso % (Auto) 0.0 Neut # (Auto) 60021 H Lymph # (Auto) 600 L [place] # (Auto) 500 Eos # (Auto) 0 Baso # (Auto) 0 Sodium 136 L Potassium 2.9 L Chloride 92 L Carbon Dioxide 36 H BUN 41 H Creatinine 1.45 H Estimated GFR 47 L BUN/Creatinine Ratio 28.3 H Glucose 189 H Calcium 9.0 Total Bilirubin 0.3 AST 39 ALT 32 Alkaline Phosphatase 199 H D Total Protein 6.0 L Albumin 3.0 L Globulin 3.0 Albumin/Globulin Ratio 1.0 Ref Test (Refrig) Comment PFSH Medical History COPD (chronic obstructive pulmonary disease) Mobitz II Hypertension Surgical History History of permanent cardiac pacemaker placement H/O abdominal surgery Social History household members: spouse Smoking Status: Former smoker alcohol intake: never Assessment & Plan Time-Based Coding :: 55 minutes spent with patient and on the chart (including review of chart, obtaining history, exam, reviewing outside data, placing orders, documenting exam and treatment plan, and counseling patient) . Quality VTE Deep Vein Thrombosis/Pulmonary Embolism Present on Admission: Yes
[2024-08-27] MEDS: VANCOMYCIN TROUGH 1 REQUEST MISC (21:30)
[2024-08-27] MEDS: VANCOMYCIN 1,000 MG in SODIUM CHLORIDE 0.9% 250 ML 250 MG IV (21:52)
[2024-08-27 22:05] LABS: Vancomycin Trough 18.2 ug/mL (10-20)
[2024-08-28] VITALS (51 sets, daily range): BP systolic 146–167; BP diastolic 64–72; PULSE 60–63; RESP 10–44; TEMP 35.9–36.4; O2SAT 91–98
[2024-08-28] MEDS: FUROSEMIDE 40 MG/4 ML VIAL IV ×3 (00:12→23:54)
[2024-08-28] MEDS: PIPERACILLIN/TAZO 3.375 GM in SODIUM CHLORIDE 0.9% 100 ML IV ×4 (00:12→23:54)
[2024-08-28] MEDS: VANCOMYCIN PEAK 1 REQUEST MISC (00:23)
[2024-08-28] MEDS: methylPREDNISolone 125 MG/2 ML VIAL 60 MG IV ×2 (05:04→17:20)
[2024-08-28] MEDS: SODIUM CHLORIDE 0.9% FLUSH 10 ML IV ×3 (05:08→20:14)
[2024-08-28 05:13] LABS: Add Manual Diff / Slide Review NO; Basophils Absolute Auto 0 /uL (0-100); Basophils Percent Auto 0.2 % (0-2); Eosinophils Absolute Auto 0 /uL (0-450); Hematocrit 24.6 % (41-53); Lymphocytes Absolute Auto 600 /uL (1100-4500); Lymphocytes Percent Auto 3.3 % (25-40); Mean Corpuscular HGB Conc 32.3 % (30-36); Mean Corpuscular Hemoglobin 28.9 PG (26-34); Mean Corpuscular Volume 89.4 fL (80-100); Monocytes Absolute Auto 1000 /uL (0-900); Monocytes Percent Auto 5.1 % (3-14); Neutrophils Absolute Auto 17200 /uL (1500-7000); Neutrophils Percent Auto 91.4 % (50-75); Platelet Count 439 X10^3/uL (150-400); Red Blood Cell Count 2.75 X10^6/uL (4.5-5.9); Red Cell Distribution Width 16.9 % (11.6-14.8); White Blood Cell Count 18.8 X10^3/uL (4.5-11.0)
[2024-08-28 05:56] LABS: BUN Creatinine Ratio 30.2 (6-22); Blood Urea Nitrogen 45 mg/dL (9-20); Calcium 9.1 mg/dL (8.4-10.2); Carbon Dioxide 39 mmol/L (22-32); Chloride 93 mmol/L (98-107); Estimated Glomerular Filt Rate 46 mL/min (>60); Glucose 143 mg/dL (70-99); HEMOLYSIS < 15 (0-50); Potassium 3.3 mmol/L (3.4-5.1); Sodium 137 mmol/L (137-145)
[2024-08-28] MEDS: PANTOPRAZOLE DR 40 MG TABLET PO (06:22)
[2024-08-28] MEDS: ALBUTEROL 2.5 MG/3 ML NEB (ADULT) INH ×4 (07:37→20:28)
[2024-08-28] MEDS: BUDESONIDE 0.5 MG/2 ML NEB INH ×2 (07:37→20:26)
[2024-08-28] MEDS: OXYBUTYNIN 5 MG ER TAB 10 MG PO (08:16)
[2024-08-28] MEDS: polyethylene glycoL 3350 17 GM POWD.PACK PO (08:16)
[2024-08-28] MEDS: HEPARIN 5,000 UNIT/ML VIAL 5000 UNIT SUBCUT (08:16)
--- NOTE | 2024-08-28 09:33 | DI.US.S_ITS ---
PROCEDURE: US CHEST COMPARISON: [facility], , US THORACENTESIS, 08/26/2024, 11:47. [facility], US, US CHEST, 08/25/2024, 11:29. [facility], , XR CHEST 1V, 08/26/2024, 12:20. Technique: Targeted ultrasound of the chest wall. INDICATIONS: Evaluate pleural effusion FINDINGS/IMPRESSION: Moderate bilateral pleural effusions. The left has decreased compared with 08/26/2024. Dictated by: Brian Sarmiento M.D. on 08/28/2024 at 16:51 Approved by: Brian Sarmiento M.D. on 08/28/2024 at 16:52
[2024-08-28] MEDS: POTASSIUM CHLORIDE 20 MEQ TAB 40 MEQ PO ×2 (13:18→20:13)
[2024-08-28] MEDS: hydrOXYzine HCL 25 MG TABLET PO ×2 (14:22→20:13)
--- NOTE | 2024-08-28 15:20 | P.PN_ITS ---
Subjective Subjective Date Patient Seen: 08/28/24 Interval history: hief complaint: Shortness of breath with acute hypoxic respiratory failure secondary to pneumonia History of present illness: 84 y/o resident of long-term care facility with PMH of oxygen-dependent COPD, on 1-2 L of oxygen, nasal BiPAP, CHF, A-fib, who was recently hospitalized with hypoxic respiratory failure, presented with progressive dyspnea that started few days ago. He was severely hypoxic in the facility and in the ED and was immidiately started on BiPAP. Images revealed b/l pleural effusions and Lt lung infiltrates. Admitted with PNA, hypoxemic respiratory failure for IV abx, oxygen, non- invasive mechanical ventilation. confirmed DNR, DNI status. Hospital course: 08/21: The patient is on BiPAP. Blood pressures are in the 80s over 50s, but he is asymptomatic with blood pressures rising when he wakes up. He denies chest pain. He notes feeling mildly short of breath. He has no pain complaints. 08/22: Did well off from BiPAP for good part of the day. Was improving. 08/23: Was more short of breath and required BiPAP for most of the day. We will become fairly quickly winded, tachypneic, and anxious. We would also desaturate. Lasix was restarted IV. 08/24: remains comfortable for very short periods of time off from BiPAP. No chest pain. No cough. Chest x-ray appears worse today. 08/25: Continuous reliance on BiPAP somewhat confused today unable to take biopsy path for even short periods chest x-ray is worse today than yesterday ultrasound of the chest reveals moderate left and small right pleural effusion Patient is DNR we will try some escalated Lasix and Solu-Medrol recheck a PT INR to see if thoracentesis is possible tomorrow 08/26: Patient underwent therapeutic and diagnostic thoracentesis 750 cc was withdrawn patient is breathing much more comfortably and was able to come off BiPAP and had a little bit of meat loaf to eat chest x-ray shows a small pleural effusion on both sides now 08/27: Patient has much less labored breathing is tolerating diet no edema of the lower extremities now BUN creatinine are slightly improved chest x-ray is improved with reduction in bilateral pleural effusions 08/28: Patient as continued labored breathing but is at about the same as yesterday tolerating diet trace edema of lower extremities Potassium 3.3 BUN creatinine 45 and 1.9 Review of systems: No nausea No palpitations or chest pain No headache Physical exam: Mildly labored respirations on nasal cannula Alert and cogent Moderately shortened respiratory phases rales throughout and markedly diminished sound transmission Abdomen nontender nondistended new line extremities Trace pedal edema Assessment and plan: Acute on chronic respiratory failure with extensive right-sided pneumonia and progression despite aggressive treatment with vancomycin and Zosyn and Lasix -deescalated diuresis Lasix 80 mg IV q.8 to 40 mg IV q.12 -high-dose Solu-Medrol 125 IV q.6 hours de-escalated to 60 IV q.12 hours -no further episodes were BiPAP was needed -discussed code status patient is do not intubate do not resuscitate Chronic atrial fibrillation controlled ventricular response we will not resume anticoagulation as patient may need another thoracentesis DVT prophylaxis: Subcutaneous heparin Code status -DNR Time-Based Coding :: 55 minutes spent with patient and on the chart (including review of chart, obtaining history, exam, reviewing outside data, placing orders, documenting exam and treatment plan, and counseling patient) . Exam Vital Signs (past 8 hours): - 08/28/24 07:30 08/28/24 07:38 08/28/24 07:47 Temperature Pulse Rate 60 Respiratory Rate 25 H Blood Pressure 146/64 H 153/70 H Pulse Oximetry 97 Oxygen Delivery Method Oxygen Flow Rate Fraction of Inspired Oxygen 30 08/28/24 08:00 08/28/24 11:43 08/28/24 13:00 Temperature 97.5 F L Pulse Rate 60 60 60 Respiratory Rate 25 H 20 18 Blood Pressure 167/67 H Pulse Oximetry 95 96 93 Oxygen Delivery Method Nasal Cannula Oxygen Flow Rate 2 2 Fraction of Inspired Oxygen 28 08/28/24 13:45 08/28/24 14:05 Temperature Pulse Rate 60 60 Respiratory Rate 18 Blood Pressure 162/67 H Pulse Oximetry 94 93 Oxygen Delivery Method Nasal Cannula Oxygen Flow Rate 2 2 Fraction of Inspired Oxygen 28 Fraction of Inspired Oxygen 28 SaO2/FiO2 Ratio 332 Oxygen Delivery Method Nasal Cannula Oxygen Flow Rate 2 Objective Labs 08/28/24 04:24 08/28/24 04:24 Labs: Laboratory Results - last 24 hr 08/25/24 08/27/24 08/28/24 14:52 21:25 01:07 WBC RBC Hgb Hct MCV MCH MCHC RDW Plt Count Neut % (Auto) Lymph % (Auto) [place] % (Auto) Eos % (Auto) Baso % (Auto) Neut # (Auto) Lymph # (Auto) [place] # (Auto) Eos # (Auto) Baso # (Auto) ABG pO2 Not Reportable ABG O2 Saturation Not Reportable Sodium Potassium Chloride Carbon Dioxide BUN Creatinine Estimated GFR BUN/Creatinine Ratio Glucose Calcium Vancomycin Peak 28.0 Vancomycin Trough 18.2 08/28/24 04:24 WBC 18.8 H RBC 2.75 L Hgb 8.0 L Hct 24.6 L MCV 89.4 MCH 28.9 MCHC 32.3 RDW 16.9 H Plt Count 439 H Neut % (Auto) 91.4 H Lymph % (Auto) 3.3 L [place] % (Auto) 5.1 Eos % (Auto) 0.0 L Baso % (Auto) 0.2 Neut # (Auto) 05330 H Lymph # (Auto) 600 L [place] # (Auto) 1000 H Eos # (Auto) 0 Baso # (Auto) 0 ABG pO2 ABG O2 Saturation Sodium 137 Potassium 3.3 L Chloride 93 L Carbon Dioxide 39 H BUN 45 H Creatinine 1.49 H Estimated GFR 46 L BUN/Creatinine Ratio 30.2 H Glucose 143 H Calcium 9.1 Vancomycin Peak Vancomycin Trough PFSH Medical History COPD (chronic obstructive pulmonary disease) Mobitz II Hypertension Surgical History History of permanent cardiac pacemaker placement H/O abdominal surgery Social History household members: spouse Smoking Status: Former smoker alcohol intake: never Assessment & Plan Time-Based Coding :: [TOTAL MINUTES] spent with patient and on the chart (including review of chart, obtaining history, exam, reviewing outside data, placing orders, documenting exam and treatment plan, and counseling patient) on [DATE]. Quality VTE Deep Vein Thrombosis/Pulmonary Embolism Present on Admission: Yes
[2024-08-28] MEDS: MORPHINE 2 MG/ML INJ 1 MG IV (20:26)
[2024-08-28] MEDS: VANCOMYCIN 1,000 MG in SODIUM CHLORIDE 0.9% 250 ML 250 MG IV (21:03)
[2024-08-29] VITALS (59 sets, daily range): BP systolic 118–158; BP diastolic 61–75; PULSE 59–72; RESP 10–47; TEMP 35.9–36.6; O2SAT 90–99
--- NOTE | 2024-08-29 | DI.US.S_ITS ---
PROCEDURE: US THORACENTESIS THERAPUTIC INDICATIONS: PLEURAL EFFUSION TECHNIQUE: The indications, alternatives, benefits, risks, and complications of the procedure were explained to the patient. Written informed consent was obtained and placed in the chart. The chest was examined sonographically, and an appropriate site was chosen for thoracentesis. The skin was prepared and draped in the usual sterile fashion, and 1% lidocaine was infiltrated from the skin down through the pleural surface. A 19-gauge catheter-covered needle was then introduced into the pleural space, the catheter was advanced and the needle was withdrawn, and thereafter pleural fluid was aspirated. The catheter was then removed and a dressing was applied. COMPARISON: [facility], CR, XR CHEST 1V, 08/29/2024, 12:06. FINDINGS: Access site: Right hemithorax. Needle: One-Step centesis catheter with introducer needle. Fluid volume and description: 1 L of clear, yellow fluid Fluid sent for diagnostic testing: No Medications: 1% lidocaine for local anaesthesia. Complications: None; post-procedural chest radiograph is pending to assess for pneumothorax. IMPRESSION: Successful ultrasound-guided right thoracentesis. Dictated by: Frederic Tamayo M.D. on 08/29/2024 at 13:02 Approved by: Frederic Tamayo M.D. on 08/29/2024 at 13:03
[2024-08-29] MEDS: PANTOPRAZOLE DR 40 MG TABLET PO (05:03)
[2024-08-29] MEDS: methylPREDNISolone 125 MG/2 ML VIAL 60 MG IV (05:03)
[2024-08-29] MEDS: ALBUTEROL 2.5 MG/3 ML NEB (ADULT) INH ×5 (07:40→22:30)
[2024-08-29] MEDS: BUDESONIDE 0.5 MG/2 ML NEB INH ×2 (07:40→19:26)
[2024-08-29] MEDS: PIPERACILLIN/TAZO 3.375 GM in SODIUM CHLORIDE 0.9% 100 ML IV (08:09)
[2024-08-29] MEDS: polyethylene glycoL 3350 17 GM POWD.PACK PO (08:10)
[2024-08-29] MEDS: OXYBUTYNIN 5 MG ER TAB 10 MG PO (08:10)
[2024-08-29] MEDS: SODIUM CHLORIDE 0.9% FLUSH 10 ML IV ×2 (08:10→20:18)
[2024-08-29] MEDS: hydrOXYzine HCL 25 MG TABLET PO ×2 (08:13→20:18)
--- NOTE | 2024-08-29 08:30 | PM.PN.1 ---
Subjective Subjective Date Patient Seen: 08/29/24 Interval history: Chief complaint: Shortness of breath with acute hypoxic respiratory failure secondary to pneumonia History of present illness: 84 y/o resident of long-term care facility with PMH of oxygen-dependent COPD, on 1-2 L of oxygen, nasal BiPAP, CHF, A-fib, who was recently hospitalized with hypoxic respiratory failure, presented with progressive dyspnea that started few days ago. He was severely hypoxic in the facility and in the ED and was immidiately started on BiPAP. Images revealed b/l pleural effusions and Lt lung infiltrates. Admitted with PNA, hypoxemic respiratory failure for IV abx, oxygen, non-invasive mechanical ventilation. confirmed DNR, DNI status. Hospital course: 08/21: The patient is on BiPAP. Blood pressures are in the 80s over 50s, but he is asymptomatic with blood pressures rising when he wakes up. He denies chest pain. He notes feeling mildly short of breath. He has no pain complaints. 08/22: Did well off from BiPAP for good part of the day. Was improving. 08/23: Was more short of breath and required BiPAP for most of the day. We will become fairly quickly winded, tachypneic, and anxious. We would also desaturate. Lasix was restarted IV. 08/24: remains comfortable for very short periods of time off from BiPAP. No chest pain. No cough. Chest x-ray appears worse today. 08/25: Continuous reliance on BiPAP somewhat confused today unable to take biopsy path for even short periods chest x-ray is worse today than yesterday ultrasound of the chest reveals moderate left and small right pleural effusion Patient is DNR we will try some escalated Lasix and Solu-Medrol recheck a PT INR to see if thoracentesis is possible tomorrow 08/26: Patient underwent therapeutic and diagnostic thoracentesis 750 cc was withdrawn patient is breathing much more comfortably and was able to come off BiPAP and had a little bit of meat loaf to eat chest x-ray shows a small pleural effusion on both sides now 08/27: Patient has much less labored breathing is tolerating diet no edema of the lower extremities now BUN creatinine are slightly improved chest x-ray is improved with reduction in bilateral pleural effusions 08/28: Patient as continued labored breathing but is at about the same as yesterday tolerating diet trace edema of lower extremities Potassium 3.3 BUN creatinine 45 and 1.9 08/29: Patient continued [id number] labored breathing but is managing did not require BiPAP ultrasound yesterday shows moderate bilateral pleural effusions Deescalating from intravenous steroids and antibiotics to oral steroids and antibiotics Thoracentesis for today bilateral if possible Review of systems: No nausea No palpitations or chest pain No headache Physical exam: Mildly labored respirations on nasal cannula Alert and cogent Moderately shortened respiratory phases rales throughout and markedly diminished sound transmission Abdomen nontender nondistended new line extremities Trace pedal edema Assessment and plan: Acute on chronic respiratory failure with large pneumonia moderate right-sided pneumonia pleural effusion status post therapeutic thoracentesis -deescalated to Lasix 80 mg p.o. b.i.d. and spironolactone 25 mg p.o. b.i.d. -high-dose Solu-Medrol de-escalated to oral prednisone 40 b.i.d. -antibiotics deescalated from Zosyn and vancomycin to cefdinir and Cipro oral -no further episodes were BiPAP was needed -discussed code status patient is do not intubate do not resuscitate -continue inpatient for another 48 hours and then begin evaluation for shelter -monitor daily BUN creatinine on diuresis Chronic atrial fibrillation controlled ventricular response resume anticoagulation if chest x-ray and ultrasound imaging does not show reaccumulation of pleural fluid DVT prophylaxis: Subcutaneous heparin Code status -DNR Time-Based Coding :: 55 minutes spent with patient and on the chart (including review of chart, obtaining history, exam, reviewing outside data, placing orders, documenting exam and treatment plan, and counseling patient) . Exam Vital Signs (past 8 hours): - 08/29/24 04:32 08/29/24 04:38 08/29/24 04:50 Temperature 96.8 F L Pulse Rate 60 Respiratory Rate 25 H Blood Pressure 150/71 H Pulse Oximetry 96 Oxygen Delivery Method BiPAP Oxygen Flow Rate 30 Fraction of Inspired Oxygen 0.30 08/29/24 07:40 Temperature Pulse Rate Respiratory Rate Blood Pressure Pulse Oximetry Oxygen Delivery Method Oxygen Flow Rate Fraction of Inspired Oxygen 0.3 Fraction of Inspired Oxygen 0.3 SaO2/FiO2 Ratio 332 Oxygen Delivery Method BiPAP Oxygen Flow Rate 30 Objective Labs 08/29/24 09:05 08/29/24 09:05 Labs: Laboratory Results - last 24 hr 08/25/24 14:52 ABG pO2 Not Reportable ABG O2 Saturation Not Reportable [facility] Medical History COPD (chronic obstructive pulmonary disease) Mobitz II Hypertension Surgical History History of permanent cardiac pacemaker placement H/O abdominal surgery Social History household members: spouse Smoking Status: Former smoker alcohol intake: never Assessment & Plan Time-Based Coding :: [TOTAL MINUTES] spent with patient and on the chart (including review of chart, obtaining history, exam, reviewing outside data, placing orders, documenting exam and treatment plan, and counseling patient) on [DATE]. Quality VTE Deep Vein Thrombosis/Pulmonary Embolism Present on Admission: Yes
--- NOTE | 2024-08-29 08:35 | DI.RAD.S_ITS ---
PROCEDURE: XR CHEST 1V INDICATIONS: Pleural effusion and pneumonia TECHNIQUE: One view of the chest was acquired. COMPARISON: [facility], CR, XR CHEST 1V, 08/27/2024, 15:30. FINDINGS: Moderate left and mild right basilar consolidations commonly representing a combination of pleural effusions, atelectatic changes, pneumonia or other process unchanged. Diffuse moderate peribronchial thickening and patchy alveolar opacities most notably throughout the left upper and lower lobes, lingula greater than right suspicious for multifocal pneumonia, bronchopneumonia unchanged. Moderately enlarged cardiopericardial silhouette unchanged. Moderate calcifications of the aortic arch and descending aorta unchanged. Dual lead pacemaker left-sided battery pack unchanged. Mildly prominent darnell, pulmonary vascular congestion and/or hilar lymph nodes unchanged. No pneumothorax. IMPRESSION: No significant change as discussed above. Continued follow-up is needed Dictated by: Eric Keyes M.D. on 08/29/2024 at 9:35 Approved by: Eric Keyes M.D. on 08/29/2024 at 9:39
[2024-08-29] MEDS: CEFDINIR 300 MG CAPSULE PO ×2 (08:54→20:18)
[2024-08-29] MEDS: predniSONE 20 MG TABLET 40 MG PO ×2 (08:54→20:18)
[2024-08-29] MEDS: SPIRONOLACTONE 25 MG TABLET PO ×2 (08:54→17:05)
[2024-08-29 09:47] LABS: Add Manual Diff / Slide Review NO; Basophils Absolute Auto 0 /uL (0-100); Basophils Percent Auto 0.1 % (0-2); Eosinophils Absolute Auto 0 /uL (0-450); Hematocrit 26.8 % (41-53); Hemoglobin 8.5 g/dL (13.5-17.5); Lymphocytes Absolute Auto 1200 /uL (1100-4500); Lymphocytes Percent Auto 4.9 % (25-40); Mean Corpuscular HGB Conc 31.7 % (30-36); Mean Corpuscular Hemoglobin 28.8 PG (26-34); Mean Corpuscular Volume 90.8 fL (80-100); Monocytes Absolute Auto 1000 /uL (0-900); Neutrophils Absolute Auto 21900 /uL (1500-7000); Platelet Count 475 X10^3/uL (150-400); Red Blood Cell Count 2.95 X10^6/uL (4.5-5.9); Red Cell Distribution Width 17.4 % (11.6-14.8)
[2024-08-29 09:58] LABS: Alanine Aminotransferase 43 IU/L (<50); Albumin Globulin Ratio 0.9 (1.0-2.8); Alkaline Phosphatase 215 U/L (38-126); Aspartate Aminotransferase 41 IU/L (17-59); BUN Creatinine Ratio 30.4 (6-22); Bilirubin Total 0.3 mg/dL (0.2-1.3); Blood Urea Nitrogen 45 mg/dL (9-20); Calcium 9.1 mg/dL (8.4-10.2); Chloride 93 mmol/L (98-107); Estimated Glomerular Filt Rate 46 mL/min (>60); Globulin 3.2 g/dL (1.7-4.1); Glucose 157 mg/dL (70-99); HEMOLYSIS < 15 (0-50); Potassium 4.6 mmol/L (3.4-5.1); Sodium 138 mmol/L (137-145); Total Protein 6.2 g/dL (6.3-8.2)
[2024-08-29 10:05] LABS: Carbon Dioxide 36 mmol/L (22-32)
--- NOTE | 2024-08-29 11:28 | PT-IP ANOTE ---
PT is able to review cervical MRI and brain MRI results after assessment and pt is found to have acute stroke with the following findings: IMPRESSION: 1. Very small punctate acute left posterior frontal deep white matter infarct. 2. Suspect tiny punctate right parietal cortical infarct. 3. Age-related volume loss and mild small vessel ischemic change.
--- NOTE | 2024-08-29 11:38 | OT.IPNOTE ---
Ot eval and treat order recieved, pt with labored breathing. Planned for Thorocentesis today. Will hold per Dr. Kelley.
--- NOTE | 2024-08-29 11:39 | PT-IP ANOTE ---
PT mayra received. Pt is SOB at rest and PT speaks with MD who states that pt is to have another thoracentesis this date. Will hold PT today and initiate evaluation efforts tomorrow.
--- NOTE | 2024-08-29 12:06 | DI.RAD.S_ITS ---
PROCEDURE: XR CHEST 1V INDICATIONS: post thoracentesis TECHNIQUE: One view of the chest was acquired. COMPARISON: [facility], CR, XR CHEST 1V, 08/29/2024, 8:34. [facility], CR, XR CHEST 1V, 08/27/2024, 15:30. [facility], CR, XR CHEST 1V, 08/26/2024, 12:20. [facility], CR, XR CHEST 1V, 08/25/2024, 10:57. FINDINGS: Surgical changes and devices: Left pacemaker with the leads terminating in the projection of the right atrium and right ventricle Lungs and pleura: Persistent multifocal left parenchymal and right lower lobe posterior segmental opacification. Interval decrease in right pleural effusion, now trace. Small left pleural effusion. No pneumothorax. Mediastinum: Mediastinal contours appear normal. Heart size is normal. Bones and chest wall: No suspicious bony lesions. Overlying soft tissues appear unremarkable. IMPRESSION: 1. Status post right thoracentesis without a significant pneumothorax. 2. Status post right thoracentesis with interval decrease in pleural effusion, now trace. Dictated by: Frederic Tamayo M.D. on 08/29/2024 at 13:03 Approved by: Frederic Tamayo M.D. on 08/29/2024 at 14:06
--- NOTE | 2024-08-29 12:24 | CM.DPNOTE ---
DCP note GENERAL OFFICE DISPATCHER reviewed EMR per provider in morning rounds, getting closer to be cleared for dc to return to [facility]. GENERAL OFFICE DISPATCHER placed PT/OT orders. per provider, converting to PO meds today. per RN, repeat chest ultra sound today. doing well with respirations in morning. GENERAL OFFICE DISPATCHER met with pt in room. reviewed DCP. pt had questions about chest x ray results. directed to RN for medical questions. pt agreeable to work with PT/OT, recognize it is needed for [facility] placement. denies other questions for DCP at this time. RN entering room as this GENERAL OFFICE DISPATCHER left to answer questions specific to testing results. Per PT/OT, pt breathing became increasing labored throughout morning/when they attempted to work with him. on hold for now. Per provider PN, Thoracentesis now planned for today NEED PT/OT evals for [facility] auth/transport rec, to arrange transport, and continue to coordinate with [facility] closer to dc. no PASRR needed at this time. Will continue to follow closely for DCP coordination. DRAGAN Landers
[2024-08-29] MEDS: FUROSEMIDE 40 MG TABLET 80 MG PO (17:05)
[2024-08-29] MEDS: CIPROFLOXACIN 250 MG TABLET 500 MG PO (20:18)
[2024-08-30] VITALS (33 sets, daily range): BP systolic 133–173; BP diastolic 60–68; PULSE 59–71; RESP 10–42; TEMP 36–36.3; O2SAT 93–98
[2024-08-30] MEDS: PANTOPRAZOLE DR 40 MG TABLET PO (05:14)
[2024-08-30] MEDS: BUDESONIDE 0.5 MG/2 ML NEB INH ×2 (06:00→18:03)
[2024-08-30] MEDS: ALBUTEROL 2.5 MG/3 ML NEB (ADULT) INH ×5 (06:00→22:10)
[2024-08-30] MEDS: polyethylene glycoL 3350 17 GM POWD.PACK PO (08:22)
[2024-08-30] MEDS: CIPROFLOXACIN 250 MG TABLET 500 MG PO ×2 (08:22→20:34)
[2024-08-30] MEDS: CEFDINIR 300 MG CAPSULE PO ×2 (08:22→20:31)
[2024-08-30] MEDS: FUROSEMIDE 40 MG TABLET 80 MG PO ×2 (08:22→16:03)
[2024-08-30] MEDS: OXYBUTYNIN 5 MG ER TAB 10 MG PO (08:23)
[2024-08-30] MEDS: SPIRONOLACTONE 25 MG TABLET PO ×2 (08:23→16:03)
[2024-08-30] MEDS: SODIUM CHLORIDE 0.9% FLUSH 10 ML IV ×2 (08:23→20:31)
[2024-08-30] MEDS: predniSONE 20 MG TABLET 40 MG PO ×2 (08:23→20:31)
--- NOTE | 2024-08-30 09:04 | PM.PN.1 ---
Subjective Subjective Date Patient Seen: 08/30/24 Interval history: Shortness of breath with acute hypoxic respiratory failure secondary to pneumonia History of present illness: 84 y/o resident of long-term care facility with PMH of oxygen-dependent COPD, on 1-2 L of oxygen, nasal BiPAP, CHF, A-fib, who was recently hospitalized with hypoxic respiratory failure, presented with progressive dyspnea that started few days ago. He was severely hypoxic in the facility and in the ED and was immidiately started on BiPAP. Images revealed b/l pleural effusions and Lt lung infiltrates. Admitted with PNA, hypoxemic respiratory failure for IV abx, oxygen, non-invasive mechanical ventilation. confirmed DNR, DNI status. Hospital course: 08/21: The patient is on BiPAP. Blood pressures are in the 80s over 50s, but he is asymptomatic with blood pressures rising when he wakes up. He denies chest pain. He notes feeling mildly short of breath. He has no pain complaints. 08/22: Did well off from BiPAP for good part of the day. Was improving. 08/23: Was more short of breath and required BiPAP for most of the day. We will become fairly quickly winded, tachypneic, and anxious. We would also desaturate. Lasix was restarted IV. 08/24: remains comfortable for very short periods of time off from BiPAP. No chest pain. No cough. Chest x-ray appears worse today. 08/25: Continuous reliance on BiPAP somewhat confused today unable to take biopsy path for even short periods chest x-ray is worse today than yesterday ultrasound of the chest reveals moderate left and small right pleural effusion Patient is DNR we will try some escalated Lasix and Solu-Medrol recheck a PT INR to see if thoracentesis is possible tomorrow 08/26: Patient underwent therapeutic and diagnostic thoracentesis 750 cc was withdrawn patient is breathing much more comfortably and was able to come off BiPAP and had a little bit of meat loaf to eat chest x-ray shows a small pleural effusion on both sides now 08/27: Patient has much less labored breathing is tolerating diet no edema of the lower extremities now BUN creatinine are slightly improved chest x-ray is improved with reduction in bilateral pleural effusions 08/28: Patient as continued labored breathing but is at about the same as yesterday tolerating diet trace edema of lower extremities Potassium 3.3 BUN creatinine 45 and 1.9 08/29: Patient continued [id number] labored breathing but is managing did not require BiPAP ultrasound yesterday shows moderate bilateral pleural effusions Deescalating from intravenous steroids and antibiotics to oral steroids and antibiotics Thoracentesis for today bilateral if possible 1. Status post right thoracentesis without a significant pneumothorax. 2. Status post right thoracentesis with interval decrease in pleural effusion, now trace. 08/30: Improved shortness of breath was able to sit on the side of the bed with physical therapy switch anticoagulation to Lovenox to facilitate potentially doing a repeat right thoracentesis 08/31 Review of systems: No nausea No palpitations or chest pain No headache Physical exam: Mildly labored respirations on nasal cannula Alert and cogent Moderately shortened respiratory phases rales throughout and markedly diminished sound transmission Abdomen nontender nondistended new line extremities Trace pedal edema Assessment and plan: Acute on chronic respiratory failure with large pneumonia moderate right-sided pneumonia pleural effusion status post therapeutic thoracentesis -deescalated to Lasix 80 mg p.o. b.i.d. and spironolactone 25 mg p.o. b.i.d. -high-dose Solu-Medrol de-escalated to oral prednisone 40 b.i.d. -antibiotics deescalated from Zosyn and vancomycin to cefdinir and Cipro oral -no further episodes were BiPAP was needed -discussed code status patient is do not intubate do not resuscitate -continue inpatient for another 48 hours and then begin evaluation for group home -monitor daily BUN creatinine on diuresis Chronic atrial fibrillation controlled ventricular response resume anticoagulation if chest x-ray and ultrasound imaging does not show reaccumulation of pleural fluid DVT prophylaxis: Full-dose Lovenox Code status -DNR Time-Based Coding :: 55 minutes spent with patient and on the chart (including review of chart, obtaining history, exam, reviewing outside data, placing orders, documenting exam and treatment plan, and counseling patient) . Exam Vital Signs (past 8 hours): - 08/30/24 02:08 08/30/24 04:00 08/30/24 04:00 Temperature 97.0 F L Pulse Rate 69 Respiratory Rate 25 H Blood Pressure 146/66 H Pulse Oximetry 96 Oxygen Delivery Method BiPAP Fraction of Inspired Oxygen 30 30 05/20/25 06:00 Temperature Pulse Rate Respiratory Rate Blood Pressure Pulse Oximetry Oxygen Delivery Method Fraction of Inspired Oxygen 30 Fraction of Inspired Oxygen 30 SaO2/FiO2 Ratio 342 Oxygen Delivery Method BiPAP Oxygen Flow Rate 2 Objective Labs 08/29/24 09:05 08/29/24 09:05 Labs: Laboratory Results - last 24 hr 08/29/24 09:05 WBC 24.0 H RBC 2.95 L Hgb 8.5 L Hct 26.8 L MCV 90.8 MCH 28.8 MCHC 31.7 RDW 17.4 H Plt Count 475 H Neut % (Auto) 91.0 H Lymph % (Auto) 4.[address] [place] % (Auto) 4.0 Eos % (Auto) 0.0 L Baso % (Auto) 0.1 Neut # (Auto) 22135 H Lymph # (Auto) 1200 [place] # (Auto) 1000 H Eos # (Auto) 0 Baso # (Auto) 0 Sodium 138 Potassium 4.6 D Chloride 93 L Carbon Dioxide 36 H BUN 45 H Creatinine 1.48 H Estimated GFR 46 L BUN/Creatinine Ratio 30.4 H Glucose 157 H Calcium 9.1 Total Bilirubin 0.3 AST 41 ALT 43 Alkaline Phosphatase 215 H Total Protein 6.2 L Albumin 3.0 L Globulin 3.2 Albumin/Globulin Ratio 0.9 L PFSH Medical History COPD (chronic obstructive pulmonary disease) Mobitz II Hypertension Surgical History History of permanent cardiac pacemaker placement H/O abdominal surgery Social History household members: spouse Smoking Status: Former smoker alcohol intake: never Assessment & Plan Time-Based Coding :: [TOTAL MINUTES] spent with patient and on the chart (including review of chart, obtaining history, exam, reviewing outside data, placing orders, documenting exam and treatment plan, and counseling patient) on [DATE]. Quality VTE Deep Vein Thrombosis/Pulmonary Embolism Present on Admission: Yes
--- NOTE | 2024-08-30 09:30 | PT.IIE ---
Current Diagnoses Essential (primary) hypertension (08/20/24) Pneumonia, unspecified organism (08/20/24) Chronic obstructive pulmonary disease, unspecified (08/20/24) Pleural effusion, not elsewhere classified (08/20/24) Acute respiratory failure with hypoxia (08/20/24) Surgical History (Last Reviewed 08/22/24 @ 14:38 by Hayden Moraes MD) H/O abdominal surgery History of permanent cardiac pacemaker placement Medical History (Last Reviewed 08/22/24 @ 14:38 by Hayden Moraes MD) COPD (chronic obstructive pulmonary disease) Hypertension Mobitz II Physical Therapy Inpatient Evaluation/Re-Eval M1 PT/OT-IP Prior Functional Status Start: 08/29/24 10:45 Freq: NEEDED Status: Active Protocol: Document 08/30/24 09:30 AB (Rec: 08/30/24 12:55 AB [id number]) Medical Review Prior Functional Status Medical History Reviewed Yes Communication able to make needs known Mobility and Gait pt has been at [facility] for >6 months: pt stated that he has PT at [facility] but he still unable to ambulate. stated that he sits on EOB but not much standing Social History Household Members spouse Living Arrangements House Number of Stairs To Enter/Railing? pt has been at [facility] for the >6 months Home Environment Walk in Shower Home Equipment Grab Bars Near Toilet,Grab Bars In Shower M2 PT-IP Current Condition Start: 08/29/24 10:45 Freq: NEEDED Status: Active Protocol: Document 08/30/24 09:30 AB (Rec: 08/30/24 12:55 AB [id number]) Physical Therapy Current Condition Current Condition Evaluation Date 08/30/24 Treatment Diagnosis PNA; respiratory failure; generalized weakness Onset Date 08/20/24 M3 PT-IP Subjective Start: 08/29/24 10:45 Freq: NEEDED Status: Active Protocol: Document 08/30/24 09:30 AB (Rec: 08/30/24 12:55 AB [id number]) Subjective Physical Therapy Visit Type Type Initial Evaluation Visit Start Time 09:30 Visit Stop Time 10:00 Number of FEED MILL OPERATOR Visits 0 Physical Therapy Visit Comments Patient Comments agreed to do PT M4 PT-IP Mobility and Gait Start: 08/29/24 10:45 Freq: NEEDED Status: Active Protocol: Document 08/30/24 09:30 AB (Rec: 08/30/24 12:55 AB [id number]) PT-Bed Mobility Assessment Supine to Sit Supine to Sit Maximum Assistance,2 Person Assistance,Head of Bed Elevated,Bedrails Scooting Scooting to Edge of Bed Maximum Assistance PT-Transfer Assessment Comments Mobility Comments pt in bed and agreeable to do PT. obtained PLOF. pt has been at [facility] for >6 months and has been in and out of the hospital. BP: 150/68 O2 sat: 94% with O2 on. completed supine to sit max A x 2 and max cues. HOB elevated and pt used bed rail to assist. required max A x 2 for scooting to EOB. Attempted sit<>stand x 2 from EOB but pt unable to stand despite max A x 2 provided. pt sat back on EOB and wanting to just sit on EOB for ~ 30 min. refused to transfer to the chair. table set up in front of pt and call light next to pt. Left pt with nurse. PT-Balance Assessment Sitting Balance and Reactions Static Sitting Balance Ability Good Dynamic Sitting Balance Ability Good M5 PT-IP Objective Assessments Start: 08/29/24 10:45 Freq: NEEDED Status: Active Protocol: Document 08/30/24 09:30 AB (Rec: 08/30/24 12:55 AB [id number]) Orientation Orientation/Cognition Language Function Ability Hard of Hearing Safety Awareness Decreased Safety Awareness Memory Description Short Term Impaired Gross Range of Motion Lower Extremity ROM Assessment Within Functional Limits Strength Lower Extremity Strength Assessment Bilaterally Impaired Hip 3-/5 Knee 3+/5 Muscle Tone Muscle Tone WNL Yes M6 PT-IP Treatment Start: 08/29/24 10:45 Freq: NEEDED Status: Active Protocol: Document 08/30/24 09:30 AB (Rec: 08/30/24 12:55 AB [id number]) Physical Therapy Treatment Education Education Provided Safety M7 PT-IP Assessment and Plan Start: 08/29/24 10:45 Freq: NEEDED Status: Active Protocol: Document 08/30/24 09:30 AB (Rec: 08/30/24 12:55 AB [id number]) PT Summary Assessment and Plan Potential Rehabilitation Potential Fair Status of Condition at Evaluation Evolving Summary Impairments Pain,ROM,Strength,Balance, Coordination,Sensation,Tone, Cognition,Bed Mobility, Transfers,Gait,Activity Tolerance Assessment Summary pt is an 84 y/o M who his admitted for PNA/respiratory failure. pt has been in and out of the hospital and has been at [facility] for >6 months. pt requiring max A x 2 for bed mobility. attempted to stand x 2 but pt unable despite max A x 2 provided. pt will need 24/7 assist and will need SNF rehab. Goals Bed Mobility Goal Minimal Assistance Transfer Goal Moderate Assistance,Front Wheeled Walker Gait Goal Moderate Assistance,Front Wheel Walker Gait Distance 25 Days to Meet Goals 10 Frequency of Treatment Frequency Of Treatment Once a Day Treatment Plan Physical Therapy Treatment Plan Bed Mobility Training,Transfer Training,Gait Training, Therapeutic Exercise,Balance Retraining,Discharge Planning, Hot or Cold Pack,Neuromuscular Re-ed,Coordination Retraining ,Manual Therapy Precautions Other Precautions Droplet precautions Recommendations To Nursing Amount of Assist Needed Mechanical Lift Discharge Recommendations PT Discharge Recommendations SNF Rehab Transportation Needs at Discharge Wheelchair/Cabulance,Stretcher /Ambulance - PT assist 2
--- NOTE | 2024-08-30 10:26 | OT.IPNOTE ---
Per Hospitalist during rounds, hold therapy evals today as pt to dyspneic, to check on pt tomorrow.
--- NOTE | 2024-08-30 15:43 | CM.DPNOTE ---
DCP note SENIOR ECOLOGIST reviewed EMR per provider, anticipate medically stable for dc Thurs? continues to have heavily labored breathing. OT hold for today, PT=SNF. SENIOR ECOLOGIST updated Disha at , unsure how many of 100 days he has left from [place], could only be a few days? can accept him back when medically stable. SENIOR ECOLOGIST faxed clinicals to [facility] for SNF auth request, talked to Dori ([phone]) need 2nd note (either PT note or OT eval) for auth request. SENIOR ECOLOGIST will f/u with Sherman tomorrow. P: anticipate return to when medically stable/auth secured, transport plan pending (BLS vs van). will continue to follow closely for DCP coordination DRAGAN Landers
[2024-08-30] MEDS: hydrOXYzine HCL 25 MG TABLET PO (16:03)
[2024-08-30] MEDS: ENOXAPARIN 60 MG/0.6 ML SYRINGE 120 MG SUBCUT (16:03)
--- NOTE | 2024-08-30 17:20 | PC.NURSE ---
Day Shift Note Alert and oriented x4. Pt requested off bipap this morning at approx 0730 and has remained on 2L NC since with SpO2 94-97%. Desats to low 80s when on RA. Short of breath at rest but patient reports this is improved and feels ok. Crackles throughout lung buitrago. Assisting to reposition every 2 hours, up to chair this morning via mechanical lift. Erythema to coccyx is blanchable, sacral dressing applied. Dressings to abdomen are C/D/I. Heels are floated with waffle boots, heels are slightly erythemic, blanchable with intact skin. Pt reported feeling anxious this afternoon and requested medication, hydroxyone administered per emar which pt reported effective. Call light within reach, using appropriately to make needs known.
[2024-08-31] VITALS (10 sets, daily range): BP systolic 115–146; BP diastolic 60–85; PULSE 59–64; RESP 10–34; TEMP 36.4–36.7; O2SAT 91–96
[2024-08-31] MEDS: PANTOPRAZOLE DR 40 MG TABLET PO (06:19)
[2024-08-31] MEDS: ALBUTEROL 2.5 MG/3 ML NEB (ADULT) INH ×5 (07:35→23:25)
[2024-08-31] MEDS: BUDESONIDE 0.5 MG/2 ML NEB INH ×2 (07:35→19:33)
[2024-08-31] MEDS: CEFDINIR 300 MG CAPSULE PO ×2 (09:18→21:42)
[2024-08-31] MEDS: FUROSEMIDE 40 MG TABLET 80 MG PO ×2 (09:18→17:25)
[2024-08-31] MEDS: CIPROFLOXACIN 250 MG TABLET 500 MG PO ×2 (09:18→21:42)
[2024-08-31] MEDS: ENOXAPARIN 60 MG/0.6 ML SYRINGE 120 MG SUBCUT ×2 (09:19→21:42)
[2024-08-31] MEDS: OXYBUTYNIN 5 MG ER TAB 10 MG PO (09:19)
[2024-08-31] MEDS: predniSONE 20 MG TABLET 40 MG PO ×2 (09:20→21:42)
[2024-08-31] MEDS: polyethylene glycoL 3350 17 GM POWD.PACK PO (09:20)
[2024-08-31] MEDS: SPIRONOLACTONE 25 MG TABLET PO ×2 (09:20→17:25)
[2024-08-31] MEDS: hydrOXYzine HCL 25 MG TABLET PO ×2 (09:20→17:25)
[2024-08-31] MEDS: SODIUM CHLORIDE 0.9% FLUSH 10 ML IV ×2 (09:21→21:43)
--- NOTE | 2024-08-31 09:30 | PM.PN.1 ---
Subjective Subjective Interval history: History of present illness: 84 y/o resident of long-term care [facility] with PMH of oxygen-dependent COPD, on 1-2 L of oxygen, nasal BiPAP, CHF, A-fib, who was recently hospitalized with hypoxic respiratory failure, presented with progressive dyspnea that started few days ago. He was severely hypoxic in the facility and in the ED and was immidiately started on BiPAP. Images revealed b/l pleural effusions and Lt lung infiltrates. Admitted with PNA, hypoxemic respiratory failure for IV abx, oxygen, non-invasive mechanical ventilation. confirmed DNR, DNI status. Hospital course: 08/21: The patient is on BiPAP. Blood pressures are in the 80s over 50s, but he is asymptomatic with blood pressures rising when he wakes up. He denies chest pain. He notes feeling mildly short of breath. He has no pain complaints. 08/22: Did well off from BiPAP for good part of the day. Was improving. 08/23: Was more short of breath and required BiPAP for most of the day. We will become fairly quickly winded, tachypneic, and anxious. We would also desaturate. Lasix was restarted IV. 08/24: remains comfortable for very short periods of time off from BiPAP. No chest pain. No cough. Chest x-ray appears worse today. 08/25: Continuous reliance on BiPAP somewhat confused today unable to take biopsy path for even short periods chest x-ray is worse today than yesterday ultrasound of the chest reveals moderate left and small right pleural effusion Patient is DNR we will try some escalated Lasix and Solu-Medrol recheck a PT INR to see if thoracentesis is possible tomorrow 08/26: Patient underwent therapeutic and diagnostic thoracentesis 750 cc was withdrawn patient is breathing much more comfortably and was able to come off BiPAP and had a little bit of meat loaf to eat chest x-ray shows a small pleural effusion on both sides now 08/27: Patient has much less labored breathing is tolerating diet no edema of the lower extremities now BUN creatinine are slightly improved chest x-ray is improved with reduction in bilateral pleural effusions 08/28: Patient as continued labored breathing but is at about the same as yesterday tolerating diet trace edema of lower extremities Potassium 3.3 BUN creatinine 45 and 1.9 08/29: Patient continued [id number] labored breathing but is managing did not require BiPAP ultrasound yesterday shows moderate bilateral pleural effusions Deescalating from intravenous steroids and antibiotics to oral steroids and antibiotics Thoracentesis for today bilateral if possible 1. Status post right thoracentesis without a significant pneumothorax. 2. Status post right thoracentesis with interval decrease in pleural effusion, now trace. 08/30: Improved shortness of breath was able to sit on the side of the bed with physical therapy switch anticoagulation to Lovenox to facilitate potentially doing a repeat right thoracentesis 08/31 08/31: He is a little short of breath, he denies pain. No other complaints. We talked a little bit about the possibility of comfort care. Exam Vital Signs (past 8 hours): - 08/31/24 02:10 08/31/24 04:00 08/31/24 04:00 Temperature 98.0 F Pulse Rate 64 Respiratory Rate 25 H Blood Pressure 115/85 Pulse Oximetry 96 Oxygen Delivery Method Nasal Cannula Oxygen Flow Rate 2 Fraction of Inspired Oxygen 08/31/24 05:33 Temperature Pulse Rate 60 Respiratory Rate Blood Pressure Pulse Oximetry 96 Oxygen Delivery Method Nasal Cannula Oxygen Flow Rate 2 Fraction of Inspired Oxygen 28 Fraction of Inspired Oxygen 28 SaO2/FiO2 Ratio 342 Oxygen Delivery Method Nasal Cannula Oxygen Flow Rate 2 Narrative Exam Narrative: NAD, alert and oriented. Fluent speech. Lungs are clear, normal rate and effort. Diminished BS at the bases. Heart is regular, no murmur gallop or rub. Abdomen is soft, non-distended. Extremities have 2+ edema. Objective Labs 08/31/24 09:48 08/31/24 09:48 [facility] Medical History COPD (chronic obstructive pulmonary disease) Mobitz II Hypertension Surgical History History of permanent cardiac pacemaker placement H/O abdominal surgery Social History household members: spouse Smoking Status: Former smoker alcohol intake: never Assessment & Plan Assessment & Plan narrative: Acute on chronic respiratory failure with large pneumonia moderate right-sided pneumonia pleural effusion status post therapeutic thoracentesis -deescalated to Lasix 80 mg p.o. b.i.d. and spironolactone 25 mg p.o. b.i.d. -high-dose Solu-Medrol de-escalated to oral prednisone 40 b.i.d. -antibiotics deescalated from Zosyn and vancomycin to cefdinir and Cipro oral -no further episodes were BiPAP was needed -discussed code status patient is do not intubate do not resuscitate -continue inpatient for another 48 hours and then begin evaluation for fdc -monitor daily BUN creatinine on diuresis Chronic atrial fibrillation controlled ventricular response resume anticoagulation if chest x-ray and ultrasound imaging does not show reaccumulation of pleural fluid PLAN: -he really has not made much headway despite aggressive diuresis and thoracentesis. He appears to be running out of options. His had talked about the concept of what is comfort care about a week ago. She was coming in today and we will talk about possible alternatives to ongoing efforts to improve his medical situation which appear to not be working. DVT prophylaxis: Full-dose Lovenox Time-Based Coding :: [TOTAL MINUTES] spent with patient and on the chart (including review of chart, obtaining history, exam, reviewing outside data, placing orders, documenting exam and treatment plan, and counseling patient) on [DATE]. Quality VTE Deep Vein Thrombosis/Pulmonary Embolism Present on Admission: Yes
[2024-08-31 10:11] LABS: Hematocrit 26.1 % (41-53); Hemoglobin 8.4 g/dL (13.5-17.5); Mean Corpuscular HGB Conc 32.1 % (30-36); Mean Corpuscular Hemoglobin 28.9 PG (26-34); Mean Corpuscular Volume 89.8 fL (80-100); Platelet Count 483 X10^3/uL (150-400); Red Blood Cell Count 2.91 X10^6/uL (4.5-5.9); Red Cell Distribution Width 17.1 % (11.6-14.8); White Blood Cell Count 25.5 X10^3/uL (4.5-11.0)
[2024-08-31 10:18] LABS: INR 1.2 (0.9-1.3); Prothrombin Time 13.9 SECONDS (9.4-12.5)
[2024-08-31 10:22] LABS: Alanine Aminotransferase 47 IU/L (<50); Alkaline Phosphatase 199 U/L (38-126); Aspartate Aminotransferase 41 IU/L (17-59); Bilirubin Total 0.3 mg/dL (0.2-1.3); Blood Urea Nitrogen 45 mg/dL (9-20); Carbon Dioxide 39 mmol/L (22-32); Chloride 89 mmol/L (98-107); Estimated Glomerular Filt Rate 56 mL/min (>60); Glucose 145 mg/dL (70-99); HEMOLYSIS < 15 (0-50); Potassium 4.3 mmol/L (3.4-5.1); Sodium 134 mmol/L (137-145)
--- NOTE | 2024-08-31 13:35 | OT.IPNOTE ---
Pt not wanting to get up at this time and states to have a meeting with his and doctor regarding possible comfort needs.
--- NOTE | 2024-08-31 13:37 | PT-IP ANOTE ---
Patient is declining therapy treatment this afternoon due to fatigue and upcoming care conference. Physician note suggests pt being assessed for possible comfort care. Will continue to follow to determine skilled Physical Therapy goals
--- NOTE | 2024-08-31 16:10 | P.EN_ITS ---
Event Note Date Patient Seen: 08/31/24 Time Patient Seen: 16:10 Event Note (Rapid Response, Code, or fall): Level of care discussion: The patient and his were receptive to a level of care conversation. In short, they understand that his life span is limited. They also understand that his current situation does not really seem to be improving with medical measures, specifically his respiratory failure that relates primarily to a systolic heart failure. I shared that I feel it is very unlikely he will have any kind of meaningful recovery and leave the hospital without coming back and a very short time with recurrent symptoms. I also noted that without BiPAP he would have very short life span. We discussed the alternatives of hospice at correction facility versus comfort care at the hospital without BiPAP and he notes that his priorities are to be comfortable, while taking care of, and to pass in peace. He does prefer comfort care at the hospital. However, they do have to resolve a on written will and they are working on this in the next 1-2 days.
--- NOTE | 2024-08-31 17:05 | CM.DPNOTE ---
DCP note SEQUINS STRINGER reviewed EMR per Sherman at [facility], pt has no more SNF days left. would need to go to private pay for rehab. per provider in morning rounds, going to initial CC/goals of care conversation with pt and spouse today. Per Disha at , bed on hold. can accept him back. unsure if he fits in their larger wc van, may be able to dc wc van and not stretcher if so. SEQUINS STRINGER had lengthy DCP conversation in afternoon after provider met with pt/spouse re: goals of care. RN present. reviewed various options/preferences with pt and spouse. pt strongly wishes to remain treatment based until his affairs are in order with his stretcher and drier, completed by next 09/07. SEQUINS STRINGER attempted to educate on level of care/comfort care measures. Pt would prefer to remain here until passing away once switched to comfort care. pt was lead to believe once switched to comfort care he would pass quickly. NEED to clarify with medical staff anticipated timeline once switched to comfort care. if weeks, pt understands he would need to transition to lower level of care for comfort care. preference would be to pay privately at [facility] for comfort care. spouse plans to meet with nursing home social worker in room with pt tomorrow at 1330 to review timeline/goals/DCP. PLAN: pending medical POC. likely to transition to comfort care, need to clarify timeline/if once switched to CC pt would be stable for [facility] comfort at alternative facility. transport via stretcher/wc van. will continue to follow closely for DCP coordination DRAGAN Landers
[2024-08-31] MEDS: FUROSEMIDE 60 MG in SODIUM CHLORIDE 0.9% 50 ML 112 MG IV (18:29)
[2024-09-01] VITALS (7 sets, daily range): BP systolic 105–122; BP diastolic 59–60; PULSE 60–61; RESP 10–32; TEMP 36.3–36.6; O2SAT 93–96
[2024-09-01 05:08] LABS: Hematocrit 24.4 % (41-53); Mean Corpuscular HGB Conc 32.8 % (30-36); Mean Corpuscular Hemoglobin 28.9 PG (26-34); Mean Corpuscular Volume 88.2 fL (80-100); Platelet Count 439 X10^3/uL (150-400); Red Blood Cell Count 2.77 X10^6/uL (4.5-5.9); Red Cell Distribution Width 17.1 % (11.6-14.8); White Blood Cell Count 20.7 X10^3/uL (4.5-11.0)
[2024-09-01 05:20] LABS: BUN Creatinine Ratio 33.1 (6-22); Blood Urea Nitrogen 48 mg/dL (9-20); Calcium 8.8 mg/dL (8.4-10.2); Carbon Dioxide 39 mmol/L (22-32); Chloride 89 mmol/L (98-107); Estimated Glomerular Filt Rate 47 mL/min (>60); Glucose 150 mg/dL (70-99); HEMOLYSIS < 15 (0-50); Potassium 4.2 mmol/L (3.4-5.1); Sodium 133 mmol/L (137-145)
[2024-09-01] MEDS: PANTOPRAZOLE DR 40 MG TABLET PO (05:59)
[2024-09-01] MEDS: FUROSEMIDE 60 MG in SODIUM CHLORIDE 0.9% 50 ML 112 MG IV ×2 (06:00→18:25)
[2024-09-01] MEDS: CIPROFLOXACIN 250 MG TABLET 500 MG PO (06:00)
[2024-09-01] MEDS: SODIUM CHLORIDE 0.9% FLUSH 10 ML IV ×2 (06:04→21:47)
[2024-09-01] MEDS: CEFDINIR 300 MG CAPSULE PO (08:49)
[2024-09-01] MEDS: predniSONE 20 MG TABLET 40 MG PO ×2 (08:49→21:47)
[2024-09-01] MEDS: SPIRONOLACTONE 25 MG TABLET PO ×2 (08:49→18:19)
[2024-09-01] MEDS: OXYBUTYNIN 5 MG ER TAB 10 MG PO (08:49)
[2024-09-01] MEDS: ENOXAPARIN 60 MG/0.6 ML SYRINGE 120 MG SUBCUT (08:50)
[2024-09-01] MEDS: polyethylene glycoL 3350 17 GM POWD.PACK PO (08:50)
[2024-09-01] MEDS: BUDESONIDE 0.5 MG/2 ML NEB INH ×2 (09:45→19:15)
[2024-09-01] MEDS: ALBUTEROL 2.5 MG/3 ML NEB (ADULT) INH ×3 (09:46→22:06)
--- NOTE | 2024-09-01 10:23 | PT-IP ANOTE ---
Patient discussed in rounds. Care conference completed yesterday. Pt is wanting comfort care. No skilled Physical Therapy goals at this time. Will discharge Physical Therapy order.
--- NOTE | 2024-09-01 10:27 | OT.IPNOTE ---
Discharge OT eval as pt to be on comfrot care.
--- NOTE | 2024-09-01 14:39 | CM.DPNOTE ---
Addendum entered by DRAGAN Desai 09/01/24 15:23: ADD: Dr Wilburn requests this SW investigate whether patient can be on hospice services and continue to use his Bipap as needed. Dr Wilburn's goal as of 09/01 1325: Continue medical management with IV diuresis in preparation for a discharge back to [facility]Hospice. Referral initiated to [facility] this afternoon with question - Can patient remain on Bipap while receiving Hospice services? Original Note: DCP Cont Lengthy conversation in patient's room with patient, spouse and Dr Wilburn; Dr Wilburn reviewing medical plan of care. This BODY PRESS OPERATOR reviewed discharge plan options. Patient exhibits short term memory loss throughout this visit, repeats himself often. Patient remains alert and oriented and able to make own decisions. Aligned with yesterday's documentation of similar conversation ; patient verbalized today that he would like care to be withdrawn at in a few days and that he and his would like to complete their will and get our affairs in order with their traveling electrician 09/07 before care is withdrawn and patient cannot participate in this. Patient is not amenable to discharging to [facility] with Hospice care at this time, nor will he consider an alternative SNF. Medical care continues. No hospice referral at this time. Spouse not available for in person visits tomorrow 09/02. SW team following clinical course closely. DRAGAN Brown
--- NOTE | 2024-09-01 19:17 | PM.PN.1 ---
Subjective Subjective Interval history: History of present illness: 84 y/o resident of long-term care [facility] with PMH of oxygen-dependent COPD, on 1-2 L of oxygen, nasal BiPAP, CHF, A-fib, who was recently hospitalized with hypoxic respiratory failure, presented with progressive dyspnea that started few days ago. He was severely hypoxic in the facility and in the ED and was immidiately started on BiPAP. Images revealed b/l pleural effusions and Lt lung infiltrates. Admitted with PNA, hypoxemic respiratory failure for IV abx, oxygen, non-invasive mechanical ventilation. confirmed DNR, DNI status. Hospital course: 08/21: The patient is on BiPAP. Blood pressures are in the 80s over 50s, but he is asymptomatic with blood pressures rising when he wakes up. He denies chest pain. He notes feeling mildly short of breath. He has no pain complaints. 08/22: Did well off from BiPAP for good part of the day. Was improving. 08/23: Was more short of breath and required BiPAP for most of the day. We will become fairly quickly winded, tachypneic, and anxious. We would also desaturate. Lasix was restarted IV. 08/24: remains comfortable for very short periods of time off from BiPAP. No chest pain. No cough. Chest x-ray appears worse today. 08/25: Continuous reliance on BiPAP somewhat confused today unable to take biopsy path for even short periods chest x-ray is worse today than yesterday ultrasound of the chest reveals moderate left and small right pleural effusion Patient is DNR we will try some escalated Lasix and Solu-Medrol recheck a PT INR to see if thoracentesis is possible tomorrow 08/26: Patient underwent therapeutic and diagnostic thoracentesis 750 cc was withdrawn patient is breathing much more comfortably and was able to come off BiPAP and had a little bit of meat loaf to eat chest x-ray shows a small pleural effusion on both sides now 08/27: Patient has much less labored breathing is tolerating diet no edema of the lower extremities now BUN creatinine are slightly improved chest x-ray is improved with reduction in bilateral pleural effusions 08/28: Patient as continued labored breathing but is at about the same as yesterday tolerating diet trace edema of lower extremities Potassium 3.3 BUN creatinine 45 and 1.9 08/29: Patient continued [id number] labored breathing but is managing did not require BiPAP ultrasound yesterday shows moderate bilateral pleural effusions Deescalating from intravenous steroids and antibiotics to oral steroids and antibiotics Thoracentesis for today bilateral if possible 1. Status post right thoracentesis without a significant pneumothorax. 2. Status post right thoracentesis with interval decrease in pleural effusion, now trace. 08/30: Improved shortness of breath was able to sit on the side of the bed with physical therapy switch anticoagulation to Lovenox to facilitate potentially doing a repeat right thoracentesis 08/31 08/31: He is a little short of breath, he denies pain. No other complaints. We talked a little bit about the possibility of comfort care. Per attending event note later 08/31: The patient and his were receptive to a level of care conversation. In short, they understand that his life span is limited. They also understand that his current situation does not really seem to be improving with medical measures, specifically his respiratory failure that relates primarily to a systolic heart failure. I shared that I feel it is very unlikely he will have any kind of meaningful recovery and leave the hospital without coming back and a very short time with recurrent symptoms. I also noted that without BiPAP he would have very short life span. We discussed the alternatives of hospice at care home facility versus comfort care at the hospital without BiPAP and he notes that his priorities are to be comfortable, while taking care of, and to pass in peace. He does prefer comfort care at the hospital. However, they do have to resolve a on written will and they are working on this in the next 1-2 days. 09/01: Much of today was focused on clarifying patient's goals of care and coming up with a discharge plan. He has an acute on chronic heart failure and COPD exacerbation with possible PNA. He has improved with IV diuresis over the past 24 hours. He intermittently requires BIPAP but this is fairly chronic for him. He still is slightly volume overloaded and wishes to continue treatment / diuresis. We also discussed transition to pure comfort today and stopping all therapies as was noted yesterday, however the patient is not currently ready for this at this time as further discussed below. I tried initially to have the patient state his goals for his care at this time. Patient stated that after yesterday's discussion that he wants to wean off medications here in the hospital after getting his affairs in order which he related to a meeting with a aboriginal community council member schedued for next week. He expressed the desire ideally to pass away with dignity in the hospital rather than at his care home facility. This mainly comes from what the patient feels is a lack of care from staff at his chronic care home facility, along with the understanding that his chronic respiratory failure has been progressive and his cycle of recurrent admissions is likely to continue. He is tired of constantly returning to the hospital and the yo-yo ing back and forth. There are also many medical, social, and financial factors which are pulling him in different directions making it difficult to come to the best decision. However, given his improvement over the last few days with therapies including diuresis, I explained it is possible he could survive days to weeks to months depending on medications he wishes to take, willingness or not to continue bipap, etc. He does not seem to be able to narrow down which therapies he would want to continue at this time. Indicating at one point that he is agreeable to everything short of CPR and intubation, and another stating he wants to stop it all. Ultimately where we landed after multiple back and forth conversations was to continue diuresis and medical management at this time. I clarified that with continued treatment the goal would be return to [facility] and not to stop care while in the hospital, and to continue to optimize medications with the idea he live as long as possible until his next exacerbation. I believe this to be what he truly wants after our long discussion today; but there are many factors pulling him in different ways as hinted at above. I asked him to think on this further for now, regarding what he would want to do with that next exacerbation and that will help determine the most optimal path with his goals (either hospice or not). I was asked to clarify if he can continue his regular home respiratory equipment (home bipap) on hospice or not as I am not currently sure. I also reiterated that should he want to stop care and be made comfortable we can do that at any point as well. He will continue to speak with his spouse regarding this, but was in agreement for now with continuing medical therapy with the above goal of return to [facility] most likely with hospice. He does not wish to continue physical or occupational therapy as he does not believe he will be able to make meaningful progress prior to his next exacerbation. Exam Vital Signs (past 8 hours): - 09/01/24 12:00 09/01/24 12:00 09/01/24 16:00 Pulse Rate 60 Respiratory Rate 20 Pulse Oximetry 94 Oxygen Delivery Method Nasal Cannula BiPAP Nasal Cannula BiPAP Oxygen Flow Rate 2 Fraction of Inspired Oxygen 25 SaO2/FiO2 Ratio 380 Oxygen Delivery Method Nasal Cannula,BiPAP Oxygen Flow Rate 2 Narrative Exam Narrative: NAD, alert and oriented. Fluent speech. Lungs are clear, normal rate and effort. Diminished BS at the bases. Heart is regular, no murmur gallop or rub. Abdomen is soft, non-distended. Extremities have 1+ edema. Objective Labs 09/01/24 04:53 09/01/24 04:53 Labs: Laboratory Results - last 24 hr 09/01/24 04:53 WBC 20.7 H RBC 2.77 L Hgb 8.0 L Hct 24.4 L MCV 88.2 MCH 28.9 MCHC 32.8 RDW 17.1 H Plt Count 439 H Sodium 133 L Potassium 4.2 Chloride 89 L Carbon Dioxide 39 H BUN 48 H Creatinine 1.45 H Estimated GFR 47 L BUN/Creatinine Ratio 33.1 H Glucose 150 H Calcium 8.8 PFSH Medical History COPD (chronic obstructive pulmonary disease) Mobitz II Hypertension Surgical History History of permanent cardiac pacemaker placement H/O abdominal surgery Social History household members: spouse Smoking Status: Former smoker alcohol intake: never Assessment & Plan Assessment & Plan narrative: 1. COPD with exacerbation - prednisone 40 mg BID, de-escalated from solumedrol on 08/31. Wean to daily in 1-2 more days. - RT evaluation and treatment - as needed nebulizers and replacement of home inhalers with formulary nebs here. 2. Acute on chronic hypercarbic and chronic hypoxemic respiratory failure - multifactorial due to CHF, and COPD exacerbation. - Goal O2 88-92% - patient with chronic hypercapnic respiratory failure. Initially was not improving but with diuresis the last few days he appears much better this morning and afternoon. Had long goals of care as noted in subjective history. - with BiPAP, requires ICU care. 3. Acute on chronic heart failure, history of systolic heart failure now recovered as of 04/2024. - continue diuresis with furosemide IV BID for now, 60 IV BID - camacho placed for intake and output. - last TTE 50-55% 04/2024, previously 35-40% in 01/2024 (thought to be Takotsubo/stress induced at that time) with multiple valvular pathologies including aortic stenosis, mitral stenosis, and tricuspid regurg (all mild-moderate in severity). - consider repeat TTE if need additional help / information in clarification of goals of care. 4. R pneumonia, bacterial, POA - Patient currently on ciprofloxacin and cefdinir, will move towards more targeted pneumonia coverage with augmentin BID. 5. Obesity -The patient is at much higher risk for medical and surgical complications because of their obesity. This increases the difficulty and complexity of medical and surgical interventions and increases the chances of poor outcomes such as morbidity and mortality. 6. Chronic afib with anticoagulation - continue eliquis (had been on Lovenox BID but can transition back this evening). DNR, surrogate is patient's spouse Dispo: inpatient, given intermittent BiPAP requires ICU. Possible return to SNF in a couple of days pending continued goals of care discussions. DVT prophylaxis: Full-dose Lovenox, changing to apixaban Dispo: Currently goal is to continue diuresis with goal of discharge back to [facility] on Hospice, vs possible transition to comfort care. I spent 30 minutes involved in the advanced care planning of this patient in addition to the above documentation, as summarized in the subjective section above. Time-Based Coding :: [TOTAL MINUTES] spent with patient and on the chart (including review of chart, obtaining history, exam, reviewing outside data, placing orders, documenting exam and treatment plan, and counseling patient) on [DATE]. Quality VTE Deep Vein Thrombosis/Pulmonary Embolism Present on Admission: Yes
[2024-09-01] MEDS: AMOXICILLIN/CLAV 875/125 MG 1 TAB PO (21:47)
[2024-09-01] MEDS: APIXABAN 5 MG TABLET PO (21:47)
[2024-09-01] MEDS: hydrOXYzine HCL 25 MG TABLET PO (21:48)
[2024-09-02] VITALS (7 sets, daily range): BP systolic 122–131; BP diastolic 56–63; PULSE 59–66; RESP 10–24; TEMP 36.3–36.4; O2SAT 3–96
[2024-09-02 05:07] LABS: Hematocrit 25.3 % (41-53); Hemoglobin 8.1 g/dL (13.5-17.5); Mean Corpuscular HGB Conc 32.1 % (30-36); Mean Corpuscular Hemoglobin 28.6 PG (26-34); Mean Corpuscular Volume 89.2 fL (80-100); Platelet Count 439 X10^3/uL (150-400); Red Blood Cell Count 2.84 X10^6/uL (4.5-5.9); Red Cell Distribution Width 17.3 % (11.6-14.8); White Blood Cell Count 17.6 X10^3/uL (4.5-11.0)
[2024-09-02 05:15] LABS: Blood Urea Nitrogen 48 mg/dL (9-20); Calcium 8.7 mg/dL (8.4-10.2); Chloride 89 mmol/L (98-107); Estimated Glomerular Filt Rate 44 mL/min (>60); Glucose 144 mg/dL (70-99); HEMOLYSIS < 15 (0-50); Potassium 4.2 mmol/L (3.4-5.1); Sodium 134 mmol/L (137-145)
[2024-09-02 05:22] LABS: Carbon Dioxide 38 mmol/L (22-32)
[2024-09-02] MEDS: FUROSEMIDE 60 MG in SODIUM CHLORIDE 0.9% 50 ML 112 MG IV ×2 (06:09→17:23)
[2024-09-02] MEDS: SODIUM CHLORIDE 0.9% FLUSH 10 ML IV ×3 (06:09→20:55)
[2024-09-02] MEDS: PANTOPRAZOLE DR 40 MG TABLET PO (06:09)
[2024-09-02] MEDS: ALBUTEROL 2.5 MG/3 ML NEB (ADULT) INH ×3 (07:53→19:55)
[2024-09-02] MEDS: BUDESONIDE 0.5 MG/2 ML NEB INH ×2 (07:53→19:55)
[2024-09-02] MEDS: APIXABAN 5 MG TABLET PO ×2 (08:29→20:55)
[2024-09-02] MEDS: predniSONE 20 MG TABLET 40 MG PO ×2 (08:29→20:55)
[2024-09-02] MEDS: OXYBUTYNIN 5 MG ER TAB 10 MG PO (08:29)
[2024-09-02] MEDS: AMOXICILLIN/CLAV 875/125 MG 1 TAB PO ×2 (08:29→20:55)
[2024-09-02] MEDS: SPIRONOLACTONE 25 MG TABLET PO ×2 (08:31→17:24)
--- NOTE | 2024-09-02 10:00 | DIET.CONS2 ---
Dietary Inpatient Consultation Note Admission Date: 08/20/2024 23:51 RD f/u for pt skin breakdown and extended LOS. Pt to choose hospice/comfort care per GOC conversation in ~1w. Pts POs have been 100% since 08/29. Pt specific on what foods he likes and is able to communicate this to kitchen staff. Will continue liberal diet to encourage good PO intake. Diet: 08/21/24 Breakfast General (Regular) Diet Diet Modifications: Food Texture: Level 7 - Regular Liquid Consistency: Level 0 - Thin Nutrition Percent Meal Consumed 100% 09/01/24 18:00 Percent Meal Consumed 100% 08/31/24 18:00 Percent Meal Consumed 100% 08/31/24 13:09 Electronically Signed by: Erica Contreras 09/02/24 10:00 Clinical Dietitian [address] [id number]
--- NOTE | 2024-09-02 11:15 | P.PN_ITS ---
Subjective Subjective Interval history: History of present illness: 84 y/o resident of long-term care [facility] with PMH of oxygen-dependent COPD, on 1-2 L of oxygen, nasal BiPAP, CHF, A-fib, who was recently hospitalized with hypoxic respiratory failure, presented with progressive dyspnea that started few days ago. He was severely hypoxic in the facility and in the ED and was immidiately started on BiPAP. Images revealed b/l pleural effusions and Lt lung infiltrates. Admitted with PNA, hypoxemic respiratory failure for IV abx, oxygen, non- invasive mechanical ventilation. confirmed DNR, DNI status. Hospital course: 08/21: The patient is on BiPAP. Blood pressures are in the 80s over 50s, but he is asymptomatic with blood pressures rising when he wakes up. He denies chest pain. He notes feeling mildly short of breath. He has no pain complaints. 08/22: Did well off from BiPAP for good part of the day. Was improving. 08/23: Was more short of breath and required BiPAP for most of the day. We will become fairly quickly winded, tachypneic, and anxious. We would also desaturate. Lasix was restarted IV. 08/24: remains comfortable for very short periods of time off from BiPAP. No chest pain. No cough. Chest x-ray appears worse today. 08/25: Continuous reliance on BiPAP somewhat confused today unable to take biopsy path for even short periods chest x-ray is worse today than yesterday ultrasound of the chest reveals moderate left and small right pleural effusion Patient is DNR we will try some escalated Lasix and Solu-Medrol recheck a PT INR to see if thoracentesis is possible tomorrow 08/26: Patient underwent therapeutic and diagnostic thoracentesis 750 cc was withdrawn patient is breathing much more comfortably and was able to come off BiPAP and had a little bit of meat loaf to eat chest x-ray shows a small pleural effusion on both sides now 08/27: Patient has much less labored breathing is tolerating diet no edema of the lower extremities now BUN creatinine are slightly improved chest x-ray is improved with reduction in bilateral pleural effusions 08/28: Patient as continued labored breathing but is at about the same as yesterday tolerating diet trace edema of lower extremities Potassium 3.3 BUN creatinine 45 and 1.9 08/29: Patient continued [id number] labored breathing but is managing did not require BiPAP ultrasound yesterday shows moderate bilateral pleural effusions Deescalating from intravenous steroids and antibiotics to oral steroids and antibiotics Thoracentesis for today bilateral if possible 1. Status post right thoracentesis without a significant pneumothorax. 2. Status post right thoracentesis with interval decrease in pleural effusion, now trace. 08/30: Improved shortness of breath was able to sit on the side of the bed with physical therapy switch anticoagulation to Lovenox to facilitate potentially doing a repeat right thoracentesis 08/31 08/31: He is a little short of breath, he denies pain. No other complaints. We talked a little bit about the possibility of comfort care. Per attending event note later 08/31: The patient and his were receptive to a level of care conversation. In short, they understand that his life span is limited. They also understand that his current situation does not really seem to be improving with medical measures, specifically his respiratory failure that relates primarily to a systolic heart failure. I shared that I feel it is very unlikely he will have any kind of meaningful recovery and leave the hospital without coming back and a very short time with recurrent symptoms. I also noted that without BiPAP he would have very short life span. We discussed the alternatives of hospice at long term facility versus comfort care at the hospital without BiPAP and he notes that his priorities are to be comfortable, while taking care of, and to pass in peace. He does prefer comfort care at the hospital. However, they do have to resolve a on written will and they are working on this in the next 1-2 days. 09/01: Much of today was focused on clarifying patient's goals of care and coming up with a discharge plan. He has an acute on chronic heart failure and COPD exacerbation with possible PNA. He has improved with IV diuresis over the past 24 hours. He intermittently requires BIPAP but this is fairly chronic for him. He still is slightly volume overloaded and wishes to continue treatment / diuresis. We also discussed transition to pure comfort today and stopping all therapies as was noted yesterday, however the patient is not currently ready for this at this time as further discussed below. I tried initially to have the patient state his goals for his care at this time. Patient stated that after yesterday's discussion that he wants to wean off medications here in the hospital after getting his affairs in order which he related to a meeting with a production drilling machine operator schedued for next week. He expressed the desire ideally to pass away with dignity in the hospital rather than at his long term facility. This mainly comes from what the patient feels is a lack of care from staff at his chronic long term facility, along with the understanding that his chronic respiratory failure has been progressive and his cycle of recurrent admissions is likely to continue. He is tired of constantly returning to the hospital and the yo-yo ing back and forth. There are also many medical, social, and financial factors which are pulling him in different directions making it difficult to come to the best decision. However, given his improvement over the last few days with therapies including diuresis, I explained it is possible he could survive days to weeks to months depending on medications he wishes to take, willingness or not to continue bipap, etc. He does not seem to be able to narrow down which therapies he would want to continue at this time. Indicating at one point that he is agreeable to everything short of CPR and intubation, and another stating he wants to stop it all. Ultimately where we landed after multiple back and forth conversations was to continue diuresis and medical management at this time. I clarified that with continued treatment the goal would be return to [facility] and not to stop care while in the hospital, and to continue to optimize medications with the idea he live as long as possible until his next exacerbation. I believe this to be what he truly wants after our long discussion today; but there are many factors pulling him in different ways as hinted at above. I asked him to think on this further for now, regarding what he would want to do with that next exacerbation and that will help determine the most optimal path with his goals (either hospice or not). I was asked to clarify if he can continue his regular home respiratory equipment (home bipap) on hospice or not as I am not currently sure. I also reiterated that should he want to stop care and be made comfortable we can do that at any point as well. He will continue to speak with his spouse regarding this, but was in agreement for now with continuing medical therapy with the above goal of return to [facility] most likely with hospice. He does not wish to continue physical or occupational therapy as he does not believe he will be able to make meaningful progress prior to his next exacerbation. 09/02: Oscar is in agreement today with the above plan of returning to [facility] tomorrow. He is leaning more towards continued medical treatment but continues to wax and wane. Case management does state hospice to consult next week. He can continue his home bipap machine with hospice. Exam Vital Signs (past 8 hours): - 09/02/24 04:00 09/02/24 04:21 09/02/24 07:53 Temperature 97.4 F L Pulse Rate 59 L 66 Respiratory Rate 23 20 Blood Pressure 129/63 Pulse Oximetry 95 96 Oxygen Delivery Method BiPAP Nasal Cannula Oxygen Flow Rate 2 Fraction of Inspired Oxygen 25 09/02/24 08:00 Temperature Pulse Rate Respiratory Rate Blood Pressure Pulse Oximetry Oxygen Delivery Method Nasal Cannula BiPAP Oxygen Flow Rate Fraction of Inspired Oxygen Fraction of Inspired Oxygen 25 SaO2/FiO2 Ratio 384 Oxygen Delivery Method Nasal Cannula,BiPAP Oxygen Flow Rate 2 Narrative Exam Narrative: NAD, alert and oriented. Fluent speech. Lungs are clear, normal rate and effort. Diminished BS at the bases. Heart is regular, no murmur gallop or rub. Abdomen is soft, non-distended. Extremities have trace to 1+ edema. Objective Labs 09/02/24 04:30 09/02/24 04:30 Labs: Laboratory Results - last 24 hr 09/02/24 04:30 WBC 17.6 H RBC 2.84 L Hgb 8.1 L Hct 25.3 L MCV 89.2 MCH 28.6 MCHC 32.1 RDW 17.3 H Plt Count 439 H Sodium 134 L Potassium 4.2 Chloride 89 L Carbon Dioxide 38 H BUN 48 H Creatinine 1.55 H Estimated GFR 44 L BUN/Creatinine Ratio 31.0 H Glucose 144 H Calcium 8.7 PFSH Medical History COPD (chronic obstructive pulmonary disease) Mobitz II Hypertension Surgical History History of permanent cardiac pacemaker placement H/O abdominal surgery Social History household members: spouse Smoking Status: Former smoker alcohol intake: never Assessment & Plan Assessment & Plan narrative: 1. COPD with exacerbation - prednisone 40 mg BID, de-escalated from solumedrol on 08/31. Wean to daily on discharge planned for tomorrow. - RT evaluation and treatment - as needed nebulizers and replacement of home inhalers with formulary nebs here. 2. Acute on chronic hypercarbic and chronic hypoxemic respiratory failure - multifactorial due to CHF, and COPD exacerbation. - Goal O2 88-92% - patient with chronic hypercapnic respiratory failure. Initially was not improving but with diuresis the last few days he appears much better this morning and afternoon. Had long goals of care as noted in subjective history. - with BiPAP, requires ICU care. 3. Acute on chronic heart failure, history of systolic heart failure now recovered as of 04/2024. - continue diuresis with furosemide IV BID for now, 60 IV BID. He appears to be nearing euvolemia today. If euvolemic tomorrow consider slight increase in daily furosemide on discharge at 60 mg PO daily. - camacho placed for intake and output. - last TTE 50-55% 04/2024, previously 35-40% in 01/2024 (thought to be Takotsubo/stress induced at that time) with multiple valvular pathologies including aortic stenosis, mitral stenosis, and tricuspid regurg (all mild- moderate in severity). - consider repeat TTE if need additional help / information in clarification of goals of care. 4. R pneumonia, bacterial, POA - Patient currently on ciprofloxacin and cefdinir, will move towards more targeted pneumonia coverage with augmentin BID. 5. Obesity -The patient is at much higher risk for medical and surgical complications because of their obesity. This increases the difficulty and complexity of medical and surgical interventions and increases the chances of poor outcomes such as morbidity and mortality. 6. Chronic afib with anticoagulation - continue eliquis (had been on Lovenox BID but can transition back this evening). DNR, surrogate is patient's spouse Dispo: inpatient, given intermittent BiPAP requires ICU. Possible return to SNF, currently being set up for tomorrow. DVT prophylaxis: on home apixaban Dispo: Currently goal is to continue diuresis with goal of discharge back to [facility] tomorrow. He will continue as limited interventions until hospice evaluation planned for next week at [facility]. If patient continues limited interventions and elects to not continue on hospice, consider outpatient consultation with palliative care Time-Based Coding :: [TOTAL MINUTES] spent with patient and on the chart (including review of chart, obtaining history, exam, reviewing outside data, placing orders, documenting exam and treatment plan, and counseling patient) on [DATE]. Quality VTE Deep Vein Thrombosis/Pulmonary Embolism Present on Admission: Yes
--- NOTE | 2024-09-02 14:25 | CM.DPNOTE ---
DCP Cont Patient and sp would like return to ; Dr Wilburn agreeable, patient medically stable for discharge tomorrow 09/03. Discussed this case with Vee at [facility], discussed plan for return to , private pay. Vee explains that patient can use his Bipap while on hospice services. Patient has a start of care (SOC) slot being held for Wednesday 09/06. Discussed plans with Disha at ; they can accept this weekend. Placed call to Ambulance and BLS arranged for pickling tank operator at at 1100 tomorrow 09/02. Updated patient and sp who remain agreeable. Updated spouse about hospice slot held next week, sp grateful she has a few days to see how patient does back at before they officially decide on hospice services. Plan: Discharge back to [facility] [address] 09/02 (private pay) via BLS (2L O2) at 1100. Disha at updated with time. Sidra is in admissions Thursday/Thursday. No PASRR needed for return to . SW team following closely for coordination. APVEL
[2024-09-03 04:00] VITALS: BP 123/60; PULSE 60; O2SAT 97
[2024-09-03 05:28] LABS: BUN Creatinine Ratio 40.2 (6-22); Blood Urea Nitrogen 51 mg/dL (9-20); Calcium 8.5 mg/dL (8.4-10.2); Chloride 90 mmol/L (98-107); Estimated Glomerular Filt Rate 55 mL/min (>60); Glucose 159 mg/dL (70-99); HEMOLYSIS < 15 (0-50); Potassium 4.4 mmol/L (3.4-5.1); Sodium 132 mmol/L (137-145)
[2024-09-03 05:35] LABS: Carbon Dioxide 35 mmol/L (22-32)
[2024-09-03] MEDS: PANTOPRAZOLE DR 40 MG TABLET PO (05:36)
[2024-09-03] MEDS: SODIUM CHLORIDE 0.9% FLUSH 10 ML IV ×2 (05:36→08:32)
[2024-09-03] MEDS: FUROSEMIDE 60 MG in SODIUM CHLORIDE 0.9% 50 ML 112 MG IV (05:36)
[2024-09-03] MEDS: predniSONE 20 MG TABLET 40 MG PO (08:31)
[2024-09-03] MEDS: AMOXICILLIN/CLAV 875/125 MG 1 TAB PO (08:31)
[2024-09-03] MEDS: OXYBUTYNIN 5 MG ER TAB 10 MG PO (08:32)
[2024-09-03] MEDS: polyethylene glycoL 3350 17 GM POWD.PACK PO (08:32)
[2024-09-03] MEDS: APIXABAN 5 MG TABLET PO (08:32)
[2024-09-03] MEDS: SPIRONOLACTONE 25 MG TABLET PO (08:35)
[2024-09-03 09:00] VITALS: BP 159/70; PULSE 60; RESP 16; TEMP 36.3; O2SAT 98
--- NOTE | 2024-09-03 09:03 | PM.DS.1 ---
History of Present Illness History of Present Illness Chief complaint: sob Narrative: Per H&P: 84 y/o resident of long-term care facility with PMH of oxygen-dependent COPD, on 1-2 L of oxygen, nasal BiPAP, CHF, A-fib, who was recently hospitalized with hypoxic respiratory failure, presented with progressive dyspnea that started few days ago. He was severely hypoxic in the facility and in the ED and was immidiately started on BiPAP. Images revealed b/l pleural effusions and Lt lung infiltrates. Admitted with PNA, hypoxemic respiratory failure for IV abx, oxygen, non-invasive mechanical ventilation. confirmed DNR, DNI status. Discharge Providers Provider Date of admission: 08/20/24 23:51 Discharge Date: 09/03/24 Primary care physician: Kalyn Morgan PA-C Consults: 08/23/24 09:32 Consult to Occupational Therapy Evaluate & Treat Comment: Physician Instructions: Evaluate and treat Consult to Physical Therapy Evaluate & Treat Comment: Physician Instructions: Evaluate and Treat 08/29/24 10:19 Consult to Occupational Therapy Evaluate & Treat Comment: Physician Instructions: Evaluate and treat Consult to Physical Therapy Evaluate & Treat Comment: Physician Instructions: Evaluate and Treat 09/02/24 07:56 Consult to Dietitian, Adult Routine Comment: Reason For Exam: poor appetite, skin breakdown Discharge provider: Xiomara Sibley MD Summary Hospital Course Discharge Diagnosis: 1. COPD w/exacerbation 2. Acute on chronic hypercarbic and hypoxemic respiratory failure 3. Acute on chronic congestive heart failure w/pEF 4. R sided pneumonia, improved 5. Class 1 obesity 6. Chronic atrial fibrillation on eliquis anticoagulation 7. HTN 8. Hx of PPM 9. Moderate mitral stenosis on echo 05/07 Hospital Course: Pt was admitted w/acute on chronic hypoxic resp failure. He was noted to be severely hypoxic at [facility] and sent to the ED. He was intermittently bi-PAP dependent 08/21-08/25. On 08/26 he underwent a diagnostic and therapeutic thoracentesis. 700 cc of pleural fluid was removed from the R pleural space. This was culture negative.He gradually improved and was diuresed. He was successfully weaned off Bi-PAP to O2 via nasal cannula. Multiple goals of care conversations were had between the attending MD and the patient. Ultimately, he decided to continue current level of care and plans to [facility] with [facility] on 09/06[facility]24 to consider admission to hospice services. He is d/c'd in stable condition. Status at Discharge Cognitive/behavioral status at discharge: at baseline, oriented Overall status at discharge: patient is not back to baseline Time Spent with Patient Time spent: Greater than 30 minutes Exam Vital Signs (past 8 hours): - 09/03/24 04:00 09/03/24 04:00 09/03/24 08:00 Pulse Rate 60 Blood Pressure 123/60 Pulse Oximetry 97 Oxygen Delivery Method BiPAP Nasal Cannula BiPAP Fraction of Inspired Oxygen 25 SaO2/FiO2 Ratio 384 Oxygen Delivery Method Nasal Cannula,BiPAP Oxygen Flow Rate 96 Narrative Exam Narrative: GEN: Elderly male, Alert and oriented x 3, NAD HEENT:NC, Face symmetric, 2 ulcers noted on the bridge of his nose secondary to BiPAP CHEST: Respiratory excursions symmetric, coarse but CTAB in anterior lung buitrago CV: RRR, grade 3/6 systolic murmur heard best the left sternal border, no rubs or gallops ABD: Soft, obese, NT/ND, BT present in all 4 quadrants, body habitus limits exam, to Mepilex dressings which are clean, dry, and intact noted in the midline abdomen EXTR: warm, well perfused, no C/C/E, heel boots in place bilaterally SKIN: warm and dry, no rash NEURO: Alert and oriented x 3, nonfocal Objective Labs 09/02/24 04:30 09/03/24 04:40 Labs: Laboratory Results - last 24 hr 09/03/24 04:40 Sodium 132 L Potassium 4.4 Chloride 90 L Carbon Dioxide 35 H BUN 51 H Creatinine 1.27 H Estimated GFR 55 L BUN/Creatinine Ratio 40.2 H Glucose 159 H Calcium 8.5 PFSH Medical History COPD (chronic obstructive pulmonary disease) Mobitz II Hypertension Surgical History History of permanent cardiac pacemaker placement H/O abdominal surgery Social History household members: spouse Smoking Status: Former smoker alcohol intake: never Discharge Plan Discharge Plan Patient Disposition: SNF Transfer to: [facility] Under care of provider: Facility MD Provider Discharge Comment: Patient was admitted with acute on chronic respiratory failure related to COPD and congestive heart failure. He will continue on his oxygen and Trilogy ventilator per prior settings. He has an informational visit with [facility] scheduled for 09/06/24. Peoples catheter to remain in place and will need changing in 4 weeks. Mepilex dressings to be changed on 09/07 or sooner if the dressings become loose or saturated. Discharge orders & Medications Prescriptions: New albuterol sulfate 2.5 mg /3 mL (0.083 %) Solution For Nebulization 2.5 mg inhalation Q6H Qty: 180 0RF Rx Instructions: while awake and q2 hrs PRN SOB oxybutynin chloride 5 mg Tablet Extended Release 24hr 10 mg PO DAILY Qty: 30 0RF amoxicillin-pot clavulanate 875-125 mg Tablet 1 tab PO BID Qty: 10 0RF prednisone 20 mg Tablet 40 mg PO BID Qty: 27 0RF Rx Instructions: x 3 days, then 2 tabs daily x 3 days, then 1.5 tabs daily x 3 days, then 1 tab daily x 3 days, then 0.5 tabs daily x 3days, then stop spironolactone 25 mg Tablet 25 mg PO 0900,1700 Qty: 60 0RF pantoprazole 40 mg Tablet,Delayed Release (Dr/Ec) 40 mg PO 0600 Qty: 30 0RF budesonide [Pulmicort] 0.5 mg/2 mL Suspension For Nebulization 0.5 mg INH RTBID Qty: 60 0RF Continued amitriptyline 25 mg tablet 25 mg BEDTIME Daily Fiber (psyllium-aspart) 3.4 gram Powder In Packet 1 packet PO DAILY polyethylene glycol 3350 8.5 gram Powder In Packet 8.5 g PO 3XW Atrovent HFA 17 mcg/actuation HFA aerosol inhaler 2 puff INHALATION 4XD Patient Comments: [NO ORIGINAL SIG] budesonide-formoterol 160-4.5 mcg/actuation HFA aerosol inhaler 2 puff INHALATION BID Patient Comments: [NO ORIGINAL SIG] acetaminophen 325 mg Tablet 650 mg PO Q6H PRN (Reason: Fever/Mild Pain (1-3)) Qty: 3 0RF furosemide [Lasix] 40 mg tablet 40 mg PO DAILY Qty: 30 0RF allopurinol 100 mg tablet 100 mg PO DAILY Discontinued ascorbic acid (vitamin C) 1,000 mg tablet 1 gram PO BID tolterodine 4 mg capsule,extended release 24hr 4 mg PO DAILY Eliquis 5 mg Tablet 5 mg PO BID multivitamin Tablet 1 tab PO DAILY cholecalciferol (vitamin D3) [Vitamin D3] 50 mcg (2,000 unit) Tablet 50 mcg PO DAILY miscellaneous medical supply Misc 1 ea miscellaneous .nightly Qty: 1 0RF Rx Instructions: BIPAP with settings of IPAP 20, EPAP 8. Backup Rate 15. 1L O2 bleed in. Follow up/Referrals: Kalyn Morgan PA-C [Primary Care Provider] - Other Ambulatory Orders: Lactate Dehydrogenase (Stat) Timeframe: 1 Day Facility: [facility] - Location: Laboratory Ordered By: Farhad Kelley Discharge Health Status Precautions: [place] Diet/Activity/Treatments Diet: Diet as Tolerated and Regular Liquid consistency: Normal/Thin Food texture: Regular Activity: As tolerated Catheter: 2-way Peoples Oxygen: 2LPM, Trilogy ventilator per prior settings Visit Report/Discharge Packet Stand Alone Forms: Patient Portal/API Discharge Data Primary Care Provider: Kalyn Morgan Quality VTE Deep Vein Thrombosis/Pulmonary Embolism Present on Admission: Yes
[2024-09-03] MEDS: ALBUTEROL 2.5 MG/3 ML NEB (ADULT) INH (09:06)
[2024-09-03 09:07] VITALS: PULSE 60; RESP 20; O2SAT 98
[2024-09-03 09:13] VITALS: PULSE 62; RESP 22; O2SAT 98
[2024-09-03] MEDS: BUDESONIDE 0.5 MG/2 ML NEB INH (09:13)
--- NOTE | 2024-09-03 10:26 | CM.DPC ---
DCP Discharge SNF Per MD, pt remains medically stable to d/c to SNF today with ongoing f/u with [facility] after discharge and d/c packet completed. SW confirmed with [facility] they can still accept today and faxed and secure emailed [place] d/c summary, signed med list, MD orders, no scripts needed and no PASRR needed since pt is a return patient. SW confirmed [facility] scheduled to p/u patient today at 1100 for [facility] and BLS form previously completed and facesheet and POLST attached and placed on red chart and updated RN and provided number to call report and updated collar baster jumpbasting and AUTOMOBILE LOCATOR. Faxed d/c summary to [facility] and [place] for review and [facility] keeping 09/06/24 held for patient and will follow up with them after discharge. Plan: Patient to d/c to [facility] today via [facility] for PP SNF care and likely transition to Hospice on 09/06 for SOC. Namrata Garcia MSW
--- NOTE | 2024-09-16 10:42 | PC.NURSE ---
late entry- per RN the 08/20 2144 dose of Vancomycin was completed at ~ 2345
== END 2024-09-03 11:15 | DRG 291 ==
LOC: ED 22:42 → AC 23:52 → ICU 08-21 00:05
PROVIDERS: Hospitalist; Internal Medicine; Pharmacist Pharmacist Clinician (PhC)/ Clinical Pharmacy Specialist; Admitting Provider Internal Medicine; Emergency Provider Emergency Medicine; Family Provider Family Medicine; PCP Physician Assistant; Referring Provider Emergency Medicine; Visit Provider Internal Medicine
DX: I11.0 Hypertensive heart disease with heart failure (principal); I50.23 Acute on chronic systolic (congestive) heart failure; J15.9 Unspecified bacterial pneumonia; J96.22 Acute and chronic respiratory failure with hypercapnia; J96.21 Acute and chronic respiratory failure with hypoxia; I48.20 Chronic atrial fibrillation, unspecified; J44.1 Chronic obstructive pulmonary disease with (acute) exacerbation; J44.0 Chronic obstructive pulmonary disease with (acute) lower respiratory infection; I05.0 Rheumatic mitral stenosis; E66.811 Obesity, class 1; Z99.81 Dependence on supplemental oxygen; Z66 Do not resuscitate; Z87.891 Personal history of nicotine dependence; Z79.01 Long term (current) use of anticoagulants; Z68.34 Body mass index [BMI] 34.0-34.9, adult; Z95.0 Presence of cardiac pacemaker
CPT/HCPCS: 0241U; 32555; 36415; 36600; 71045; 71250; 76604; 80048; 80053; 80202; 82550; 82805; 83605; 83690; 83735; 83880; 84484; 85007; 85025; 85027; 85610; 85730; 87040; 87070; 87075; 87077; 87154; 87185; 87205; 87797; 89051; 93005; 93010; 94640; 94660; 94762; 96365; 96367; 96368; 96375; 97163; 97530; 99285; 99291; A9270; J1644; J1650; J1938; J2270; J2470; J2543; J2919; J3430; J3475; J7613